=== PATIENT | female | born 1970 | race Caucasian/White ===

== ENCOUNTER → 2017-10-31 | Outpatient (CLI) | payer BC ==
[~2017-10-31] MED LIST: ASPI-789 PO; AZTH250C PO; BUDE6HFA IH; CALC-656 PO; CFR250T PO; ESTR0.5T PO; ESTR1TAB24 PO; HYDR1TAB PO; KETO-22 PO; LORA10TA7 PO; METF1000 PO; MTF500T PO; NS.65NA45; OMG1KC PO; OSLT75CRX PO; SPIR25TA3 PO; SULF-222 PO; TRAM50TA2 PO; VITA1CAP59 PO; albuterol inhaler IH; albuterol nebulizer IH
--- NOTE | 2017-11-01 09:49 | Diagnostic Imaging Report ---
Bilateral screening mammogram 2D views with tomosynthesis The current study was also evaluated with a Computer Aided Detection (CAD) system. Indication: Screening. No current complaints stated on the questionnaire. COMPARISON: 09/05/2016. Findings: The breasts are composed of scattered fibroglandular densities. Circumscribed nodule in the upper-outer aspect of the right breast is again noted without change likely an intramammary lymph node. Occasional benign-appearing calcifications are seen. Allowing for technique and positional differences, no suspicious change is seen. IMPRESSION: No significant change. ACR BI-RADS Category 2: Benign findings. Result letter will be mailed to the patient. Note: At least 10% of breast cancer is not imaged by mammography. Dictated by: Dictated on workstation # [id number]
== END ==
LOC: RAD 10:05
PROVIDERS: ATTEND Nurse Practitioner Community Health
DX: Z12.31 Encounter for screening mammogram for malignant neoplasm of breast (principal)
CPT/HCPCS: 77067

== ENCOUNTER 2018-04-21 00:25 | Emergency (ER) | payer BC ==
[~2018-04-21] VITALS: Ht 160 cm; Wt 90.7 kg
[~2018-04-21 00:25] MED LIST changes: -METF1000 PO; +METF10002 PO
[2018-04-21 00:30] VITALS: BP 141/89
[2018-04-21] MEDS ORDERED: CYCL10TA9 PO (00:50)
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
--- NOTE | 2018-04-21 06:46 | Diagnostic Imaging Report ---
INDICATION: Injury to the spine with pain in the T10-T12 region. TECHNIQUE: 3 views of the thoracic spine. COMPARISON: Chest x-ray from 02/01/2012 FINDINGS: The vertebral body heights are generally preserved. No acute fracture is seen. There are mild multilevel degenerative changes throughout the thoracic spine, most pronounced at T9-T10 and T10-T11. Cholecystectomy clips are noted. IMPRESSION: Mild degenerative changes in the thoracic spine with no acute osseous abnormality seen. Dictated by: Dictated on workstation # [id number]
== END 2018-04-21 01:38 | disposition home or self-care (01) ==
LOC: EDUNIT# 00:25 → ER 00:27
DX: M54.6 Pain in thoracic spine (principal); J45.909 Unspecified asthma, uncomplicated; I10 Essential (primary) hypertension; E11.9 Type 2 diabetes mellitus without complications; Z87.19 Personal history of other diseases of the digestive system; Z87.448 Personal history of other diseases of urinary system; Z88.0 Allergy status to penicillin; Z88.1 Allergy status to other antibiotic agents; Z88.5 Allergy status to narcotic agent; Z88.8 Allergy status to other drugs, medicaments and biological substances; Z79.84 Long term (current) use of oral hypoglycemic drugs; Z90.710 Acquired absence of both cervix and uterus; Z87.59 Personal history of other complications of pregnancy, childbirth and the puerperium; Y04.8XXA Assault by other bodily force, initial encounter
CPT/HCPCS: 72070; 99281

== ENCOUNTER 2018-05-26 20:32 | Emergency (ER) | payer BC ==
[~2018-05-26] VITALS: Ht 160 cm; Wt 90.7 kg
[~2018-05-26 20:32] MED LIST changes: +CYCL10TA9 PO; +SPIR25TA5 PO
--- OUTSIDE RECORDS SUMMARY | 2018-05-26 20:37 | XMS REPORT ---
Author Author SANDRO KITCHEN Organization [facility] Address [address] [place] [address] Care Team Providers Care Structural Rigger Name Role Phone SANDRO KITCHEN Unavailable PROBLEMS Type Condition ICD9-CM Code FSA02-SM Code Onset Dates Condition Status SNOMED Code Problem Low back pain M54.5 Active 397463414 Problem Other chronic pain G89.29 Active 14616793 Problem Memory loss R41.3 Active 28392150 Problem Dysmetabolic syndrome E88.81 Active 739263018 Problem Mild intermittent asthma without complication J45.20 Active 155113931 Problem Hypertension I10 Active 67842743 Problem Diabetes mellitus type 2, uncomplicated E11.9 Active 60639310 ALLERGIES No Information ENCOUNTERS Encounter Location Date Diagnosis [place] [id number] [place] [address] 80238- 0915 Jan, Diabetes mellitus type 2, uncomplicated E11.9 [place] [id number] [place] [address] 91578- 8876 Jan, Diabetes mellitus type 2, uncomplicated E11.9 [facility] [id number] [place] [address] 17837- 2338 Jan, [facility] [id number] [place] [address] 80509- 6811 Jan, Cognitive complaints R41.9 [facility] [id number] [place] [address] 01949- 8207 Dec, Symptomatic abdominal apron E65 [place] [id number] [place] [address] 98833- 1765 Dec, Cognitive complaints R41.9 [facility] [id number] [place] [address] 99828- 8082 Nov, Symptomatic abdominal apron E65 and Diabetes mellitus type 2 , uncomplicated E11.9 [facility] [id number] [place] [address] 42633- 7671 Oct, Symptomatic abdominal apron E65 [facility] [id number] [place] [address] 28083- 3691 Oct, Breast screening Z12.39 [facility] [address] 68281- 2401 Sep, Other chronic pain G89.29 ; Pain in left shoulder M25.512 and Dysfunction of both eustachian tubes H69.83 [place] [address] 38581- 3820 Sep, Cognitive complaints R41.9 [place] [address] 59767- 2258 Aug, [facility] [address] 68534- 2374 Aug, Muscle strain of left shoulder, initial encounter S46.912A [facility] [id number] [place] [address] 07312- 6588 Jul, [place] [address] 59869- 9051 Jul, Memory loss R41.3 and Paternal family history of dementia Z82.0 [facility] [id number] [place] [address] 09177- 6407 Apr, Diabetes mellitus type 2, uncomplicated E11.9 and Hypertension I10 [facility] [id number] [place] [address] 00357- 5925 Feb, Symptomatic abdominal apron E65 [facility] [id number] [place] [address] 13956 -6341 Nov, Muscle strain of left shoulder, initial encounter S46.912A [facility] [address] 21737- 3498 Oct, Encounter for immunization Z23 [facility] [address] [place] [address] 93591 -8675 Oct, Plantar fasciitis M72.2 [facility] [id number] [place] [address] 31257- 6426 Sep, [facility] [id number] [place] [address] 55472- 2998 Aug, Breast screening Z12.39 and Acute costochondritis M94.0 [facility] [id number] [place] [address] 65041- 9360 Aug, [facility] [id number] [place] [address] 90852- 5862 Aug, [facility] [id number] [place] [address] 31545- 6860 Jul, Symptomatic abdominal apron E65 and 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 [facility] [id number] [place] [address] 96182- 6128 Apr, [facility] [id number] [place] [address] 92545 -6489 Apr, Right acute otitis media H66.91 [facility] [id number] [place] [address] [id number] Jan, Dental caries K02.9 [facility] [id number] [place] [address] 99538- 7499 Dec, Dysmetabolic syndrome E88.81 [facility] [id number] [place] [address] 18193- 8706 Dec, [facility] [id number] [place] [address] 89298- 6462 Nov, Dysmetabolic syndrome E88.81 [facility] [id number] [place] [address] 81281- 8770 Oct, [facility] [id number] [address] Oct, Dental examination Z01.20 [facility] [address] [id number], [place] [address]- 6755 Sep, [facility] [address] [address]- 8202 Sep, Low back pain M54.5 and Sciatica, unspecified side M54.30 [facility] [address] [id number], [place] [address]- 6852 Feb, [facility] [address] [id number] [place] [address] 72366- 7898 Feb, [facility] [address] [facility] [id number], [place] [address]- 4401 Dec, [facility] [address] [place] [address] 31628- 0018 Dec, [facility] [address], [place] [address]- 0461 Nov, [facility] [address] [address]- 6532 Nov, [facility] [address] [address]- 6714 Nov, [facility] [address] [address]- 1280 Aug, [facility] [address] [facility] [id number], [place] [address]- 5896 Aug, [facility] [address] [address]- 7518 Aug, [facility] [address] [facility] [id number], [place] [address]- 6748 Aug, [facility] [address] 6472 Aug, [facility] [place] [facility] [address] [id number] [place] [address]- 2599 Aug, [facility] [place] [facility] [address] [id number] [place] [address]- 5577 Aug, [facility] [place] [facility] [address] [id number] [place] [address]- 4410 Aug, [facility] [place] [facility] [address] [id number] [place] [address]- 9037 Jul, [facility] [place] [facility] [address] [id number] [place] 8771 Jul, [facility] [place] [facility] [address] [id number] [place] [address]- 7328 Jun, [facility] [place] [facility] [address] [id number] [place] [address]- 3203 Jun, [facility] [place] [facility] [address] [id number] [place] [address]- 7483 Jun, [facility] [place] [facility] [address] [id number] [place] [address]- 8503 Jun, [facility] [place] [facility] [address] [id number] [place] [address]- 3773 May, [facility] [place] [facility] [address] [id number] [place] [address]- 2044 May, [facility] [place] [facility] [address] [id number], [place] [address]- 6633 Apr, [facility] [place] [facility] [address] [id number] [place] [address]- 0400 Apr, [facility] [place] [facility] [address] [id number] [place] [address]- 7440 Apr, [facility] [place] [facility] [address] [id number] [place] [address]- 3241 Apr, [facility] [place] [facility] [address] [id number] [place] [address]- 2783 Apr, [facility] [place] [facility] [address] [id number] [place] [address]- 8415 Apr, [facility] [place] [facility] [address] [id number] [place] [address]- 2155 March, [facility] [place] [facility] [address] [id number] [place] [address]- 2466 March, [facility] [place] [facility] [address] [id number] [place] [address]- 9589 March, [facility] [place] [facility] [address] [id number] [place] [address]- 2497 March, [facility] [place] [facility] [address] [id number] [place] [address]- 0984 March, [facility] [place] [facility] [address] [id number] [place] [address]- 8043 March, [facility] [place] [facility] [address] [id number] [place] [address]- 2287 Dec, [facility] [place] [facility] [address] [id number] [place] [address]- 1846 Dec, [facility] [place] [facility] [address] [id number] [place] [address]- 3273 Dec, [facility] [place] [facility] [address] [id number] [place] [address]- 1822 Dec, [facility] [place] [facility] [address] [id number] [place] [address]- 5946 Nov, [facility] [place] [facility] [address] [id number] [place] [address]- 0212 Nov, [facility] [place] [facility] [address] [id number] [place] [address]- 6346 Aug, [facility] [place] [facility] [address] [id number] [place] [address]- 2679 Jun, [facility] [place] [facility] [address] [id number] [place] [address]- 8039 Jun, [facility] [address] [id number] [place] [address]- 8410 May, [facility] [place] [facility] [address] [id number] [place] [address]- 7274 May, [facility] [address] [id number] [place] [address]- 6710 May, [facility] [address] [id number] [place] [address]- 7973 May, [facility] [place] [facility] [address] [id number] [place] [address]- 4520 Apr, [facility] [address] [id number] [place] [address]- 3927 Apr, [facility] [address] [id number] [place] [address]- 2085 March, [facility] [address] [id number] [place] [address]- 4092 Jan, [facility] [address] [id number] [place] [address]- 1357 Dec, [facility] [address] [id number] [place] [address]- 3534 Dec, [facility] [address] [id number] [place] [address]- 8757 Nov, [facility] [place] [facility] [address] [id number] [place] [address]- 8874 Nov, [facility] [place] [facility] [address] [id number] [place] [address]- 3049 Oct, [facility] [place] [facility] [address] [id number] [place] [address]- 1045 Oct, [facility] [place] [facility] [address] [id number] [place] [address]- 4862 17 Oct, 2012 [facility] [place] [facility] [address] [id number] [place] 4166 17 Oct, 2012 [facility] [place] [facility] [address] [id number] [place] [address]- 9626 Oct, [facility] [place] [facility] [address] [id number] [place] [address]- 7806 Oct, [facility] [place] [facility] [address] [id number] [place] [address]- 3403 Oct, [facility] [place] [facility] [address] [id number] [place] 5557 Oct, [facility] [place] [facility] [address] [id number] [place] [address]- 9098 Aug, [facility] [place] [facility] [address] [id number] [place] [address]- 2732 Aug, [facility] [place] [facility] [address] [id number] [place] [address]- 8907 Aug, [facility] [place] [facility] [address] [id number] [place] [address]- 4095 Aug, [facility] [place] [facility] [address] [id number] [place] [address]- 4048 Jul, [facility] [place] [facility] [address] [id number], [place] [address]- 2994 Jul, [facility] [place] [facility] [address] [id number], [place] [address]- 3818 Apr, [facility] [place] [facility] [address] [id number] [place] [address]- 8781 Apr, [facility] [place] [facility] [address] [id number] [place] [address]- 0138 Apr, [facility] [place] [facility] [address] [id number] [place] [address]- 6760 March, [facility] [place] [facility] [address] [id number] [place] [address]- 7366 17 Mar, 2012 [facility] [address] [id number] [place] [address]- 8066 March, [facility] [address] [id number] [place] [address]- 9296 23 Feb, 2012 [facility] [address] [id number] [place] [address]- 3056 Feb, [facility] [address] [id number] [place] [address]- 2916 16 Feb, 2012 [facility] [address] [id number] [place] [address]- 5498 Feb, [facility] [address] [id number] [place] [address]- 1300 29 Jan, 2012 [facility] [address] [id number] [place] [address]- 1422 Jan, [facility] [address] [id number] [place] [address]- 1009 Jan, [facility] [address] [id number] [place] [address]- 9135 17 Jan, 2012 [facility] [address] [id number] [place] [address]- 3724 Jan, [facility] [address] [id number] [place] [address]- 3916 Jan, [facility] [address] [id number] [place] [address]- 0016 Jan, [facility] [place] [facility] [address] [id number] [place] [address]- 3346 Dec, [facility] [place] [facility] [address] [id number] [place] [address]- 2546 Dec, [facility] [address] [id number] [place] [address]- 9706 Dec, [facility] [id number], [place] [address]- 2546 Dec, [facility] [address], [place] [address]- 2546 Nov, [facility] [address], [place] [address]- 2546 Nov, [facility] [address], [place] [address]- 2546 Oct, [facility] [address], [place] [address]- 2546 Oct, [facility] [address], [place] [address]- 2546 Oct, [facility] [address], [place] [address] 2546 Feb, [facility] [address], [place] [address]- 2546 Dec, [facility] [address], [place] [address]- 9036 Dec, [facility] [id number], [place] [address]- 3596 Jun, IMMUNIZATIONS No Known Immunizations SOCIAL HISTORY Never Assessed REASON FOR VISIT Memory impairment. PLAN OF CARE Activity Details Follow Up prn Reason: VITAL SIGNS MEDICATIONS Unknown Medications RESULTS No Results PROCEDURES No Known procedures INSTRUCTIONS MEDICATIONS ADMINISTERED No Known Medications MEDICAL (GENERAL) HISTORY Type Description Date Medical History hypertension Medical History pre-diabetic Medical History heart murmur Medical History asthma Medical History diverticulitis Surgical History x 2 1997/2001 Surgical History cystectomy Surgical History hysterectomy 2007 Surgical History cholecystectomy 2007 Surgical History right hand carpal tunnel Surgical History sinus surgery Surgical History colonoscopy 2016 Hospitalization History surgeries Hospitalization History diverticulitis 2016
--- OUTSIDE RECORDS SUMMARY | 2018-05-26 20:37 | XMS REPORT ---
Author Author SANDRO KITCHEN Organization [facility] Address [address] [place] [address] Care Team Providers Care Drier Name Role Phone SANDRO KITCHEN Unavailable PROBLEMS Type Condition ICD9-CM Code TNX31-CP Code Onset Dates Condition Status SNOMED Code Problem Low back pain M54.5 Active 724079870 Problem Other chronic pain G89.29 Active 08310532 Problem Memory loss R41.3 Active 66807636 Problem Dysmetabolic syndrome E88.81 Active 924426631 Problem Mild intermittent asthma without complication J45.20 Active 701313543 Problem Hypertension I10 Active 75643069 Problem Diabetes mellitus type 2, uncomplicated E11.9 Active 99090101 ALLERGIES No Information ENCOUNTERS Encounter Location Date Diagnosis [place] [id number] [place] [address] 61569- 8162 May, [facility] [address] 7[address]- 8254 Jan, Diabetes mellitus type 2, uncomplicated E11.9 [facility] [id number] [place] [address] 24362- 6208 Jan, Diabetes mellitus type 2, uncomplicated E11.9 [facility] [id number] [place] [address] 89141- 0684 Jan, [facility] [id number] [place] [address] 99814- 9344 Jan, Cognitive complaints R41.9 [facility] [id number] [place] [address] 35682- 5013 Dec, Symptomatic abdominal apron E65 [facility] [id number] [place] [address] 99128- 6053 Dec, Cognitive complaints R41.9 [place] [id number] [place] [address] 18637- 0689 Nov, Symptomatic abdominal apron E65 and Diabetes mellitus type 2 , uncomplicated E11.9 [place] [id number] [place] [address] 47610- 2291 Oct, Symptomatic abdominal apron E65 [place] [id number] [place] [address] 29805- 2620 Oct, Breast screening Z12.39 [place] [address] 95392- 5873 Sep, Other chronic pain G89.29 ; Pain in left shoulder M25.512 and Dysfunction of both eustachian tubes H69.83 [place] [id number] [place] [address] 78659- 6812 Sep, Cognitive complaints R41.9 [place] [address] 02001- 2856 Aug, [place] [id number] [place] [address] 61826- 5936 Aug, Muscle strain of left shoulder, initial encounter S46.912A [place] [id number] [place] [address] 71217- 0525 Jul, [place] [id number] [place] [address] 04492- 3082 Jul, Memory loss R41.3 and Paternal family history of dementia Z82.0 [place] [id number] [place] [address] 06544- 1804 Apr, Diabetes mellitus type 2, uncomplicated E11.9 and Hypertension I10 [place] [id number] [place] [address] 09020- 7791 Feb, Symptomatic abdominal apron E65 [facility] [id number] [place] [address] 29480 -2417 Nov, Muscle strain of left shoulder, initial encounter S46.912A [facility] [id number] [place] [address] 26081- 1144 Oct, Encounter for immunization Z23 [facility] [id number] [place] [address] 79413 -3762 Oct, Plantar fasciitis M72.2 [facility] [id number] [place] [address] 43525- 6207 Sep, [facility] [id number] [place] [address] 00446- 5405 Aug, Breast screening Z12.39 and Acute costochondritis M94.0 [facility] [id number] [place] [address] 35577- 0302 Aug, [facility] [id number] [place] [address] 58591- 1852 Aug, [facility] [address] 58284- 5322 Jul, Symptomatic abdominal apron E65 and 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 [facility] [id number] [place] [address] 77233- 7451 Apr, [facility] [id number] [place] [address] 08799 -9863 Apr, Right acute otitis media H66.91 [facility] [id number] [place] [address] [id number] Jan, Dental caries K02.9 [facility] [id number] [place] [address] 55170- 6832 Dec, Dysmetabolic syndrome E88.81 [facility] [id number] [place] [address] 45270- 9922 Dec, [facility] [id number] [place] [address] 68568- 3985 Nov, Dysmetabolic syndrome E88.81 [facility] [address] [address]- 0842 Oct, [facility] [address] [id number] Oct, Dental examination Z01.20 [facility] [address] [address]- 8779 Sep, [facility] [id number] [place] [address] 21111- 6587 Sep, Low back pain M54.5 and Sciatica, unspecified side M54.30 [facility] [id number] [place] [address] 25600- 6248 Feb, [facility] [id number] [place] [address] 15199- 9328 Feb, [facility] [id number] [place] [address] 01271- 1155 Dec, [facility] [address] [address]- 2540 Dec, [facility] [id number] [place] [address] 01089- 7447 Nov, [facility] [address] [address]- 8549 Nov, [facility] [address], [place] [address]- 9527 Nov, [facility] [address] [address]- 9433 Aug, [facility] [id number] [place] [address] 375403- 3528 Aug, [facility] [address] [address]- 0573 Aug, [facility] [address] [address]- 1778 Aug, [facility] [place] [facility] [address] [id number] [place] [address]- 0710 Aug, [facility] [place] [facility] [address] [id number] [place] [address]- 5107 Aug, [facility] [place] [facility] [address] [id number] [place] 6544 Aug, [facility] [place] [facility] [address] [id number] [place] [address]- 0312 Aug, [facility] [place] [facility] [address] [id number] [place] [address]- 8262 Jul, [facility] [place] [facility] [address] [id number] [place] [address]- 6577 Jul, [facility] [place] [facility] [address] [id number] [place] [address]- 6759 Jun, [facility] [place] [facility] [address] [id number] [place] [address]- 2556 Jun, [facility] [place] [facility] [address] [id number] [place] [address]- 5753 Jun, [facility] [place] [facility] [address] [id number] [place] [address]- 6749 Jun, [facility] [place] [facility] [address] [id number] [place] [address]- 5467 May, [facility] [place] [facility] [address] [id number], [place] [address]- 6040 May, [facility] [place] [facility] [address] [id number] [place] [address]- 9748 Apr, [facility] [place] [facility] [address] [id number] [place] [address]- 4113 Apr, [facility] [place] [facility] [address] [id number] [place] [address]- 4018 Apr, [facility] [place] [facility] [address] [id number], [place] [address]- 4618 Apr, [facility] [place] [facility] [address] [id number] [place] [address]- 0979 Apr, [facility] [place] [facility] [address] [id number] [place] [address]- 7386 Apr, [facility] [place] [facility] [address] [id number] [place] [address]- 2391 March, [facility] [place] [facility] [address] [id number] [place] [address]- 9070 March, [facility] [place] [facility] [address] [id number] [place] [address]- 8305 March, [facility] [place] [facility] [address] [id number] [place] [address]- 0353 March, [facility] [place] [facility] [address] [facility] [id number] [place] [address]- 3104 March, [facility] [place] [facility] [address] [id number] [place] [address]- 0919 March, [facility] [place] [facility] [address] [id number] [place] [address]- 7509 Dec, [facility] [place] [facility] [address] [id number] [place] [address]- 8908 Dec, [facility] [place] [facility] [address] [id number] [place] [address]- 4014 Dec, [facility] [place] [facility] [address] [id number] [place] [address]- 0928 Dec, [facility] [place] [facility] [address] [id number] [place] [address]- 7655 Nov, [facility] [place] [facility] [address] [id number] [place] [address]- 5506 Nov, [facility] [place] [facility] [address] [id number] [place] [address]- 7357 Aug, [facility] [place] [facility] [address] [id number] [place] [address]- 0806 Jun, [facility] [address] [id number] [place] [address]- 4615 Jun, [facility] [place] [facility] [address] [id number] [place] [address]- 7466 May, [facility] [address] [id number] [place] [address]- 7881 May, [facility] [address] [id number] [place] [address]- 0530 May, [facility] [address] [id number] [place] [address]- 2217 May, [facility] [address] [id number] [place] [address]- 0840 Apr, [facility] [address] [id number] [place] [address]- 0403 Apr, [facility] [address] [id number] [place] [address]- 7085 March, [facility] [address] [id number] [place] [address]- 0716 Jan, [facility] [address] [id number] [place] [address]- 7707 Dec, [facility] [address] [id number] [place] [address]- 6740 Dec, [facility] [place] [facility] [address] [id number] [place] [address]- 2289 Nov, [facility] [place] [facility] [address] [id number] [place] [address]- 2119 Nov, [facility] [place] [facility] [address] [id number] [place] [address]- 6410 Oct, [facility] [address] [id number], [place] [address]- 7517 Oct, [facility] [place] [facility] [address] [id number] [place] [address]- 3616 Oct, [facility] [place] [facility] [address] [id number] [place] [address]- 0966 Oct, [facility] [place] [facility] [address] [id number] [place] [address]- 4966 Oct, [facility] [place] [facility] [address] [id number] [place] [address]- 0773 Oct, [facility] [place] [facility] [address] [id number] [place] 5674 Oct, [facility] [place] [facility] [address] [id number] [place] [address]- 7080 Oct, [facility] [place] [facility] [address] [id number] [place] [address]- 3818 Aug, [facility] [place] [facility] [address] [id number] [place] [address]- 4720 Aug, [facility] [place] [facility] [address] [id number] [place] [address]- 2736 Aug, [facility] [place] [facility] [address] [id number] [place] [address]- 2031 Aug, [facility] [place] [facility] [address] [id number], [place] [address]- 5088 Jul, [facility] [place] [facility] [address] [id number], [place] [address]- 9989 Jul, [facility] [place] [facility] [address] [id number] [place] [address]- 1309 Apr, [facility] [place] [facility] [address] [id number] [place] [address]- 2541 Apr, [facility] [place] [facility] [address] [id number] [place] [address]- 6710 Apr, [facility] [place] [facility] [address] [id number] [place] [address] 2546 18 Mar, 2012 [facility] [address] [id number] [place] [address]- 4916 March, [facility] [address] [id number] [place] [address]- 2546 March, [facility] [address] [id number] [place] [address]- 2696 Feb, [facility] [address] [id number] [place] [address]- 6006 Feb, [facility] [address] [id number] [place] [address]- 3336 16 Feb, 2012 [facility] [address] [id number] [place] [address]- 1986 Feb, [facility] [address] [id number] [place] [address]- 2536 29 Jan, 2012 [facility] [address] [id number] [place] [address]- 9806 Jan, [facility] [address] [id number] [place] [address]- 3196 Jan, [facility] [address] [id number] [place] [address]- 7126 17 Jan, 2012 [facility] [address] [id number] [place] [address]- 2546 Jan, [facility] [address] [id number] [place] [address]- 2546 Jan, [facility] [place] [facility] [address] [id number] [place] [address]- 2546 Jan, [facility] [address] [id number] [place] [address]- 2546 Dec, [facility] [address] [id number] [place] [address]- 7156 Dec, [facility] [id number] [address]- 6429 Dec, [facility] [address], [place] [address]- 8106 Dec, [facility] [address], [place] [address]- 0026 Nov, [facility] [address], [place] [address]- 0091 Nov, [facility] [address], [place] [address]- 3663 Oct, [facility] [address], [place] [address]- 2692 Oct, [facility] [address], [place] [address]- 4141 Oct, [facility] [address], [place] [address]- 6688 Feb, [facility] [address], [place] [address]- 5035 Dec, [facility] [address], [place] [address]- 4920 Dec, [facility] [id number], [place] [address]- 7488 Jun, IMMUNIZATIONS No Known Immunizations SOCIAL HISTORY Never Assessed REASON FOR VISIT f/u PLAN OF CARE Activity Details Follow Up prn Reason: VITAL SIGNS MEDICATIONS Unknown Medications RESULTS No Results PROCEDURES Procedure Date Ordered Result Body Site Psychotherapy, patient &/family, 30 minutes, established patient January 16, 2018 INSTRUCTIONS MEDICATIONS ADMINISTERED No Known Medications MEDICAL (GENERAL) HISTORY Type Description Date Medical History hypertension Medical History pre-diabetic Medical History heart murmur Medical History asthma Medical History diverticulitis Surgical History x 2 Surgical History cystectomy Surgical History hysterectomy 2007 Surgical History cholecystectomy 2007 Surgical History right hand carpal tunnel Surgical History sinus surgery Surgical History colonoscopy 2016 Hospitalization History surgeries Hospitalization History diverticulitis 2016
--- OUTSIDE RECORDS SUMMARY | 2018-05-26 20:37 | XMS REPORT ---
Author Author LANA NOYOLA Organization [facility] Address [address] [place] [address] Care Team Providers Care Retail Route Supervisor Name Role Phone LANA NOYOLA Unavailable PROBLEMS Type Condition ICD9-CM Code QQF18-AR Code Onset Dates Condition Status SNOMED Code Problem Low back pain M54.5 Active 919137546 Problem Other chronic pain G89.29 Active 30083955 Problem Memory loss R41.3 Active 71572025 Problem Dysmetabolic syndrome E88.81 Active 359270299 Problem Mild intermittent asthma without complication J45.20 Active 845086179 Problem Hypertension I10 Active 69771919 Problem Diabetes mellitus type 2, uncomplicated E11.9 Active 03488747 ALLERGIES No Information ENCOUNTERS Encounter Location Date Diagnosis [place] [address] [address] Jan, Diabetes mellitus type 2, uncomplicated E11.9 [facility] [address] [address]- [address] Jan, Diabetes mellitus type 2, uncomplicated E11.9 [facility] [address] [place] [id number] [place] [address]64- 1931 Jan, [facility] [address] [address]- 4159 Jan, Cognitive complaints R41.9 [facility] [address] [place] [id number] [place] [address] 83915- 3561 Dec, Symptomatic abdominal apron E65 [place] [address] [address]- [address]37 Dec, Cognitive complaints R41.9 [facility] [address] [address]- 6388 Nov, Symptomatic abdominal apron E65 and Diabetes mellitus type 2 , uncomplicated E11.9 [facility] [address] [place] [id number] [place] [address] 44457- 3062 Oct, Symptomatic abdominal apron E65 [place] [address] 65009- 0652 Oct, Breast screening Z12.39 [facility] [address] [address]- 7876 Sep, Other chronic pain G89.29 ; Pain in left shoulder M25.512 and Dysfunction of both eustachian tubes H69.83 [place] [address] [address]26- 7312 Sep, Cognitive complaints R41.9 [place] [address] 43219- 4152 Aug, [facility] [address] 03866- 0184 Aug, Muscle strain of left shoulder, initial encounter S46.912A [facility] [address] 34445- 8267 Jul, [place] [address] [address]- 5573 Jul, Memory loss R41.3 and Paternal family history of dementia Z82.0 [facility] [address] 82793- 6625 Apr, Diabetes mellitus type 2, uncomplicated E11.9 and Hypertension I10 [facility] [address] [place] [id number] [place] [address] 91423- 0330 Feb, Symptomatic abdominal apron E65 [facility] [address] [place] [id number] [place] [address] 04791 -1860 Nov, Muscle strain of left shoulder, initial encounter S46.912A [facility] [address] 64852- 3225 Oct, Encounter for immunization Z23 [facility] [address] [place] [address] [id number] [place] [address] 12179 -6937 Oct, Plantar fasciitis M72.2 [facility] [address] [place] [id number] [place] [address] 63895- 9144 Sep, [facility] [address] 30901- 5527 Aug, Breast screening Z12.39 and Acute costochondritis M94.0 [facility] [address] [place] [id number] [place] [address] 24668- 1518 Aug, [facility] [address] 37929- 3514 Aug, [facility] [address] 52146- 3370 Jul, Symptomatic abdominal apron E65 and 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 [facility] [address] [place] [id number] [place] [address] 75119- 1605 Apr, [facility] [address] [place] [id number] [place] [address] 30475 -3240 Apr, Right acute otitis media H66.91 [facility] [address] [place] [id number] [place] [address] [id number] Jan, Dental caries K02.9 [facility] [address] [place] [id number] [place] [address] 66674- 0312 Dec, Dysmetabolic syndrome E88.81 [facility] [address] [place] [id number] [place] [address] 71593- 4961 Dec, [facility] [address] 59952- 4547 Nov, Dysmetabolic syndrome E88.81 [facility] [address] [place] [id number] [place] [address] 90709- 4778 Oct, [facility] [address] [id number] [id number] Oct, Dental examination Z01.20 [facility] [address] [id number] [address]- 6270 Sep, [facility] [address] [facility] [id number] [place] [address]- 1173 Sep, Low back pain M54.5 and Sciatica, unspecified side M54.30 [facility] [address] [id number] [place] [address]- 9645 Feb, [facility] [address] [id number] [place] [address] 17777- 7084 Feb, [facility] [address] [facility] [id number] [place] [address]- 5024 Dec, [facility] [address] [place] [address] 34203- 2984 Dec, [facility] [address]65100[place] [address]- 9831 Nov, [facility] [address]65100[place] [address]- 2835 Nov, [facility] [address] [place] [id number] [address]- 1357 Nov, [facility] [address]65100[place] [address]- 1042 Aug, [facility] [address] [facility] [id number] [place] [address]- 5237 Aug, [facility] [address] [facility] [id number] [place] [address]- 1937 Aug, [facility] [address] [facility] [id number] [place] [address]- 3135 Aug, [facility] [address] [facility] [id number] [place] [address]- 0008 Aug, [facility] [place] [facility] [address] [id number] [place] [address]- 7699 Aug, [facility] [place] [facility] [address] [id number] [place] [address]- 6027 Aug, [facility] [place] [facility] [address] [id number] [place] [address]- 6808 Aug, [facility] [place] [facility] [address] [id number] [place] [address]- 4509 Jul, [facility] [place] [facility] [address] [id number] [place] [address]- 2741 Jul, [facility] [place] [facility] [address] [id number] [place] [address]- 1944 Jun, [facility] [place] [facility] [address] [id number] [place] [address]- 7996 Jun, [facility] [place] [facility] [address] [id number] [place] [address]- 0799 Jun, [facility] [place] [facility] [address] [id number] [place] [address]- 0191 Jun, [facility] [place] [facility] [address] [id number] [place] [address]- 8215 May, [facility] [place] [facility] [address] [id number] [place] [address]- 2875 May, [facility] [place] [facility] [address] [id number] [place] [address]- 2771 Apr, [facility] [place] [facility] [address] [id number] [place] [address]- 7482 Apr, [facility] [place] [facility] [address] [id number] [place] [address]- 0422 Apr, [facility] [place] [facility] [address] [id number] [place] [address]- 6641 Apr, [facility] [place] [facility] [address] [id number] [address]- 9841 Apr, [facility] [place] [facility] [address] [id number] [place] 5719 Apr, [facility] [place] [facility] [address] [id number] [place] [address]- 7703 March, [facility] [place] [facility] [address] [id number] [place] [address]- 3017 March, [facility] [place] [facility] [address] [id number] [place] [address]- 2791 March, [facility] [place] [facility] [address] [id number] [place] [address]- 6218 March, [facility] [place] [facility] [address] [id number] [place] [address] March, [facility] [place] [facility] [address] [facility] [id number] [place] [address]- 4484 March, [facility] [place] [facility] [address] [id number] [place] [address]- 9308 Dec, [facility] [place] [facility] [address] [id number] [place] [address]- 8886 Dec, [facility] [place] [facility] [address] [id number] [place] [address]- 6062 Dec, [facility] [place] [facility] [address] [id number] [place] [address]- 7426 Dec, [facility] [place] [facility] [address] [id number] [place] [address]- 0369 Nov, [facility] [place] [facility] [address] [id number] [place] [address]- 2608 Nov, [facility] [place] [facility] [address] [id number] [place] [address]- 2174 Aug, [facility] [place] [facility] [address] [facility] [id number] [place] [address]- 8122 Jun, [facility] [place] [facility] [address] [id number] [place] [address]- 4994 Jun, [facility] [address] [id number] [place] [address]- 7263 May, [facility] [place] [facility] [address] [id number] [place] [address]- 5309 May, [facility] [place] [facility] [address] [id number] [place] [address]- 0385 May, [facility] [place] [facility] [address] [id number] [place] [address]- 7587 May, [facility] [place] [facility] [address] [id number] [place] [address]- 4289 Apr, [facility] [place] [facility] [address] [id number] [place] [address]- 0227 Apr, [facility] [place] [facility] [address] [id number] [place] [address]- 7782 March, [facility] [address] [id number] [place] [address]- 3866 Jan, [facility] [address] [id number] [place] [address]- 3228 Dec, [facility] [place] [facility] [address] [id number] [place] [address]- 5792 Dec, [facility] [place] [facility] [address] [id number] [place] [address]- 3403 Nov, [facility] [place] [facility] [address] [id number] [place] [address]- 7247 Nov, [facility] [place] [facility] [address] [id number] [place] [address]- 0559 Oct, [facility] [place] [facility] [address] [id number] [place] [address]- 6833 Oct, [facility] [place] [facility] [address] [id number] [place] [address]- 1416 17 Oct, 2012 [facility] [place] [facility] [address] [id number] [place] [address]- 8954 17 Oct, 2012 [facility] [place] [facility] [address] [id number] [place] [address]- 6736 Oct, [facility] [place] [facility] [address] [facility] [id number] [place] [address]- 1586 Oct, [facility] [place] [facility] [address] [id number] [place] [address]- 1636 Oct, [facility] [place] [facility] [address] [id number] [place] [address]- 7401 Oct, [facility] [place] [facility] [address] [id number] [place] [address]23 Aug, [facility] [place] [facility] [address] [id number] [place] [address]- 7943 Aug, [facility] [place] [facility] [address] [id number] [place] [address]- 8663 Aug, [facility] [place] [facility] [address] [id number] [place] [address]- 9128 Aug, [facility] [place] [facility] [address] [id number] [place] [address]- 3402 Jul, [facility] [place] [facility] [address] [id number] [place] [address]- 1499 Jul, [facility] [place] [facility] [address] [id number] [place] [address]- 1390 Apr, [facility] [place] [facility] [address] [id number] [place] [address]- 5223 Apr, [facility] [place] [facility] [address] [facility] [id number] [place] [address]- 2371 Apr, [facility] [place] [facility] [address] [facility] [id number] [place] [address]- 0622 March, [facility] [place] [facility] [address] [id number] [place] [address]- 2436 17 Mar, 2012 [facility] [address] [id number] [place] [address]- 2894 15 Mar, 2012 [facility] [address] [id number] [place] [address]- 5646 23 Feb, 2012 [facility] [address] [id number] [place] [address]- 4596 20 Feb, 2012 [facility] [address] [id number] [place] [address]- 6061 16 Feb, 2012 [facility] [address] [id number] [place] [address]- 3687 Feb, [facility] [address] [id number] [place] [address]- 5088 29 Jan, 2012 [facility] [address] [id number] [place] [address]- 1441 27 Jan, 2012 [facility] [address] [id number] [place] [address]- 7180 17 Jan, 2012 [facility] [address] [id number] [place] [address]- 3773 17 Jan, 2012 [facility] [address] [id number] [place] [address]- 2575 Jan, [facility] [address] [id number] [place] [address]- 8476 Jan, [facility] [address] [id number] [place] [address] 2546 Jan, [facility] [address] [id number] [place] [address]- 1056 Dec, [facility] [address] [id number] [place] [address]- 2546 Dec, [facility] [address] [id number] [place] [address] 2546 Dec, [facility] [address] [id number] [address]- 3662 Dec, [facility] [address] [address]- 9116 Nov, [facility] [address] [address]- 0676 Nov, [facility] [address]65[address] [address]- 5377 Oct, [facility] [address] [address]- 7853 Oct, [facility] [address] [address]- 0246 Oct, [facility] [address] [address]- 2645 Feb, [facility] [address] [address]- 1266 Dec, [facility] [address] [address]- 4155 Dec, [facility] [address] [id number] [address]- 6484 Jun, IMMUNIZATIONS No Known Immunizations SOCIAL HISTORY Never Assessed REASON FOR VISIT medication request PLAN OF CARE VITAL SIGNS MEDICATIONS Medication Instructions Dosage Frequency Start Date End Date Duration Status Naproxen 500 mg Orally every 12 hrs 1 tablet as needed 12h Active RESULTS No Results PROCEDURES No Known procedures [...] 2016 Hospitalization History surgeries Hospitalization History diverticulitis 2015
--- OUTSIDE RECORDS SUMMARY | 2018-05-26 20:38 | XMS REPORT ---
Author Author LANA NOYOLA Organization [facility] Address [address] [place] [address] Care Team Providers Care Real Estate Valuer Name Role Phone LANA NOYOLA Unavailable PROBLEMS Type Condition ICD9-CM Code [id number] Code Onset Dates Condition Status SNOMED Code Problem Low back pain M54.5 Active 578543296 Problem Other chronic pain G89.29 Active 33409211 Problem Memory loss R41.3 Active 89025750 Problem Dysmetabolic syndrome E88.81 Active 380034604 Problem Mild intermittent asthma without complication J45.20 Active 466737808 Problem Hypertension I10 Active 67881767 Problem Diabetes mellitus type 2, uncomplicated E11.9 Active 31710062 ALLERGIES No Information ENCOUNTERS Encounter Location Date Diagnosis [place] [id number] [address] Jan, Diabetes mellitus type 2, uncomplicated E11.9 [facility] [address] [address]- [address] Jan, Diabetes mellitus type 2, uncomplicated E11.9 [facility] [address] [place] [address] [id number] [place] [address] 69454- 9573 Jan, [facility] [address] [address]- [address] Jan, Cognitive complaints R41.9 [facility] [id number] [place] [address] 92748- 2314 Dec, Symptomatic abdominal apron E65 [place] [address] [address]- [address] Dec, Cognitive complaints R41.9 [facility] [address] [address]- [address] Nov, Symptomatic abdominal apron E65 and Diabetes mellitus type 2 , uncomplicated E11.9 [facility] [id number] [place] [address] 69154- 8215 Oct, Symptomatic abdominal apron E65 [place] [address] [address]- 5735 Oct, Breast screening Z12.39 [facility] [address] [address]- 4740 Sep, Other chronic pain G89.29 ; Pain in left shoulder M25.512 and Dysfunction of both eustachian tubes H69.83 [place] [address] 02760- 4343 Sep, Cognitive complaints R41.9 [place] [address] [address]- 77[address] Aug, [facility] [address] 39642- 2461 Aug, Muscle strain of left shoulder, initial encounter S46.912A [facility] [address] 45872- 9356 Jul, [place] [address] [address]- 9495 Jul, Memory loss R41.3 and Paternal family history of dementia Z82.0 [facility] [address] [address]- 2162 Apr, Diabetes mellitus type 2, uncomplicated E11.9 and Hypertension I10 [facility] [id number] [place] [address] 41662- 7634 Feb, Symptomatic abdominal apron E65 [facility] [id number] [place] [address]110 -4408 Nov, Muscle strain of left shoulder, initial encounter S46.912A [facility] [address] 0[address]- 2863 Oct, Encounter for immunization Z23 [facility] [id number] [place] [address] 45516 -2239 Oct, Plantar fasciitis M72.2 [facility] [id number] [place] [address] 85405- 4570 Sep, [facility] [address] 36117- 6842 Aug, Breast screening Z12.39 and Acute costochondritis M94.0 [facility] [address] [address] [id number] [place] [address] 09522- 9697 Aug, [facility] [address] 87681- 2545 Aug, [facility] [address] 7[address]30- 9901 Jul, Symptomatic abdominal apron E65 and 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 [facility] [id number] [place] [address] 46959- 8197 Apr, [facility] [id number] [place] [address] 92499 -7566 Apr, Right acute otitis media H66.91 [facility] [address] [place] [id number] [place] [address] [id number] Jan, Dental caries K02.9 [facility] [address] [id number] [place] [address] 39573- 1466 Dec, Dysmetabolic syndrome E88.81 [facility] [address] [id number] [place] [address] 12839- 0069 Dec, [facility] [address] 73930- 0853 Nov, Dysmetabolic syndrome E88.81 [facility] [address] [address] [id number] [place] [address] 55072- 5035 Oct, [facility] [address] [id number] [id number] Oct, Dental examination Z01.20 [facility] [address] [id number], [place] [address] 46[address] Sep, [facility] [address] [facility] [id number][place] [address]- 1627 Sep, Low back pain M54.5 and Sciatica, unspecified side M54.30 [facility] [address] [id number], [place] [address]- 6836 Feb, [facility] [id number] [place] [address] 59979- 3019 Feb, [facility] [address] [facility] [id number], [place] [address]- 5550 Dec, [facility] [id number] [place] [address] 02998- 8745 Dec, [facility] [address] [address]- 0415 Nov, [facility] [address] [address] Nov, [facility] [address] [id number] [address]- 8006 Nov, [facility] [address] [address]- 3577 Aug, [facility] [address] [facility] [id number], [place] [address]- 8878 Aug, [facility] [address] [facility] [id number], [place] [address]- 7372 Aug, [facility] [address] [facility] [id number], [place] [address]- 6093 Aug, [facility] [address] [facility] [id number], [place] [address]- 6608 Aug, [facility] [place] [facility] [address] [id number] [place] [address]- 3921 Aug, [facility] [place] [facility] [address] [id number] [place] [address]- 9526 Aug, [facility] [place] [facility] [address] [id number] [place] [address]- 3590 Aug, [facility] [place] [facility] [address] [id number] [place] [address]- 5244 Jul, [facility] [place] [facility] [address] [id number] [place] [address]- 5360 Jul, [facility] [place] [facility] [address] [id number] [place] [address]- 6416 Jun, [facility] [place] [facility] [address] [id number] [place] [address]- 9398 Jun, [facility] [place] [facility] [address] [id number] [place] [address]- 1136 Jun, [facility] [place] [facility] [address] [id number] [place] [address]- 2659 Jun, [facility] [place] [facility] [address] [id number] [place] [address]- 6280 May, [facility] [place] [facility] [address] [id number] [place] [address]- 0262 May, [facility] [place] [facility] [address] [id number] [place] [address]- 9533 Apr, [facility] [place] [facility] [address] [id number] [place] [address]- 2833 Apr, [facility] [place] [facility] [address] [id number] [place] [address]- 6510 Apr, [facility] [place] [facility] [address] [id number] [place] [address]- 6783 Apr, [facility] [place] [facility] [address] [id number], [place] [address]- 1632 Apr, [facility] [place] [facility] [address] [id number] [place] [address]245 Apr, [facility] [place] [facility] [address] [id number] [place] [address]- 1214 March, [facility] [place] [facility] [address] [id number] [place] [address]- 7390 March, [facility] [place] [facility] [address] [id number] [place] [address]- 3747 March, [facility] [place] [facility] [address] [id number] [place] [address]- 1313 March, [facility] [place] [facility] [address] [id number] [place] 4871 March, [facility] [place] [facility] [address] [facility] [id number] [place] [address]- 6955 March, [facility] [place] [facility] [address] [id number] [place] [address]- 1343 Dec, [facility] [place] [facility] [address] [id number] [place] [address]- 2220 Dec, [facility] [place] [facility] [address] [id number] [place] [address]- 5004 Dec, [facility] [place] [facility] [address] [id number] [place] [address]- 7507 Dec, [facility] [place] [facility] [address] [id number] [place] [address]- 5370 Nov, [facility] [place] [facility] [address] [id number] [place] [address]- 0065 Nov, [facility] [place] [facility] [address] [id number] [place] [address]- 9519 Aug, [facility] [place] [facility] [address] [facility] [id number] [place] [address]- 8762 Jun, [facility] [place] [facility] [address] [id number] [place] [address]- 2038 Jun, [facility] [address] [id number] [place] [address]- 2740 May, [facility] [place] [facility] [address] [id number] [place] [address]- 7590 May, [facility] [place] [facility] [address] [id number] [place] [address]- 7263 May, [facility] [place] [facility] [address] [id number] [place] [address]- 9013 May, [facility] [place] [facility] [address] [id number] [place] [address]- 3011 Apr, [facility] [place] [facility] [address] [id number] [place] [address]- 6046 Apr, [facility] [place] [facility] [address] [id number] [place] [address]- 3155 March, [facility] [address] [id number] [place] [address]- 3227 Jan, [facility] [address] [id number] [place] [address]- 7178 Dec, [facility] [place] [facility] [address] [id number] [place] [address]- 7619 Dec, [facility] [place] [facility] [address] [id number] [place] [address]- 4914 Nov, [facility] [place] [facility] [address] [id number] [place] [address]- 4311 Nov, [facility] [place] [facility] [address] [id number] [place] [address]- 7827 Oct, [facility] [place] [facility] [address] [id number] [place] [address]- 7722 Oct, [facility] [place] [facility] [address] [id number], [place] [address]- 5196 17 Oct, 2012 [facility] [place] [facility] [address] [id number] [place] [address]- 1951 17 Oct, 2012 [facility] [place] [facility] [address] [id number] [place] [address]- 5316 Oct, [facility] [place] [facility] [address] [facility] [id number] [place] [address]- 1896 Oct, [facility] [place] [facility] [address] [id number] [place] [address]- 0641 Oct, [facility] [place] [facility] [address] [id number] [place] [address]- 1081 Oct, [facility] [place] [facility] [address] [id number] [place] 6644 Aug, [facility] [place] [facility] [address] [id number] [place] [address]- 3490 Aug, [facility] [place] [facility] [address] [id number] [place] [address]- 5298 Aug, [facility] [place] [facility] [address] [id number] [place] [address]- 4063 Aug, [facility] [place] [facility] [address] [id number] [place] [address]- 0222 Jul, [facility] [place] [facility] [address] [id number], [place] [address]- 2357 Jul, [facility] [place] [facility] [address] [id number], [place] [address]- 6261 Apr, [facility] [place] [facility] [address] [id number] [place] [address]- 9417 Apr, [facility] [place] [facility] [address] [facility] [id number], [place] [address]- 4496 Apr, [facility] [place] [facility] [address] [facility] [id number] [place] [address]- 5353 March, [facility] [place] [facility] [address] [id number] [place] [address]- 4276 17 Mar, 2012 [facility] [address] [id number] [place] [address]- 0039 15 Mar, 2012 [facility] [address] [id number] [place] [address]- 6806 23 Feb, 2012 [facility] [address] [id number] [place] [address]- 4416 20 Feb, 2012 [facility] [address] [id number] [place] [address]- 4312 16 Feb, 2012 [facility] [address] [id number] [place] [address]- 8451 Feb, [facility] [address] [id number] [place] [address]- 4319 29 Jan, 2012 [facility] [address] [id number] [place] [address]- 6471 27 Jan, 2012 [facility] [address] [id number] [place] [address]- 1346 17 Jan, 2012 [facility] [address] [id number] [place] [address]- 8668 17 Jan, 2012 [facility] [address] [id number] [place] [address]- 2460 Jan, [facility] [address] [id number] [place] [address]- 3006 Jan, [facility] [address] [id number] [place] [address] 2546 Jan, [facility] [address] [id number] [place] [address]- 7876 Dec, [facility] [address] [id number] [place] [address]- 2546 Dec, [facility] [address] [id number] [place] [address] 2546 Dec, [facility] [address] [id number], [place] [address]- 9509 Dec, [facility] [address], [place] [address]- 7146 Nov, [facility] [address], [place] [address]- 6046 Nov, [facility] [address], [place] [address]- 3974 Oct, [facility] [address], [place] [address]- 8080 Oct, [facility] [address], [place] [address]- 3936 Oct, [facility] [address], [place] [address]- 0555 Feb, [facility] [address], [place] [address]- 6073 Dec, [facility] [address], [place] [address]- 5802 Dec, [facility] [address] [id number], [place] [address]- 3714 Jun, IMMUNIZATIONS No Known Immunizations SOCIAL HISTORY Never Assessed REASON FOR VISIT Medication refill request PLAN OF CARE VITAL SIGNS MEDICATIONS Medication Instructions Dosage Frequency Start Date End Date Duration Status Spironolactone 25MG Orally twice a day TAKE ONE TABLET BY MOUTH TWICE DAILY 12h Feb, 30 days Active Metformin HCl 1000 MG Orally Once a day 1 tablet with a meal 24h Active RESULTS No Results PROCEDURES No Known [...] Surgical History sinus surgery Surgical History colonoscopy 2015 Hospitalization History surgeries Hospitalization History diverticulitis 2016
--- OUTSIDE RECORDS SUMMARY | 2018-05-26 20:38 | XMS REPORT ---
Author Author LANA NOYOLA [facility] e[employer] Address Unknown Phone Unavailable Care Team Providers Care Film Developer Name Role Phone LANA NOYOLA CP Unavailable Allergies No Known Allergies Problems Problem Type Condition Code Onset Dates Condition Status Problem Issue of repeat prescriptions V68.1 Active Problem Disturbance of skin sensation 782.0 Active Problem Nonallopathic lesion of lumbar region, not elsewhere classified 739.3 Active Problem Lumbago 724.2 Active Problem Cough 786.2 Active Problem Asthma, unspecified, unspecified status 493.90 Active Problem Screening examination for pulmonary tuberculosis V74.1 Active Problem Dysmetabolic Syndrome X 277.7 Active Problem STATE HEP A (ADULT) DX V05.3 Active Problem DTAP TEST V06.1 Active Problem Other ganglion and cyst of synovium, tendon, and bursa 727.49 Active Problem Mastodynia 611.71 Active Problem Routine gynecological examination V72.31 Active Medications No Known Medications Results No Known Results Summary Purpose Diaferon[employer]Works Submission
--- OUTSIDE RECORDS SUMMARY | 2018-05-26 20:38 | XMS REPORT ---
Author Author LANA NOYOLA Organization [facility] Address [address] [place] [address] Care Team Providers Care Outpatient Physical Therapist Assistant Name Role Phone LANA NOYOLA Unavailable PROBLEMS Type Condition ICD9-CM Code [id number] Code Onset Dates Condition Status SNOMED Code Problem Low back pain M54.5 Active 305458008 Problem Other chronic pain G89.29 Active 57788373 Problem Memory loss R41.3 Active 95585948 Problem Dysmetabolic syndrome E88.81 Active 088649852 Problem Mild intermittent asthma without complication J45.20 Active 130593458 Problem Hypertension I10 Active 54015420 Problem Diabetes mellitus type 2, uncomplicated E11.9 Active 23385779 ALLERGIES No Information ENCOUNTERS Encounter Location Date Diagnosis [place] [id number] [address] Jan, Diabetes mellitus type 2, uncomplicated E11.9 [facility] [address] [address]- [address] Jan, Diabetes mellitus type 2, uncomplicated E11.9 [facility] [address] [place] [id number] [place] [address]43- 5012 Jan, [facility] [address] [address]- 67[address] Jan, Cognitive complaints R41.9 [facility] [address] [place] [place] [id number] [place] [address] 34806- 7923 Dec, Symptomatic abdominal apron E65 [place] [address] [address]- [address] Dec, Cognitive complaints R41.9 [facility] [address] 18[address]- 1291 Nov, Symptomatic abdominal apron E65 and Diabetes mellitus type 2 , uncomplicated E11.9 [facility] [address] [place] [id number] [place] [address] 71614- 9992 Oct, Symptomatic abdominal apron E65 [place] [address] [address]- 8714 Oct, Breast screening Z12.39 [facility] [address] 8[address]59- 7791 Sep, Other chronic pain G89.29 ; Pain in left shoulder M25.512 and Dysfunction of both eustachian tubes H69.83 [place] [address] 03943- 4904 Sep, Cognitive complaints R41.9 [place] [address] 39410- 6210 Aug, [facility] [address] [address]- 4148 Aug, Muscle strain of left shoulder, initial encounter S46.912A [facility] [address] [address]604- 8267 Jul, [place] [address] 29086- 2925 Jul, Memory loss R41.3 and Paternal family history of dementia Z82.0 [facility] [address] 97277- 7189 Apr, Diabetes mellitus type 2, uncomplicated E11.9 and Hypertension I10 [facility] [address] [place] [id number] [place] [address] 67384- 2356 Feb, Symptomatic abdominal apron E65 [facility] [address] [id number] [place] [address]35 -5996 Nov, Muscle strain of left shoulder, initial encounter S46.912A [facility] [address] 02918- 1082 Oct, Encounter for immunization Z23 [facility] [address] [place] [id number] [place] [address] 36054 -1571 Oct, Plantar fasciitis M72.2 [facility] [address] [place] [id number] [place] [address] 20844- 5894 Sep, [facility] [address] 04982- 7940 Aug, Breast screening Z12.39 and Acute costochondritis M94.0 [facility] [address] [place] [id number] [place] [address] 89261- 6964 Aug, [facility] [address] 74190- 1759 Aug, [facility] [address] 73580- 5458 Jul, Symptomatic abdominal apron E65 and 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 [facility] [address] [place] [id number] [place] [address] 74971- 6512 Apr, [facility] [address] [place] [id number] [place] [address] 82770 -0485 Apr, Right acute otitis media H66.91 [facility] [address] [place] [id number] [place] [id number] Jan, Dental caries K02.9 [facility] [address] [place] [id number] [place] [address] 01658- 1236 Dec, Dysmetabolic syndrome E88.81 [facility] [address] [place] [id number] [place] [address] 41726- 6681 Dec, [facility] [address] 30389- 6467 Nov, Dysmetabolic syndrome E88.81 [facility] [address] [place] [id number] [place] [address] 14739- 9370 Oct, [facility] [address] [id number] [place] [id number] Oct, Dental examination Z01.20 [facility] [address] [id number] [place] [address]- 3126 Sep, [facility] [address] [facility] [id number] [place] [address]- 8864 Sep, Low back pain M54.5 and Sciatica, unspecified side M54.30 [facility] [address] [id number] [address]- 8676 Feb, [facility] [address] [id number] [place] [address] 01875- 2697 Feb, [facility] [address] [facility] [id number] [place] [address]- 0779 Dec, [facility] [id number] [place] [address] 08960- 3572 Dec, [facility] [address]65[address] [address]- 2514 Nov, [facility] [address]65[address] [address]- 3271 Nov, [facility] [address] [place] [id number] [address]- 3719 Nov, [facility] [address] [address]- 4839 Aug, [facility] [address] [facility] [id number] [place] [address]- 4516 Aug, [facility] [address] [facility] [id number] [place] [address]- 3604 Aug, [facility] [address] [facility] [id number] [place] [address]- 5497 Aug, [facility] [address] [facility] [id number] [place] [address]- 2531 Aug, [facility] [place] [facility] [address] [id number] [place] [address]- 8422 Aug, [facility] [place] [facility] [address] [id number] [place] [address]- 9297 Aug, [facility] [place] [facility] [address] [id number] [place] [address]- 0636 Aug, [facility] [place] [facility] [address] [id number] [place] [address]- 4971 Jul, [facility] [place] [facility] [address] [id number] [place] [address]- 5357 Jul, [facility] [place] [facility] [address] [id number] [place] [address]- 8473 Jun, [facility] [place] [facility] [address] [id number] [place] [address]- 4366 Jun, [facility] [place] [facility] [address] [id number] [place] [address]- 0477 Jun, [facility] [place] [facility] [address] [id number] [place] [address]- 7792 Jun, [facility] [place] [facility] [address] [id number] [place] [address]- 5506 May, [facility] [place] [facility] [address] [id number] [place] [address]- 4540 May, [facility] [place] [facility] [address] [id number] [place] [address]- 6743 Apr, [facility] [place] [facility] [address] [id number] [place] [address]- 7352 Apr, [facility] [place] [facility] [address] [id number] [place] [address]- 6199 Apr, [facility] [place] [facility] [address] [id number] [place] [address]- 2603 Apr, [facility] [place] [facility] [address] [id number] [place] [address]- 4786 Apr, [facility] [place] [facility] [address] [id number] [place] 8775 Apr, [facility] [place] [facility] [address] [id number] [place] [address]- 3634 March, [facility] [place] [facility] [address] [id number] [place] [address]- 7962 March, [facility] [place] [facility] [address] [id number] [place] [address]- 5586 March, [facility] [place] [facility] [address] [id number] [place] [address]- 8307 March, [facility] [place] [facility] [address] [id number] [place] [address]472 March, [facility] [place] [facility] [address] [facility] [id number] [place] [address]- 0725 March, [facility] [place] [facility] [address] [id number] [place] [address]- 9126 Dec, [facility] [place] [facility] [address] [id number] [place] [address]- 2837 Dec, [facility] [place] [facility] [address] [id number] [place] [address]- 4151 Dec, [facility] [place] [facility] [address] [id number] [place] [address]- 6547 Dec, [facility] [place] [facility] [address] [id number] [place] [address]- 4816 Nov, [facility] [place] [facility] [address] [id number] [place] [address]- 8442 Nov, [facility] [place] [facility] [address] [id number] [place] [address]- 8806 Aug, [facility] [place] [facility] [address] [facility] [id number] [place] [address]- 4855 Jun, [facility] [place] [facility] [address] [id number] [place] [address]- 5927 Jun, [facility] [address] [id number] [place] [address]- 5358 May, [facility] [place] [facility] [address] [id number] [place] [address]- 9280 May, [facility] [place] [facility] [address] [id number] [place] [address]- 7127 May, [facility] [place] [facility] [address] [id number] [place] [address]- 6844 May, [facility] [place] [facility] [address] [id number] [place] [address]- 4733 Apr, [facility] [place] [facility] [address] [id number] [place] [address]- 9612 Apr, [facility] [place] [facility] [address] [id number] [place] [address]- 9078 March, [facility] [address] [id number] [place] [address]- 2991 Jan, [facility] [address] [id number] [place] [address]- 7747 Dec, [facility] [place] [facility] [address] [id number] [place] [address]- 0866 Dec, [facility] [place] [facility] [address] [id number] [place] [address]- 3804 Nov, [facility] [place] [facility] [address] [id number] [place] [address]- 3182 Nov, [facility] [place] [facility] [address] [id number] [place] [address]- 8274 Oct, [facility] [place] [facility] [address] [id number] [place] [address]- 3205 Oct, [facility] [place] [facility] [address] [id number] [place] [address]- 3066 17 Oct, 2012 [facility] [place] [facility] [address] [id number] [place] [address]- 4210 17 Oct, 2012 [facility] [place] [facility] [address] [id number] [place] [address]- 7376 Oct, [facility] [place] [facility] [address] [facility] [id number] [place] [address]- 8556 Oct, [facility] [place] [facility] [address] [id number] [place] [address]- 0422 Oct, [facility] [place] [facility] [address] [id number] [place] [address]- 5280 Oct, [facility] [place] [facility] [address] [id number] [place] 3129 Aug, [facility] [place] [facility] [address] [id number] [place] [address]- 9166 Aug, [facility] [place] [facility] [address] [id number] [place] [address]- 1354 Aug, [facility] [place] [facility] [address] [id number] [place] [address]- 8264 Aug, [facility] [place] [facility] [address] [id number] [place] [address]- 5730 Jul, [facility] [place] [facility] [address] [id number] [place] [address]- 6580 Jul, [facility] [place] [facility] [address] [id number] [place] [address]- 9116 Apr, [facility] [place] [facility] [address] [id number] [place] [address]- 5208 Apr, [facility] [place] [facility] [address] [facility] [id number] [place] [address]- 6949 Apr, [facility] [place] [facility] [address] [facility] [id number] [place] [address]- 5109 March, [facility] [place] [facility] [address] [id number] [place] [address]- 0666 17 Mar, 2012 [facility] [address] [id number] [place] [address]- 7565 15 Mar, 2012 [facility] [address] [id number] [place] [address]- 7726 23 Feb, 2012 [facility] [address] [id number] [place] [address]- 6956 20 Feb, 2012 [facility] [address] [id number] [place] [address]- 1446 16 Feb, 2012 [facility] [address] [id number] [place] [address]- 4453 Feb, [facility] [address] [id number] [place] [address]- 2121 29 Jan, 2012 [facility] [address] [id number] [place] [address]- 9061 27 Jan, 2012 [facility] [address] [id number] [place] [address]- 2231 17 Jan, 2012 [facility] [address] [id number] [place] [address]- 3211 17 Jan, 2012 [facility] [address] [id number] [place] [address]- 7863 Jan, [facility] [address] [id number] [place] [address]- 0586 Jan, [facility] [address] [id number] [place] [address] 2546 Jan, [facility] [address] [id number] [place] [address]- 5476 Dec, [facility] [address] [id number] [place] [address]- 2546 Dec, [facility] [address] [id number] [place] [address] 2546 Dec, [facility] [address] [place] [id number] [address]- 5253 Dec, [facility] [address] [address]- 4456 Nov, [facility] [address] [address]- 4686 Nov, [facility] [address] [address]- 5233 Oct, [facility] [address]65[address] [address]- 9924 Oct, [facility] [id number] [place] [address] 84785- 9626 Oct, [facility] [address]65[address] [address]- 5828 Feb, [facility] [address]65[address] [address]- 5533 Dec, [facility] [address]65[address] [address]- 5243 Dec, [facility] [address] [id number] [address]- 4341 Jun, IMMUNIZATIONS No Known Immunizations SOCIAL HISTORY Never Assessed REASON FOR VISIT Refill request PLAN OF CARE VITAL SIGNS MEDICATIONS Medication Instructions Dosage Frequency Start Date End Date Duration Status Metformin HCl 1000 MG Orally Once a [...]
--- OUTSIDE RECORDS SUMMARY | 2018-05-26 20:38 | XMS REPORT ---
Author Author LANA NOYOLA Organization [employer] Address Unknown Phone Unavailable Care Team Providers Care Last Scourer Name Role Phone LANA NOYOLA CP Unavailable Allergies No Known Allergies Problems Problem Type Condition Code Onset Dates Condition Status Problem Low back pain M54.5 Active Problem Mild intermittent asthma without complication J45.20 Active Problem Dysmetabolic syndrome E88.81 Active Medications No Known Medications Results No Known Results Summary Purpose [employer] Submission
--- OUTSIDE RECORDS SUMMARY | 2018-05-26 20:38 | XMS REPORT ---
Author Author PATRICIA LEMUS Organization [facility] Address [address] [place] [address] Care Team Providers Care Lot Worker Name Role Phone PATRICIA LEMUS Unavailable PROBLEMS Type Condition ICD9-CM Code [id number] Code Onset Dates Condition Status SNOMED Code Problem Hypertension I10 Active 08410659 Problem Diabetes mellitus type 2, uncomplicated E11.9 Active 14050279 Problem Mild intermittent asthma without complication J45.20 Active 647249571 Problem Low back pain M54.5 Active 334215590 Problem Dysmetabolic syndrome E88.81 Active 756885385 ALLERGIES Substance Reaction Event Type Date Status Penicillin V Potassium Unknown Drug Allergy Nov, Active Morphine Sulfate Unknown Drug Allergy Nov, Active Demerol Unknown Drug Allergy Nov, Active Codeine Sulfate Unknown Drug Allergy Nov, Active Cipro Unknown Drug Allergy Nov, Active SOCIAL HISTORY No smoking Hx information available PLAN OF CARE Activity Details Follow Up prn Reason: VITAL SIGNS Height 64 in 2016-11-16 Weight 217.4 lbs 2016-11-16 Temperature 97.7 degrees Fahrenheit 2016-11-16 Heart Rate 78 bpm 2016-11-16 Respiratory Rate 20 2016-11-16 BMI 37.31 kg/m2 2016-11-16 Blood pressure systolic 122 mmHg 2016-11-16 Blood pressure diastolic 82 mmHg 2016-11-16 MEDICATIONS Medication Instructions Dosage Frequency Start Date End Date Duration Status Fish Oil 1000 MG Orally Once a day 1 capsule 24h Active Estradiol 1 1 tablet 24h Active Naproxen 500 MG Orally every 12 hrs 1 tablet as needed 12h Nov, Nov, 15 days Active Cyclobenzaprine HCl 10 MG Orally Three times a day as needed 1 tablet Nov, Nov, 5 days Active Metformin HCl 500 MG Orally Once a day 1 tablet with a meal 24h Active Spironolactone 25 1 tablet 12h Active RESULTS No Results PROCEDURES Procedure Date Ordered Related Diagnosis Body Site Office Visit, Est Pt., Level 3 Nov 16, 2016 IMMUNIZATIONS No Known Immunizations
--- OUTSIDE RECORDS SUMMARY | 2018-05-26 20:38 | XMS REPORT ---
Author Author LACEY CRESPO Organization [facility] Address [address] [place] [address] Care Team Providers Care Basin Tender Name Role Phone LACEY CRESPO Unavailable PROBLEMS Type Condition ICD9-CM Code [id number] Code Onset Dates Condition Status SNOMED Code Problem Diabetes mellitus type 2, uncomplicated E11.9 Active 85987459 Problem Hypertension I10 Active 99504096 Problem Mild intermittent asthma without complication J45.20 Active 352252965 Problem Dysmetabolic syndrome E88.81 Active 495075807 Problem Low back pain M54.5 Active 857177265 ALLERGIES Substance Reaction Event Type Date Status Penicillin V Potassium Unknown Drug Allergy Oct, Active Morphine Sulfate Unknown Drug Allergy Oct, Active Demerol Unknown Drug Allergy Oct, Active Codeine Sulfate Unknown Drug Allergy Oct, Active Cipro Unknown Drug Allergy Oct, Active SOCIAL HISTORY No smoking Hx information available PLAN OF CARE Activity Details Follow Up prn Reason: VITAL SIGNS Height 64 in 2016-10-31 Weight 218.0 lbs 2016-10-31 Temperature 97.6 degrees Fahrenheit 2016-10-31 Heart Rate 76 bpm 2016-10-31 Respiratory Rate 18 2016-10-31 BMI 37.42 kg/m2 2016-10-31 Blood pressure systolic 118 mmHg 2016-10-31 Blood pressure diastolic 80 mmHg 2016-10-31 MEDICATIONS Medication Instructions Dosage Frequency Start Date End Date Duration Status Estradiol 1 1 tablet 24h Active PredniSONE 20 MG Orally Once a day 2 tablet 24h Oct, Oct, 5 days Active Fish Oil 1000 MG Orally Once a day 1 capsule 24h Active Spironolactone 25 1 tablet 12h Active Ibuprofen 800 MG Orally two times per day 1 tablet Oct, Oct, 10 days Active Metformin HCl 500 MG Orally Once a day 1 tablet with a meal 24h Active RESULTS No Results PROCEDURES Procedure Date Ordered Related Diagnosis Body Site Office Visit, Est Pt., Level 3 Oct 31, 2016 IMMUNIZATIONS No Known Immunizations
--- OUTSIDE RECORDS SUMMARY | 2018-05-26 20:38 | XMS REPORT ---
Author Author LANA NOYOLA Organization [facility] Address [address] [place] [address] Care Team Providers Care Postal Sorting Officer Name Role Phone LANA NOYOLA Unavailable PROBLEMS Type Condition ICD9-CM Code YEP67-AJ Code Onset Dates Condition Status SNOMED Code Problem Low back pain M54.5 Active 203843881 Problem Other chronic pain G89.29 Active 69848595 Problem Memory loss R41.3 Active 72589263 Problem Dysmetabolic syndrome E88.81 Active 676053168 Problem Mild intermittent asthma without complication J45.20 Active 373142285 Problem Hypertension I10 Active 46847129 Problem Diabetes mellitus type 2, uncomplicated E11.9 Active [id number] ALLERGIES No Information ENCOUNTERS Encounter Location Date Diagnosis [place] [address] [address] Jan, Diabetes mellitus type 2, uncomplicated E11.9 [facility] [address] [address] Jan, Diabetes mellitus type 2, uncomplicated E11.9 [facility] [address] [place] [id number] [place] [address]- 3550 Jan, [facility] [address] [address]- [address] Jan, Cognitive complaints R41.9 [facility] [address] [place] [id number] [place] [address]307- 6541 Dec, Symptomatic abdominal apron E65 [place] [address] [address] Dec, Cognitive complaints R41.9 [facility] [address] [address] Nov, Symptomatic abdominal apron E65 and Diabetes mellitus type 2 , uncomplicated E11.9 [facility] [id number] [place] [address] 8[address]41- 0566 Oct, Symptomatic abdominal apron E65 [place] [address] [address]- [address] Oct, Breast screening Z12.39 [facility] [address] [address]- [address] Sep, Other chronic pain G89.29 ; Pain in left shoulder M25.512 and Dysfunction of both eustachian tubes H69.83 [place] [address] [address]- [address] Sep, Cognitive complaints R41.9 [place] [address] [address]- [address] Aug, [facility] [address] [address]- 9515 Aug, Muscle strain of left shoulder, initial encounter S46.912A [facility] [address] [address]- [address] Jul, [place] [address] [address]- [address] Jul, Memory loss R41.3 and Paternal family history of dementia Z82.0 [facility] [address] [address]- [address] Apr, Diabetes mellitus type 2, uncomplicated E11.9 and Hypertension I10 [facility] [address] [id number] [place] [address] 26635- 6043 Feb, Symptomatic abdominal apron E65 [facility] [id number] [place] [address] 78283 -0580 Nov, Muscle strain of left shoulder, initial encounter S46.912A [facility] [address] [address]- [address] Oct, Encounter for immunization Z23 [facility] [id number] [place] [address] -[address]98 Oct, Plantar fasciitis M72.2 [facility] [id number] [place] [address] 80067- 1926 Sep, [facility] [address] [address]- 4767 Aug, Breast screening Z12.39 and Acute costochondritis M94.0 [facility] [address] [place] [id number] [place] [address] 93643- 2301 Aug, [facility] [address] [address]- 7127 Aug, [facility] [address] [address]- 1183 Jul, Symptomatic abdominal apron E65 and 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 [facility] [id number] [place] [address] 42897- 0467 Apr, [facility] [id number] [place] [address]26 -6951 Apr, Right acute otitis media H66.91 [facility] [address] [id number] [place] [id number] Jan, Dental caries K02.9 [facility] [address] [place] [id number] [place] [address] 27211- 7168 Dec, Dysmetabolic syndrome E88.81 [facility] [id number] [place] [address] 41991- 3094 Dec, [facility] [address] 8[address]46- 4897 Nov, Dysmetabolic syndrome E88.81 [facility] [id number] [place] [address] 05426- 6433 Oct, [facility] [address] [id number] [id number] Oct, Dental examination Z01.20 [facility] [address] [id number], [place] [address]- 7[address] Sep, [facility] [address] [facility] [id number], [place] [address] Sep, Low back pain M54.5 and Sciatica, unspecified side M54.30 [facility] [address] [id number], [place] [address]- 9758 Feb, [facility] [id number] [place] [address] 04352- 2408 Feb, [facility] [address] [facility] [id number], [place] [address]- 4977 Dec, [facility] [id number] [place] [address] 07335- 2013 Dec, [facility] [address] [address]- 0260 Nov, [facility] [address], [place] [address]- 2857 Nov, [facility] [address] [place] [id number] [address]- 2256 Nov, [facility] [address], [place] [address]- 8619 Aug, [facility] [address] [facility] [id number], [place] [address]- 1762 Aug, [facility] [address] [facility] [id number], [place] [address]- 5354 Aug, [facility] [address] [facility] [id number], [place] [address]- 9466 Aug, [facility] [address] [facility] [id number], [place] [address]- 0194 Aug, [facility] [place] [facility] [address] [id number] [place] [address]- 8714 Aug, [facility] [place] [facility] [address] [id number] [place] [address]- 1289 Aug, [facility] [place] [facility] [address] [id number] [place] [address]- 6298 Aug, [facility] [place] [facility] [address] [id number] [place] [address]- 2485 Jul, [facility] [place] [facility] [address] [id number] [place] [address]- 5552 Jul, [facility] [place] [facility] [address] [id number] [place] [address]- 6377 Jun, [facility] [place] [facility] [address] [id number] [place] [address]- 4974 Jun, [facility] [place] [facility] [address] [id number] [place] [address]- 6449 Jun, [facility] [place] [facility] [address] [id number] [place] [address]- 9846 Jun, [facility] [place] [facility] [address] [id number] [place] [address]- 6138 May, [facility] [place] [facility] [address] [id number] [place] [address]- 2169 May, [facility] [place] [facility] [address] [id number] [place] [address]- 1242 Apr, [facility] [place] [facility] [address] [id number] [place] [address]- 4031 Apr, [facility] [place] [facility] [address] [id number] [place] [address]- 5842 Apr, [facility] [place] [facility] [address] [id number] [place] [address]- 3154 Apr, [facility] [place] [facility] [address] [id number], [place] [address]- 2034 Apr, [facility] [place] [facility] [address] [id number] [place] [address] Apr, [facility] [place] [facility] [address] [id number] [place] [address]- 4084 March, [facility] [place] [facility] [address] [id number] [place] [address]- 3046 March, [facility] [place] [facility] [address] [id number] [place] [address]- 3211 March, [facility] [place] [facility] [address] [id number] [place] [address]- 7048 March, [facility] [place] [facility] [address] [id number] [place] [address] March, [facility] [place] [facility] [address] [facility] [id number] [place] [address]- 8859 March, [facility] [place] [facility] [address] [id number] [place] [address]- 7938 Dec, [facility] [place] [facility] [address] [id number] [place] [address]- 9178 Dec, [facility] [place] [facility] [address] [id number] [place] [address]- 6823 Dec, [facility] [place] [facility] [address] [id number] [place] [address]- 5845 Dec, [facility] [place] [facility] [address] [id number] [place] [address]- 5472 Nov, [facility] [place] [facility] [address] [id number] [place] [address]- 5725 Nov, [facility] [place] [facility] [address] [id number] [place] [address]- 8002 Aug, [facility] [place] [facility] [address] [facility] [id number] [place] [address]- 7892 Jun, [facility] [place] [facility] [address] [id number] [place] [address]- 4916 Jun, [facility] [address] [id number] [place] [address]- 5619 May, [facility] [place] [facility] [address] [id number] [place] [address]- 7868 May, [facility] [place] [facility] [address] [id number] [place] [address]- 1124 May, [facility] [place] [facility] [address] [id number] [place] [address]- 7228 May, [facility] [place] [facility] [address] [id number] [place] [address]- 7830 Apr, [facility] [place] [facility] [address] [id number] [place] [address]- 0400 Apr, [facility] [place] [facility] [address] [id number] [place] [address]- 4111 March, [facility] [address] [id number] [place] [address]- 6701 Jan, [facility] [address] [id number] [place] [address]- 5367 Dec, [facility] [place] [facility] [address] [id number] [place] [address]- 8338 Dec, [facility] [place] [facility] [address] [id number] [place] [address]- 7695 Nov, [facility] [place] [facility] [address] [id number] [place] [address]- 0499 Nov, [facility] [place] [facility] [address] [id number] [place] [address]- 9642 Oct, [facility] [place] [facility] [address] [id number] [place] [address]- 3141 Oct, [facility] [place] [facility] [address] [id number], [place] [address]- 0196 17 Oct, 2012 [facility] [place] [facility] [address] [id number] [place] [address]- 6607 17 Oct, 2012 [facility] [place] [facility] [address] [id number] [place] [address]- 0496 Oct, [facility] [place] [facility] [address] [facility] [id number] [place] [address]- 8296 Oct, [facility] [place] [facility] [address] [id number] [place] [address]- 8951 Oct, [facility] [place] [facility] [address] [id number] [place] [address]- 7938 Oct, [facility] [place] [facility] [address] [id number] [place] 4432 Aug, [facility] [place] [facility] [address] [id number] [place] [address]- 7528 Aug, [facility] [place] [facility] [address] [id number] [place] [address]- 8253 Aug, [facility] [place] [facility] [address] [id number] [place] [address]- 6721 Aug, [facility] [place] [facility] [address] [id number] [place] [address]- 6649 Jul, [facility] [place] [facility] [address] [id number], [place] [address]- 0219 Jul, [facility] [place] [facility] [address] [id number], [place] [address]- 7345 Apr, [facility] [place] [facility] [address] [id number] [place] [address]- 3538 Apr, [facility] [place] [facility] [address] [facility] [id number], [place] [address]- 3234 Apr, [facility] [place] [facility] [address] [facility] [id number] [place] [address]- 7266 March, [facility] [place] [facility] [address] [id number] [place] [address]- 1006 17 Mar, 2012 [facility] [address] [id number] [place] [address]- 4898 15 Mar, 2012 [facility] [address] [id number] [place] [address]- 8846 23 Feb, 2012 [facility] [address] [id number] [place] [address]- 2846 20 Feb, 2012 [facility] [address] [id number] [place] [address]- 3291 16 Feb, 2012 [facility] [address] [id number] [place] [address]- 6176 Feb, [facility] [address] [id number] [place] [address]- 9460 29 Jan, 2012 [facility] [address] [id number] [place] [address]- 5095 27 Jan, 2012 [facility] [address] [id number] [place] [address]- 7875 17 Jan, 2012 [facility] [address] [id number] [place] [address]- 2123 17 Jan, 2012 [facility] [address] [id number] [place] [address]- 1938 Jan, [facility] [address] [id number] [place] [address]- 2676 Jan, [facility] [address] [id number] [place] [address] 2546 Jan, [facility] [address] [id number] [place] [address]- 8616 Dec, [facility] [address] [id number] [place] [address]- 2546 Dec, [facility] [address] [id number] [place] [address] 2546 Dec, [facility] [address] [id number] [address]- 3325 Dec, [facility] [address], [place] [address]- 6736 Nov, [facility] [address], [place] [address]- 4823 Nov, [facility] [address], [place] [address]- 4001 Oct, [facility] [address], [place] [address]- 8418 Oct, [facility] [address], [place] [address]- 4956 Oct, [facility] [address], [place] [address]- 2053 Feb, [facility] [address], [place] [address]- 5395 Dec, [facility] [address] [id number], [place] [address]- 7847 Dec, [facility] [address] [id number] [address]- 2107 Jun, IMMUNIZATIONS No Known Immunizations SOCIAL HISTORY Never Assessed REASON FOR VISIT Mammogram PLAN OF CARE VITAL SIGNS MEDICATIONS Unknown Medications RESULTS No [...]
--- OUTSIDE RECORDS SUMMARY | 2018-05-26 20:38 | XMS REPORT ---
Author Author MARIA ELENA ULRICH Organization [employer] Address Unknown Phone Unavailable Care Team Providers Care Associate Theatre Professor Name Role Phone MARIA ELENA ULRICH CP Unavailable Allergies, Adverse Reactions, Alerts Substance Reaction Event Type Penicillin V Potassium Info Not Available Drug Allergy Morphine Sulfate Info Not Available Drug Allergy Demerol Info Not Available Drug Allergy Codeine Sulfate Info Not Available Drug Allergy Cipro Info Not Available Drug Allergy Problems Problem Type Condition Code Onset Dates Condition Status Problem Low back pain M54.5 Active Problem Mild intermittent asthma without complication J45.20 Active Problem Dysmetabolic syndrome E88.81 Active Assessment Breast screening Z12.39 Active Assessment Acute costochondritis M94.0 Active Medications Medication Code System Code Instructions Start Date End Date Status Dosage Estradiol [facility] [address]-76 1 Once a day 1 tablet Fish Oil [facility] [address]-50 1000 MG Orally Once a day 1 capsule Metformin HCl [facility] [address]-13 500 MG Orally Once a day 1 tablet with a meal Spironolactone [facility] 81272946304 25 2 times a day 1 tablet Procedures Procedure Coding System Code Date Office Visit, Est Pt., Level 3 CPT-4 88359 Aug 30, 2016 Vital Signs Date/Time: Aug 30, 2016 Cardiac Monitoring Heart Rate 74 bpm Weight 220.8 lbs Height 64 in BMI 37.90 Index Blood Pressure Diastolic 78 mmHg Blood Pressure Systolic 126 mmHg Results No Known Results Summary Purpose [employer] Submission
--- OUTSIDE RECORDS SUMMARY | 2018-05-26 20:39 | XMS REPORT ---
Author LANA Ann [facility] [employer] Address Unknown Phone Unavailable Care Team Providers Care Electrolysis Engineer Name Role Phone LANA NOYOLA CP Unavailable Allergies, Adverse Reactions, Alerts Substance Reaction Event Type Penicillin G Potassium Info Not Available Drug Allergy Demerol Info [...] V05.3 Active Problem DTAP TEST V06.1 Active Assessment Low back pain M54.5 Active Problem Other ganglion and cyst of synovium, tendon, and bursa 727.49 Active Problem Mastodynia 611.71 Active Assessment Sciatica, unspecified side M54.30 Active Problem Routine gynecological examination V72.31 Active Medications Medication Code System Code Instructions Start Date End Date Status Dosage Symbicort [facility] [address]-69 160-4.5 mcg/actuation Aug 18, 2014 inhale 2 puffs by inhalation route 2 times per day in the morning and evening Loratadine [facility] [address]-97 10 mg Aug 18, 2014 1 tablet by Oral route 1 time per day Gabapentin [facility] [address]-99 100 MG Orally Three times a day Sep 12, 2015 as directed Xopenex HFA [facility] [address]-33 45 mcg/actuation May 15, 2013 2 puffs by Inhalation route every 4-6 hours PRN shortness of breath Metformin HCl [facility] 14767205284 1,000 TAKE ONE TABLET BY MOUTH TWICE A DAY Spironolactone [facility] 36372624272 25 TAKE TWO TABLETS BY MOUTH DAILY Estradiol [facility] 06484246000 1 TAKE ONE TABLET BY MOUTH DAILY Procedures Procedure Coding System Code Date Office Visit, Est Pt., Level 3 CPT-4 46096 Sep 12, 2015 Vital Signs Date/Time: Sep 12, 2015 Temperature 97.3 F Weight 199.6 lbs Height 64 in BMI 34.26 Index Blood Pressure Diastolic 84 mmHg Blood Pressure Systolic 126 mmHg Cardiac Monitoring Heart Rate 76 bpm Results No Known Results Summary Purpose [employer] Submission
--- OUTSIDE RECORDS SUMMARY | 2018-05-26 20:39 | XMS REPORT ---
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 Name Role Phone SANDRO KITCHEN Unavailable PROBLEMS Type Condition ICD9-CM Code QTN84-OK Code Onset Dates Condition Status SNOMED Code Problem Low back pain M54.5 Active 060646051 Problem Other chronic pain G89.29 Active 95303765 Problem Memory loss R41.3 Active 30703006 Problem Dysmetabolic syndrome E88.81 Active 782431075 Problem Mild intermittent asthma without complication J45.20 Active 176108108 Problem Hypertension I10 Active 29027642 Problem Diabetes mellitus type 2, uncomplicated E11.9 Active 17423263 ALLERGIES No Information ENCOUNTERS Encounter Location Date Diagnosis [place] [id number] [place] [address] 13681- 0579 Jan, Diabetes mellitus type 2, uncomplicated E11.9 [place] [id number] [place] [address] 76724- 1886 Jan, Diabetes mellitus type 2, uncomplicated E11.9 [facility] [id number] [place] [address] 90737- 8520 Jan, [facility] [id number] [place] [address] 75395- 2493 Jan, Cognitive complaints R41.9 [facility] [id number] [place] [address] 01163- 0523 Dec, Symptomatic abdominal apron E65 [place] [id number] [place] [address] 46538- 7782 Dec, Cognitive complaints R41.9 [facility] [id number] [place] [address] 29288- 0235 Nov, Symptomatic abdominal apron E65 and Diabetes mellitus type 2 , uncomplicated E11.9 [facility] [id number] [place] [address] 78756- 3085 Oct, Symptomatic abdominal apron E65 [facility] [id number] [place] [address] 20341- 4995 Oct, Breast screening Z12.39 [facility] [address] 33953- 5094 Sep, Other chronic pain G89.29 ; Pain in left shoulder M25.512 and Dysfunction of both eustachian tubes H69.83 [place] [address] 74229- 2666 Sep, Cognitive complaints R41.9 [place] [address] 94455- 0666 Aug, [facility] [address] 94644- 5547 Aug, Muscle strain of left shoulder, initial encounter S46.912A [facility] [id number] [place] [address] 02842- 9190 Jul, [place] [address] 06877- 7534 Jul, Memory loss R41.3 and Paternal family history of dementia Z82.0 [facility] [id number] [place] [address] 25362- 2758 Apr, Diabetes mellitus type 2, uncomplicated E11.9 and Hypertension I10 [facility] [id number] [place] [address] 37250- 6730 Feb, Symptomatic abdominal apron E65 [facility] [id number] [place] [address] 27229 -8464 Nov, Muscle strain of left shoulder, initial encounter S46.912A [facility] [address] 47615- 2217 Oct, Encounter for immunization Z23 [facility] [address] [place] [address] 60444 -5196 Oct, Plantar fasciitis M72.2 [facility] [id number] [place] [address] 19238- 2386 Sep, [facility] [id number] [place] [address] 70547- 5431 Aug, Breast screening Z12.39 and Acute costochondritis M94.0 [facility] [id number] [place] [address] 58764- 9707 Aug, [facility] [id number] [place] [address] 11448- 9447 Aug, [facility] [id number] [place] [address] 75654- 1388 Jul, Symptomatic abdominal apron E65 and 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 [facility] [id number] [place] [address] 24347- 6759 Apr, [facility] [id number] [place] [address] 98272 -2406 Apr, Right acute otitis media H66.91 [facility] [id number] [place] [address] [id number] Jan, Dental caries K02.9 [facility] [id number] [place] [address] 74105- 3135 Dec, Dysmetabolic syndrome E88.81 [facility] [id number] [place] [address] 29430- 6293 Dec, [facility] [id number] [place] [address] 75585- 2487 Nov, Dysmetabolic syndrome E88.81 [facility] [id number] [place] [address] 53445- 4499 Oct, [facility] [id number] [id number] Oct, Dental examination Z01.20 [facility] [address] [id number], [place] [address]- 6958 Sep, [facility] [address] [address]- 8588 Sep, Low back pain M54.5 and Sciatica, unspecified side M54.30 [facility] [address] [id number] [address]- 5570 Feb, [facility] [id number] [place] [address] 58413- 6653 Feb, [facility] [address] [facility] [id number], [place] [address]- 5925 Dec, [facility] [address] [place] [address] 84181- 3406 Dec, [facility] [address], [place] [address]- 8155 Nov, [facility] [address] [address]- 0282 Nov, [facility] [address] [address]- 6550 Nov, [facility] [address] [address]- 2944 Aug, [facility] [address] [facility] [id number], [place] [address]- 8732 Aug, [facility] [address] [address]- 8739 Aug, [facility] [address] [facility] [id number], [place] [address]- 2362 Aug, [facility] [address] 9853 Aug, [facility] [place] [facility] [address] [id number] [place] [address]- 3637 Aug, [facility] [place] [facility] [address] [id number] [place] [address]- 0819 Aug, [facility] [place] [facility] [address] [id number] [place] [address]- 4917 Aug, [facility] [place] [facility] [address] [id number] [place] [address]- 3701 Jul, [facility] [place] [facility] [address] [id number] [place] 2997 Jul, [facility] [place] [facility] [address] [id number] [place] [address]- 0596 Jun, [facility] [place] [facility] [address] [id number] [place] [address]- 7543 Jun, [facility] [place] [facility] [address] [id number] [place] [address]- 7583 Jun, [facility] [place] [facility] [address] [id number] [place] [address]- 5160 Jun, [facility] [place] [facility] [address] [id number] [place] [address]- 1164 May, [facility] [place] [facility] [address] [id number] [place] [address]- 7492 May, [facility] [place] [facility] [address] [id number], [place] [address]- 2633 Apr, [facility] [place] [facility] [address] [id number] [place] [address]- 8973 Apr, [facility] [place] [facility] [address] [id number] [place] [address]- 4891 Apr, [facility] [place] [facility] [address] [id number] [place] [address]- 3048 Apr, [facility] [place] [facility] [address] [id number] [place] [address]- 6204 Apr, [facility] [place] [facility] [address] [id number] [place] [address]- 3064 Apr, [facility] [place] [facility] [address] [id number] [place] [address]- 6312 March, [facility] [place] [facility] [address] [id number] [place] [address]- 2066 March, [facility] [place] [facility] [address] [id number] [place] [address]- 2084 March, [facility] [place] [facility] [address] [id number] [place] [address]- 1282 March, [facility] [place] [facility] [address] [id number] [place] [address]- 7594 March, [facility] [place] [facility] [address] [id number] [place] [address]- 5003 March, [facility] [place] [facility] [address] [id number] [place] [address]- 9390 Dec, [facility] [place] [facility] [address] [id number] [place] [address]- 1552 Dec, [facility] [place] [facility] [address] [id number] [place] [address]- 3570 Dec, [facility] [place] [facility] [address] [id number] [place] [address]- 7237 Dec, [facility] [place] [facility] [address] [id number] [place] [address]- 9287 Nov, [facility] [place] [facility] [address] [id number] [place] [address]- 6719 Nov, [facility] [place] [facility] [address] [id number] [place] [address]- 4696 Aug, [facility] [place] [facility] [address] [id number] [place] [address]- 4493 Jun, [facility] [place] [facility] [address] [id number] [place] [address]- 5340 Jun, [facility] [address] [id number] [place] [address]- 2127 May, [facility] [place] [facility] [address] [id number] [place] [address]- 8905 May, [facility] [address] [id number] [place] [address]- 3200 May, [facility] [address] [id number] [place] [address]- 2098 May, [facility] [place] [facility] [address] [id number] [place] [address]- 6767 Apr, [facility] [address] [id number] [place] [address]- 0331 Apr, [facility] [address] [id number] [place] [address]- 2214 March, [facility] [address] [id number] [place] [address]- 5773 Jan, [facility] [address] [id number] [place] [address]- 8870 Dec, [facility] [address] [id number] [place] [address]- 2585 Dec, [facility] [address] [id number] [place] [address]- 3581 Nov, [facility] [place] [facility] [address] [id number] [place] [address]- 1405 Nov, [facility] [place] [facility] [address] [id number] [place] [address]- 6570 Oct, [facility] [place] [facility] [address] [id number] [place] [address]- 5836 Oct, [facility] [place] [facility] [address] [id number] [place] [address]- 2006 17 Oct, 2012 [facility] [place] [facility] [address] [id number] [place] 0226 17 Oct, 2012 [facility] [place] [facility] [address] [id number] [place] [address]- 9226 Oct, [facility] [place] [facility] [address] [id number] [place] [address]- 3856 Oct, [facility] [place] [facility] [address] [id number] [place] [address]- 1172 Oct, [facility] [place] [facility] [address] [id number] [place] 6924 Oct, [facility] [place] [facility] [address] [id number] [place] [address]- 8321 Aug, [facility] [place] [facility] [address] [id number] [place] [address]- 9287 Aug, [facility] [place] [facility] [address] [id number] [place] [address]- 7186 Aug, [facility] [place] [facility] [address] [id number] [place] [address]- 6737 Aug, [facility] [place] [facility] [address] [id number] [place] [address]- 2747 Jul, [facility] [place] [facility] [address] [id number], [place] [address]- 0192 Jul, [facility] [place] [facility] [address] [id number], [place] [address]- 1208 Apr, [facility] [place] [facility] [address] [id number] [place] [address]- 0684 Apr, [facility] [place] [facility] [address] [id number] [place] [address]- 4005 Apr, [facility] [place] [facility] [address] [id number] [place] [address]- 5967 March, [facility] [place] [facility] [address] [id number] [place] [address]- 1396 17 Mar, 2012 [facility] [address] [id number] [place] [address]- 7276 March, [facility] [address] [id number] [place] [address]- 3616 23 Feb, 2012 [facility] [address] [id number] [place] [address]- 1166 Feb, [facility] [address] [id number] [place] [address]- 1841 16 Feb, 2012 [facility] [address] [id number] [place] [address]- 6107 Feb, [facility] [address] [id number] [place] [address]- 5868 29 Jan, 2012 [facility] [address] [id number] [place] [address]- 1671 Jan, [facility] [address] [id number] [place] [address]- 1534 Jan, [facility] [address] [id number] [place] [address]- 6900 17 Jan, 2012 [facility] [address] [id number] [place] [address]- 5792 Jan, [facility] [address] [id number] [place] [address]- 0126 Jan, [facility] [address] [id number] [place] [address]- 5846 Jan, [facility] [place] [facility] [address] [id number] [place] [address]- 4666 Dec, [facility] [place] [facility] [address] [id number] [place] [address]- 2546 Dec, [facility] [address] [id number] [place] [address]- 5456 Dec, [facility] [id number] [address]- 2336 Dec, [facility] [address], [place] [address]- 2546 Nov, [facility] [id number], [place] [address] 2546 Nov, [facility] [address], [place] [address]- 5636 Oct, [facility] [address], [place] [address]- 9056 Oct, [facility] [address], [place] [address]- 3706 Oct, [facility] [address], [place] [address]- 1626 Feb, [facility] [address], [place] [address]- 6486 Dec, [facility] [address], [place] [address]- 3324 Dec, [facility] [id number], [place] [address]- 3366 Jun, IMMUNIZATIONS No Known Immunizations SOCIAL HISTORY Never Assessed REASON FOR VISIT BH intake, Memory impairment. PLAN OF CARE Activity Details Follow Up After memory assessment is completed. Reason: VITAL SIGNS MEDICATIONS Medication Instructions Dosage Frequency Start Date End Date Duration Status Naproxen 500 mg Orally every 12 hrs 1 tablet as needed 12h Active Spironolactone 25 mg Orally 2 times a day 1 tablet 12h 5 Oct, 2017 30 days Active Metformin HCl 500 MG Orally Once a day 1 tablet with a meal 24h Active Fish Oil 1000 MG Orally Once a day 1 capsule 24h Active Estradiol 1 1 tablet 24h Active RESULTS No Results PROCEDURES Procedure Date Ordered Result Body Site Psych diagnostic evaluation, established patient Sep 13, 2017 INSTRUCTIONS MEDICATIONS ADMINISTERED No Known Medications MEDICAL (GENERAL) HISTORY Type Description Date Medical History hypertension Medical History pre-diabetic Medical History heart murmur Medical History asthma Medical History diverticulitis Surgical History x 2 1997/2001 Surgical History cystectomy Surgical History hysterectomy 2008 Surgical History cholecystectomy 2007 Surgical History right hand carpal tunnel Surgical History sinus surgery Surgical History colonoscopy 2016 Hospitalization History surgeries Hospitalization History diverticulitis 2016
--- OUTSIDE RECORDS SUMMARY | 2018-05-26 20:39 | XMS REPORT ---
Author Author LANA NOYOLA Organization [facility] Address [address] [place] [address] Care Team Providers Care Item Processor Name Role Phone LANA NOYOLA Unavailable PROBLEMS Type Condition ICD9-CM Code STX67-LC Code Onset Dates Condition Status SNOMED Code Problem Low back pain M54.5 Active 258706015 Problem Other chronic pain G89.29 Active 42910263 Problem Memory loss R41.3 Active 36410517 Problem Dysmetabolic syndrome E88.81 Active 124531163 Problem Mild intermittent asthma without complication J45.20 Active 965279665 Problem Hypertension I10 Active 54375018 Problem Diabetes mellitus type 2, uncomplicated E11.9 Active 15166360 ALLERGIES No Information ENCOUNTERS Encounter Location Date Diagnosis [place] [address] [address] Jan, Diabetes mellitus type 2, uncomplicated E11.9 [facility] [address] [address] Jan, Diabetes mellitus type 2, uncomplicated E11.9 [facility] [address] [place] [id number] [place] [address]- 8865 Jan, [facility] [address] [address]- [address] Jan, Cognitive complaints R41.9 [facility] [address] [place] [id number] [place] [address]- 4897 Dec, Symptomatic abdominal apron E65 [place] [address] [address] Dec, Cognitive complaints R41.9 [facility] [address] [address]- [address] Nov, Symptomatic abdominal apron E65 and Diabetes mellitus type 2 , uncomplicated E11.9 [facility] [address] [place] [id number] [place] [address] 79204- 1226 Oct, Symptomatic abdominal apron E65 [place] [address] [address]- 68[address] Oct, Breast screening Z12.39 [facility] [address] [address]- [address] Sep, Other chronic pain G89.29 ; Pain in left shoulder M25.512 and Dysfunction of both eustachian tubes H69.83 [place] [address] [address]- 1187 Sep, Cognitive complaints R41.9 [place] [address] [address] Aug, [facility] [address] [address]- [address] Aug, Muscle strain of left shoulder, initial encounter S46.912A [facility] [address] [address]- [address] Jul, [place] [address] [address]- [address] Jul, Memory loss R41.3 and Paternal family history of dementia Z82.0 [facility] [address] [address]- 6063 Apr, Diabetes mellitus type 2, uncomplicated E11.9 and Hypertension I10 [facility] [address] [place] [id number] [place] [address]- 0497 Feb, Symptomatic abdominal apron E65 [facility] [id number] [place] [address] -[address]505 Nov, Muscle strain of left shoulder, initial encounter S46.912A [facility] [address] 8[address]- 8697 Oct, Encounter for immunization Z23 [facility] [id number] [place] [address]57 -[address]347 Oct, Plantar fasciitis M72.2 [facility] [address] [place] [id number] [place] [address] 15406- 3103 Sep, [facility] [address] [address]- [address] Aug, Breast screening Z12.39 and Acute costochondritis M94.0 [facility] [address] [place] [id number] [place] [address] 37994- 5286 Aug, [facility] [address] [address]84- 7173 Aug, 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 [address] [place] [id number] [place] [address] 46882- 5613 Apr, [facility] [id number] [place] [address]25 -2834 Apr, Right acute otitis media H66.91 [facility] [address] [place] [id number] [place] [address] [id number] Jan, Dental caries K02.9 [facility] [address] [place] [id number] [place] [address] 52487- 6849 Dec, Dysmetabolic syndrome E88.81 [facility] [address] [place] [id number] [place] [address] 23214- 9400 Dec, [facility] [address] [address]43- 0446 Nov, Dysmetabolic syndrome E88.81 [facility] [address] [place] [id number] [place] [address] 75176- 1428 Oct, [facility] [address] [id number] [id number] Oct, Dental examination Z01.20 [facility] [address] [id number], [place] [address] 8655 Sep, [facility] [address] [facility] [id number], [place] [address]- 8367 Sep, Low back pain M54.5 and Sciatica, unspecified side M54.30 [facility] [address] [id number], [place] [address]- 6642 Feb, [facility] [address] [id number] [place] [address] 52199- 5405 Feb, [facility] [address] [facility] [id number], [place] [address]- 5722 Dec, [facility] [id number] [place] [address] 99392- 1061 Dec, [facility] [address], [place] [address]- 9808 Nov, [facility] [address], [place] [address]- 5991 Nov, [facility] [address] [id number], [place] [address]- 6[address] Nov, [facility] [address], [place] [address]- 3696 Aug, [facility] [address] [facility] [id number], [place] [address]- 0459 Aug, [facility] [address] [facility] [id number], [place] [address]- 1685 Aug, [facility] [address] [facility] [id number], [place] [address]- 0082 Aug, [facility] [address] [facility] [id number], [place] [address]- 9673 Aug, [facility] [place] [facility] [address] [id number] [place] [address]- 8719 Aug, [facility] [place] [facility] [address] [id number] [place] [address]- 3564 Aug, [facility] [place] [facility] [address] [id number] [place] [address]- 6378 Aug, [facility] [place] [facility] [address] [id number] [place] [address]- 5101 Jul, [facility] [place] [facility] [address] [id number] [place] [address]- 1677 Jul, [facility] [place] [facility] [address] [id number] [place] [address]- 6136 Jun, [facility] [place] [facility] [address] [id number] [place] [address]- 7138 Jun, [facility] [place] [facility] [address] [id number] [place] [address]- 2423 Jun, [facility] [place] [facility] [address] [id number] [place] [address]- 7679 Jun, [facility] [place] [facility] [address] [id number] [place] [address]- 2313 May, [facility] [place] [facility] [address] [id number] [place] [address]- 5990 May, [facility] [place] [facility] [address] [id number] [place] [address]- 4054 Apr, [facility] [place] [facility] [address] [id number] [place] [address]- 1480 Apr, [facility] [place] [facility] [address] [id number] [place] [address]- 4098 Apr, [facility] [place] [facility] [address] [id number] [place] [address]- 2333 Apr, [facility] [place] [facility] [address] [id number], [place] [address]- 6566 Apr, [facility] [place] [facility] [address] [id number] [place] 3[address] Apr, [facility] [place] [facility] [address] [id number] [place] [address]- 1923 March, [facility] [place] [facility] [address] [id number] [place] [address]- 2713 March, [facility] [place] [facility] [address] [id number] [place] [address]- 2915 March, [facility] [place] [facility] [address] [id number] [place] [address]- 0107 March, [facility] [place] [facility] [address] [id number] [place] 1624 March, [facility] [place] [facility] [address] [facility] [id number] [place] [address]- 5932 March, [facility] [place] [facility] [address] [id number] [place] [address]- 5036 Dec, [facility] [place] [facility] [address] [id number] [place] [address]- 1618 Dec, [facility] [place] [facility] [address] [id number] [place] [address]- 4659 Dec, [facility] [place] [facility] [address] [id number] [place] [address]- 4330 Dec, [facility] [place] [facility] [address] [id number] [place] [address]- 7178 Nov, [facility] [place] [facility] [address] [id number] [place] [address]- 6009 Nov, [facility] [place] [facility] [address] [id number] [place] [address]- 3752 Aug, [facility] [place] [facility] [address] [facility] [id number] [place] [address]- 5205 Jun, [facility] [place] [facility] [address] [id number] [place] [address]- 5704 Jun, [facility] [address] [id number] [place] [address]- 8644 May, [facility] [place] [facility] [address] [id number] [place] [address]- 3755 May, [facility] [place] [facility] [address] [id number] [place] [address]- 7160 May, [facility] [place] [facility] [address] [id number] [place] [address]- 4174 May, [facility] [place] [facility] [address] [id number] [place] [address]- 8676 Apr, [facility] [place] [facility] [address] [id number] [place] [address]- 9165 Apr, [facility] [place] [facility] [address] [id number] [place] [address]- 2623 March, [facility] [address] [id number] [place] [address]- 6375 Jan, [facility] [address] [id number] [place] [address]- 6176 Dec, [facility] [place] [facility] [address] [id number] [place] [address]- 2849 Dec, [facility] [place] [facility] [address] [id number] [place] [address]- 4200 Nov, [facility] [place] [facility] [address] [id number] [place] [address]- 6457 Nov, [facility] [place] [facility] [address] [id number] [place] [address]- 8666 Oct, [facility] [place] [facility] [address] [id number] [place] [address]- 4848 Oct, [facility] [place] [facility] [address] [id number], [place] [address]- 3756 17 Oct, 2012 [facility] [place] [facility] [address] [id number] [place] [address]- 3417 17 Oct, 2012 [facility] [place] [facility] [address] [id number] [place] [address]- 9726 Oct, [facility] [place] [facility] [address] [facility] [id number] [place] [address]- 8026 Oct, [facility] [place] [facility] [address] [id number] [place] [address]- 8776 Oct, [facility] [place] [facility] [address] [id number] [place] [address]- 1488 Oct, [facility] [place] [facility] [address] [id number] [place] 0743 Aug, [facility] [place] [facility] [address] [id number] [place] [address]- 6494 Aug, [facility] [place] [facility] [address] [id number] [place] [address]- 8366 Aug, [facility] [place] [facility] [address] [id number] [place] [address]- 4883 Aug, [facility] [place] [facility] [address] [id number] [place] [address]- 3581 Jul, [facility] [place] [facility] [address] [id number], [place] [address]- 4491 Jul, [facility] [place] [facility] [address] [id number], [place] [address]- 1506 Apr, [facility] [place] [facility] [address] [id number] [place] [address]- 7840 Apr, [facility] [place] [facility] [address] [facility] [id number], [place] [address]- 0017 Apr, [facility] [place] [facility] [address] [facility] [id number] [place] [address]- 5798 March, [facility] [place] [facility] [address] [id number] [place] [address]- 7806 17 Mar, 2012 [facility] [address] [id number] [place] [address]- 7244 15 Mar, 2012 [facility] [address] [id number] [place] [address]- 0946 23 Feb, 2012 [facility] [address] [id number] [place] [address]- 1906 20 Feb, 2012 [facility] [address] [id number] [place] [address]- 4495 16 Feb, 2012 [facility] [address] [id number] [place] [address]- 5813 Feb, [facility] [address] [id number] [place] [address]- 6157 29 Jan, 2012 [facility] [address] [id number] [place] [address]- 8665 27 Jan, 2012 [facility] [address] [id number] [place] [address]- 8353 17 Jan, 2012 [facility] [address] [id number] [place] [address]- 2293 17 Jan, 2012 [facility] [address] [id number] [place] [address]- 2707 Jan, [facility] [address] [id number] [place] [address]- 1316 Jan, [facility] [address] [id number] [place] [address] 2546 Jan, [facility] [address] [id number] [place] [address]- 0466 Dec, [facility] [address] [id number] [place] [address]- 2546 Dec, [facility] [address] [id number] [place] [address] 2546 Dec, [facility] [address] [id number], [place] [address]- 1669 Dec, [facility] [address], [place] [address]- 5226 Nov, [facility] [address], [place] [address]- 4322 Nov, [facility] [address], [place] [address]- 2442 Oct, [facility] [address], [place] [address]- 0674 Oct, [facility] [address], [place] [address]- 2535 Oct, [facility] [address], [place] [address]- 7743 Feb, [facility] [address], [place] [address]- 1617 Dec, [facility] [address], [place] [address]- 5766 Dec, [facility] [address] [id number], [place] [address]- 6387 Jun, IMMUNIZATIONS No Known Immunizations SOCIAL HISTORY Never Assessed REASON FOR VISIT Medication refill request PLAN OF CARE VITAL SIGNS MEDICATIONS Medication Instructions Dosage Frequency Start Date End Date Duration Status Metformin HCl 1000 MG Orally Once a day 1 tablet with a meal 24h Active Spironolactone 25MG TAKE ONE TABLET BY MOUTH TWICE DAILY Active Estradiol 1 1 tablet 24h Active RESULTS No Results PROCEDURES No [...]
--- OUTSIDE RECORDS SUMMARY | 2018-05-26 20:39 | XMS REPORT ---
Author Author LANA NOYOLA Organization [facility] Address [address] [place] [address] Care Team Providers Care Teamsite Developer Name Role Phone LANA NOYOLA Unavailable PROBLEMS Type Condition ICD9-CM Code [id number] Code Onset Dates Condition Status SNOMED Code Problem Low back pain M54.5 Active 630424570 Problem Other chronic pain G89.29 Active 97793440 Problem Memory loss R41.3 Active 62768160 Problem Dysmetabolic syndrome E88.81 Active 012934318 Problem Mild intermittent asthma without complication J45.20 Active 994407725 Problem Hypertension I10 Active 16885099 Problem Diabetes mellitus type 2, uncomplicated E11.9 Active 71452939 ALLERGIES No Information ENCOUNTERS Encounter Location Date Diagnosis [place] [id number] [address] Jan, Diabetes mellitus type 2, uncomplicated E11.9 [facility] [address] [address]- [address] Jan, Diabetes mellitus type 2, uncomplicated E11.9 [facility] [address] [place] [id number] [place] [address]25- 2978 Jan, [facility] [address] [address]- [address] Jan, Cognitive complaints R41.9 [facility] [address] [place] [id number] [place] [address] 07176- 7970 Dec, Symptomatic abdominal apron E65 [place] [address] [address]- 7660 Dec, Cognitive complaints R41.9 [facility] [address] [address]- 5852 Nov, Symptomatic abdominal apron E65 and Diabetes mellitus type 2 , uncomplicated E11.9 [facility] [address] [place] [id number] [place] [address] 29577- 7072 Oct, Symptomatic abdominal apron E65 [place] [address] 72714- 3265 Oct, Breast screening Z12.39 [facility] [address] [address]- 8778 Sep, Other chronic pain G89.29 ; Pain in left shoulder M25.512 and Dysfunction of both eustachian tubes H69.83 [place] [address] [address]62- 0132 Sep, Cognitive complaints R41.9 [place] [address] 95510- 4996 Aug, [facility] [address] [address]- 7551 Aug, Muscle strain of left shoulder, initial encounter S46.912A [facility] [address] 0[address]- 3735 Jul, [place] [address] 14108- 7885 Jul, Memory loss R41.3 and Paternal family history of dementia Z82.0 [facility] [address] 24254- 6476 Apr, Diabetes mellitus type 2, uncomplicated E11.9 and Hypertension I10 [facility] [address] [place] [id number] [place] [address] 54251- 6897 Feb, Symptomatic abdominal apron E65 [facility] [address] [place] [id number] [place] [address] 61225 -4371 Nov, Muscle strain of left shoulder, initial encounter S46.912A [facility] [address] 64140- 0518 Oct, Encounter for immunization Z23 [facility] [address] [place] [id number] [place] [address] 92339 -8844 Oct, Plantar fasciitis M72.2 [facility] [address] [place] [id number] [place] [address] 20616- 5172 Sep, [facility] [address] 72326- 8169 Aug, Breast screening Z12.39 and Acute costochondritis M94.0 [facility] [address] [place] [id number] [place] [address] 31821- 0409 Aug, [facility] [address] 88965- 5435 Aug, [facility] [address] 24336- 2830 Jul, Symptomatic abdominal apron E65 and 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 [facility] [address] [place] [id number] [place] [address] 31023- 9142 Apr, [facility] [address] [place] [id number] [place] [address] 30225 -5246 Apr, Right acute otitis media H66.91 [facility] [address] [place] [id number] [place] [address] [id number] Jan, Dental caries K02.9 [facility] [address] [place] [id number] [place] [address] 31795- 6800 Dec, Dysmetabolic syndrome E88.81 [facility] [address] [place] [id number] [place] [address] 75837- 0386 Dec, [facility] [address] 16511- 5001 Nov, Dysmetabolic syndrome E88.81 [facility] [address] [place] [id number] [place] [address] 27242- 7238 Oct, [facility] [address] [id number] [place] [id number] Oct, Dental examination Z01.20 [facility] [address] [id number] [place] [address]- 8419 Sep, [facility] [address] [facility] [id number] [place] [address]- 1606 Sep, Low back pain M54.5 and Sciatica, unspecified side M54.30 [facility] [address] [id number] [place] [address]- 6938 Feb, [facility] [id number] [place] [address] 62168- 0211 Feb, [facility] [address] [facility] [id number] [place] [address]- 8552 Dec, [facility] [id number] [place] [address] 00952- 1352 Dec, [facility] [address]00565100[address] [place] [address]- 4591 Nov, [facility] [address]65100[address] [place] [address]- 1832 Nov, [facility] [address] [place] [id number] [address]- 4323 Nov, [facility] [address]00565100[address] [place] [address]- 3611 Aug, [facility] [address] [facility] [id number] [place] [address]- 9156 Aug, [facility] [address] [facility] [id number] [place] [address]- 3753 Aug, [facility] [address] [facility] [id number] [place] [address]- 5360 Aug, [facility] [address] [facility] [id number] [place] [address]- 6595 Aug, [facility] [place] [facility] [address] [id number] [place] [address]- 2784 Aug, [facility] [place] [facility] [address] [id number] [place] [address]- 6495 Aug, [facility] [place] [facility] [address] [id number] [place] [address]- 2879 Aug, [facility] [place] [facility] [address] [id number] [place] [address]- 9096 Jul, [facility] [place] [facility] [address] [id number] [place] [address]- 7322 Jul, [facility] [place] [facility] [address] [id number] [place] [address]- 9698 Jun, [facility] [place] [facility] [address] [id number] [place] [address]- 8669 Jun, [facility] [place] [facility] [address] [id number] [place] [address]- 7515 Jun, [facility] [place] [facility] [address] [id number] [place] [address]- 8106 Jun, [facility] [place] [facility] [address] [id number] [place] [address]- 6407 May, [facility] [place] [facility] [address] [id number] [place] [address]- 7651 May, [facility] [place] [facility] [address] [id number] [place] [address]- 4329 Apr, [facility] [place] [facility] [address] [id number] [place] [address]- 4770 Apr, [facility] [place] [facility] [address] [id number] [place] [address]- 3351 Apr, [facility] [place] [facility] [address] [id number] [place] [address]- 6350 Apr, [facility] [place] [facility] [address] [id number] [place] [address]- 1965 Apr, [facility] [place] [facility] [address] [id number] [place] 9465 Apr, [facility] [place] [facility] [address] [id number] [place] [address]- 0179 March, [facility] [place] [facility] [address] [id number] [place] [address]- 9679 March, [facility] [place] [facility] [address] [id number] [place] [address]- 1461 March, [facility] [place] [facility] [address] [id number] [place] [address]- 3494 March, [facility] [place] [facility] [address] [id number] [place] March, [facility] [place] [facility] [address] [facility] [id number] [place] [address]- 6713 March, [facility] [place] [facility] [address] [id number] [place] [address]- 8638 Dec, [facility] [place] [facility] [address] [id number] [place] [address]- 2201 Dec, [facility] [place] [facility] [address] [id number] [place] [address]- 5434 Dec, [facility] [place] [facility] [address] [id number] [place] [address]- 7776 Dec, [facility] [place] [facility] [address] [id number] [place] [address]- 7113 Nov, [facility] [place] [facility] [address] [id number] [place] [address]- 0017 Nov, [facility] [place] [facility] [address] [id number] [place] [address]- 0802 Aug, [facility] [place] [facility] [address] [facility] [id number] [place] [address]- 5210 Jun, [facility] [place] [facility] [address] [id number] [place] [address]- 2328 Jun, [facility] [address] [id number] [place] [address]- 2271 May, [facility] [place] [facility] [address] [id number] [place] [address]- 5516 May, [facility] [place] [facility] [address] [id number] [place] [address]- 5499 May, [facility] [place] [facility] [address] [id number] [place] [address]- 8106 May, [facility] [place] [facility] [address] [id number] [place] [address]- 8272 Apr, [facility] [place] [facility] [address] [id number] [place] [address]- 9843 Apr, [facility] [place] [facility] [address] [id number] [place] [address]- 3687 March, [facility] [address] [id number] [place] [address]- 6031 Jan, [facility] [address] [id number] [place] [address]- 1666 Dec, [facility] [place] [facility] [address] [id number] [place] [address]- 4240 Dec, [facility] [place] [facility] [address] [id number] [place] [address]- 3096 Nov, [facility] [place] [facility] [address] [id number] [place] [address]- 9331 Nov, [facility] [place] [facility] [address] [id number] [place] [address]- 5815 Oct, [facility] [place] [facility] [address] [id number] [place] [address]- 3542 Oct, [facility] [place] [facility] [address] [id number] [place] [address]- 3386 17 Oct, 2012 [facility] [place] [facility] [address] [id number] [place] [address]- 5526 17 Oct, 2012 [facility] [place] [facility] [address] [id number] [place] [address]- 6416 Oct, [facility] [place] [facility] [address] [facility] [id number] [place] [address]- 0786 Oct, [facility] [place] [facility] [address] [id number] [place] [address]- 6553 Oct, [facility] [place] [facility] [address] [id number] [place] [address]- 2497 Oct, [facility] [place] [facility] [address] [id number] [place] 8413 Aug, [facility] [place] [facility] [address] [id number] [place] [address]- 8585 Aug, [facility] [place] [facility] [address] [id number] [place] [address]- 9367 Aug, [facility] [place] [facility] [address] [id number] [place] [address]- 4880 Aug, [facility] [place] [facility] [address] [id number] [place] [address]- 9789 Jul, [facility] [place] [facility] [address] [id number] [place] [address]- 5157 Jul, [facility] [place] [facility] [address] [id number] [place] [address]- 7488 Apr, [facility] [place] [facility] [address] [id number] [place] [address]- 3895 Apr, [facility] [place] [facility] [address] [facility] [id number] [place] [address]- 7204 Apr, [facility] [place] [facility] [address] [facility] [id number] [place] [address]- 1472 March, [facility] [place] [facility] [address] [id number] [place] [address]- 5306 17 Mar, 2012 [facility] [address] [id number] [place] [address]- 1854 15 Mar, 2012 [facility] [address] [id number] [place] [address]- 1166 23 Feb, 2012 [facility] [address] [id number] [place] [address]- 7906 20 Feb, 2012 [facility] [address] [id number] [place] [address]- 8040 16 Feb, 2012 [facility] [address] [id number] [place] [address]- 3105 Feb, [facility] [address] [id number] [place] [address]- 4386 29 Jan, 2012 [facility] [address] [id number] [place] [address]- 9835 27 Jan, 2012 [facility] [address] [id number] [place] [address]- 2359 17 Jan, 2012 [facility] [address] [id number] [place] [address]- 7899 17 Jan, 2012 [facility] [address] [id number] [place] [address]- 0681 Jan, [facility] [address] [id number] [place] [address]- 8466 Jan, [facility] [address] [id number] [place] [address] 2546 Jan, [facility] [address] [id number] [place] [address]- 1776 Dec, [facility] [address] [id number] [place] [address]- 2546 Dec, [facility] [address] [id number] [place] [address] 2546 Dec, [facility] [address] [id number] [place] [address]- 2392 Dec, [facility] [address]00565[address] [place] [address]- 6746 Nov, [facility] [address]00565[address] [place] [address]- 8876 Nov, [facility] [address]65[address] [place] [address]- 7918 Oct, [facility] [address]65100[address] [place] [address]- 9200 Oct, [facility] [address]00565100[address] [place] [address]- 8626 Oct, [facility] [address]65100[address] [place] [address]- 3733 Feb, [facility] [address]65[address] [place] [address]- 8345 Dec, [facility] [address]00565[address] [place] [address]- 1310 Dec, [facility] [address] [id number] [place] [address]- 2926 Jun, IMMUNIZATIONS No Known Immunizations SOCIAL HISTORY Never Assessed REASON FOR VISIT Needs referral PLAN OF CARE VITAL SIGNS MEDICATIONS Unknown [...]
--- OUTSIDE RECORDS SUMMARY | 2018-05-26 20:40 | XMS REPORT ---
Author Author LANA NOYOLA Organization [facility] Address [address] [place] [address] Care Team Providers Care Appointment Setter Name Role Phone LANA NOYOLA Unavailable PROBLEMS Type Condition ICD9-CM Code XQP22-ZU Code Onset Dates Condition Status SNOMED Code Problem Low back pain M54.5 Active 107926816 Problem Other chronic pain G89.29 Active 87869737 Problem Memory loss R41.3 Active 80493041 Problem Dysmetabolic syndrome E88.81 Active 134593689 Problem Mild intermittent asthma without complication J45.20 Active 985624555 Problem Hypertension I10 Active 41232853 Problem Diabetes mellitus type 2, uncomplicated E11.9 Active 92387645 ALLERGIES Substance Reaction Event Type Date Status Penicillin V Potassium Unknown Drug Allergy Sep, Active Morphine Sulfate Unknown Drug Allergy Sep, Active Demerol Unknown Drug Allergy Sep, Active Codeine Sulfate Unknown Drug Allergy Sep, Active Cipro Unknown Drug Allergy Sep, Active ENCOUNTERS Encounter Location Date Diagnosis [place] [facility] [id number] [place] [address] 14397- 3587 Jan, Diabetes mellitus type 2, uncomplicated E11.9 [facility] [id number] [place] [address] 77022- 3462 Jan, Diabetes mellitus type 2, uncomplicated E11.9 [facility] [id number] [place] [address] 08698- 5407 Jan, [place] [id number] [place] [address] 88142- 5951 Jan, Cognitive complaints R41.9 [facility] [id number] [place] [address] 64877- 1666 Dec, Symptomatic abdominal apron E65 [place] [id number] [place] [address] 81330- 1777 Dec, Cognitive complaints R41.9 [facility] [id number] [place] [address] 83236- 8432 Nov, Symptomatic abdominal apron E65 and Diabetes mellitus type 2 , uncomplicated E11.9 [facility] [id number] [place] [address] 23929- 1976 Oct, Symptomatic abdominal apron E65 [place] [id number] [place] [address] 77386- 2975 Oct, Breast screening Z12.39 [place] [address] 88649- 9549 Sep, Other chronic pain G89.29 ; Pain in left shoulder M25.512 and Dysfunction of both eustachian tubes H69.83 [place] [id number] [place] [address] 93360- 0405 Sep, Cognitive complaints R41.9 [place] [id number] [place] [address] 19612- 4535 Aug, [place] [address] 47306- 9841 Aug, Muscle strain of left shoulder, initial encounter S46.912A [facility] [id number] [place] [address] 11397- 0360 Jul, [place] [id number] [place] [address] 51271- 1364 Jul, Memory loss R41.3 and Paternal family history of dementia Z82.0 [place] [id number] [place] [address] 68363- 4726 Apr, Diabetes mellitus type 2, uncomplicated E11.9 and Hypertension I10 [facility] [id number] [place] [address] 18760- 8145 Feb, Symptomatic abdominal apron E65 [facility] [id number] [place] [address] 57030 -0325 Nov, Muscle strain of left shoulder, initial encounter S46.912A [facility] [address] 03517- 6640 Oct, Encounter for immunization Z23 [facility] [id number] [place] [address] 22354 -7949 Oct, Plantar fasciitis M72.2 [facility] [id number] [place] [address] 05236- 8986 Sep, [facility] [id number] [place] [address] 38717- 0712 Aug, Breast screening Z12.39 and Acute costochondritis M94.0 [facility] [id number] [place] [address] 84074- 9821 Aug, [facility] [address] 99029- 5408 Aug, [facility] [id number] [place] [address] 12605- 2958 Jul, Symptomatic abdominal apron E65 and 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 [facility] [id number] [place] [address] 65841- 2831 Apr, [facility] [id number] [place] [address] 04889 -3087 Apr, Right acute otitis media H66.91 [facility] [id number] [place] [address] [id number] Jan, Dental caries K02.9 [facility] [address] 62821- 8102 Dec, Dysmetabolic syndrome E88.81 [facility] [id number] [place] [address] 73374- 9751 Dec, [facility] [address] 33669- 4502 Nov, Dysmetabolic syndrome E88.81 [facility] [address] [address]- 2817 Oct, [facility] [address] [address] Oct, Dental examination Z01.20 [facility] [address] 4265 Sep, [facility] [address] [place] [address] 606520- 1275 Sep, Low back pain M54.5 and Sciatica, unspecified side M54.30 [facility] [address] 8277 Feb, [facility] [address] [place] [address] 20832- 8550 Feb, [facility] [address] [address]- 8559 Dec, [facility] [address] [place] [address] 95967- 7013 Dec, [facility] [address] [address]- 0517 Nov, [facility] [address] [address]- 1506 Nov, [facility] [address] [address]- 0336 Nov, [facility] [address] 2321 Aug, [facility] [address] 9470 Aug, [facility] [address] [address]- 2702 Aug, [facility] [place] [facility] [address] [id number] [place] [address]- 5879 14 Aug, 2014 [facility] [place] [facility] [address] [id number] [place] [address]- 9032 Aug, [facility] [place] [facility] [address] [id number] [place] [address]- 6374 Aug, [facility] [place] [facility] [address] [id number] [place] [address]- 2071 Aug, [facility] [place] [facility] [address] [id number] [place] [address]- 7780 Aug, [facility] [place] [facility] [address] [id number] [place] [address]- 8203 Jul, [facility] [place] [facility] [address] [id number] [place] [address]- 2652 Jul, [facility] [place] [facility] [address] [id number] [place] [address]- 7573 Jun, [facility] [place] [facility] [address] [id number] [place] [address]- 6511 Jun, [facility] [place] [facility] [address] [id number] [place] [address]- 8012 Jun, [facility] [place] [facility] [address] [id number] [place] [address]- 5518 Jun, [facility] [place] [facility] [address] [id number] [place] [address]- 4341 May, [facility] [place] [facility] [address] [id number] [place] [address]- 3323 May, [facility] [place] [facility] [address] [id number] [place] [address]- 7320 Apr, [facility] [place] [facility] [address] [id number] [place] [address]- 3019 Apr, [facility] [place] [facility] [address] [id number] [place] [address]- 0878 Apr, [facility] [place] [facility] [address] [id number] [place] [address]- 4809 Apr, [facility] [place] [facility] [address] [id number] [place] [address]- 2193 Apr, [facility] [place] [facility] [address] [id number] [place] [address]- 2692 Apr, [facility] [place] [facility] [address] [id number] [place] [address]- 3683 March, [facility] [place] [facility] [address] [id number] [place] [address]- 7019 March, [facility] [place] [facility] [address] [id number] [place] [address]- 8346 March, [facility] [place] [facility] [address] [id number] [place] [address]- 0935 March, [facility] [place] [facility] [address] [id number] [place] [address]- 9958 March, [facility] [place] [facility] [address] [id number] [place] [address]- 7765 March, [facility] [place] [facility] [address] [id number] [place] [address]- 6774 Dec, [facility] [place] [facility] [address] [id number] [place] [address]- 3395 Dec, [facility] [place] [facility] [address] [id number] [place] [address]- 9597 Dec, [facility] [place] [facility] [address] [id number] [place] [address]- 3804 Dec, [facility] [place] [facility] [address] [id number] [place] [address]19 Nov, [facility] [place] [facility] [address] [id number] [place] [address]- 2056 Nov, [facility] [place] [facility] [address] [id number] [place] [address] 2546 Aug, [facility] [address] [id number] [place] [address]- 1621 Jun, [facility] [address] [id number] [place] [address]- 3882 Jun, [facility] [address] [id number] [place] [address]- 7800 May, [facility] [address] [id number] [place] [address]- 2540 May, [facility] [address] [id number] [place] [address]- 5896 May, [facility] [address] [id number] [place] [address]- 2546 May, [facility] [address] [id number] [place] [address]- 8624 Apr, [facility] [address] [id number] [place] [address]- 6666 Apr, [facility] [address] [id number] [place] [address]- 6332 March, [facility] [address] [id number] [place] [address]- 4319 Jan, [facility] [address] [id number] [place] [address]- 1166 Dec, [facility] [address] [id number] [place] [address]- 2546 Dec, [facility] [address] [id number] [place] [address]- 2546 Nov, [facility] [address] [id number] [place] [address]- 2546 Nov, [facility] [address] [id number] [place] [address]- 8342 Oct, [facility] [place] [facility] [address] [id number] [place] [address]149 Oct, [facility] [place] [facility] [address] [id number] [place] 9106 Oct, [facility] [place] [facility] [address] [id number] [place] [address]- 6776 Oct, [facility] [place] [facility] [address] [id number] [place] [address]- 4073 Oct, [facility] [place] [facility] [address] [id number] [place]- 4855 Oct, [facility] [place] [facility] [address] [id number] [place] 8616 Oct, [facility] [place] [facility] [address] [id number] [place] [address]- 2437 Oct, [facility] [place] [facility] [address] [id number] [place] [address]- 8347 Aug, [facility] [place] [facility] [address] [id number] [place] [address]- 5363 Aug, [facility] [place] [facility] [address] [id number] [address]- 8310 Aug, [facility] [place] [facility] [address] [id number] [address]- 9342 Aug, [facility] [place] [facility] [address] [id number] [address]- 2261 Jul, [facility] [place] [facility] [address] [id number] [place] [address]- 0071 Jul, [facility] [place] [facility] [address] [id number] [address]- 9596 Apr, [facility] [place] [facility] [address] [id number] [place] [address]- 9486 Apr, [facility] [place] [facility] [address] [id number] [place] [address]- 2429 04 Apr, 2012 [facility] [address] [id number] [place] [address]- 5352 March, [facility] [address] [id number] [place] [address]- 1716 March, [facility] [address] [id number] [place] [address]- 8346 March, [facility] [address] [id number] [place] [address]- 1066 Feb, [facility] [address] [id number] [place] [address]- 1376 Feb, [facility] [address] [id number] [place] [address]- 6206 16 Feb, 2012 [facility] [id number] [address]- 9757 Feb, [facility] [address] [id number] [place] [address]- 9618 29 Jan, 2012 [facility] [address] [id number] [place] [address]- 6205 Jan, [facility] [address] [id number] [place] [address]- 5985 Jan, [facility] [address] [id number] [place] [address]- 7461 Jan, [facility] [place] [facility] [address] [id number] [place] [address]- 8191 Jan, [facility] [place] [facility] [address] [id number] [place] [address]- 8831 06 Jan, 2012 [facility] [place] [facility] [address] [id number] [place] [address]- 6486 Jan, [facility] [address] [id number] [place] [address]- 1066 Dec, [facility] [address] [address]- 8841 Dec, [facility] [id number] [place] [address] 36773- 8410 Dec, [facility] [address] [address]- 6618 Dec, [facility] [id number] [place] [address] 58598- 2689 Nov, [facility] [id number] [place] [address] 490706- 7069 Nov, [facility] [id number] [place] [address] 821772- 5535 Oct, [facility] [id number] [place] [address] 57198- 3936 Oct, [facility] [id number] [place] [address] 46252- 8768 Oct, [facility] [address] [place] [address] 55959- 5278 Feb, [facility] [id number] [place] [address] 764004- 0148 Dec, [facility] [address] [address]- 3119 Dec, [facility] [address] [address]- 2229 Jun, IMMUNIZATIONS No Known Immunizations SOCIAL HISTORY Never Assessed REASON FOR VISIT Pain (acute) shoulder for about six months--Shelby Gonzáles MA PLAN OF CARE VITAL SIGNS Height 64 in 2017-10-10 Weight 215.3 lbs 2017-10-10 Temperature 97.8 degrees Fahrenheit 2017-10-10 Heart Rate 72 bpm 2017-10-10 Respiratory Rate 20 2017-10-10 BMI 36.95 kg/m2 2017-10-10 Blood pressure systolic 122 mmHg 2017-10-10 Blood pressure diastolic 82 mmHg 2017-10-10 MEDICATIONS Medication Instructions Dosage Frequency Start Date End Date Duration Status Fish Oil 1000 MG Orally Once a day 1 capsule 24h Active PredniSONE 20 mg Orally Once a day 2 tablets 24h Sep, Oct, 05 days Active Estradiol 1 1 tablet 24h Active Metformin HCl 500 MG Orally Once a day 1 tablet with a meal 24h Active Spironolactone 25 mg Orally 2 times a day 1 tablet 12h 5 Oct, 2017 30 days Active Naproxen 500 mg Orally every 12 hrs [...] 2015 Hospitalization History surgeries Hospitalization History diverticulitis 2015
--- OUTSIDE RECORDS SUMMARY | 2018-05-26 20:40 | XMS REPORT ---
Author LANA Ann [facility] eClinical[employer] Address Unknown Phone Unavailable Care Team Providers Care Consultant Name Role Phone LANA NOYOLA CP Unavailable [...] Active Problem Dysmetabolic syndrome E88.81 Active Assessment Dysmetabolic syndrome E88.81 Active Medications Medication Code System Code Instructions Start Date End Date Status Dosage Loratadine [facility] [address]-61 10 mg Aug 18, 2014 1 tablet by Oral route 1 time per day Spironolactone [facility] 54251001493 25 Twice a day 1 tablet Estradiol [facility] [address]-07 1 Once a day 1 tablet Symbicort [facility] [address]-31 160-4.5 mcg/actuation Aug 18, 2014 inhale 2 puffs by inhalation route 2 times per day in the morning and evening Xopenex HFA [facility] [address]-25 45 mcg/actuation May 15, 2013 2 puffs by Inhalation route every 4-6 hours PRN shortness of breath Metformin HCl [facility] 87911000201 1,000 Twice a day 1 tablet Gabapentin [facility] [address]-53 100 MG Orally Three times a day Sep 12, 2015 as directed Procedures Procedure Coding System Code Date MICROALBUMIN, SEMIQUANT CPT-4 36640 Nov 23, 2015 Office Visit, Est Pt., Level 3 CPT-4 77362 Nov 23, 2015 GLYCATED HEMOGLOBIN TEST CPT-4 34277 Nov 23, 2015 Vital Signs Date/Time: Nov 23, 2015 Temperature 97.8 F Weight 206.7 lbs Height 64 in BMI 35.48 Index Blood Pressure Diastolic 94 mmHg Blood Pressure Systolic 132 mmHg Cardiac Monitoring Heart Rate 68 bpm Results Name Result Date Reference Range Unit Abnormality Flag A1C (IN HOUSE) ----A1C IN HOUSE 5.5% [id number] 4.30 - 5.6 % ----Previous A1c 5.5% [id number] ----Lot # [id number] ----Exp date [id number] MICROALBUMIN, URINE (IN HOUSE) ----CRE 100 mg/dL [id number] ----ALB 10 mg/L [id number] ----Control normal [id number] ----Control normal [id number] ----A:C (IN HOUSE) <30 mg/g [id number] ----Clarity clear [id number] ----Color yellow [id number] ----Lot # [id number] ----Exp date [id number] ----MICROALBUMIN normal [id number] Summary Purpose eClinicalWorks Submission
--- OUTSIDE RECORDS SUMMARY | 2018-05-26 20:40 | XMS REPORT ---
Author Author LANA NOYOLA [facility] eClinical[employer] Address Unknown Phone Unavailable Care Team Providers Care Occupational Therapy Technician Name Role Phone LANA NOYOLA CP Unavailable [...] Medications Results No Known Results Summary Purpose [employer] Submission
--- OUTSIDE RECORDS SUMMARY | 2018-05-26 20:40 | XMS REPORT ---
Author Author SUSU HIGGINS [facility] Address [address] [place] [address] Care Team Providers Care Bankruptcy Manager Name Role Phone SUSU HIGGINS Unavailable PROBLEMS Type Condition ICD9-CM Code [id number] Code Onset Dates Condition Status SNOMED Code Problem Diabetes mellitus type 2, uncomplicated E11.9 Active 06350939 Problem Hypertension I10 Active 52951074 Problem Mild intermittent asthma without complication J45.20 Active 834202199 Problem Dysmetabolic syndrome E88.81 Active 330510366 Problem Low back pain M54.5 Active 219723214 ALLERGIES Unknown Allergies SOCIAL HISTORY No smoking Hx information available PLAN OF CARE VITAL SIGNS MEDICATIONS Unknown Medications RESULTS No Results PROCEDURES Procedure Date Ordered Related Diagnosis Body Site FLUARIX QUAD P-FREE 3 AND UP .50 2015Nov 09, 2016 SINGLE IMMUNIZATION ADMIN Nov 09, 2016 IMMUNIZATIONS Vaccine Route Administration Date Status FLUARIX QUAD P-FREE 3 AND UP .50 2015 IM Intramuscular Nov 09, 2016 Administered
--- OUTSIDE RECORDS SUMMARY | 2018-05-26 20:40 | XMS REPORT ---
Author Author JESUS ESPAÑA [employer] Address Unknown Phone Unavailable Care Team Providers Care Legislative Aide Name Role Phone JESUS ESPAÑA CP Unavailable Allergies, Adverse Reactions, Alerts Substance Reaction Event Type Penicillin G Potassium Info Not Available Drug Allergy Morphine [...] Active Problem DTAP TEST V06.1 Active Assessment Dental examination Z01.20 Active Problem Other ganglion and cyst of synovium, tendon, and bursa 727.49 Active Problem Mastodynia 611.71 Active Problem Routine gynecological examination V72.31 Active Medications Medication Code System Code Instructions Start Date End Date Status Dosage Loratadine [facility] [address]-47 10 mg Aug 18, 2014 1 tablet by Oral route 1 time per day Gabapentin [facility] [address]-00 100 MG Orally Three times a day Sep 12, 2015 as directed Estradiol [facility] 40335177530 1 TAKE ONE TABLET BY MOUTH DAILY Xopenex HFA [facility] [address]-04 45 mcg/actuation May 15, 2013 2 puffs by Inhalation route every 4-6 hours PRN shortness of breath Symbicort [facility] [address]-34 160-4.5 mcg/actuation Aug 18, 2014 inhale 2 puffs by inhalation route 2 times per day in the morning and evening Spironolactone [facility] 13148434408 25 TAKE TWO TABLETS BY MOUTH DAILY Metformin HCl [facility] 13870744104 1,000 TAKE ONE TABLET BY MOUTH TWICE A DAY Procedures Procedure Coding System Code Date INTRAORL-PERIAPICAL 1 FILM 29214 CPT-4 D0220 Oct 14, 2015 BITEWING - SINGLE FILM CPT-4 D0270 Oct 14, 2015 LTD ORAL EVALUATION - PROBLEM FOCUS CPT-4 D0140 Oct 14, 2015 Vital Signs Date/Time: Oct 14, 2015 Blood Pressure Diastolic 83 mmHg Blood Pressure Systolic 120 mmHg Results No Known Results Summary Purpose eClinicalWorks Submission
--- OUTSIDE RECORDS SUMMARY | 2018-05-26 20:41 | XMS REPORT ---
Author Author LANA NOYOLA Organization [facility], [place] Address [address] [place] [address] Care Team Providers Care Rn Medication Name Role Phone LANA NOYOLA Unavailable PROBLEMS Type Condition ICD9-CM Code RVZ94-CG Code Onset Dates Condition Status SNOMED Code Problem Low back pain M54.5 Active 605401155 Problem Other chronic pain G89.29 Active 96390541 Problem Memory loss R41.3 Active 01901169 Problem Dysmetabolic syndrome E88.81 Active 249403034 Problem Mild intermittent asthma without complication J45.20 Active 545419422 Problem Hypertension I10 Active 16768431 Problem Diabetes mellitus type 2, uncomplicated E11.9 Active 08525115 ALLERGIES Substance Reaction Event Type Date Status Penicillin V Potassium Unknown Drug Allergy Apr, Active Morphine Sulfate Unknown Drug Allergy Apr, Active Demerol Unknown Drug Allergy Apr, Active Codeine Sulfate Unknown Drug Allergy Apr, Active Cipro Unknown Drug Allergy Apr, Active ENCOUNTERS Encounter Location Date Diagnosis [place] [id number] [place] [address] 51771- 8328 Jan, [place] [address] [place] [id number] [place] [address] 34956- 0251 Jan, Cognitive complaints R41.9 [facility] [place] [address] [place] [id number] [place] [address] 89336- 1436 Dec, Symptomatic abdominal apron E65 [place] [address] [place] [id number] [place] [address] 18339- 4723 Dec, Cognitive complaints R41.9 [place] [address] [place] [id number] [place] [address] 47387- 0467 Nov, Symptomatic abdominal apron E65 and Diabetes mellitus type 2 , uncomplicated E11.9 [facility] [place] [address] 81394- 1539 Oct, Symptomatic abdominal apron E65 [place] [address] 37590- 3570 Oct, Breast screening Z12.39 [place] [address] 15163- 9588 Sep, Other chronic pain G89.29 ; Pain in left shoulder M25.512 and Dysfunction of both eustachian tubes H69.83 [place] [address] 11338- 1396 Sep, Cognitive complaints R41.9 [place] [address] 79719- 3656 Aug, [place] [address] 02049- 6443 Aug, Muscle strain of left shoulder, initial encounter S46.912A [place] [address] 42698- 2025 Jul, [place] [address] 25207- 8126 Jul, Memory loss R41.3 and Paternal family history of dementia Z82.0 [place] [address] 73761- 8207 Apr, Diabetes mellitus type 2, uncomplicated E11.9 and Hypertension I10 [place] [address] 55080- 9965 Feb, Symptomatic abdominal apron E65 [facility] [address] [address]39 -[address] Nov, Muscle strain of left shoulder, initial encounter S46.912A [place] [address] 61539- 2149 Oct, Encounter for immunization Z23 [facility] [address] [place] [address] Oct, Plantar fasciitis M72.2 [facility] [place] [address] 27858- 0617 Sep, [facility] [place] [address] 52363- 7196 Aug, Breast screening Z12.39 and Acute costochondritis M94.0 [facility] [place] [address] 08604- 6947 Aug, [facility] [place] [address] 68811- 7468 Aug, [facility] [place] [address] 08839- 4611 Jul, Symptomatic abdominal apron E65 and 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 [facility] [place] [address] 25857- 5907 Apr, [facility] [address] [place] [id number] [place] [address] 39037 -1450 Apr, Right acute otitis media H66.91 [facility] [address] [id number] Jan, Dental caries K02.9 [facility] [place] [address] 49743- 7322 Dec, Dysmetabolic syndrome E88.81 [facility] [place] [address] [place] [id number] [place] [address] 68841- 0343 Dec, [facility] [place] [address] 64864- 9097 Nov, Dysmetabolic syndrome E88.81 [facility] [place] [address] [place] [id number] [place] [address] 13111- 9952 Oct, [facility] [address] [id number] Oct, Dental examination Z01.20 [facility] [address] [facility] [id number] [address] 2940 Sep, [facility] [address] [facility] [id number], [place] [address]- 7293 Sep, Low back pain M54.5 and Sciatica, unspecified side M54.30 [facility] [address] [id number][place] [address]- 2378 Feb, [facility] [address] [id number], [place] [address]- 1727 Feb, [facility] [address] [facility] [id number] [place] [address] 85885- 1423 Dec, [facility] [address] [facility] [id number] [place] [address] 76291- 7072 Dec, [facility] [address] [id number] [address] 9721 Nov, [facility] [address] [facility] [id number][place] [address]- 6204 Nov, [facility] [address] [facility] [id number][place] [address]- 3875 Nov, [facility] [address] [facility] [id number][place] [address]- 5035 Aug, [facility] [address] [facility] [id number][place] [address]- 2755 Aug, [facility] [address] [facility] [id number][place] [address]- 7935 Aug, [facility] [place] [facility] [address] [facility] [id number][place] [address]- 5572 Aug, [facility] [place] [facility] [address] [facility] [id number][place] 8035 08 Aug, 2014 [facility] [address] [facility] [id number][place] [address]- 6951 Aug, [facility] [place] [facility] [address] [id number] [place] [address]- 0932 Aug, [facility] [place] [facility] [address] [id number] [place] [address]- 6855 Aug, [facility] [place] [facility] [address] [id number] [place] 3157 Jul, [facility] [place] [facility] [address] [id number] [place] [address]- 9562 Jul, [facility] [place] [facility] [address] [id number] [place] [address]- 0868 Jun, [facility] [place] [facility] [address] [id number] [place] [address]- 6134 Jun, [facility] [place] [facility] [address] [id number] [place] [address]- 3369 Jun, [facility] [place] [facility] [address] [id number] [place] [address]- 7243 Jun, [facility] [place] [facility] [address] [id number] [place] [address]- 7118 May, [facility] [place] [facility] [address] [id number] [place] [address]- 6259 May, [facility] [place] [facility] [address] [id number] [place] [address]- 2553 Apr, [facility] [place] [facility] [address] [id number][place] [address]- 5156 Apr, [facility] [place] [facility] [address] [id number] [place] [address]- 7290 Apr, [facility] [place] [facility] [address] [id number] [place] [address]- 5741 Apr, [facility] [place] [facility] [address] [id number] [place] [address]- 5626 Apr, [facility] [place] [facility] [address] [id number] [place] [address]- 7913 Apr, [facility] [place] [facility] [address] [id number] [place] [address]- 5846 March, [facility] [place] [facility] [address] [id number] [place] [address]- 6849 March, [facility] [place] [facility] [address] [id number] [place] [address]- 2717 March, [facility] [place] [facility] [address] [id number] [place] [address]- 4155 March, [facility] [place] [facility] [address] [id number] [place] [address]- 0508 March, [facility] [place] [facility] [address] [id number] [place] 0621 March, [facility] [place] [facility] [address] [id number] [place] [address]- 8762 Dec, [facility] [place] [facility] [address] [id number] [place] [address]- 5345 Dec, [facility] [place] [facility] [address] [id number] [place] [address]- 2201 Dec, [facility] [place] [facility] [address] [id number] [place] [address]- 4523 Dec, [facility] [place] [facility] [address] [id number] [place] [address]- 5480 Nov, [facility] [place] [facility] [address] [id number] [place] [address]- 6628 Nov, [facility] [place] [facility] [address] [id number] [place] [address]- 6560 Aug, [facility] [place] [facility] [address] [id number] [place] [address]- 7496 Jun, [facility] [place] [facility] [address] [id number] [place] [address]- 9111 Jun, [facility] [address] [id number] [place] [address]- 8438 May, [facility] [address] [id number] [place] [address]- 7137 May, [facility] [address] [id number] [place] 6979 May, [facility] [place] [facility] [address] [id number] [place] [address]- 5120 May, [facility] [address] [id number] [place] [address]- 4587 Apr, [facility] [address] [id number] [place] [address]- 7971 Apr, [facility] [address] [id number] [place] [address]- 2730 March, [facility] [address] [id number] [place] [address]- 7393 Jan, [facility] [address] [id number] [place] [address]- 9935 Dec, [facility] [address] [id number] [place] [address]- 0503 Dec, [facility] [address] [id number] [place] [address]- 7233 Nov, [facility] [place] [facility] [address] [id number] [place] [address]- 1017 Nov, [facility] [place] [facility] [address] [id number] [place] [address]- 0931 Oct, [facility] [place] [facility] [address] [id number] [place] 9472 Oct, [facility] [place] [facility] [address] [id number] [place] [address]- 2518 Oct, [facility] [place] [facility] [address] [id number] [place] [address]- 4673 17 Oct, 2012 [facility] [place] [facility] [address] [id number] [place] [address]- 2786 10 Oct, 2012 [facility] [place] [facility] [address] [id number] [place] [address]- 3276 10 Oct, 2012 [facility] [place] [facility] [address] [id number] [place] [address]- 0626 Oct, [facility] [place] [facility] [address] [id number] [place] [address]- 8448 07 Oct, 2012 [facility] [place] [facility] [address] [id number] [place] [address]- 2569 Aug, [facility] [place] [facility] [address] [id number] [place] [address]- 2955 Aug, [facility] [place] [facility] [address] [id number] [place] [address]- 8886 Aug, [facility] [place] [facility] [address] [id number] [place] [address]- 9454 Aug, [facility] [place] [facility] [address] [id number] [place] [address]- 2275 Jul, [facility] [place] [facility] [address] [facility] [id number] [place] [address]- 6522 Jul, [facility] [place] [facility] [address] [id number] [place] [address]- 7678 Apr, [facility] [place] [facility] [address] [id number] [place] [address]- 8818 Apr, [facility] [place] [facility] [address] [id number] [place] [address]- 5885 Apr, [facility] [place] [facility] [address] [id number] [place] [address]- 9177 March, [facility] [place] [facility] [address] [facility] [id number] [place] [address]- 3069 March, [facility] [place] [facility] [address] [id number] [place] [address]- 2965 March, [facility] [place] [facility] [address] [id number] [place] [address]- 0895 23 Feb, 2012 [facility] [place] [facility] [address] [id number] [place] [address]- 3562 Feb, [facility] [place] [facility] [address] [id number] [place] [address]- 2681 16 Feb, 2012 [facility] [place] [facility] [address] [id number] [place] [address]- 8535 Feb, [facility] [place] [facility] [address] [id number] [place] [address]- 5822 29 Jan, 2012 [facility] [place] [facility] [address] [id number] [place] [address]- 2707 27 Jan, 2012 [facility] [place] [facility] [address] [id number] [place] [address]- 5738 17 Jan, 2012 [facility] [place] [facility] [address] [id number] [place] [address]- 7967 17 Jan, 2012 [facility] [place] [facility] [address] [id number] [place] [address]- 1459 Jan, [facility] [place] [facility] [address] [id number] [place] [address]- 5542 Jan, [facility] [place] [facility] [address] [id number] [place] [address]- 9664 Jan, [facility] [place] [facility] [address] [id number] [place] [address]- 9342 Dec, [facility] [place] [facility] [address] [id number] [place] [address]- 9046 Dec, [facility] [place] [facility] [address] [id number] [place] [address]- 0006 Dec, [facility] [place] [facility] [address] [id number], [place] [address] 2546 Dec, [facility] [place] [address] [address]- 6156 Nov, [facility] [place] [address] [address] 2546 Nov, [facility] [place] [address] [address]- 3616 Oct, [facility] [place] [address] [place] [address] 21120- 6426 Oct, [facility] [place] [address] [place] [address] 54959- 6266 Oct, [facility] [place] [id number] [place] [address] 42572- 3216 Feb, [facility] [place] [address] [place] [id number] [place] [address] 97414- 1650 Dec, [facility] [place] [address] [address]- 6857 Dec, [facility] [place] [address] [address]- 1654 Jun, IMMUNIZATIONS No Known Immunizations SOCIAL HISTORY Never Assessed REASON FOR VISIT Blood Pressure - States she is here for med review, needs refills, no problems to report. - Liliana URIBE, Needs fasting labs. PLAN OF CARE VITAL SIGNS Height 64 in 2017-04-18 Weight 217.7 lbs 2017-04-18 Temperature 98.6 degrees Fahrenheit 2017-04-18 Heart Rate 72 bpm 2017-04-18 Respiratory Rate 20 2017-04-18 BMI 37.36 kg/m2 2017-04-18 Blood pressure systolic 132 mmHg 2017-04-18 Blood pressure diastolic 85 mmHg 2017-04-18 MEDICATIONS Medication Instructions Dosage Frequency Start Date End Date Duration Status Metformin HCl 500 MG Orally Once a day 1 tablet with a meal 24h Active Spironolactone 25 mg Orally 2 times a day 1 tablet 12h 5 Oct, 2017 30 days Active Estradiol 1 1 tablet 24h Active Fish Oil 1000 MG Orally Once a day 1 capsule 24h Active RESULTS Name Result Date Reference Range A1C (IN HOUSE) 2017-04-18 A1C IN HOUSE 6.1 4.3 - 5.6 % Previous A1c 5.5 Lot [id number] Exp date MICROALBUMIN, URINE (IN HOUSE) 2017-04-18 MICROALBUMIN Normal Lot # [id number] Exp date 2018-04-10 Clarity Cloudy Color Yellow ALB 10 CRE 200 A:C (IN HOUSE) <30 Control + Control - Lot # [id number] Exp date PROCEDURES Procedure Date Ordered Result Body Site GLYCATED HEMOGLOBIN TEST April 18, 2017 MICROALBUMIN, SEMIQUANT April 18, 2017 VENIPUNCT, ROUTINE* April 18, 2017 COMPREHEN METABOLIC PANEL April 18, 2017 ASSAY THYROID STIM HORMONE April 18, 2017 LIPID PANEL April 18, 2017 COMPLETE CBC W/AUTO DIFF WBC April 18, 2017 INSTRUCTIONS MEDICATIONS ADMINISTERED No Known Medications [...]
--- OUTSIDE RECORDS SUMMARY | 2018-05-26 20:43 | XMS REPORT ---
Author Author LANA NOYOLA Organization [facility] Address [address] [place] [address] Care Team Providers Care Clinical Resource Coordinator Name Role Phone LANA NOYOLA Unavailable PROBLEMS Type Condition ICD9-CM Code DPT37-NH Code Onset Dates Condition Status SNOMED Code Problem Low back pain M54.5 Active 616837112 Problem Other chronic pain G89.29 Active 41594198 Problem Memory loss R41.3 Active 54431812 Problem Dysmetabolic syndrome E88.81 Active 513586330 Problem Mild intermittent asthma without complication J45.20 Active 704598623 Problem Hypertension I10 Active 97433631 Problem Diabetes mellitus type 2, uncomplicated E11.9 Active 28768766 ALLERGIES Substance Reaction Event Type Date Status Penicillin V Potassium Unknown Drug Allergy Jul, Active Morphine Sulfate Unknown Drug Allergy Jul, Active Demerol Unknown Drug Allergy Jul, Active Codeine Sulfate Unknown Drug Allergy Jul, Active Cipro Unknown Drug Allergy Jul, Active ENCOUNTERS Encounter Location Date Diagnosis [facility] [id number] [place] [address] 28255- 6909 Jan, Diabetes mellitus type 2, uncomplicated E11.9 [facility] [id number] [place] [address] 10663- 1268 Jan, Diabetes mellitus type 2, uncomplicated E11.9 [facility] [id number] [place] [address] 19277- 0835 Jan, [facility] [id number] [place] [address] 32825- 6540 Jan, Cognitive complaints R41.9 [facility] [id number] [place] [address] 58154- 9379 Dec, Symptomatic abdominal apron E65 [facility] [id number] [place] [address] 04027- 1507 Dec, Cognitive complaints R41.9 [facility] [id number] [place] [address] 33621- 2282 Nov, Symptomatic abdominal apron E65 and Diabetes mellitus type 2 , uncomplicated E11.9 [facility] [id number] [place] [address] 67509- 5540 Oct, Symptomatic abdominal apron E65 [facility] [id number] [place] [address] 35581- 6666 Oct, Breast screening Z12.39 [facility] [address] 35162- 2581 Sep, Other chronic pain G89.29 ; Pain in left shoulder M25.512 and Dysfunction of both eustachian tubes H69.83 [facility] [id number] [place] [address] 50934- 5799 Sep, Cognitive complaints R41.9 [facility] [id number] [place] [address] 06210- 8832 Aug, [facility] [address] 23707- 9158 Aug, Muscle strain of left shoulder, initial encounter S46.912A [facility] [id number] [place] [address] 63694- 4197 Jul, [facility] [id number] [place] [address] 84938- 9349 Jul, Memory loss R41.3 and Paternal family history of dementia Z82.0 [facility] [id number] [place] [address] 63879- 2089 Apr, Diabetes mellitus type 2, uncomplicated E11.9 and Hypertension I10 [facility] [id number] [place] [address] 19788- 6967 Feb, Symptomatic abdominal apron E65 [facility] [id number] [place] [address] 47004 -5009 Nov, Muscle strain of left shoulder, initial encounter S46.912A [facility] [address] 68583- 7151 Oct, Encounter for immunization Z23 [facility] [id number] [place] [address] 77290 -2972 Oct, Plantar fasciitis M72.2 [facility] [id number] [place] [address] 33629- 6405 Sep, [facility] [id number] [place] [address] 14758- 0908 Aug, Breast screening Z12.39 and Acute costochondritis M94.0 [facility] [id number] [place] [address] 73540- 9090 Aug, [facility] [address] 66031- 0676 Aug, [facility] [id number] [place] [address] 93860- 8403 Jul, Symptomatic abdominal apron E65 and 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 [facility] [id number] [place] [address] 75652- 5298 Apr, [facility] [id number] [place] [address] 85983 -2462 Apr, Right acute otitis media H66.91 [facility] [id number] [place] [address] [id number] Jan, Dental caries K02.9 [facility] [address] 16279- 7214 Dec, Dysmetabolic syndrome E88.81 [facility] [id number] [place] [address] 12603- 5412 Dec, [facility] [address] 67971- 9544 Nov, Dysmetabolic syndrome E88.81 [facility] [address] [address]- 4631 Oct, [facility] [address] [id number] Oct, Dental examination Z01.20 [facility] [address] 9973 Sep, [facility] [id number] [place] [address] 775632- 0564 Sep, Low back pain M54.5 and Sciatica, unspecified side M54.30 [facility] [address] 9941 Feb, [facility] [id number] [place] [address] 92465- 1478 Feb, [facility] [address] [address]- 0184 Dec, [facility] [id number] [place] [address] 99601- 5897 Dec, [facility] [address] [address]- 0286 Nov, [facility] [address] [address]- 9383 Nov, [facility] [address] [address]- 7041 Nov, [facility] [address] 3723 Aug, [facility] [address] 6039 Aug, [facility] [address] [address]- 8176 Aug, [facility] [place] [facility] [address] [facility] [id number] [place] [address]- 6219 14 Aug, 2014 [facility] [place] [facility] [address] [id number] [place] [address]- 0786 Aug, [facility] [place] [facility] [address] [id number] [place] [address]- 2648 Aug, [facility] [place] [facility] [address] [id number] [place] [address]- 8717 Aug, [facility] [place] [facility] [address] [id number] [place] [address]- 4107 Aug, [facility] [place] [facility] [address] [id number] [place] [address]- 4672 Jul, [facility] [place] [facility] [address] [id number] [place] [address]- 3918 Jul, [facility] [place] [facility] [address] [id number] [place] [address]- 1500 Jun, [facility] [place] [facility] [address] [id number] [place] [address]- 9809 Jun, [facility] [place] [facility] [address] [id number] [place] [address]- 7439 Jun, [facility] [place] [facility] [address] [id number] [place] [address]- 1445 Jun, [facility] [place] [facility] [address] [id number] [place] [address]- 2472 May, [facility] [place] [facility] [address] [id number] [place] [address]- 0097 May, [facility] [place] [facility] [address] [id number] [place] [address]- 5553 Apr, [facility] [place] [facility] [address] [id number] [place] [address]- 6073 Apr, [facility] [place] [facility] [address] [id number] [place] [address]- 6962 Apr, [facility] [place] [facility] [address] [id number] [place] [address]- 8889 Apr, [facility] [place] [facility] [address] [id number] [place] [address]- 5976 Apr, [facility] [place] [facility] [address] [id number] [place] [address]- 8742 Apr, [facility] [place] [facility] [address] [id number] [place] [address]- 0043 March, [facility] [place] [facility] [address] [id number] [place] [address]- 5821 March, [facility] [place] [facility] [address] [id number] [place] [address]- 3230 March, [facility] [place] [facility] [address] [id number] [place] [address]- 2296 March, [facility] [place] [facility] [address] [id number] [place] [address]- 8680 March, [facility] [place] [facility] [address] [id number] [place] [address]- 4686 March, [facility] [place] [facility] [address] [id number] [place] [address]- 7281 Dec, [facility] [place] [facility] [address] [id number] [place] [address]- 7361 Dec, [facility] [place] [facility] [address] [id number] [place] [address]- 9426 Dec, [facility] [place] [facility] [address] [id number] [place] [address]- 5562 Dec, [facility] [place] [facility] [address] [id number] [place] 9027 Nov, [facility] [place] [facility] [address] [id number] [place] [address]- 6869 Nov, [facility] [place] [facility] [address] [id number] [place] [address] 2546 Aug, [facility] [address] [id number] [place] [address]- 3823 Jun, [facility] [address] [id number] [place] [address]- 1137 Jun, [facility] [address] [id number] [place] [address]- 3840 May, [facility] [address] [id number] [place] [address]- 2549 May, [facility] [address] [id number] [place] [address]- 1862 May, [facility] [address] [id number] [place] [address]- 2546 May, [facility] [address] [id number] [place] [address]- 1349 Apr, [facility] [address] [id number] [place] [address]- 8006 Apr, [facility] [address] [id number] [place] [address]- 6711 March, [facility] [address] [id number] [place] [address]- 6107 Jan, [facility] [address] [id number] [place] [address]- 6906 Dec, [facility] [address] [id number] [place] [address]- 2546 Dec, [facility] [address] [id number] [place] [address]- 2546 Nov, [facility] [address] [id number] [place] [address]- 2546 Nov, [facility] [address] [id number] [place] [address]- 5053 Oct, [facility] [place] [facility] [address] [id number] [place] 3416 Oct, [facility] [place] [facility] [address] [id number] [place] 5006 Oct, [facility] [place] [facility] [address] [id number] [place] [address]- 2526 Oct, [facility] [place] [facility] [address] [id number] [place] [address]- 7080 Oct, [facility] [place] [facility] [address] [id number] [place] 2885 Oct, [facility] [place] [facility] [address] [id number] [place] 3790 Oct, [facility] [place] [facility] [address] [id number] [place] [address]- 4738 Oct, [facility] [place] [facility] [address] [id number] [place] [address]- 1248 Aug, [facility] [place] [facility] [address] [id number] [place] [address]- 0493 Aug, [facility] [place] [facility] [address] [id number], [place] [address]- 6282 Aug, [facility] [place] [facility] [address] [id number], [place] [address]- 9945 Aug, [facility] [place] [facility] [address] [id number], [place] [address]- 4906 Jul, [facility] [place] [facility] [address] [id number] [place] [address]- 4730 Jul, [facility] [place] [facility] [address] [id number], [place] [address]- 7516 Apr, [facility] [place] [facility] [address] [id number], [place] [address]- 4696 Apr, [facility] [place] [facility] [address] [id number], [place] [address]- 3883 04 Apr, 2012 [facility] [address] [id number] [place] [address]- 3133 March, [facility] [address] [id number] [place] [address]- 1486 March, [facility] [address] [facility] [id number] [place] [address]- 2696 March, [facility] [address] [id number] [place] [address]- 2755 Feb, [facility] [address] [id number] [place] [address]- 7855 Feb, [facility] [address] [id number] [place] [address]- 4633 16 Feb, 2012 [facility] [id number] [place] [address]- 0312 Feb, [facility] [address] [id number] [place] [address]- 9461 29 Jan, 2012 [facility] [address] [id number] [place] [address]- 9451 Jan, [facility] [address] [facility] [id number] [place] [address]- 3470 Jan, [facility] [address] [id number] [place] [address]- 0526 Jan, [facility] [place] [facility] [address] [id number] [place] [address]- 3479 Jan, [facility] [place] [facility] [address] [id number] [place] [address]- 4760 06 Jan, 2012 [facility] [place] [facility] [address] [facility] [id number] [place] [address]- 6846 Jan, [facility] [address] [facility] [id number] [place] [address]- 2906 Dec, [facility] [address] [address]- 4271 Dec, [facility] [address] [address]- 3881 Dec, [facility] [address] [address]- 8666 Dec, [facility] [id number] [place] [address] 12228- 9071 Nov, [facility] [address] [address]- 9648 Nov, [facility] [id number] [place] [address] 27525- 1571 Oct, [facility] [address] [address]- 2244 Oct, [facility] [id number] [place] [address] 48826- 3438 Oct, [facility] [address] [address]- 3622 Feb, [facility] [address] [address]- 2467 Dec, [facility] [address], [place] [address]- 5363 Dec, [facility] [address] [address]- 1500 Jun, IMMUNIZATIONS No Known Immunizations SOCIAL HISTORY Never Assessed REASON FOR VISIT Memory Concerns, PT feels it maybe hormone related also having bad headaches- Jaleel URIBE PLAN OF CARE VITAL SIGNS Height 64 in 2017-07-22 Weight 218.9 lbs 2017-07-22 Temperature 97.9 degrees Fahrenheit 2017-07-22 Heart Rate 78 bpm 2017-07-22 Respiratory Rate 20 2017-07-22 BMI 37.57 kg/m2 2017-07-22 Blood pressure systolic 122 mmHg 2017-07-22 Blood pressure diastolic 80 mmHg 2017-07-22 MEDICATIONS Medication Instructions Dosage Frequency Start Date End Date Duration Status Fish Oil 1000 MG Orally Once a day 1 capsule 24h Active Naproxen Active Estradiol 1 1 tablet 24h Active Spironolactone 25 mg Orally 2 [...]
--- OUTSIDE RECORDS SUMMARY | 2018-05-26 20:44 | XMS REPORT | Continuity of Care Document ---
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 Registration [id number] 02/07/2018 09:20:00 02/07/2018 23:59:59 CLS Outpatient LANA NOYOLA APRN [facility], [place] [id number] 04/19/2017 08:48:00 Document Registration [id number] 03/21/2015 02:09:39 ACT Document Registration
[2018-05-26] MEDS ORDERED: NS IV 1000 ML 1,000 ML IV ONE (20:47)
[2018-05-26 21:00] LABS: BASOPHILS % (AUTO) 0 % (0-10); EOSINOPHILS # (AUTO) 0.2 10^3/uL (0.0-0.3); EOSINOPHILS % (AUTO) 2 % (0-10); HEMATOCRIT 40 % (35-52); HEMOGLOBIN 13.7 G/DL (11.5-16.0); LYMPHOCYTES # (AUTO) 2.3 X 10^3 (1.0-4.0); LYMPHOCYTES % (AUTO) 23 % (12-44); MEAN CORPUSCULAR HEMOGLOBIN 31 PG (25-34); MEAN CORPUSCULAR HGB CONC 35 G/DL (32-36); MEAN CORPUSCULAR VOLUME 90 FL (80-99); MEAN PLATELET VOLUME 9.1 FL (7.4-10.4); MONOCYTES # (AUTO) 0.5 X 10^3 (0.0-1.0); MONOCYTES % (AUTO) 5 % (0-12); NEUTROPHILS # (AUTO) 6.8 X 10^3 (1.8-7.8); NEUTROPHILS % (AUTO) 70 % (42-75); PLATELET COUNT 287 10^3/uL (130-400); RED BLOOD COUNT 4.39 10^6/uL (4.35-5.85); RED CELL DISTRIBUTION WIDTH 12.6 % (10.0-14.5); WHITE BLOOD COUNT 9.8 10^3/uL (4.3-11.0)
[2018-05-26] MEDS ORDERED: PROMETHAZINE INJ 25 MG/ML (PHENERGAN) AMP IVP ONE (21:00)
[2018-05-26] MEDS ORDERED: KETOROLAC 30 MG/ML VIAL IVP ONE (21:00)
[2018-05-26 21:20] LABS: ALANINE AMINOTRANSFERASE 19 U/L (0-55); ALBUMIN 4.1 GM/DL (3.2-4.5); ALKALINE PHOSPHATASE 47 U/L (40-136); BILIRUBIN,TOTAL 0.5 MG/DL (0.1-1.0); BUN/CREATININE RATIO 23; CALCIUM 9.4 MG/DL (8.5-10.1); CARBON DIOXIDE 23 MMOL/L (21-32); CHLORIDE 104 MMOL/L (98-107); CREATININE SERUM 0.61 MG/DL (0.60-1.30); GFR ESTIMATED > 60; GLUCOSE 117 MG/DL (70-105); MAGNESIUM 1.9 MG/DL (1.8-2.4); POTASSIUM 4.4 MMOL/L (3.6-5.0); SODIUM 137 MMOL/L (135-145); TOTAL PROTEIN 7.6 GM/DL (6.4-8.2)
[2018-05-26] MEDS ORDERED: RX-ONDANSETRON 4 MG ODT (ZOFRAN) PPK #4 ONE (21:35)
[2018-05-26] MEDS ORDERED: RX-ONDANSETRON 4 MG ODT (ZOFRAN) PPK #4 SL STA (21:36)
--- NOTE | 2018-05-26 21:36 | ED Headache ---
General Chief Complaint: Head/Cervical Problems Stated Complaint: HEADACHE Nursing Triage Note: pt presents to er with complaint of headache x3 days. Nursing Sepsis Screen: No Definite Risk Source: patient Exam Limitations: no limitations History of Present Illness Date Seen by Provider: May 26, 2018 Time Seen by Provider: 20:39 Initial Comments This 47-year-old woman presents to the emergency room with headache for the past 3 days. She has had pain behind the left eye. Vision has been unaffected. She has nausea without vomiting. She took ibuprofen and Tylenol yesterday. She took Excedrin migraine in a generic form today. She does have a history of headaches. She denies any other acute illness such as fever or cough. She is a type II diabetic on oral medications. She does not check her blood sugars. Allergies and Home Medications Allergies Coded Allergies: Penicillins (Unverified Allergy, Unknown, HIVES, SOB, 12/16/14) ciprofloxacin (Verified Allergy, Unknown, 06/27/07) codeine (Verified Allergy, Unknown, TOLERATES HYDROCODONE, 02/07/12) meperidine (Verified Allergy, Unknown, 06/27/07) morphine (Verified Allergy, Unknown, MAUSEA, 06/27/07) Home Medications Cyclobenzaprine HCl 10 Mg Tablet, 10 MG PO Q8H PRN for SPASMS Prescribed by: CORNELIO LESTER on 04/21/18 0050 Estradiol 1 Mg Tablet, 1 MG PO DAILY, (Reported) Metformin HCl 1,000 Mg Tablet, 1,000 MG PO DAILY, (Reported) [place] 3 Polyunsat Fatty Acids 1,000 Mg Cap, 1,000 MG PO DAILY, (Reported) Spironolactone 25 Mg Tablet, 25 MG PO BID, (Reported) Patient Home Medication List Home Medication List Reviewed: Yes Review of Systems Constitutional: no symptoms reported Eyes: No Symptoms Reported Ears, Nose, Mouth, Throat: no symptoms reported Respiratory: no symptoms reported Cardiovascular: no symptoms reported Gastrointestinal: see HPI Genitourinary: no symptoms reported : No Musculoskeletal: no symptoms reported Skin: no symptoms reported Psychiatric/Neurological: See HPI Past Cbszpsb-Lgdvel-Iwmbhi Hx Patient Social History Alcohol Use: Denies Use Recreational Drug Use: No Smoking Status: Never a Smoker 2nd Hand Smoke Exposure: No Recent Foreign Travel: No Contact w/Someone Who Travel: No Recent Infectious Disease Expo: No Recent Hopitalizations: No Immunizations Up To Date Tetanus Booster (TDap): Less than 5yrs Seasonal Allergies Seasonal Allergies: Yes Past Medical History Surgeries: Yes (SINUS, D&C X 2, LAPAROSCOPIES X 2, RT CARPAL TUNNEL ) Section, Gallbladder, Hysterectomy Respiratory: Yes Asthma, Chronic Bronchitis Currently Using CPAP: No Currently Using BIPAP: No Cardiac: Yes Heart Murmur, Hypertension Neurological: Yes Headaches /Migraines 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 Disorders: Yes ( 8 para 4 (D&C x2-4 miscarriages x2)) Female 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 Disorders: Ovarian Cyst [employer]ENTATIVE History: Hysterectomy Sexually Transmitted Disease: Yes (chlamydia ) HIV/AIDS: No Genitourinary: No Gastrointestinal: Yes Diverticulosis, Gall Bladder Disease Musculoskeletal: No Endocrine: Yes Diabetes, Non-Insulin dep HEENT: No Loss of Vision: Denies Hearing Impairment: Denies Cancer: No Psychosocial: No Integumentary: No Blood Disorders: No Adverse Reaction/Blood Tranf: No Family Medical History Diabetes mellitus 19 MOTHER FH: glaucoma 19 MOTHER FH: macular degeneration 19 MOTHER Physical Exam Vital Signs Vital Signs - First Documented 05/26/18 20:39 Temp 97.8 Pulse 73 Resp 20 B/P (MAP) 148/103 (118) Pulse Ox 97 O2 Delivery Room Air Capillary Refill : Less Than 3 Seconds Height, Weight, BMI Height: 5'3.00" Weight: 200lbs. oz. [id number]; 36.83 BMI Method:Stated General Appearance: WD/WN, no apparent distress HEENT: PERRL/EOMI, normal ENT inspection, TMs normal, pharynx normal Neck: normal inspection Cardiovascular: regular rate, rhythm, no edema, no murmur Respiratory: lungs clear, normal breath sounds, no respiratory distress, no accessory muscle use Gastrointestinal: soft Back: normal inspection Psychiatric: alert, oriented x 3 [place] Nerves: normal hearing, normal speech, PERRL Coordination/Gait: normal gait Motor/Sensory: no motor deficit Skin: normal color, warm/dry Progress/Results/Core Measures Results/Orders Lab Results Laboratory Tests Test 05/26/18 20:55 Range/Units White Blood Count 9.8 4.3-11.0 10^3/uL Red Blood Count 4.39 4.35-5.85 10^6/uL Hemoglobin 13.7 11.5-16.0 G/DL Hematocrit 40 35-52 % Mean Corpuscular Volume 90 80-99 FL Mean Corpuscular Hemoglobin 31 25-34 PG Mean Corpuscular Hemoglobin Concent 35 32-36 G/DL Red Cell Distribution Width 12.6 10.0-14.5 % Platelet Count 287 130-400 10^3/uL Mean Platelet Volume 9.1 7.4-10.4 FL Neutrophils (%) (Auto) 70 42-75 % Lymphocytes (%) (Auto) 23 12-44 % Monocytes (%) (Auto) 5 0-12 % Eosinophils (%) (Auto) 2 0-10 % Basophils (%) (Auto) 0 0-10 % Neutrophils # (Auto) 6.8 1.8-7.8 X 10^3 Lymphocytes # (Auto) 2.3 1.0-4.0 X 10^3 Monocytes # (Auto) 0.5 0.0-1.0 X 10^3 Eosinophils # (Auto) 0.2 0.0-0.3 10^3/uL Basophils # (Auto) 0.0 0.0-0.1 10^3/uL Sodium Level 137 135-145 MMOL/L Potassium Level 4.4 3.6-5.0 MMOL/L Chloride Level 104 98-107 MMOL/L Carbon Dioxide Level 23 21-32 MMOL/L Anion Gap 10 5-14 MMOL/L Blood Urea Nitrogen 14 7-18 MG/DL Creatinine 0.61 0.60-1.30 MG/DL Estimat Glomerular Filtration Rate > 60 BUN/Creatinine Ratio 23 Glucose Level 117 H 70-105 MG/DL Calcium Level 9.4 8.5-10.1 MG/DL Magnesium Level 1.9 1.8-2.4 MG/DL Total Bilirubin 0.5 0.1-1.0 MG/DL Aspartate Amino Transf (AST/SGOT) 15 5-34 U/L Alanine Aminotransferase (ALT/SGPT) 19 0-55 U/L Alkaline Phosphatase 47 40-136 U/L Total Protein 7.6 6.4-8.2 GM/DL Albumin 4.1 3.2-4.5 GM/DL My Orders Orders - JOSE MIGUEL TORRES MD Cbc With Automated Diff (05/26/18 20:47) Comprehensive Metabolic Panel (05/26/18 20:47) Magnesium (05/26/18 20:47) Saline Lock/Iv-Start (05/26/18 20:47) Ns Iv 1000 Ml (Sodium Chloride 0.9%) (05/26/18 20:47) Ketorolac Injection (Toradol Injection) (05/26/18 21:00) Promethazine Injection (Phenergan Injec (05/26/18 21:00) Rx-Ondansetron Po (Rx-Zofran Po) (05/26/18 21:36) Rx-Ondansetron Po (Rx-Zofran Po) (05/26/18 21:35) Medications Given in ED Vital Signs/I&O 05/26/18 05/26/18 20:39 21:46 Temp 97.8 97.8 Pulse 73 73 Resp 20 20 B/P (MAP) 148/103 (118) 140/88 (118) Pulse Ox 97 97 O2 Delivery Room Air Blood Pressure Mean: 118 Progress Progress Note : Progress Note Patient was treated with a liter of IV fluids, Toradol, and Phenergan. She was able to fall asleep and rest. Basic labs were evaluated and were unremarkable. Patient was dismissed home into the care of her family with a take-home packet of Zofran. Departure Impression Primary Impression: Acute headache Qualified Codes: R51 - Headache Additional Impression: Nausea Disposition: 01 HOME, SELF-CARE Condition: Improved Departure-Patient Inst. Referrals: RABIA STEELE MD (PCP) Primary Care Physician LANA NOYOLA (Family) Primary Care Physician Patient Instructions: Headache, Adult (DC) Add. Discharge Instructions: Drink plenty of clear liquids. You may take ibuprofen up to 600 mg every 6 hours as needed for pain. Add Tylenol (acetaminophen) up to 1000 mg every 6 hours as needed for additional pain relief. Dissolve Zofran (ondansetron) under the tongue every 4 hours as needed for nausea and vomiting. Rest in a quiet, calm, dark environment for the remainder of the night. Contact your primary care provider in the morning if symptoms have not resolved. Return to the emergency room if symptoms worsen. All discharge instructions reviewed with patient and/or family. Voiced understanding. JOSE MIGUEL TORRES MD May 26, 2018 21:36
[2018-05-26 21:46] VITALS: BP 140/88
== END 2018-05-26 21:46 | disposition left against medical advice (07) ==
LOC: ER 20:32
DX: R51 Headache (principal); R11.0 Nausea; E11.9 Type 2 diabetes mellitus without complications; J44.9 Chronic obstructive pulmonary disease, unspecified; I10 Essential (primary) hypertension; Z87.19 Personal history of other diseases of the digestive system; Z88.0 Allergy status to penicillin; Z88.1 Allergy status to other antibiotic agents; Z88.5 Allergy status to narcotic agent; Z79.84 Long term (current) use of oral hypoglycemic drugs; Z87.59 Personal history of other complications of pregnancy, childbirth and the puerperium; Z90.710 Acquired absence of both cervix and uterus
CPT/HCPCS: 36415; 80053; 83735; 85025; 96361; 96374; 96375

== ENCOUNTER 2018-09-03 18:28 | Emergency (ER) | payer BC ==
[~2018-09-03] VITALS: Ht 162.6 cm; Wt 86.2 kg
[~2018-09-03 18:28] MED LIST changes: +METF-399 PO; -METF10002 PO
[2018-09-03 19:04] LABS: BILIRUBIN,URINE NEGATIVE (NEGATIVE); CLARITY,URINE CLEAR; COLOR,URINE YELLOW; GLUCOSE, URINE (UA) NEGATIVE (NEGATIVE); KETONES,URINE NEGATIVE (NEGATIVE); LEUKOCYTE ESTERASE ,URINE 3+ (NEGATIVE); NITRITE,URINE NEGATIVE (NEGATIVE); PH,URINE 6.5 (5-9); PROTEIN,URINE NEGATIVE (NEGATIVE); UROBILINOGEN,URINE NORMAL (NORMAL)
[2018-09-03] MEDS ORDERED: NS IV 1000 ML 1,000 ML IV SCH (19:08)
--- NOTE | 2018-09-03 19:08 | ED GI ---
General Chief Complaint: Abdominal/GI Problems Stated Complaint: KIDNEY PAIN Source of Information: Patient Exam Limitations: No Limitations History of Present Illness Date Seen by Provider: Sep 03, 2018 Time Seen by Provider: 18:53 Initial Comments Patient presents to ER by private conveyance with her significant other and chief complaint that she for the last 3 days now has been having significant left flank pain. She says the pain does not radiate. She's not having any blood in her urine. Denies history of kidney stones but she says every time she gets a UTI that goes straight to her kidneys and caused pyelonephritis. She has not seen anybody else in the last 3 days and says she did not seek help because she thought it might go away on its own this time. She has not taken anything for the pain she rates it as about a 6 out of 10. She is having nausea without vomiting. She's had a history of diverticulitis but had a bowel movement this morning that was normal formed. she has diabetes controlled with metformin and history of cholecystectomy. Allergies and Home Medications Allergies Coded Allergies: Penicillins (Unverified Allergy, Unknown, HIVES, SOB, 12/16/14) ciprofloxacin (Verified Allergy, Unknown, 06/27/07) codeine (Verified Allergy, Unknown, TOLERATES HYDROCODONE, 02/07/12) meperidine (Verified Allergy, Unknown, 06/27/07) morphine (Verified Allergy, Unknown, MAUSEA, 06/27/07) Home Medications Cyclobenzaprine HCl 10 Mg Tablet, 10 MG PO Q8H PRN for SPASMS Prescribed by: CORNELIO LESTER on 04/21/18 0050 Estradiol 1 Mg Tablet, 1 MG PO DAILY, (Reported) Metformin HCl 1,000 Mg Tablet, 1,000 MG PO DAILY, (Reported) [place] 3 Polyunsat Fatty Acids 1,000 Mg Cap, 1,000 MG PO DAILY, (Reported) Spironolactone 25 Mg Tablet, 25 MG PO BID, (Reported) Patient Home Medication List Home Medication List Reviewed: Yes Review of Systems Review of Systems Constitutional: No chills, No diaphoresis EENTM: No Blurred Vision, No Double Vision Respiratory: Denies Cough, Denies Shortness of Air Cardiovascular: Denies Chest Pain, Denies Irregular Heart Rate, Denies Palpitations Gastrointestinal: Denies Constipated, Denies Diarrhea; Nausea; Denies Vomiting Genitourinary: Denies Burning, Denies Discharge Musculoskeletal: No back pain, No joint pain Skin: No pruritus, No rash Past Fmkkwgc-Vjimhi-Cdumgc Hx Patient Social History Alcohol Use: Denies Use Recreational Drug Use: No 2nd Hand Smoke Exposure: No Recent Foreign Travel: No Contact w/Someone Who Travel: No Recent Hopitalizations: No Immunizations Up To Date Tetanus Booster (TDap): Less than 5yrs Seasonal Allergies Seasonal Allergies: Yes Past Medical History Surgeries: Yes (SINUS, D&C X 2, LAPAROSCOPIES X 2, RT CARPAL TUNNEL ) Section, Gallbladder, Hysterectomy Respiratory: Yes Asthma, Chronic Bronchitis Currently Using CPAP: No Currently Using BIPAP: No Cardiac: Yes Heart Murmur, Hypertension Neurological: Yes Headaches /Migraines 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 Disorders: Yes ( 8 para 4 (D&C x2-4 miscarriages x2)) Female 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 Disorders: Ovarian Cyst [employer] History: Hysterectomy Sexually Transmitted Disease: Yes (chlamydia ) HIV/AIDS: No Genitourinary: No Gastrointestinal: Yes Diverticulosis, Gall Bladder Disease Musculoskeletal: No Endocrine: Yes Diabetes, Non-Insulin dep HEENT: No Loss of Vision: Denies Hearing Impairment: Denies Cancer: No Psychosocial: No Integumentary: No Blood Disorders: No Adverse Reaction/Blood Tranf: No Family Medical History Diabetes mellitus 19 MOTHER FH: glaucoma 19 MOTHER FH: macular degeneration 19 MOTHER Physical Exam Vital Signs Capillary Refill : Height/Weight/BMI Height: 5'3.00" Weight: 200lbs. oz. 90.805448ys; 36.83 BMI Method:Stated General Appearance: WD/WN, no apparent distress HEENT: PERRL/EOMI, pharynx normal Neck: non-tender, normal inspection Respiratory: chest non-tender, lungs clear, normal breath sounds, no respiratory distress, no accessory muscle use Cardiovascular: normal peripheral pulses, regular rate, rhythm Gastrointestinal: normal bowel sounds, soft, tenderness (mild LUQ) Back: normal inspection, CVA tenderness (L) Neurologic/Psychiatric: alert, oriented x 3 Skin: normal color, warm/dry Progress/Results/Core Measures Results/Orders Lab Results Laboratory Tests Test 09/03/18 18:56 09/03/18 19:00 Range/Units Urine Color YELLOW Urine Clarity CLEAR Urine pH 6.5 5-9 Urine Specific [place] 1.005 L 1.016-1.022 Urine Protein NEGATIVE NEGATIVE Urine Glucose (UA) NEGATIVE NEGATIVE Urine Ketones NEGATIVE NEGATIVE Urine Nitrite NEGATIVE NEGATIVE Urine Bilirubin NEGATIVE NEGATIVE Urine Urobilinogen NORMAL NORMAL MG/DL Urine Leukocyte Esterase 3+ H NEGATIVE Urine RBC (Auto) 3+ H NEGATIVE Urine RBC 0-2 /HPF Urine WBC >100 H /HPF Urine Squamous Epithelial Cells 2-5 /HPF Urine Crystals NONE /LPF Urine Bacteria FEW H /HPF Urine Casts NONE /LPF Urine Mucus NEGATIVE /LPF Urine Culture Indicated YES White Blood Count 8.8 4.3-11.0 10^3/uL Red Blood Count 4.37 4.35-5.85 10^6/uL Hemoglobin 13.3 11.5-16.0 G/DL Hematocrit 39 35-52 % Mean Corpuscular Volume 90 80-99 FL Mean Corpuscular Hemoglobin 30 25-34 PG Mean Corpuscular Hemoglobin Concent 34 32-36 G/DL Red Cell Distribution Width 12.5 10.0-14.5 % Platelet Count 272 130-400 10^3/uL Mean Platelet Volume 8.8 7.4-10.4 FL Neutrophils (%) (Auto) 57 42-75 % Lymphocytes (%) (Auto) 34 12-44 % Monocytes (%) (Auto) 5 0-12 % Eosinophils (%) (Auto) 3 0-10 % Basophils (%) (Auto) 0 0-10 % Neutrophils # (Auto) 5.1 1.8-7.8 X 10^3 Lymphocytes # (Auto) 3.0 1.0-4.0 X 10^3 Monocytes # (Auto) 0.5 0.0-1.0 X 10^3 Eosinophils # (Auto) 0.3 0.0-0.3 10^3/uL Basophils # (Auto) 0.0 0.0-0.1 10^3/uL Sodium Level 137 135-145 MMOL/L Potassium Level 3.6 3.6-5.0 MMOL/L Chloride Level 101 98-107 MMOL/L Carbon Dioxide Level 23 21-32 MMOL/L Anion Gap 13 5-14 MMOL/L Blood Urea Nitrogen 12 7-18 MG/DL Creatinine 0.66 0.60-1.30 MG/DL Estimat Glomerular Filtration Rate > 60 BUN/Creatinine Ratio 18 Glucose Level 170 H 70-105 MG/DL Calcium Level 9.0 8.5-10.1 MG/DL Corrected Calcium 9.0 8.5-10.1 MG/DL Total Bilirubin 0.2 0.1-1.0 MG/DL Aspartate Amino Transf (AST/SGOT) 11 5-34 U/L Alanine Aminotransferase (ALT/SGPT) 18 0-55 U/L Alkaline Phosphatase 48 40-136 U/L Total Protein 7.1 6.4-8.2 GM/DL Albumin 4.0 3.2-4.5 GM/DL My Orders Orders - CORNELIO LESTER Ua Culture If Indicated (09/03/18 18:43) Urine Bedside (09/03/18 18:43) Cbc With Automated Diff (09/03/18 19:02) Comprehensive Metabolic Panel (09/03/18 19:02) Ondansetron Injection (Zofran Injectio (09/03/18 19:15) Ketorolac Injection (Toradol Injection) (09/03/18 19:15) Iv [place]-Insert (Order) (09/03/18 19:02) Saline Lock/Iv-Start (09/03/18 19:08) Ns Iv 1000 Ml (Sodium Chloride 0.9%) (09/03/18 19:08) Ceftriaxone For Iv Use (Rocephin For I (09/03/18 19:15) Urine Culture (09/03/18 18:56) Medications Given in ED Current Medications Medications Dose Ordered Sig/Darling Route Start Time Stop Time Status Last Admin Dose Admin Ceftriaxone Sodium 1000 mg/ Sodium Chloride 50 ml @ 100 mls/hr ONCE ONCE IV 09/03/18 19:15 09/03/18 19:44 09/03/18 19:26 100 MLS/HR Ketorolac Tromethamine 30 mg ONCE ONCE IVP 09/03/18 19:15 09/03/18 19:16 DC 09/03/18 19:26 30 MG Ondansetron HCl 4 mg ONCE ONCE IVP 09/03/18 19:15 09/03/18 19:16 DC 09/03/18 19:27 4 MG Progress Progress Note : Time: 19:06 Progress Note We'll start with urinalysis basic labs. Her abdomen is not very tender but she does have some left costovertebral tenderness. We will start a bag of fluids and Rocephin as well as Toradol and Zofran. She says she's tolerated Rocephin in the past despite stating that her allergy to penicillin that she can't breathe. Departure Impression Primary Impression: Urinary tract infection Qualified Codes: N30.00 - Acute cystitis without hematuria Additional Impression: Acute left flank pain Disposition: HOME, SELF-CARE Condition: Stable Departure-Patient Inst. Decision time for Depature: 19:30 Referrals: [facility] (PCP) Primary Care Physician LANA NOYOLA (Family) Primary Care Physician Patient Instructions: Urinary Tract Infection, Adult (DC) Add. Discharge Instructions: Drink lots of water and use the Zofran every 6 hours as needed for nausea. dish up person the Keflex and take one tablet twice a day for the next 6 days. All discharge instructions reviewed with patient and/or family. Voiced understanding. Scripts Ondansetron (Ondansetron Odt) 4 Mg Tab.rapdis 4 MG PO Q6H PRN for NAUSEA/VOMITING, #8 TAB 0 Refills Prov: CORNELIO LESTER 09/03/18 Cephalexin (Keflex) 500 Mg Capsule 500 MG PO BID for 6 Days, #12 CAP 0 Refills Prov: CORNELIO LESTER 09/03/18 CORNELIO LESTER Sep 03, 2018 19:08
[2018-09-03 19:09] LABS: BASOPHILS % (AUTO) 0 % (0-10); EOSINOPHILS # (AUTO) 0.3 10^3/uL (0.0-0.3); EOSINOPHILS % (AUTO) 3 % (0-10); HEMATOCRIT 39 % (35-52); HEMOGLOBIN 13.3 G/DL (11.5-16.0); LYMPHOCYTES % (AUTO) 34 % (12-44); MEAN CORPUSCULAR HEMOGLOBIN 30 PG (25-34); MEAN CORPUSCULAR HGB CONC 34 G/DL (32-36); MEAN CORPUSCULAR VOLUME 90 FL (80-99); MEAN PLATELET VOLUME 8.8 FL (7.4-10.4); MONOCYTES # (AUTO) 0.5 X 10^3 (0.0-1.0); MONOCYTES % (AUTO) 5 % (0-12); NEUTROPHILS # (AUTO) 5.1 X 10^3 (1.8-7.8); NEUTROPHILS % (AUTO) 57 % (42-75); PLATELET COUNT 272 10^3/uL (130-400); RED BLOOD COUNT 4.37 10^6/uL (4.35-5.85); RED CELL DISTRIBUTION WIDTH 12.5 % (10.0-14.5); WHITE BLOOD COUNT 8.8 10^3/uL (4.3-11.0)
[2018-09-03 19:11] LABS: BACTERIA,URINE FEW /HPF; RBC,URINE 0-2 /HPF; WBC,URINE >100 /HPF
[2018-09-03] MEDS ORDERED: cefTRIAXone FOR IV USE 1,000 MG in NS (IVPB) 50 ML IV ONE (19:15)
[2018-09-03] MEDS ORDERED: ONDANSETRON 4 MG/2 ML (SDV) Z0FRAN IVP ONE (19:15)
[2018-09-03] MEDS ORDERED: KETOROLAC 30 MG/ML VIAL IVP ONE (19:15)
[2018-09-03 19:27] LABS: ALANINE AMINOTRANSFERASE 18 U/L (0-55); ALKALINE PHOSPHATASE 48 U/L (40-136); BILIRUBIN,TOTAL 0.2 MG/DL (0.1-1.0); BUN/CREATININE RATIO 18; CARBON DIOXIDE 23 MMOL/L (21-32); CHLORIDE 101 MMOL/L (98-107); CREATININE SERUM 0.66 MG/DL (0.60-1.30); GFR ESTIMATED > 60; GLUCOSE 170 MG/DL (70-105); POTASSIUM 3.6 MMOL/L (3.6-5.0); SODIUM 137 MMOL/L (135-145); TOTAL PROTEIN 7.1 GM/DL (6.4-8.2)
[2018-09-03] MEDS ORDERED: CEPH-507 PO ×2 (19:31→20:15)
[2018-09-03] MEDS ORDERED: ONDA4TAB11 PO ×2 (19:31→20:15)
[2018-09-03 20:10] VITALS: BP 145/100
== END 2018-09-03 20:16 | disposition home or self-care (01) ==
LOC: EDUNIT# 18:28 → ER 18:29
DX: N39.0 Urinary tract infection, site not specified (principal); R10.12 Left upper quadrant pain; E11.9 Type 2 diabetes mellitus without complications; J45.909 Unspecified asthma, uncomplicated; J42 Unspecified chronic bronchitis; G43.909 Migraine, unspecified, not intractable, without status migrainosus; Z87.19 Personal history of other diseases of the digestive system; Z79.84 Long term (current) use of oral hypoglycemic drugs; Z90.79 Acquired absence of other genital organ(s); Z88.0 Allergy status to penicillin; Z88.1 Allergy status to other antibiotic agents; Z88.5 Allergy status to narcotic agent; Z88.6 Allergy status to analgesic agent; Z90.710 Acquired absence of both cervix and uterus
CPT/HCPCS: 36415; 80053; 81000; 85025; 87077; 87088; 96365; 96375

== ENCOUNTER 2018-10-14 14:22 | Emergency (ER) | payer BC ==
[~2018-10-14] VITALS: Ht 160 cm; Wt 100.7 kg
[~2018-10-14 14:22] MED LIST changes: +CEPH-507 PO; +ONDA4TAB11 PO
--- OUTSIDE RECORDS SUMMARY | 2018-10-14 14:28 | XMS REPORT ---
Author Author LANA NOYOLA Organization [facility] Address [address] [place] [address] Care Team Providers Care Histology Supervisor Name Role Phone LANA NOYOLA Unavailable PROBLEMS Type Condition ICD9-CM Code EBF92-ZC Code Onset Dates Condition Status SNOMED Code Problem Dysmetabolic syndrome E88.81 Active 491478653 Problem Mild intermittent asthma without complication J45.20 Active 068497053 Problem Diverticulitis K57.92 Active 641321132 Problem Other chronic pain G89.29 Active 48916763 Problem Diabetes mellitus type 2, uncomplicated E11.9 Active 32737427 Problem Low back pain M54.5 Active 335046620 Problem Memory loss R41.3 Active 24845187 Problem Hypertension I10 Active 85500605 ALLERGIES No Information ENCOUNTERS Encounter Location Date Diagnosis [place] [address] [place] [id number] [place] [address] 97534- 9343 Jun, [place] [address] 90496- 4463 Jun, Diverticulitis K57.92 [facility] [id number] [place] [address] 06838- 2799 Jun, [facility] [id number] [place] [address] 18560- 2326 May, Diabetes mellitus type 2, uncomplicated E11.9 [facility] [id number] [place] [address] 91618- 9206 Jan, Diabetes mellitus type 2, uncomplicated E11.9 [facility] [id number] [place] [address] 42097- 4267 Jan, Diabetes mellitus type 2, uncomplicated E11.9 [facility] [address] 81691- 2025 Jan, [place] [id number] [place] [address] 02128- 3046 Jan, Cognitive complaints R41.9 [place] [address] [id number] [place] [address] 53216- 2784 Dec, Symptomatic abdominal apron E65 [place] [id number] [place] [address] 51688- 2037 Dec, Cognitive complaints R41.9 [place] [id number] [place] [address] 76058- 9780 Nov, Symptomatic abdominal apron E65 and Diabetes mellitus type 2 , uncomplicated E11.9 [place] [id number] [place] [address] 59190- 5338 Oct, Symptomatic abdominal apron E65 [place] [id number] [place] [address] 03134- 0088 Oct, Breast screening Z12.39 [place] [id number] [place] [address] 77656- 7576 Sep, Other chronic pain G89.29 ; Pain in left shoulder M25.512 and Dysfunction of both eustachian tubes H69.83 [place] [address] [place] [address] 60203- 9676 Sep, Cognitive complaints R41.9 [place] [id number] [place] [address] 32962- 8633 Aug, [place] [id number] [place] [address] 43019- 5432 Aug, Muscle strain of left shoulder, initial encounter S46.912A [place] [id number] [place] [address] 15521- 7468 Jul, [place] [id number] [place] [address] 61414- 6508 Jul, Memory loss R41.3 and Paternal family history of dementia Z82.0 [place] [id number] [place] [address] 88675- 6883 Apr, Diabetes mellitus type 2, uncomplicated E11.9 and Hypertension I10 [place] [address] 44796- 9880 Feb, Symptomatic abdominal apron E65 [facility] [place] [address] 61161 -3452 Nov, Muscle strain of left shoulder, initial encounter S46.912A [place] [address] 00990- 2823 Oct, Encounter for immunization Z23 [facility] [place] [address] 98506 -3664 Oct, Plantar fasciitis M72.2 [place] [address] 10122- 5456 Sep, [place] [address] 81090- 5925 Aug, Breast screening Z12.39 and Acute costochondritis M94.0 [place] [address] 98595- 2189 Aug, [place] [address] 24212- 0851 Aug, [place] [address] 75731- 8175 Jul, Symptomatic abdominal apron E65 and 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 [place] [address] 57428- 7220 Apr, [facility] [address] 25942 -0250 Apr, Right acute otitis media H66.91 [facility] [address] [id number] Jan, Dental caries K02.9 [facility] [address] [address] 3247 Dec, Dysmetabolic syndrome E88.81 [facility] [address] [place] [address] 918391- 6848 Dec, [facility] [id number] [place] [address] 29321- 0382 Nov, Dysmetabolic syndrome E88.81 [facility] [id number] [place] [address] 05060- 7476 Oct, [facility] [address] [place] [id number] [place] [address] [id number] Oct, Dental examination Z01.20 [facility] [id number] [place] [address] 54577- 0438 Sep, [facility] [id number] [place] [address] 50882- 3394 Sep, Low back pain M54.5 and Sciatica, unspecified side M54.30 [facility] [id number] [place] [address] 75157- 3521 Feb, [facility] [id number] [place] [address] 86682- 2117 Feb, [facility] [address] [place] [address] 55273- 6918 Dec, [facility] [address] [place] [address] 52720- 2912 Dec, [facility] [id number] [place] [address] 29451- 4000 Nov, [facility] [id number] [place] [address] 06624- 5487 Nov, [facility] [address] [place] [address] 15055- 4259 Nov, [facility] [place] [facility] [address] [id number] [place] [address]- 0466 Aug, [facility] [place] [facility] [address] [id number] [place] [address]- 8098 Aug, [facility] [place] [facility] [address] [id number] [place] [address]- 2441 Aug, [facility] [place] [facility] [address] [id number] [place] [address]- 9637 Aug, [facility] [place] [facility] [address] [id number] [place] [address]- 7230 Aug, [facility] [place] [facility] [address] [id number] [place] [address]- 7135 Aug, [facility] [place] [facility] [address] [id number] [place] [address]- 8342 Aug, [facility] [place] [facility] [address] [id number] [place] [address]- 7287 Aug, [facility] [place] [facility] [address] [id number] [place] [address]- 4886 Jul, [facility] [place] [facility] [address] [id number] [place] [address]- 4696 Jul, [facility] [place] [facility] [address] [id number] [place] [address]- 4004 Jun, [facility] [place] [facility] [address] [id number] [place] [address]- 1762 Jun, [facility] [place] [facility] [address] [id number] [place] [address]- 0702 Jun, [facility] [place] [facility] [address] [id number] [place] [address]- 2640 Jun, [facility] [place] [facility] [address] [id number] [place] [address]- 5608 May, [facility] [place] [facility] [address] [id number] [place] [address]- 4682 May, [facility] [place] [facility] [address] [id number] [place] [address]- 5000 Apr, [facility] [place] [facility] [address] [id number] [place] [address]- 7632 Apr, [facility] [place] [facility] [address] [id number] [place] [address]- 8826 Apr, [facility] [place] [facility] [address] [id number] [place] [address]- 6118 Apr, [facility] [place] [facility] [address] [id number] [place] [address]- 3520 Apr, [facility] [place] [facility] [address] [id number] [place] [address]- 0644 Apr, [facility] [place] [facility] [address] [id number] [place] [address]- 1184 March, [facility] [place] [facility] [address] [id number] [place] [address]- 6710 March, [facility] [place] [facility] [address] [id number] [place] [address]- 8242 March, [facility] [place] [facility] [address] [id number] [place] [address]- 3501 March, [facility] [place] [facility] [address] [id number] [place] [address]- 7496 March, [facility] [place] [facility] [address] [id number] [place] [address]- 4188 March, [facility] [place] [facility] [address] [id number] [place] [address]- 7148 Dec, [facility] [place] [facility] [address] [id number] [place] 0430 Dec, [facility] [place] [facility] [address] [id number] [place] [address]- 8585 Dec, [facility] [place] [facility] [address] [id number] [place] [address]- 2546 Dec, [facility] [address] [id number] [place] [address]- 8847 Nov, [facility] [place] [facility] [address] [id number] [place] [address] 2546 Nov, [facility] [address] [id number] [place] [address]- 2206 Aug, [facility] [address] [id number] [place] [address]- 1754 Jun, [facility] [address] [id number] [place] [address]- 4956 Jun, [facility] [address] [id number] [place] [address]- 1376 May, [facility] [address] [id number] [place] [address]- 4737 May, [facility] [address] [id number] [place] [address]- 2783 May, [facility] [address] [id number] [place] [address]- 8996 May, [facility] [address] [id number] [place] [address]- 1076 Apr, [facility] [place] [facility] [address] [id number] [place] [address]- 2546 Apr, [facility] [place] [facility] [address] [id number] [place] [address]- 1926 March, [facility] [place] [facility] [address] [id number] [place] [address]- 2546 Jan, [facility] [place] [facility] [address] [id number] [place] [address]- 2546 Dec, [facility] [place] [facility] [address] [id number] [place] [address]- 3552 Dec, [facility] [place] [facility] [address] [id number] [place] [address]- 2451 16 Nov, 2012 [facility] [place] [facility] [address] [id number] [place] [address]- 8016 15 Nov, 2012 [facility] [place] [facility] [address] [id number] [place] [address]- 1507 Oct, [facility] [place] [facility] [address] [id number] [place] [address]- 7408 Oct, [facility] [place] [facility] [address] [id number] [place] [address]- 1601 Oct, [facility] [place] [facility] [address] [id number] [place] [address]- 7476 Oct, [facility] [place] [facility] [address] [id number] [place] [address]- 4485 Oct, [facility] [place] [facility] [address] [id number] [place] [address]- 6728 Oct, [facility] [place] [facility] [address] [id number] [place] [address]- 5138 Oct, [facility] [place] [facility] [address] [id number] [place] [address]- 7418 Oct, [facility] [place] [facility] [address] [id number], [place] [address]- 9935 Aug, [facility] [place] [facility] [address] [id number], [place] [address]- 3343 Aug, [facility] [place] [facility] [address] [id number] [place] [address]- 8937 Aug, [facility] [place] [facility] [address] [id number], [place] [address]- 1962 Aug, [facility] [place] [facility] [address] [id number] [place] [address]- 5296 Jul, [facility] [place] [facility] [address] [id number] [place] [address]- 7234 11 Jul, 2012 [facility] [address] [id number] [place] [address]- 5632 08 Apr, 2012 [facility] [place] [facility] [address] [id number] [place] [address]- 4826 06 Apr, 2012 [facility] [address] [id number] [place] [address]- 1267 Apr, [facility] [place] [facility] [address] [id number] [place] [address]- 7500 March, [facility] [place] [facility] [address] [id number] [place] [address]- 1041 March, [facility] [place] [facility] [address] [id number] [place] [address]- 8939 March, [facility] [address] [id number] [place] [address]- 0709 23 Feb, 2012 [facility] [place] [facility] [address] [id number] [place] [address]- 2741 20 Feb, 2012 [facility] [place] [facility] [address] [id number] [place] [address]- 1083 16 Feb, 2012 [facility] [place] [facility] [address] [id number] [place] [address]- 3983 12 Feb, 2012 [facility] [place] [facility] [address] [id number] [place] [address]- 9027 29 Jan, 2012 [facility] [place] [facility] [address] [id number] [place] [address]- 7481 27 Jan, 2012 [facility] [place] [facility] [address] [id number] [place] [address]- 3911 17 Jan, 2012 [facility] [place] [facility] [address] [id number] [place] [address]- 9836 17 Jan, 2012 [facility] [place] [facility] [address] [id number] [place] [address]- 0000 Jan, [facility] [address] [facility] [id number], [place] [address]- 4948 Jan, [facility] [address] [facility] [id number] [place] [address]- 8766 Jan, [facility] [address] [facility] [id number] [place] [address]- 8136 Dec, [facility] [address] [facility] [id number] [place] [address]- 6125 Dec, [facility] [address] [id number] [place] [address]- 0162 Dec, [facility] [address] [facility] [id number] [place] [address]- 3326 Dec, [facility] [address] [facility] [id number], [place] [address]- 4625 Nov, [facility] [id number] [address]- 9236 Nov, [facility] [address] [facility] [id number][place] 0607 Oct, [facility] [address], [place] [address]- 5258 Oct, [facility] [id number], [place] [address]- 8386 Oct, [facility] [address], [place] [address]- 4651 Feb, [facility] [address] [facility] [id number], [place] [address]- 3702 Dec, [facility] [address] [facility] [id number], [place] [address]- 7336 Dec, [facility] [address] [id number], [place] [address]- 4918 Jun, IMMUNIZATIONS No Known Immunizations SOCIAL HISTORY Never Assessed REASON FOR VISIT Medication refill request PLAN OF CARE VITAL SIGNS MEDICATIONS Medication Instructions Dosage Frequency Start Date End Date Duration Status Estradiol 1 mg Orally Once a day 1 tablet 24h 30 Active RESULTS No Results PROCEDURES No Known [...]
--- OUTSIDE RECORDS SUMMARY | 2018-10-14 14:28 | XMS REPORT ---
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 Name Role Phone LAAN NOYOLA Unavailable PROBLEMS Type Condition ICD9-CM Code WBP33-AE Code Onset Dates Condition Status SNOMED Code Problem Dysmetabolic syndrome E88.81 Active 340977498 Problem Mild intermittent asthma without complication J45.20 Active 749617399 Problem Diverticulitis K57.92 Active 648202295 Problem Other chronic pain G89.29 Active 92336963 Problem Diabetes mellitus type 2, uncomplicated E11.9 Active 90464616 Problem Low back pain M54.5 Active 628063348 Problem Memory loss R41.3 Active 80869996 Problem Hypertension I10 Active [id number] ALLERGIES No Information ENCOUNTERS Encounter Location Date Diagnosis [place] [id number] [place] [address] 43677- 8959 Jun, [place] [address] [address]- 9918 Jun, Diverticulitis K57.92 [facility] [id number] [place] [address] 29194- 1473 Jun, [facility] [id number] [place] [address] 54784- 1120 May, Diabetes mellitus type 2, uncomplicated E11.9 [facility] [id number] [place] [address] 62688- 1520 Jan, Diabetes mellitus type 2, uncomplicated E11.9 [facility] [id number] [place] [address] 10819- 1542 Jan, Diabetes mellitus type 2, uncomplicated E11.9 [facility] [address] 78014- 4982 Jan, [place] [id number] [place] [address] 17261- 3531 Jan, Cognitive complaints R41.9 [place] [id number] [place] [address] 60833- 1259 Dec, Symptomatic abdominal apron E65 [place] [id number] [place] [address] 04263- 3924 Dec, Cognitive complaints R41.9 [place] [id number] [place] [address] 09772- 1870 Nov, Symptomatic abdominal apron E65 and Diabetes mellitus type 2 , uncomplicated E11.9 [place] [id number] [place] [address] 13675- 0665 Oct, Symptomatic abdominal apron E65 [place] [id number] [place] [address] 19710- 5888 Oct, Breast screening Z12.39 [place] [id number] [place] [address] 98449- 8321 Sep, Other chronic pain G89.29 ; Pain in left shoulder M25.512 and Dysfunction of both eustachian tubes H69.83 [place] [id number] [place] [address] 54675- 4276 Sep, Cognitive complaints R41.9 [place] [id number] [place] [address] 76332- 7632 Aug, [place] [id number] [place] [address] 31971- 9952 Aug, Muscle strain of left shoulder, initial encounter S46.912A [place] [id number] [place] [address] 39105- 7096 Jul, [place] [id number] [place] [address] 81364- 8576 Jul, Memory loss R41.3 and Paternal family history of dementia Z82.0 [place] [id number] [place] [address] 20136- 9206 Apr, Diabetes mellitus type 2, uncomplicated E11.9 and Hypertension I10 [place] [address] 05265- 9477 Feb, Symptomatic abdominal apron E65 [facility] [place] [address] 20474 -4865 Nov, Muscle strain of left shoulder, initial encounter S46.912A [place] [address] 06538- 5772 Oct, Encounter for immunization Z23 [facility] [place] [address] 44459 -3252 Oct, Plantar fasciitis M72.2 [place] [address] 84847- 2453 Sep, [place] [address] 18266- 8688 Aug, Breast screening Z12.39 and Acute costochondritis M94.0 [place] [address] 61541- 2920 Aug, [place] [address] 28367- 2356 Aug, [place] [address] 68935- 5462 Jul, Symptomatic abdominal apron E65 and 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 [place] [address] 49177- 3007 Apr, [facility] [address] 34182 -0231 Apr, Right acute otitis media H66.91 [facility] [address] [id number] Jan, Dental caries K02.9 [facility] [address] [address]- 7781 Dec, Dysmetabolic syndrome E88.81 [facility] [id number] [place] [address] 905524- 4378 Dec, [facility] [id number] [place] [address] 52942- 9014 Nov, Dysmetabolic syndrome E88.81 [facility] [id number] [place] [address] 72927- 3938 Oct, [facility] [id number] [place] [address] [id number] Oct, Dental examination Z01.20 [facility] [id number] [place] [address] 07798- 4122 Sep, [facility] [id number] [place] [address] 69440- 4824 Sep, Low back pain M54.5 and Sciatica, unspecified side M54.30 [facility] [id number] [place] [address] 26161- 0826 Feb, [facility] [id number] [place] [address] 80148- 6745 Feb, [facility] [address] [place] [address] 03759- 1268 Dec, [facility] [id number] [place] [address] 66697- 5216 Dec, [facility] [id number] [place] [address] 34196- 8723 Nov, [facility] [id number] [place] [address] 43577- 2484 Nov, [facility] [id number] [place] [address] 23154- 7498 Nov, [facility] [place] [facility] [address] [id number] [place] [address]- 4195 Aug, [facility] [place] [facility] [address] [id number] [place] [address]- 0746 Aug, [facility] [place] [facility] [address] [id number] [place] [address]- 8336 Aug, [facility] [place] [facility] [address] [id number] [place] [address]- 3095 Aug, [facility] [place] [facility] [address] [id number] [place] [address]- 8647 Aug, [facility] [place] [facility] [address] [id number] [place] [address]- 1537 Aug, [facility] [place] [facility] [address] [id number] [place] [address]- 6090 Aug, [facility] [place] [facility] [address] [id number] [place] [address]- 7145 Aug, [facility] [place] [facility] [address] [id number] [place] [address]- 2644 Jul, [facility] [place] [facility] [address] [id number] [place] [address]- 4509 Jul, [facility] [place] [facility] [address] [id number] [place] [address]- 4177 Jun, [facility] [place] [facility] [address] [id number] [place] [address]- 2950 Jun, [facility] [place] [facility] [address] [id number] [place] [address]- 7801 Jun, [facility] [place] [facility] [address] [id number] [place] [address]- 2350 Jun, [facility] [place] [facility] [address] [id number] [place] [address]- 7886 May, [facility] [place] [facility] [address] [id number] [place] [address]- 7893 May, [facility] [place] [facility] [address] [id number] [place] [address]- 3970 Apr, [facility] [place] [facility] [address] [id number] [place] [address]- 9097 Apr, [facility] [place] [facility] [address] [id number] [place] [address]- 1536 Apr, [facility] [place] [facility] [address] [id number] [place] [address]- 6216 Apr, [facility] [place] [facility] [address] [id number] [place] [address]- 6151 Apr, [facility] [place] [facility] [address] [id number] [place] [address]- 5305 Apr, [facility] [place] [facility] [address] [id number] [place] [address]- 0405 March, [facility] [place] [facility] [address] [id number] [place] [address]- 6550 March, [facility] [place] [facility] [address] [id number] [place] [address]- 4447 March, [facility] [place] [facility] [address] [id number] [place] [address]- 4477 March, [facility] [place] [facility] [address] [id number] [place] [address]- 6188 March, [facility] [place] [facility] [address] [id number] [place] [address]- 2183 March, [facility] [place] [facility] [address] [id number] [place] [address]- 7326 Dec, [facility] [place] [facility] [address] [id number] [place] 0796 Dec, [facility] [place] [facility] [address] [id number] [place] [address]- 7636 Dec, [facility] [place] [facility] [address] [id number] [place] [address]- 2546 Dec, [facility] [address] [id number] [place] [address]- 1093 Nov, [facility] [place] [facility] [address] [id number] [place] [address] 2546 Nov, [facility] [address] [id number] [place] [address]- 0916 Aug, [facility] [address] [id number] [place] [address]- 6341 Jun, [facility] [address] [id number] [place] [address]- 7446 Jun, [facility] [address] [id number] [place] [address]- 9026 May, [facility] [address] [id number] [place] [address]- 4099 May, [facility] [address] [id number] [place] [address]- 2087 May, [facility] [address] [id number] [place] [address]- 3156 May, [facility] [address] [id number] [place] [address]- 2316 Apr, [facility] [place] [facility] [address] [id number] [place] [address]- 2546 Apr, [facility] [place] [facility] [address] [id number] [place] [address]- 1346 March, [facility] [place] [facility] [address] [id number] [place] [address]- 2546 Jan, [facility] [place] [facility] [address] [id number] [place] [address]- 2546 Dec, [facility] [place] [facility] [address] [id number] [place] [address]- 2110 Dec, [facility] [place] [facility] [address] [id number] [place] [address]- 4205 16 Nov, 2012 [facility] [place] [facility] [address] [id number] [place] [address]- 7486 15 Nov, 2012 [facility] [place] [facility] [address] [id number] [place] [address]- 3099 Oct, [facility] [place] [facility] [address] [id number] [place] [address]- 8709 Oct, [facility] [place] [facility] [address] [id number] [place] [address]- 3520 Oct, [facility] [place] [facility] [address] [id number] [place] [address]- 4728 Oct, [facility] [place] [facility] [address] [id number] [place] [address]- 1372 Oct, [facility] [place] [facility] [address] [id number] [place] [address]- 7777 Oct, [facility] [place] [facility] [address] [id number] [place] [address]- 4505 Oct, [facility] [place] [facility] [address] [id number] [place] [address]- 6589 Oct, [facility] [place] [facility] [address] [id number] [address]- 6361 Aug, [facility] [place] [facility] [address] [id number], [place] [address]- 7079 Aug, [facility] [place] [facility] [address] [id number] [place] [address]- 7100 Aug, [facility] [place] [facility] [address] [id number], [place] [address]- 6163 Aug, [facility] [place] [facility] [address] [id number] [place] [address]- 4816 Jul, [facility] [place] [facility] [address] [id number] [place] [address]- 0801 11 Jul, 2012 [facility] [address] [id number] [place] [address]- 1418 08 Apr, 2012 [facility] [place] [facility] [address] [id number] [place] [address]- 7276 06 Apr, 2012 [facility] [address] [id number] [place] [address]- 4951 Apr, [facility] [place] [facility] [address] [id number] [place] [address]- 9704 March, [facility] [place] [facility] [address] [id number] [place] [address]- 2298 March, [facility] [place] [facility] [address] [id number] [place] [address]- 2625 March, [facility] [address] [id number] [place] [address]- 6415 23 Feb, 2012 [facility] [place] [facility] [address] [id number] [place] [address]- 9379 20 Feb, 2012 [facility] [place] [facility] [address] [id number] [place] [address]- 5628 16 Feb, 2012 [facility] [place] [facility] [address] [id number] [place] [address]- 6206 12 Feb, 2012 [facility] [place] [facility] [address] [id number] [place] [address]- 9726 29 Jan, 2012 [facility] [place] [facility] [address] [id number] [place] [address]- 2026 27 Jan, 2012 [facility] [place] [facility] [address] [id number] [place] [address]- 7049 17 Jan, 2012 [facility] [place] [facility] [address] [id number] [place] [address]- 7186 17 Jan, 2012 [facility] [place] [facility] [address] [id number] [place] [address]- 0431 Jan, [facility] [address] [id number], [place] [address]- 7610 Jan, [facility] [address] [facility] [id number] [place] [address]- 8086 Jan, [facility] [address] [facility] [id number] [place] [address]- 2186 Dec, [facility] [address] [facility] [id number] [place] [address]- 0622 Dec, [facility] [address] [id number] [place] [address]- 8122 Dec, [facility] [address] [facility] [id number] [place] [address]- 8566 Dec, [facility] [address] [facility] [id number] [place] [address]- 8058 Nov, [facility] [address] [facility] [id number], [place] [address]- 5868 Nov, [facility] [address] [facility] [id number][place] 7043 Oct, [facility] [address] [place] [address]- 7864 Oct, [facility] [address] [address] [id number] 7106 Oct, [facility] [address] [place] [address]- 7926 Feb, [facility] [address] [facility] [id number], [place] [address]- 6770 Dec, [facility] [address] [facility] [id number], [place] [address]- 6346 Dec, [facility] [address] [facility] [id number], [place] [address]- 0338 Jun, IMMUNIZATIONS No Known Immunizations SOCIAL HISTORY Never Assessed REASON FOR VISIT Refill request PLAN OF CARE VITAL SIGNS MEDICATIONS Unknown [...]
--- OUTSIDE RECORDS SUMMARY | 2018-10-14 14:28 | XMS REPORT ---
Author Author LANA NOYOLA Organization [facility] Address [address] [place] [address] Care Team Providers Care Head Of It Name Role Phone LANA NOYOLA Unavailable PROBLEMS Type Condition ICD9-CM Code PNF35-GY Code Onset Dates Condition Status SNOMED Code Problem Dysmetabolic syndrome E88.81 Active 437343399 Problem Mild intermittent asthma without complication J45.20 Active 077120809 Problem Diverticulitis K57.92 Active 406667971 Problem Other chronic pain G89.29 Active 66506999 Problem Diabetes mellitus type 2, uncomplicated E11.9 Active 77363645 Problem Low back pain M54.5 Active 017750948 Problem Memory loss R41.3 Active 91230964 Problem Hypertension I10 Active 88872802 ALLERGIES Substance Reaction Event Type Date Status Penicillin V Potassium Unknown Drug Allergy Jun, Active Morphine Sulfate Unknown Drug Allergy Jun, Active Demerol Unknown Drug Allergy Jun, Active Codeine Sulfate Unknown Drug Allergy Jun, Active Cipro Unknown Drug Allergy Jun, Active ENCOUNTERS Encounter Location Date Diagnosis [facility] [id number] [place] [address] 84187- 9934 Jun, [facility] [id number] [place] [address] 79865- 5654 Jun, Diverticulitis K57.92 [facility] [id number] [place] [address] 00756- 2876 Jun, [facility] [id number] [place] [address] 95311- 1962 May, Diabetes mellitus type 2, uncomplicated E11.9 [facility] [id number] [place] [address] 48301- 9007 Jan, Diabetes mellitus type 2, uncomplicated E11.9 [facility] [address] [place] [address] 2986 Jan, Diabetes mellitus type 2, uncomplicated E11.9 [facility] [id number] [place] [address] 22759- 5603 Jan, [facility] [id number] [place] [address] 92402- 2727 Jan, Cognitive complaints R41.9 [facility] [id number] [place] [address] 75775- 9851 Dec, Symptomatic abdominal apron E65 [place] [id number] [place] [address] 05103- 5923 Dec, Cognitive complaints R41.9 [facility] [id number] [place] [address] 97328- 1673 Nov, Symptomatic abdominal apron E65 and Diabetes mellitus type 2 , uncomplicated E11.9 [facility] [id number] [place] [address] 35908- 0454 Oct, Symptomatic abdominal apron E65 [place] [id number] [place] [address] 56199- 0532 Oct, Breast screening Z12.39 [facility] [id number] [place] [address] 09534- 6280 Sep, Other chronic pain G89.29 ; Pain in left shoulder M25.512 and Dysfunction of both eustachian tubes H69.83 [facility] [id number] [place] [address] 77694- 7704 Sep, Cognitive complaints R41.9 [facility] [id number] [place] [address] 17264- 0694 Aug, [facility] [id number] [place] [address] 30937- 4371 Aug, Muscle strain of left shoulder, initial encounter S46.912A [place] [id number] [place] [address] 67090- 1498 Jul, [place] [address] 61434- 2335 Jul, Memory loss R41.3 and Paternal family history of dementia Z82.0 [place] [address] 20262- 5254 Apr, Diabetes mellitus type 2, uncomplicated E11.9 and Hypertension I10 [place] [address] 50681- 1279 Feb, Symptomatic abdominal apron E65 [facility] [place] [address] [address] -[address] Nov, Muscle strain of left shoulder, initial encounter S46.912A [place] [address] 00551- 7699 Oct, Encounter for immunization Z23 [facility] [place] [address] [address] -8017 Oct, Plantar fasciitis M72.2 [place] [address] 33598- 5079 Sep, [place] [address] 32680- 0589 Aug, Breast screening Z12.39 and Acute costochondritis M94.0 [place] [address] 64775- 5917 Aug, [place] [address] 98646- 1795 Aug, [place] [address] 15923- 2885 Jul, Symptomatic abdominal apron E65 and 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 [place] [address] 05077- 9654 Apr, [facility] [address] [place] [address] Apr, Right acute otitis media H66.91 [facility] [id number] [place] [address] [id number] Jan, Dental caries K02.9 [facility] [id number] [place] [address] 89549- 0103 Dec, Dysmetabolic syndrome E88.81 [facility] [id number] [place] [address] 98048- 9316 Dec, [facility] [id number] [place] [address] 685269- 7075 Nov, Dysmetabolic syndrome E88.81 [facility] [id number] [place] [address] 83560- 0326 Oct, [facility] [id number] [place] [address] [id number] Oct, Dental examination Z01.20 [facility] [id number] [place] [address] 72575- 1710 Sep, [facility] [id number] [place] [address] 75369- 6599 Sep, Low back pain M54.5 and Sciatica, unspecified side M54.30 [facility] [address] [address] 52[address] Feb, [facility] [id number] [place] [address] 21561- 1542 Feb, [facility] [id number] [place] [address] 49676- 6425 Dec, [facility] [id number] [place] [address] 604913- 9649 Dec, [facility] [address] [address]- 8894 Nov, [facility] [id number] [place] [address]- 8882 Nov, [facility] [place] [facility] [address] [id number] [place] [address]- 7019 Nov, [facility] [place] [facility] [address] [id number] [place] [address]- 7217 Aug, [facility] [place] [facility] [address] [id number] [place] [address]- 9789 Aug, [facility] [place] [facility] [address] [id number] [place] [address]- 6739 Aug, [facility] [place] [facility] [address] [id number] [place] [address]- 1084 Aug, [facility] [place] [facility] [address] [id number] [place] [address]- 3899 Aug, [facility] [place] [facility] [address] [id number] [place] [address]- 7640 Aug, [facility] [place] [facility] [address] [id number] [place] [address]- 6375 Aug, [facility] [place] [facility] [address] [id number] [place] [address]- 5690 Aug, [facility] [place] [facility] [address] [id number] [place] [address]- 6743 Jul, [facility] [place] [facility] [address] [id number] [place] [address]- 6332 Jul, [facility] [place] [facility] [address] [id number] [place] [address]- 6710 Jun, [facility] [place] [facility] [address] [id number] [place] [address]- 7734 Jun, [facility] [place] [facility] [address] [id number] [place] [address]- 8006 Jun, [facility] [place] [facility] [address] [id number] [place] [address]- 5958 Jun, [facility] [place] [facility] [address] [id number] [place] [address]- 0918 May, [facility] [place] [facility] [address] [id number] [place] [address]- 2359 May, [facility] [place] [facility] [address] [id number] [place] [address]- 1123 Apr, [facility] [place] [facility] [address] [id number] [place] [address]- 9908 Apr, [facility] [place] [facility] [address] [id number] [place] [address]- 4596 Apr, [facility] [place] [facility] [address] [id number] [place] [address]- 8049 Apr, [facility] [place] [facility] [address] [id number] [place] [address]- 8321 Apr, [facility] [place] [facility] [address] [id number] [place] [address]- 1775 Apr, [facility] [place] [facility] [address] [id number] [place] [address]- 2175 March, [facility] [place] [facility] [address] [id number] [place] [address]- 3776 March, [facility] [place] [facility] [address] [id number] [place] [address]- 0658 March, [facility] [place] [facility] [address] [id number] [place] [address]- 6494 March, [facility] [place] [facility] [address] [id number] [place] [address]- 8164 March, [facility] [place] [facility] [address] [id number] [place] [address]- 7816 March, [facility] [place] [facility] [address] [id number] [place] [address]- 4291 Dec, [facility] [place] [facility] [address] [id number], [place] [address]- 5562 Dec, [facility] [address] [id number] [place] [address]- 9660 Dec, [facility] [place] [facility] [address] [id number] [place] [address]- 0803 Dec, [facility] [place] [facility] [address] [id number] [place] [address]- 5678 Nov, [facility] [place] [facility] [address] [id number] [place] [address]- 0745 Nov, [facility] [place] [facility] [address] [id number] [place] [address]- 9875 Aug, [facility] [place] [facility] [address] [id number] [place] [address]- 8869 Jun, [facility] [address] [id number] [place] [address]- 3012 Jun, [facility] [place] [facility] [address] [id number] [place] [address]- 2504 May, [facility] [place] [facility] [address] [id number] [place] [address]- 4835 May, [facility] [place] [facility] [address] [id number] [place] [address]- 4385 May, [facility] [place] [facility] [address] [id number] [place] [address]- 1569 May, [facility] [place] [facility] [address] [id number] [place] [address]- 0890 Apr, [facility] [place] [facility] [address] [id number] [place] [address]- 1426 Apr, [facility] [place] [facility] [address] [id number] [place] [address]- 1887 March, [facility] [place] [facility] [address] [id number] [place] [address]- 8770 Jan, [facility] [place] [facility] [address] [id number] [place] [address]- 7021 Dec, [facility] [address] [id number] [place] [address]- 2106 19 Dec, 2012 [facility] [address] [id number] [place] [address]- 9916 16 Nov, 2012 [facility] [place] [facility] [address] [id number] [place] [address]- 8106 Nov, [facility] [address] [id number] [place] [address]- 5103 Oct, [facility] [place] [facility] [address] [id number] [place] [address]- 9256 Oct, [facility] [address] [id number] [place] 8654 Oct, [facility] [address] [id number] [place] [address]- 4162 Oct, [facility] [address] [id number] [place] [address]- 6219 Oct, [facility] [address] [id number] [place] [address]- 5255 Oct, [facility] [address] [id number] [place] [address]- 8311 Oct, [facility] [place] [facility] [address] [id number] [place] [address]- 8431 Oct, [facility] [place] [facility] [address] [id number] [place] [address]- 7291 Aug, [facility] [place] [facility] [address] [id number] [place] [address]- 5316 Aug, [facility] [place] [facility] [address] [id number] [place] [address]- 5643 Aug, [facility] [place] [facility] [address] [id number] [place] [address]- 7181 Aug, [facility] [place] [facility] [address] [id number] [place] [address]- 0601 25 Jul, 2012 [facility] [place] [facility] [address] [id number] [place] [address]- 9585 11 Jul, 2012 [facility] [place] [facility] [address] [id number] [place] [address]- 4128 Apr, [facility] [place] [facility] [address] [id number] [place] [address]- 6523 Apr, [facility] [place] [facility] [address] [id number] [place] [address]- 0447 Apr, [facility] [place] [facility] [address] [id number] [place] [address]- 6800 March, [facility] [place] [facility] [address] [id number] [place] [address]- 9576 March, [facility] [place] [facility] [address] [id number] [place] [address]- 3394 March, [facility] [place] [facility] [address] [id number] [place] [address]- 8941 23 Feb, 2012 [facility] [place] [facility] [address] [id number] [place] [address]- 0292 Feb, [facility] [place] [facility] [address] [id number] [place] [address]- 0823 16 Feb, 2012 [facility] [place] [facility] [address] [id number] [place] [address]- 1048 12 Feb, 2012 [facility] [place] [facility] [address] [id number] [place] 6374 29 Jan, 2012 [facility] [place] [facility] [address] [id number] [place] [address]- 6577 27 Jan, 2012 [facility] [place] [facility] [address] [id number] [place] [address]- 1088 17 Jan, 2012 [facility] [place] [facility] [address] [id number] [place] [address]- 5069 17 Jan, 2012 [facility] [address] [id number] [place] [address]- 8494 07 Jan, 2012 [facility] [place] [facility] [address] [id number] [place] [address]- 7366 06 Jan, 2012 [facility] [address] [id number] [place] [address]- 8436 Jan, [facility] [place] [facility] [address] [id number] [place] [address]- 2977 Dec, [facility] [place] [facility] [address] [id number] [place] [address]- 6562 Dec, [facility] [address] [id number] [place] [address]- 5320 Dec, [facility] [address] [id number] [place] [address]- 1690 Dec, [facility] [address] [id number] [place] [address]- 0415 Nov, [facility] [address] [facility] [id number] [place] [address]- 9978 Nov, [facility] [address] [facility] [id number] [place] [address]- 4428 29 Oct, 2011 [facility] [address] [id number] [place] [address]- 2440 Oct, [facility] [place] [facility] [address] [id number] [place] [address]- 8645 Oct, [facility] [place] [facility] [address] [id number] [place] [address]- 8604 18 Feb, 2011 [facility] [place] [facility] [address] [id number] [place] [address]- 2123 14 Dec, 2010 [facility] [place] [facility] [address] [id number] [place] [address]- 4959 Dec, [facility] [place] [address] [facility] [id number] [place] [address]- 5223 Jun, IMMUNIZATIONS No Known Immunizations SOCIAL HISTORY Never Assessed REASON FOR VISIT Diarrhea/Fever Pt states she has not felt well since Saturday, States she is having abdominal pain, has a hernia and history of diverticulitis. States the pain is similar to last diverticulitis inflamation but worse JOJO Briceno PLAN OF CARE VITAL SIGNS Height 64 in 2018-06-23 Weight 219.6 lbs 2018-06-23 Temperature 98.7 degrees Fahrenheit 2018-06-23 Heart Rate 94 bpm 2018-06-23 Respiratory Rate 20 2018-06-23 BMI 37.69 kg/m2 2018-06-23 Blood pressure systolic 146 mmHg 2018-06-23 Blood pressure diastolic 100 mmHg 2018-06-23 MEDICATIONS Medication Instructions Dosage Frequency Start Date End Date Duration Status Biotin Active Spironolactone 25MG Orally twice a day TAKE ONE TABLET BY MOUTH TWICE DAILY 12h 30 Active Estradiol 1 mg Orally Once a day 1 tablet 24h 30 Active Fish Oil 1000 MG Orally Once a day 1 capsule 24h Active Metformin HCl 1000MG Orally Once a day 1 tablet with a meal 24h 90 Active Clindamycin HCl 300 MG Orally Three times a day 1 capsule 8h Jun, Jun, 10 day(s) Active Metronidazole 500 mg Orally 3 times a day 1 tablet 8h Jun,Jun 10 day(s) Active RESULTS No Results PROCEDURES No Known [...]
--- OUTSIDE RECORDS SUMMARY | 2018-10-14 14:29 | XMS REPORT ---
Author Author LANA NOYOLA Organization [facility] Address [address] [place] [address] Care Team Providers Care Investment Sales Assistant Name Role Phone LANA NOYOLA Unavailable PROBLEMS Type Condition ICD9-CM Code VVN89-WZ Code Onset Dates Condition Status SNOMED Code Problem Low back pain M54.5 Active 246050818 Problem Other chronic pain G89.29 Active 05403727 Problem Memory loss R41.3 Active 44204133 Problem Dysmetabolic syndrome E88.81 Active 842949028 Problem Mild intermittent asthma without complication J45.20 Active 940152632 Problem Hypertension I10 Active 60702600 Problem Diabetes mellitus type 2, uncomplicated E11.9 Active 50277398 ALLERGIES Substance Reaction Event Type Date Status Penicillin V Potassium Unknown Drug Allergy Jan, Active Morphine Sulfate Unknown Drug Allergy Jan, Active Demerol Unknown Drug Allergy Jan, Active Codeine Sulfate Unknown Drug Allergy Jan, Active Cipro Unknown Drug Allergy Jan, Active ENCOUNTERS Encounter Location Date Diagnosis [place] [id number] [place] [address] 15122- 7498 May, Diabetes mellitus type 2, uncomplicated E11.9 [place] [address] [place] [address] 78899- 4351 Jan, Diabetes mellitus type 2, uncomplicated E11.9 [facility] [id number] [place] [address] 21590- 5186 Jan, Diabetes mellitus type 2, uncomplicated E11.9 [facility] [id number] [place] [address] 10324- 9382 Jan, [place] [address] [address] [id number] [place] [address] 18992- 0357 Jan, Cognitive complaints R41.9 [facility] [id number] [place] [address] 12443- 0446 Dec, Symptomatic abdominal apron E65 [place] [address] [id number] [place] [address] 26594- 5356 Dec, Cognitive complaints R41.9 [place] [address] [id number] [place] [address] 52350- 9663 Nov, Symptomatic abdominal apron E65 and Diabetes mellitus type 2 , uncomplicated E11.9 [place] [address] [place] [id number] [place] [address] 70528- 8157 Oct, Symptomatic abdominal apron E65 [place] [address] 94018- 2621 Oct, Breast screening Z12.39 [place] [address] [place] [id number] [place] [address] 54320- 1899 Sep, Other chronic pain G89.29 ; Pain in left shoulder M25.512 and Dysfunction of both eustachian tubes H69.83 [place] [address] [id number] [place] [address] 28782- 3385 Sep, Cognitive complaints R41.9 [place] [address] [id number] [place] [address] 43328- 7453 Aug, [place] [address] [id number] [place] [address] 80463- 7596 Aug, Muscle strain of left shoulder, initial encounter S46.912A [place] [address] [place] [id number] [place] [address] 71320- 2476 Jul, [place] [address] [id number] [place] [address] 89466- 2083 Jul, Memory loss R41.3 and Paternal family history of dementia Z82.0 [place] [address] [id number] [place] [address] 17290- 2926 Apr, Diabetes mellitus type 2, uncomplicated E11.9 and Hypertension I10 [place] [address] [place] [address]- 7143 Feb, Symptomatic abdominal apron E65 [facility] [address] [address] -0612 Nov, Muscle strain of left shoulder, initial encounter S46.912A [facility] [address] 65908- 9774 Oct, Encounter for immunization Z23 [facility] [address] 46[address] -[address] Oct, Plantar fasciitis M72.2 [place] [address] 60732- 3186 Sep, [facility] [address] 63352- 4415 Aug, Breast screening Z12.39 and Acute costochondritis M94.0 [facility] [address] 21556- 2477 Aug, [facility] [address] 09419- 7984 Aug, [facility] [address] 67903- 4642 Jul, Symptomatic abdominal apron E65 and 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 [facility] [address] 41600- 2488 Apr, [facility] [id number] [place] [address] 29248 -1566 Apr, Right acute otitis media H66.91 [facility] [place] [facility] [address] [id number] Jan, Dental caries K02.9 [facility] [address] 38424- 2396 03 Dec, 2015 Dysmetabolic syndrome E88.81 [facility] [address] [place] [address] 3141 Dec, [facility] [address] [place] [address] 775765- 2466 Nov, Dysmetabolic syndrome E88.81 [facility] [address] [place] [address] 72834- 4516 Oct, [facility] [place] [facility] [address] [id number] [place] [address] [id number] Oct, Dental examination Z01.20 [facility] [id number] [place] [address] 949349- 1528 Sep, [facility] [id number] [place] [address] 40433- 6933 Sep, Low back pain M54.5 and Sciatica, unspecified side M54.30 [facility] [id number] [place] [address] 58075- 4923 Feb, [facility] [address] [place] [address] 25507- 6959 Feb, [facility] [id number] [place] [address] 19207- 2540 Dec, [facility] [address] [place] [address] 88581- 6255 Dec, [facility] [address] [place] [address] 77650- 8389 Nov, [facility] [address] [place] [address] 73175- 4702 Nov, [facility] [id number] [place] [address] 010813- 8936 Nov, [facility] [address] [address]- 5686 Aug, [facility] [address] [place] [address] 715123- 5724 Aug, [facility] [place] [facility] [address] [id number] [place] [address]- 5737 Aug, [facility] [place] [facility] [address] [id number] [place] [address]- 2778 Aug, [facility] [place] [facility] [address] [id number] [place] 6[address] Aug, [facility] [place] [facility] [address] [id number] [place] [address]- 9834 Aug, [facility] [place] [facility] [address] [id number] [place] [address]- 9570 Aug, [facility] [place] [facility] [address] [id number] [place] [address]- 7086 Aug, [facility] [place] [facility] [address] [id number] [place] [address]- 6509 Jul, [facility] [place] [facility] [address] [id number] [place] [address]- 9656 Jul, [facility] [place] [facility] [address] [id number] [place] [address]- 6496 Jun, [facility] [place] [facility] [address] [id number] [place] [address]- 7485 Jun, [facility] [place] [facility] [address] [id number] [place] [address]- 1363 Jun, [facility] [place] [facility] [address] [id number] [address]- 8543 Jun, [facility] [place] [facility] [address] [id number] [place] [address]- 1563 May, [facility] [place] [facility] [address] [id number] [place] [address]- 4722 May, [facility] [place] [facility] [address] [id number] [address]- 8333 Apr, [facility] [place] [facility] [address] [id number] [address]- 6852 Apr, [facility] [place] [facility] [address] [id number] [place] [address]- 0731 Apr, [facility] [place] [facility] [address] [id number] [place] [address]- 7775 Apr, [facility] [place] [facility] [address] [id number] [place] [address]- 8192 Apr, [facility] [place] [facility] [address] [id number] [place] [address]- 0617 Apr, [facility] [place] [facility] [address] [id number] [place] [address]- 3381 March, [facility] [place] [facility] [address] [id number] [place] [address]- 8847 March, [facility] [place] [facility] [address] [id number] [place] [address]- 5039 March, [facility] [place] [facility] [address] [id number] [place] [address]- 1470 March, [facility] [place] [facility] [address] [id number] [place] [address]- 2275 March, [facility] [place] [facility] [address] [id number] [place] [address]- 5284 March, [facility] [place] [facility] [address] [id number] [place] [address]- 1699 Dec, [facility] [place] [facility] [address] [id number] [place] [address]- 6766 Dec, [facility] [place] [facility] [address] [id number] [place] [address]- 2061 Dec, [facility] [place] [facility] [address] [id number] [place] [address]- 1054 Dec, [facility] [place] [facility] [address] [id number] [place] [address]- 7045 Nov, [facility] [place] [facility] [address] [id number] [place] [address]- 2653 Nov, [facility] [address] [id number] [place] [address]- 0886 Aug, [facility] [place] [facility] [address] [id number] [place] [address]- 5665 Jun, [facility] [place] [facility] [address] [id number] [place] [address]- 9068 Jun, [facility] [address] [id number] [place] [address]- 4746 May, [facility] [place] [facility] [address] [id number] [place] [address]- 6742 May, [facility] [address] [id number] [place] [address]- 6487 May, [facility] [place] [facility] [address] [id number] [place] [address]- 2380 May, [facility] [place] [facility] [address] [id number] [place] [address]- 0824 Apr, [facility] [place] [facility] [address] [id number] [place] [address]- 7575 Apr, [facility] [place] [facility] [address] [id number] [place] [address]- 5286 March, [facility] [place] [facility] [address] [id number] [place] [address]- 3017 Jan, [facility] [place] [facility] [address] [id number] [place] [address]- 8461 Dec, [facility] [place] [facility] [address] [id number] [place] [address]- 0411 Dec, [facility] [place] [facility] [address] [id number] [place] [address]- 1437 Nov, [facility] [place] [facility] [address] [id number], [place] [address]- 0955 Nov, [facility] [place] [facility] [address] [id number] [place] [address]- 9486 Oct, [facility] [place] [facility] [address] [id number] [place] [address]- 3296 Oct, [facility] [place] [facility] [address] [id number] [place] [address]- 2906 Oct, [facility] [place] [facility] [address] [id number] [place] [address]- 2096 17 Oct, 2012 [facility] [place] [facility] [address] [id number] [place] [address]- 3417 Oct, [facility] [place] [facility] [address] [id number] [place] [address]- 8305 Oct, [facility] [place] [facility] [address] [id number] [place] [address]- 9336 Oct, [facility] [place] [facility] [address] [id number] [place] [address]- 5816 Oct, [facility] [place] [facility] [address] [id number] [place] [address]- 3188 Aug, [facility] [place] [facility] [address] [id number] [place] [address]- 1410 Aug, [facility] [place] [facility] [address] [id number], [place] [address]- 6453 Aug, [facility] [place] [facility] [address] [id number] [address]- 7711 Aug, [facility] [place] [facility] [address] [id number] [place] 8916 25 Jul, 2012 [facility] [place] [facility] [address] [id number] [place] 6802 11 Jul, 2012 [facility] [place] [facility] [address] [id number] [place] 8568 08 Apr, 2012 [facility] [place] [facility] [address] [id number] [place] [address]- 2546 06 Apr, 2012 [facility] [address] [id number] [place] [address]- 8346 Apr, [facility] [address] [id number] [place] [address] 2546 March, [facility] [address] [id number] [place] [address]- 2306 March, [facility] [address] [id number] [place] [address]- 9966 March, [facility] [address] [id number] [place] [address]- 1545 23 Feb, 2012 [facility] [address] [id number] [place] [address]- 1436 Feb, [facility] [address] [id number] [place] [address]- 0943 16 Feb, 2012 [facility] [address] [id number] [place] [address]- 0555 12 Feb, 2012 [facility] [address] [id number] [place] [address]- 8621 29 Jan, 2012 [facility] [address] [id number] [place] [address]- 9913 27 Jan, 2012 [facility] [address] [id number] [place] [address]- 2696 17 Jan, 2012 [facility] [address] [id number] [place] [address]- 7694 17 Jan, 2012 [facility] [place] [facility] [address] [id number] [place] [address]- 7156 07 Jan, 2012 [facility] [address] [id number] [place] [address]- 2546 06 Jan, 2012 [facility] [address] [id number] [place] [address]- 5486 Jan, [facility] [address] [address]- 2888 Dec, [facility] [address] [address]- 1456 Dec, [facility] [address] [address]- 2546 Dec, [facility] [address] [address]- 3006 Dec, [facility] [address] [address]- 9827 Nov, [facility] [address] [address]- 9558 Nov, [facility] [address] [address]- 5014 Oct, [facility] [address] [address]- 4932 Oct, [facility] [address] [address]- 2519 Oct, [facility] [address] [address]- 8608 Feb, [facility] [address] [address]- 9746 Dec, [facility] [address] [address]- 7450 Dec, [facility] [id number] [address]- 8975 Jun, IMMUNIZATIONS No Known Immunizations SOCIAL HISTORY Never Assessed REASON FOR VISIT Diabetes-Jaleel URIBE PLAN OF CARE VITAL SIGNS Height 64 in 2018-02-07 Weight 215.7 lbs 2018-02-07 Temperature 98.7 degrees Fahrenheit 2018-02-07 Heart Rate 76 bpm 2018-02-07 Respiratory Rate 18 2018-02-07 BMI 37.02 kg/m2 2018-02-07 Blood pressure systolic 124 mmHg 2018-02-07 Blood pressure diastolic 82 mmHg 2018-02-07 MEDICATIONS Medication Instructions Dosage Frequency Start Date End Date Duration Status Spironolactone 25MG Orally twice a day TAKE ONE TABLET BY MOUTH TWICE DAILY 12h Feb, 30 days Active Naproxen 500 mg Orally every 12 hrs 1 tablet as needed 12h Not- Taking Fish Oil 1000 MG Orally Once a day 1 capsule 24h Active Metformin HCl 1000 MG Orally Once a day 1 tablet with a meal 24h Active Estradiol 1 1 tablet 24h Active Biotin Active RESULTS Name Result Date Reference Range A1C (IN HOUSE) 2018-02-07 A1C IN HOUSE 5.9 4.3 - 5.6 % Previous A1c 6.1 Lot [id number] Exp date MICROALBUMIN, URINE (IN HOUSE) 2018-02-07 MICROALBUMIN normal Lot # [id number] Exp date 10/2018 Clarity clear Color yellow ALB 10 CRE 200 A:C (IN HOUSE) less than 30 Control Control Lot # Exp date PROCEDURES Procedure Date Ordered Result Body Site GLYCATED HEMOGLOBIN TEST February 07, 2018 MICROALBUMIN, SEMIQUANT February 07, 2018 INSTRUCTIONS MEDICATIONS ADMINISTERED No Known Medications [...]
--- OUTSIDE RECORDS SUMMARY | 2018-10-14 14:29 | XMS REPORT ---
Author Author LANA NOYOLA Organization [facility] [place] Address [address] [place] [address] Care Team Providers Care Shipper And Receiving Name Role Phone LANA NOYOLA Unavailable PROBLEMS Type Condition ICD9-CM Code [id number] Code Onset Dates Condition Status SNOMED Code Problem Low back pain M54.5 Active 676428930 Problem Other chronic pain G89.29 Active 41568416 Problem Memory loss R41.3 Active 26203016 Problem Dysmetabolic syndrome E88.81 Active 132139658 Problem Mild intermittent asthma without complication J45.20 Active 621829917 Problem Hypertension I10 Active 59915300 Problem Diabetes mellitus type 2, uncomplicated E11.9 Active 59080205 ALLERGIES No Information ENCOUNTERS Encounter Location Date Diagnosis [place] [id number] [place] [address] 46241- 7446 May, Diabetes mellitus type 2, uncomplicated E11.9 [facility] [place] [address] [address]- [address] Jan, Diabetes mellitus type 2, uncomplicated E11.9 [facility] [place] [id number] [place] [address] 67500- 0366 Jan, Diabetes mellitus type 2, uncomplicated E11.9 [facility] [place] [id number] [place] [address] 84556- 5904 Jan, [facility] [place] [id number] [place] [address] 40453- 0071 Jan, Cognitive complaints R41.9 [facility] [place] [id number] [place] [address] 40193- 5147 Dec, Symptomatic abdominal apron E65 [place] [id number] [place] [address] 69919- 4615 Dec, Cognitive complaints R41.9 [place] [id number] [place] [address] 38371- 6596 Nov, Symptomatic abdominal apron E65 and Diabetes mellitus type 2 , uncomplicated E11.9 [place] [id number] [place] [address] 03596- 5227 Oct, Symptomatic abdominal apron E65 [place] [address] 38658- 1458 Oct, Breast screening Z12.39 [place] [address] 60118- 3277 Sep, Other chronic pain G89.29 ; Pain in left shoulder M25.512 and Dysfunction of both eustachian tubes H69.83 [place] [id number] [place] [address] 53739- 2884 Sep, Cognitive complaints R41.9 [place] [address] 19485- 9730 Aug, [place] [address] 19550- 9961 Aug, Muscle strain of left shoulder, initial encounter S46.912A [place] [id number] [place] [address] 75423- 5485 Jul, [place] [address] 62888- 3886 Jul, Memory loss R41.3 and Paternal family history of dementia Z82.0 [place] [id number] [place] [address] 54191- 1750 Apr, Diabetes mellitus type 2, uncomplicated E11.9 and Hypertension I10 [place] [id number] [place] [address] 77701- 1061 Feb, Symptomatic abdominal apron E65 [facility] [id number] [place] [address] 06549 -7470 Nov, Muscle strain of left shoulder, initial encounter S46.912A [facility] [place] [id number] [place] [address] 82912- 4569 Oct, Encounter for immunization Z23 [facility] [id number] [place] [address] 54115 -8369 Oct, Plantar fasciitis M72.2 [facility] [place] [id number] [place] [address] 47359- 0668 Sep, [facility] [place] [id number] [place] [address] 48653- 7458 Aug, Breast screening Z12.39 and Acute costochondritis M94.0 [facility] [place] [id number] [place] [address] 30613- 2442 Aug, [facility] [place] [id number] [place] [address] 04346- 5459 Aug, [facility] [place] [id number] [place] [address] 02720- 8201 Jul, Symptomatic abdominal apron E65 and 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 [facility] [place] [id number] [place] [address] 34825- 2723 Apr, [facility] [id number] [place] [address] 89387 -3226 Apr, Right acute otitis media H66.91 [facility] [id number] [place] [address] [id number] Jan, Dental caries K02.9 [facility] [place] [id number] [place] [address] 37745- 7244 Dec, Dysmetabolic syndrome E88.81 [facility] [place] [id number] [place] [address] 83415- 0830 Dec, [facility] [place] [id number] [place] [address] 00919- 2368 13 Tommie, 2016 Dysmetabolic syndrome E88.81 [facility] [place] [address] 0228 Oct, [facility] [address] [id number] Oct, Dental examination Z01.20 [facility] [place] [address]- 7045 Sep, [facility] [place] [id number] [place] [address] 16718- 6528 Sep, Low back pain M54.5 and Sciatica, unspecified side M54.30 [facility] [place] [id number] [place] [address] 313825- 8595 Feb, [facility] [place] [id number] [place] [address] 254792- 6713 Feb, [facility] [place] [id number] [place] [address] 72298- 8534 Dec, [facility] [place] [address] 2207 Dec, [facility] [place] [id number] [place] [address] 86322- 3302 Nov, [facility] [place] [address] [address]- 2532 Nov, [facility] [place] [address] [address]- 3200 Nov, [facility] [place] [address]- 6628 Aug, [facility] [place] [address] 3841 Aug, [facility] [place] [address] 3033 Aug, [facility] [place] [id number] [place] [address] 61872- 8381 Aug, [facility] [place] [facility] [address] [id number] [place] [address]- 9875 Aug, [facility] [place] [facility] [address] [id number] [place] [address]- 3517 Aug, [facility] [place] [facility] [address] [id number] [place] 9450 Aug, [facility] [place] [facility] [address] [id number] [place] [address]- 7535 Aug, [facility] [place] [facility] [address] [id number] [place] [address]- 9444 Jul, [facility] [place] [facility] [address] [id number] [place] [address]- 4430 Jul, [facility] [place] [facility] [address] [id number] [place] [address]- 1300 Jun, [facility] [place] [facility] [address] [id number] [place] [address]- 4107 Jun, [facility] [place] [facility] [address] [id number] [place] [address]- 6254 Jun, [facility] [place] [facility] [address] [id number] [place] [address]- 5755 Jun, [facility] [place] [facility] [address] [id number] [place] [address]- 5819 May, [facility] [place] [facility] [address] [id number] [address]- 0911 May, [facility] [place] [facility] [address] [id number] [place] [address]- 9831 Apr, [facility] [place] [facility] [address] [id number] [place] [address]- 7160 Apr, [facility] [place] [facility] [address] [id number] [place] [address]- 8767 Apr, [facility] [place] [facility] [address] [id number] [place] [address]- 0940 Apr, [facility] [place] [facility] [address] [id number] [place] [address]- 4443 Apr, [facility] [place] [facility] [address] [id number] [place] 6794 Apr, [facility] [place] [facility] [address] [id number] [place] [address]- 3296 March, [facility] [place] [facility] [address] [id number] [place] [address]- 4637 March, [facility] [place] [facility] [address] [id number] [place] 8720 March, [facility] [place] [facility] [address] [id number] [place] [address]- 0997 March, [facility] [place] [facility] [address] [id number] [place] [address]- 0638 March, [facility] [place] [facility] [address] [id number] [place] [address]- 4561 March, [facility] [place] [facility] [address] [id number] [place] [address]- 8526 Dec, [facility] [place] [facility] [address] [id number] [place] [address]- 4320 Dec, [facility] [place] [facility] [address] [id number] [place] [address]- 2099 Dec, [facility] [place] [facility] [address] [id number] [place] [address]- 0103 Dec, [facility] [place] [facility] [address] [id number] [place] [address]- 3478 Nov, [facility] [place] [facility] [address] [id number] [place] [address]- 1383 Nov, [facility] [place] [facility] [address] [id number] [place] [address]- 7251 Aug, [facility] [address] [id number] [place] [address]- 5757 Jun, [facility] [place] [facility] [address] [id number] [place] [address]- 4857 Jun, [facility] [place] [facility] [address] [id number] [place] [address]- 1054 May, [facility] [place] [facility] [address] [id number] [place] [address]- 3221 May, [facility] [place] [facility] [address] [id number] [place] [address]- 8348 May, [facility] [place] [facility] [address] [id number] [place] [address]- 5038 May, [facility] [place] [facility] [address] [id number] [place] [address]- 7640 Apr, [facility] [place] [facility] [address] [id number] [place] [address]- 8571 Apr, [facility] [place] [facility] [address] [id number] [place] [address]- 0121 March, [facility] [place] [facility] [address] [id number] [place] [address]- 6985 Jan, [facility] [place] [facility] [address] [id number] [place] [address]- 8402 Dec, [facility] [place] [facility] [address] [id number], [place] [address]- 2823 Dec, [facility] [place] [facility] [address] [id number] [place] [address]- 8989 Nov, [facility] [place] [facility] [address] [id number] [place] [address]- 7956 Nov, [facility] [place] [facility] [address] [id number] [place] [address]- 4936 Oct, [facility] [place] [facility] [address] [id number] [place] [address]- 7417 Oct, [facility] [place] [facility] [address] [id number] [place] [address]- 8896 17 Oct, 2012 [facility] [place] [facility] [address] [id number] [place] [address]- 0776 17 Oct, 2012 [facility] [place] [facility] [address] [id number] [place] [address]- 3326 Oct, [facility] [place] [facility] [address] [id number] [place] [address]- 0676 10 Oct, 2012 [facility] [place] [facility] [address] [id number] [place] [address]- 7046 Oct, [facility] [place] [facility] [address] [id number] [place] [address]- 0143 Oct, [facility] [place] [facility] [address] [facility] [id number] [place] [address]- 9482 Aug, [facility] [place] [facility] [address] [id number] [place] [address]- 8536 Aug, [facility] [place] [facility] [address] [id number] [place] [address]- 5813 Aug, [facility] [place] [facility] [address] [facility] [id number] [place] [address]- 2790 Aug, [facility] [place] [facility] [address] [id number] [place] [address]- 8266 25 Jul, 2012 [facility] [place] [facility] [address] [id number] [place] [address] 2543 11 Jul, 2012 [facility] [place] [facility] [address] [id number] [place] [address]- 5045 Apr, [facility] [place] [facility] [address] [facility] [id number] [place] [address]- 6106 Apr, [facility] [place] [facility] [address] [id number] [place] [address]- 7861 Apr, [facility] [place] [facility] [address] [id number] [place] [address]- 6074 March, [facility] [address] [id number] [place] [address]- 6676 March, [facility] [address] [id number] [place] [address]- 4106 March, [facility] [address] [id number] [place] [address]- 0673 Feb, [facility] [address] [id number] [place] [address]- 8411 Feb, [facility] [address] [id number] [place] [address]- 8863 Feb, [facility] [address] [id number] [place] [address]- 3780 Feb, [facility] [address] [id number] [place] [address]- 1808 Jan, [facility] [address] [id number] [place] [address]- 0805 Jan, [facility] [address] [id number] [place] [address]- 7712 Jan, [facility] [address] [id number] [place] [address]- 0012 Jan, [facility] [address] [id number] [place] [address]- 6506 Jan, [facility] [place] [facility] [address] [id number] [place] [address]- 6988 Jan, [facility] [place] [facility] [address] [id number] [place] [address]- 8696 Jan, [facility] [place] [facility] [address] [id number] [place] [address]- 7416 Dec, [facility] [place] [facility] [address] [id number], [place] [address]- 8968 Dec, [facility] [place] [address], [place] [address]- 5998 Dec, [facility] [place] [address], [place] [address]- 3209 Dec, [facility] [place] [address], [place] [address]- 1525 Nov, [facility] [place] [address], [place] [address]- 4471 Nov, [facility] [place] [id number] [place] [address] 63951- 4209 Oct, [facility] [place] [id number] [place] [address] 91091- 7663 Oct, [facility] [place] [id number] [place] [address] 00428- 4719 Oct, [facility] [place] [address], [place] [address]- 0132 Feb, [facility] [place] [address], [place] [address]- 1052 Dec, [facility] [place] [address], [place] [address]- 5882 Dec, [facility] [place] [id number] [address]- 7673 Jun, IMMUNIZATIONS No Known Immunizations SOCIAL HISTORY Never Assessed REASON FOR VISIT Medication question PLAN OF CARE VITAL SIGNS MEDICATIONS Medication Instructions Dosage Frequency Start Date End Date Duration Status Estradiol 1 mg Orally Once a day 1 tablet 24h 30 days Active RESULTS No Results PROCEDURES No Known [...]
--- OUTSIDE RECORDS SUMMARY | 2018-10-14 14:29 | XMS REPORT ---
Author Author LANA NOYOLA Organization [facility] [place] Address [address] [place] [address] Care Team Providers Care Home Paraprofessional Name Role Phone LANA NOYOLA Unavailable PROBLEMS Type Condition ICD9-CM Code ZIM94-UV Code Onset Dates Condition Status SNOMED Code Problem Dysmetabolic syndrome E88.81 Active 467272905 Problem Mild intermittent asthma without complication J45.20 Active 024189164 Problem Diverticulitis K57.92 Active 342519552 Problem Other chronic pain G89.29 Active 12314893 Problem Diabetes mellitus type 2, uncomplicated E11.9 Active 72507768 Problem Low back pain M54.5 Active 214851088 Problem Memory loss R41.3 Active 57405545 Problem Hypertension I10 Active 66147428 ALLERGIES Substance Reaction Event Type Date Status Penicillin V Potassium Unknown Drug Allergy May, Active Morphine Sulfate Unknown Drug Allergy May, Active Demerol Unknown Drug Allergy May, Active Codeine Sulfate Unknown Drug Allergy May, Active Cipro Unknown Drug Allergy May, Active ENCOUNTERS Encounter Location Date Diagnosis [facility] [place] [id number] [place] [address] 09383- 5412 Jun, [facility] [place] [id number] [place] [address] 09387- 1421 Jun, Diverticulitis K57.92 [facility] [place] [id number] [place] [address] 81180- 3723 Jun, [facility] [place] [id number] [place] [address] 85822- 4496 May, Diabetes mellitus type 2, uncomplicated E11.9 [facility] [place] [id number] [place] [address] 90756- 5392 Jan, Diabetes mellitus type 2, uncomplicated E11.9 [facility] [place] [address] [place] [address] 0191 Jan, Diabetes mellitus type 2, uncomplicated E11.9 [facility] [place] [id number] [place] [address] 92310- 2022 Jan, [facility] [place] [id number] [place] [address] 80624- 3857 Jan, Cognitive complaints R41.9 [facility] [place] [id number] [place] [address] 24282- 5734 Dec, Symptomatic abdominal apron E65 [place] [id number] [place] [address] 21608- 5181 Dec, Cognitive complaints R41.9 [place] [id number] [place] [address] 00808- 9126 Nov, Symptomatic abdominal apron E65 and Diabetes mellitus type 2 , uncomplicated E11.9 [place] [id number] [place] [address] 58299- 5982 Oct, Symptomatic abdominal apron E65 [place] [id number] [place] [address] 31650- 5726 Oct, Breast screening Z12.39 [place] [id number] [place] [address] 24378- 7927 Sep, Other chronic pain G89.29 ; Pain in left shoulder M25.512 and Dysfunction of both eustachian tubes H69.83 [place] [id number] [place] [address] 71874- 4129 Sep, Cognitive complaints R41.9 [place] [id number] [place] [address] 23066- 2592 Aug, [place] [id number] [place] [address] 46533- 9038 Aug, Muscle strain of left shoulder, initial encounter S46.912A [place] [id number] [place] [address] 18170- 2416 Jul, [place] [address] 02807- 3394 Jul, Memory loss R41.3 and Paternal family history of dementia Z82.0 [place] [address] 34505- 3806 Apr, Diabetes mellitus type 2, uncomplicated E11.9 and Hypertension I10 [place] [address] 60557- 1410 Feb, Symptomatic abdominal apron E65 [facility] [place] [address] 97452 -7307 Nov, Muscle strain of left shoulder, initial encounter S46.912A [place] [address] 60921- 2699 Oct, Encounter for immunization Z23 [facility] [place] [address] 92253 -2865 Oct, Plantar fasciitis M72.2 [place] [address] 65300- 5865 Sep, [place] [address] 33175- 4183 Aug, Breast screening Z12.39 and Acute costochondritis M94.0 [place] [address] 20481- 2956 Aug, [place] [address] 71372- 6204 Aug, [place] [address] 43840- 8808 Jul, Symptomatic abdominal apron E65 and 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 [place] [address] 55853- 6470 Apr, [facility] [address] [place] [address] Apr, Right acute otitis media H66.91 [facility] [id number] [place] [address] [id number] Jan, Dental caries K02.9 [facility] [place] [address] [place] [address] 23861- 9999 Dec, Dysmetabolic syndrome E88.81 [facility] [place] [id number] [place] [address] 33595- 0026 Dec, [facility] [place] [id number] [place] [address] 904052- 1362 Nov, Dysmetabolic syndrome E88.81 [facility] [place] [id number] [place] [address] 36939- 3806 Oct, [facility] [id number] [place] [address] [id number] Oct, Dental examination Z01.20 [facility] [place] [id number] [place] [address] 07163- 2123 Sep, [facility] [place] [id number] [place] [address] 93132- 3264 Sep, Low back pain M54.5 and Sciatica, unspecified side M54.30 [facility] [place] [address] [address]- 7409 Feb, [facility] [place] [address] [place] [address] 48682- 3297 Feb, [facility] [place] [address] [place] [address] 16001- 0366 Dec, [facility] [place] [address] [place] [address] 146461- 5813 Dec, [facility] [place] [address] [address]- 0969 Nov, [facility] [place] [id number] [place] [address]- 7792 Nov, [facility] [place] [facility] [address] [id number] [place] [address]- 3048 Nov, [facility] [place] [facility] [address] [id number] [place] [address]- 8247 Aug, [facility] [place] [facility] [address] [id number] [place] [address]- 6735 Aug, [facility] [place] [facility] [address] [id number] [place] [address]- 8166 Aug, [facility] [place] [facility] [address] [id number] [place] [address]- 0435 Aug, [facility] [place] [facility] [address] [id number] [place] [address]- 2971 Aug, [facility] [place] [facility] [address] [id number] [place] [address]- 8084 Aug, [facility] [place] [facility] [address] [id number] [place] [address]- 0999 Aug, [facility] [place] [facility] [address] [id number] [place] [address]- 4843 Aug, [facility] [place] [facility] [address] [id number] [place] [address]- 9674 Jul, [facility] [place] [facility] [address] [id number] [place] [address]- 6791 Jul, [facility] [place] [facility] [address] [id number] [place] [address]- 5866 Jun, [facility] [place] [facility] [address] [id number] [place] [address]- 2076 Jun, [facility] [place] [facility] [address] [id number] [place] [address]- 2314 Jun, [facility] [place] [facility] [address] [id number] [place] [address]- 2727 Jun, [facility] [place] [facility] [address] [id number] [place] [address]- 9936 May, [facility] [place] [facility] [address] [id number] [place] [address]- 5105 May, [facility] [place] [facility] [address] [id number] [place] [address]- 4446 Apr, [facility] [place] [facility] [address] [id number] [place] [address]- 8887 Apr, [facility] [place] [facility] [address] [id number] [place] [address]- 3748 Apr, [facility] [place] [facility] [address] [id number] [place] [address]- 0006 Apr, [facility] [place] [facility] [address] [id number] [place] [address]- 3325 Apr, [facility] [place] [facility] [address] [id number] [place] [address]- 0100 Apr, [facility] [place] [facility] [address] [id number] [place] [address]- 5671 March, [facility] [place] [facility] [address] [id number] [place] [address]- 5854 March, [facility] [place] [facility] [address] [id number] [place] [address]- 2666 March, [facility] [place] [facility] [address] [id number] [place] [address]- 6366 March, [facility] [place] [facility] [address] [id number] [place] [address]- 3282 March, [facility] [place] [facility] [address] [id number] [place] [address]- 2036 March, [facility] [place] [facility] [address] [id number] [place] [address]- 0622 Dec, [facility] [place] [facility] [address] [id number], [place] [address]- 8061 Dec, [facility] [address] [id number] [place] [address]- 1381 Dec, [facility] [place] [facility] [address] [id number] [place] [address]- 9013 Dec, [facility] [place] [facility] [address] [id number] [place] [address]- 9564 Nov, [facility] [place] [facility] [address] [id number] [place] [address]- 7734 Nov, [facility] [place] [facility] [address] [id number] [place] [address]- 9786 Aug, [facility] [place] [facility] [address] [id number] [place] [address]- 9159 Jun, [facility] [address] [id number] [place] [address]- 7994 Jun, [facility] [place] [facility] [address] [id number] [place] [address]- 6352 May, [facility] [place] [facility] [address] [id number] [place] [address]- 3377 May, [facility] [place] [facility] [address] [id number] [place] [address]- 4494 May, [facility] [place] [facility] [address] [id number] [place] [address]- 7817 May, [facility] [place] [facility] [address] [id number] [place] [address]- 9620 Apr, [facility] [place] [facility] [address] [id number] [place] [address]- 8131 Apr, [facility] [place] [facility] [address] [id number] [place] [address]- 5281 March, [facility] [place] [facility] [address] [id number] [place] [address]- 8811 Jan, [facility] [place] [facility] [address] [id number] [place] [address]- 2833 Dec, [facility] [address] [id number] [place] [address]- 8236 19 Dec, 2012 [facility] [address] [id number] [place] [address]- 9516 16 Nov, 2012 [facility] [place] [facility] [address] [id number] [place] [address]- 5346 Nov, [facility] [address] [id number] [place] [address]- 8074 Oct, [facility] [place] [facility] [address] [id number] [place] [address]- 4346 Oct, [facility] [address] [id number] [place] 5296 Oct, [facility] [address] [id number] [place] [address]- 3014 Oct, [facility] [address] [id number] [place] [address]- 3298 Oct, [facility] [address] [id number] [place] [address]- 9593 Oct, [facility] [address] [id number] [place] [address]- 9954 Oct, [facility] [place] [facility] [address] [id number] [place] [address]- 7281 Oct, [facility] [place] [facility] [address] [id number] [place] [address]- 6714 Aug, [facility] [place] [facility] [address] [id number] [place] [address]- 4436 Aug, [facility] [place] [facility] [address] [id number] [place] [address]- 6178 Aug, [facility] [place] [facility] [address] [id number] [place] [address]- 3941 Aug, [facility] [place] [facility] [address] [id number] [place] [address]- 5311 25 Jul, 2012 [facility] [place] [facility] [address] [id number] [place] [address]- 1278 11 Jul, 2012 [facility] [place] [facility] [address] [id number] [place] [address]- 9567 Apr, [facility] [place] [facility] [address] [id number] [place] [address]- 6976 Apr, [facility] [place] [facility] [address] [id number] [place] [address]- 1533 Apr, [facility] [place] [facility] [address] [id number] [place] [address]- 7829 March, [facility] [place] [facility] [address] [id number] [place] [address]- 2959 March, [facility] [place] [facility] [address] [id number] [place] [address]- 8054 March, [facility] [place] [facility] [address] [id number] [place] [address]- 7175 23 Feb, 2012 [facility] [place] [facility] [address] [id number] [place] [address]- 7551 Feb, [facility] [place] [facility] [address] [id number] [place] [address]- 2913 16 Feb, 2012 [facility] [place] [facility] [address] [id number] [place] [address]- 3938 12 Feb, 2012 [facility] [place] [facility] [address] [id number] [place] 8554 29 Jan, 2012 [facility] [place] [facility] [address] [id number] [place] [address]- 7857 27 Jan, 2012 [facility] [place] [facility] [address] [id number] [place] [address]- 5340 17 Jan, 2012 [facility] [place] [facility] [address] [id number] [place] [address]- 9220 17 Jan, 2012 [facility] [address] [id number] [place] [address]- 5177 07 Jan, 2012 [facility] [place] [facility] [address] [id number] [place] [address]- 2846 06 Jan, 2012 [facility] [address] [id number] [place] [address]- 0590 Jan, [facility] [place] [facility] [address] [id number] [place] [address]- 1276 Dec, [facility] [place] [facility] [address] [id number] [place] [address]- 4930 Dec, [facility] [address] [id number] [place] [address]- 9268 Dec, [facility] [address] [id number] [place] [address]- 3181 Dec, [facility] [address] [id number] [place] [address]- 7952 Nov, [facility] [address] [facility] [id number] [place] [address]- 5496 Nov, [facility] [address] [facility] [id number] [place] [address]- 5235 29 Oct, 2011 [facility] [address] [id number] [place] [address]- 5260 Oct, [facility] [place] [facility] [address] [id number] [place] [address]- 0418 Oct, [facility] [place] [facility] [address] [id number] [place] [address]- 6417 18 Feb, 2011 [facility] [place] [facility] [address] [id number] [place] [address]- 2743 14 Dec, 2010 [facility] [place] [facility] [address] [id number] [place] [address]- 9949 Dec, [facility] [address] [facility] [id number] [place] [address]- 7979 Jun, IMMUNIZATIONS No Known Immunizations SOCIAL HISTORY Never Assessed REASON FOR VISIT Diabetes-JOJO chu PLAN OF CARE VITAL SIGNS Height 64 in 2018-05-29 Weight 222.3 lbs 2018-05-29 Temperature 97.1 degrees Fahrenheit 2018-05-29 Heart Rate 86 bpm 2018-05-29 Respiratory Rate 18 2018-05-29 BMI 38.15 kg/m2 2018-05-29 Blood pressure systolic 128 mmHg 2018-05-29 Blood pressure diastolic 84 mmHg 2018-05-29 MEDICATIONS Medication Instructions Dosage Frequency Start Date End Date Duration Status Naproxen 500 mg Orally every 12 hrs 1 tablet as needed 12h Not- Taking Fish Oil 1000 MG Orally Once a day 1 capsule 24h Active Estradiol 1 mg Orally Once a day 1 tablet 24h 30 Active Metformin HCl 1000MG Orally Once a day 1 tablet with a meal 24h Active Spironolactone 25MG Orally twice a day TAKE ONE TABLET BY MOUTH TWICE DAILY 12h 30 Active Biotin Active RESULTS Name Result Date Reference Range A1C (IN HOUSE) 2018-05-29 A1C IN HOUSE 6.2 4.3 - 5.6 % Previous A1c 5.9 Lot [id number] Exp date 01/2020 PROCEDURES Procedure Date Ordered Result Body Site GLYCATED HEMOGLOBIN TEST May 29, 2018 INSTRUCTIONS MEDICATIONS ADMINISTERED No Known Medications [...]
--- OUTSIDE RECORDS SUMMARY | 2018-10-14 14:30 | XMS REPORT ---
Author Author LANA NOYOLA Organization [facility] Address [address] [place] [address] Care Team Providers Care Gym Attendant Name Role Phone LANA NOYOLA Unavailable PROBLEMS Type Condition ICD9-CM Code ECE57-YH Code Onset Dates Condition Status SNOMED Code Problem Low back pain M54.5 Active 953153341 Problem Other chronic pain G89.29 Active 41364065 Problem Memory loss R41.3 Active 78354369 Problem Dysmetabolic syndrome E88.81 Active 815180163 Problem Mild intermittent asthma without complication J45.20 Active 067111239 Problem Hypertension I10 Active 85147024 Problem Diabetes mellitus type 2, uncomplicated E11.9 Active 32413502 ALLERGIES No Information ENCOUNTERS Encounter Location Date Diagnosis [place] [id number] [place] [address] 03521- 6572 May, Diabetes mellitus type 2, uncomplicated E11.9 [facility] [address] [address]- [address]149 Jan, Diabetes mellitus type 2, uncomplicated E11.9 [facility] [id number] [place] [address] 59179- 8407 Jan, Diabetes mellitus type 2, uncomplicated E11.9 [facility] [id number] [place] [address] 83914- 4963 Jan, [facility] [id number] [place] [address] 15280- 4648 Jan, Cognitive complaints R41.9 [facility] [id number] [place] [address] 07087- 7034 Dec, Symptomatic abdominal apron E65 [place] [id number] [place] [address] 71770- 8269 Dec, Cognitive complaints R41.9 [place] [id number] [place] [address] 98309- 5205 Nov, Symptomatic abdominal apron E65 and Diabetes mellitus type 2 , uncomplicated E11.9 [place] [id number] [place] [address] 89034- 1692 Oct, Symptomatic abdominal apron E65 [place] [address] 99874- 3781 Oct, Breast screening Z12.39 [place] [address] 73181- 8031 Sep, Other chronic pain G89.29 ; Pain in left shoulder M25.512 and Dysfunction of both eustachian tubes H69.83 [place] [id number] [place] [address] 67128- 2123 Sep, Cognitive complaints R41.9 [place] [address] 73228- 3096 Aug, [place] [address] 53278- 0853 Aug, Muscle strain of left shoulder, initial encounter S46.912A [place] [id number] [place] [address] 65570- 0357 Jul, [place] [address] 08267- 0442 Jul, Memory loss R41.3 and Paternal family history of dementia Z82.0 [place] [id number] [place] [address] 14559- 7254 Apr, Diabetes mellitus type 2, uncomplicated E11.9 and Hypertension I10 [place] [id number] [place] [address] 68587- 9688 Feb, Symptomatic abdominal apron E65 [facility] [id number] [place] [address] 41099 -9123 Nov, Muscle strain of left shoulder, initial encounter S46.912A [facility] [id number] [place] [address] 36692- 7028 Oct, Encounter for immunization Z23 [facility] [id number] [place] [address] 48548 -3333 Oct, Plantar fasciitis M72.2 [facility] [id number] [place] [address] 19210- 6216 Sep, [facility] [id number] [place] [address] 68035- 8640 Aug, Breast screening Z12.39 and Acute costochondritis M94.0 [facility] [id number] [place] [address] 12652- 9984 Aug, [facility] [id number] [place] [address] 46082- 4057 Aug, [facility] [id number] [place] [address] 63899- 3463 Jul, Symptomatic abdominal apron E65 and 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 [facility] [id number] [place] [address] 45651- 9693 Apr, [facility] [id number] [place] [address] 67147 -6272 Apr, Right acute otitis media H66.91 [facility] [id number] [place] [address] [id number] Jan, Dental caries K02.9 [facility] [id number] [place] [address] 84681- 8313 Dec, Dysmetabolic syndrome E88.81 [facility] [id number] [place] [address] 51008- 8962 Dec, [facility] [id number] [place] [address] 48029- 8821 13 Tommie, 2016 Dysmetabolic syndrome E88.81 [facility] [address] [address] [address] Oct, [facility] [id number] [id number] Oct, Dental examination Z01.20 [facility] [address] 5389 Sep, [facility] [id number] [place] [address] 76592- 9840 Sep, Low back pain M54.5 and Sciatica, unspecified side M54.30 [facility] [id number] [place] [address] 562236- 3537 Feb, [facility] [address] [place] [address] 727210- 8340 Feb, [facility] [id number] [place] [address] 21413- 9799 Dec, [facility] [id number] 1512 Dec, [facility] [address] [place] [address] 29418- 1751 Nov, [facility] [address] [address]- 3357 Nov, [facility] [id number] [address]- 9270 Nov, [facility] [id number] 7844 Aug, [facility] [id number] 5340 Aug, [facility] [id number] 6369 Aug, [facility] [address] [place] [address] 47677- 6457 Aug, [facility] [place] [facility] [address] [id number] [place] [address]- 7258 Aug, [facility] [place] [facility] [address] [id number] [place] [address]- 7807 Aug, [facility] [place] [facility] [address] [id number] [place] [address] Aug, [facility] [place] [facility] [address] [id number] [place] [address]- 9864 Aug, [facility] [place] [facility] [address] [id number] [place] [address]- 7128 Jul, [facility] [place] [facility] [address] [id number] [place] [address]- 7512 Jul, [facility] [place] [facility] [address] [id number] [place] [address]- 6563 Jun, [facility] [place] [facility] [address] [id number] [place] [address]- 4913 Jun, [facility] [place] [facility] [address] [id number] [place] [address]- 4995 Jun, [facility] [place] [facility] [address] [id number] [place] [address]- 8512 Jun, [facility] [place] [facility] [address] [id number] [place] [address]- 7149 May, [facility] [place] [facility] [address] [id number], [place] [address]- 8169 May, [facility] [place] [facility] [address] [id number] [place] [address]- 0088 Apr, [facility] [place] [facility] [address] [id number] [place] [address]- 2044 Apr, [facility] [place] [facility] [address] [id number] [place] [address]- 6036 Apr, [facility] [place] [facility] [address] [id number] [place] [address]- 2849 Apr, [facility] [place] [facility] [address] [id number] [place] [address]- 2377 Apr, [facility] [place] [facility] [address] [id number] [place] 9997 Apr, [facility] [place] [facility] [address] [id number] [place] [address]- 0743 March, [facility] [place] [facility] [address] [id number] [place] [address]- 0599 March, [facility] [place] [facility] [address] [id number] [place] 3002 March, [facility] [place] [facility] [address] [id number] [place] [address]- 5542 March, [facility] [place] [facility] [address] [id number] [place] [address]- 2217 March, [facility] [place] [facility] [address] [id number] [place] [address]- 1348 March, [facility] [place] [facility] [address] [id number] [place] [address]- 9792 Dec, [facility] [place] [facility] [address] [id number] [place] [address]- 0247 Dec, [facility] [place] [facility] [address] [id number] [place] [address]- 6268 Dec, [facility] [place] [facility] [address] [id number] [place] [address]- 0859 Dec, [facility] [place] [facility] [address] [id number] [place] [address]- 2884 Nov, [facility] [place] [facility] [address] [id number] [place] [address]- 3116 Nov, [facility] [place] [facility] [address] [id number] [place] [address]- 6308 Aug, [facility] [address] [id number] [place] [address]- 8022 Jun, [facility] [place] [facility] [address] [id number] [place] [address]- 9862 Jun, [facility] [place] [facility] [address] [id number] [place] [address]- 9129 May, [facility] [place] [facility] [address] [id number] [place] [address]- 2143 May, [facility] [place] [facility] [address] [id number] [place] [address]- 7158 May, [facility] [place] [facility] [address] [id number] [place] [address]- 8406 May, [facility] [place] [facility] [address] [id number] [place] [address]- 1645 Apr, [facility] [place] [facility] [address] [id number] [place] [address]- 6977 Apr, [facility] [place] [facility] [address] [id number] [place] [address]- 5665 March, [facility] [place] [facility] [address] [id number] [place] [address]- 8548 Jan, [facility] [place] [facility] [address] [id number] [place] [address]- 6139 Dec, [facility] [place] [facility] [address] [id number], [place] [address]- 5608 Dec, [facility] [place] [facility] [address] [id number] [place] [address]- 0960 Nov, [facility] [place] [facility] [address] [id number] [place] [address]- 0667 Nov, [facility] [place] [facility] [address] [id number] [place] [address]- 0037 Oct, [facility] [place] [facility] [address] [id number] [place] [address]- 9206 Oct, [facility] [place] [facility] [address] [id number] [place] [address]- 3596 17 Oct, 2012 [facility] [place] [facility] [address] [id number] [place] [address]- 1716 17 Oct, 2012 [facility] [place] [facility] [address] [id number] [place] [address]- 6116 Oct, [facility] [place] [facility] [address] [id number] [place] [address]- 6856 10 Oct, 2012 [facility] [place] [facility] [address] [id number] [place] [address]- 0446 Oct, [facility] [place] [facility] [address] [id number] [place] [address]- 6034 Oct, [facility] [place] [facility] [address] [facility] [id number] [place] [address]- 4035 Aug, [facility] [place] [facility] [address] [id number] [place] [address]- 7563 Aug, [facility] [place] [facility] [address] [id number] [place] [address]- 0208 Aug, [facility] [place] [facility] [address] [facility] [id number] [place] [address]- 0083 Aug, [facility] [place] [facility] [address] [id number] [place] [address]- 1716 25 Jul, 2012 [facility] [place] [facility] [address] [id number] [place] [address] 2545 11 Jul, 2012 [facility] [place] [facility] [address] [id number] [place] [address]- 2994 Apr, [facility] [place] [facility] [address] [facility] [id number] [place] [address]- 8796 Apr, [facility] [place] [facility] [address] [id number] [place] [address]- 0489 Apr, [facility] [place] [facility] [address] [id number] [place] [address]- 3946 March, [facility] [address] [id number] [place] [address]- 6756 March, [facility] [address] [id number] [place] [address]- 8226 March, [facility] [address] [id number] [place] [address]- 9187 Feb, [facility] [address] [id number] [place] [address]- 7591 Feb, [facility] [address] [id number] [place] [address]- 6449 Feb, [facility] [address] [id number] [place] [address]- 3719 Feb, [facility] [address] [id number] [place] [address]- 3940 Jan, [facility] [address] [id number] [place] [address]- 1718 Jan, [facility] [address] [id number] [place] [address]- 7747 Jan, [facility] [address] [id number] [place] [address]- 5483 Jan, [facility] [address] [id number] [place] [address]- 7086 Jan, [facility] [place] [facility] [address] [id number] [place] [address]- 5273 Jan, [facility] [place] [facility] [address] [id number] [place] [address]- 3576 Jan, [facility] [place] [facility] [address] [id number] [place] [address]- 1486 Dec, [facility] [place] [facility] [address] [id number] [address]- 4203 Dec, [facility] [id number] [address]- 9570 Dec, [facility] [id number], [place] [address]- 0583 Dec, [facility] [id number], [place] [address]- 2855 Nov, [facility] [id number], [place] [address]- 9464 Nov, [facility] [id number], [place] [address]- 6328 Oct, [facility] [id number], [place] [address]- 9770 Oct, [facility] [id number], [place] [address]- 5926 Oct, [facility] [id number], [place] [address]- 4653 Feb, [facility] [id number], [place] [address]- 7617 Dec, [facility] [id number], [place] [address]- 8959 Dec, [facility] [id number] [address]- 0278 Jun, IMMUNIZATIONS No Known Immunizations SOCIAL HISTORY Never Assessed REASON FOR VISIT requesting a returned call PLAN OF CARE VITAL SIGNS MEDICATIONS Unknown [...]
--- OUTSIDE RECORDS SUMMARY | 2018-10-14 14:36 | XMS REPORT | Continuity of Care Document ---
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 [id number] 11/09/2012 18:30:00 Document Registration [id number] 10/24/2012 12:50:00 Document Registration [id number] 02/15/2012 10:04:00 Document Registration [id number] 02/07/2012 05:49:00 Document Registration [id number] 02/01/2012 10:29:00 Document Registration [id number] 01/28/2012 13:14:00 Document Registration [id number] 01/10/2012 11:19:00 Document Registration [id number] 04/16/2011 08:47:00 Document Registration [id number] 02/12/2011 08:53:00 Document Registration [id number] 12/04/2010 08:50:00 Document Registration [id number] 07/27/2009 07:25:00 Document Registration [id number] 07/05/2009 09:01:00 Document Registration [id number] 05/29/2018 16:00:00 05/29/2018 23:59:59 CLS Outpatient LANA NOYOLA [facility]N [facility] [id number] 04/19/2017 08:48:00 Document Registration [id number] 09/18/2018 07:05:00 09/18/2018 11:24:00 DIS Outpatient DANILO PRIETO [id number] 09/09/2018 10:41:00 09/09/2018 23:59:00 DIS Outpatient DANILO PRIETO [id number] 07/25/2018 09:30:00 07/25/2018 23:59:00 DIS Outpatient DANILO PRIETO [id number] 09/17/2018 13:55:58 Document Registration [id number] 03/21/2015 02:09:39 ACT Document Registration
[2018-10-14 14:55] LABS: BASOPHILS % (AUTO) 0 % (0-10); EOSINOPHILS # (AUTO) 0.2 10^3/uL (0.0-0.3); EOSINOPHILS % (AUTO) 3 % (0-10); HEMATOCRIT 38 % (35-52); HEMOGLOBIN 13.1 G/DL (11.5-16.0); LYMPHOCYTES # (AUTO) 1.8 X 10^3 (1.0-4.0); LYMPHOCYTES % (AUTO) 27 % (12-44); MEAN CORPUSCULAR HEMOGLOBIN 31 PG (25-34); MEAN CORPUSCULAR HGB CONC 35 G/DL (32-36); MEAN CORPUSCULAR VOLUME 89 FL (80-99); MEAN PLATELET VOLUME 8.6 FL (7.4-10.4); MONOCYTES # (AUTO) 0.5 X 10^3 (0.0-1.0); MONOCYTES % (AUTO) 8 % (0-12); NEUTROPHILS # (AUTO) 4.3 X 10^3 (1.8-7.8); NEUTROPHILS % (AUTO) 63 % (42-75); PLATELET COUNT 304 10^3/uL (130-400); RED BLOOD COUNT 4.29 10^6/uL (4.35-5.85); RED CELL DISTRIBUTION WIDTH 12.5 % (10.0-14.5); WHITE BLOOD COUNT 6.8 10^3/uL (4.3-11.0)
[2018-10-14 15:05] LABS: BILIRUBIN,URINE NEGATIVE (NEGATIVE); CLARITY,URINE CLEAR; COLOR,URINE YELLOW; GLUCOSE, URINE (UA) NEGATIVE (NEGATIVE); KETONES,URINE NEGATIVE (NEGATIVE); LEUKOCYTE ESTERASE ,URINE 2+ (NEGATIVE); NITRITE,URINE NEGATIVE (NEGATIVE); PH,URINE 5 (5-9); PROTEIN,URINE NEGATIVE (NEGATIVE); UROBILINOGEN,URINE NORMAL (NORMAL)
[2018-10-14 15:06] LABS: BACTERIA,URINE FEW /HPF
[2018-10-14 15:12] LABS: ALANINE AMINOTRANSFERASE 22 U/L (0-55); ALBUMIN 4.1 GM/DL (3.2-4.5); ALKALINE PHOSPHATASE 53 U/L (40-136); BILIRUBIN,TOTAL 0.3 MG/DL (0.1-1.0); BUN/CREATININE RATIO 26; CALCIUM 9.8 MG/DL (8.5-10.1); CARBON DIOXIDE 24 MMOL/L (21-32); CHLORIDE 104 MMOL/L (98-107); CREATININE SERUM 0.65 MG/DL (0.60-1.30); GFR ESTIMATED > 60; GLUCOSE 139 MG/DL (70-105); SODIUM 140 MMOL/L (135-145); TOTAL PROTEIN 7.7 GM/DL (6.4-8.2)
--- NOTE | 2018-10-14 16:16 | Diagnostic Imaging Report ---
PROCEDURE: CT urinary tract, rule out kidney stone. TECHNIQUE: Multiple contiguous axial images were obtained through the abdomen and pelvis without the use of intravenous contrast. INDICATION: Back pain, fever, nausea. COMPARISON: 12/06/2015. FINDINGS: The lung bases are clear. The heart is normal in size. There is fatty infiltration of the liver. There is mild hepatomegaly. Cholecystectomy clips are present. The spleen demonstrates calcified granulomas but is otherwise unremarkable. A small splenule is noted. There is a 4.8 x 3.8 cm mass in the left adrenal gland, which is increased in size compared to November 2015, and contains gross fat consistent with a myelolipoma. The right adrenal gland appears normal. The pancreas is normal. There is no hydronephrosis or renal calculi. Multiple phleboliths are present. The bowel loops are nondistended. The appendix is normal. There are few diverticula in the distal colon without diverticulitis. No free fluid or free air is seen. No acute osseous abnormality is seen. There are degenerative changes in the spine. IMPRESSION: 1. No hydronephrosis or renal calculi are seen. No acute abdominopelvic abnormality is seen. 2. Mildly increased size of the heterogeneous left adrenal myelolipoma. 3. Hepatic steatosis with hepatomegaly. Dictated by: Dictated on workstation # [id number]
[2018-10-14] MEDS ORDERED: cefTRIAXone FOR IV USE 1,000 MG in NS (IVPB) 50 ML IV ONE (16:45)
[2018-10-14] MEDS ORDERED: KETOROLAC 30 MG/ML VIAL IVP ONE (16:45)
[2018-10-14] MEDS ORDERED: PHEN-640 PO (16:56)
[2018-10-14] MEDS ORDERED: FLUC150T PO (16:56)
[2018-10-14] MEDS ORDERED: HYDR-3812 PO (16:56)
[2018-10-14] MEDS ORDERED: CEPH-507 PO (16:56)
--- NOTE | 2018-10-14 16:56 | ED General ---
General Chief Complaint: Back Problems Stated Complaint: BACK PAIN;FEVER;NAUSEA Nursing Triage Note: PT REPORTS MID BACK PAIN THAT IS WORSE WHEN LAYING DOWN OR MOVING SINCE . PT REPORTS HER LATEST EPISODE WOKE HER UP AT 0300 THIS AM, PT ALSO REPORTS N/V Nursing Sepsis Screen: No Definite Risk Source of Information: Patient Exam Limitations: No Limitations History of Present Illness Date Seen by Provider: Oct 14, 2018 Time Seen by Provider: 14:23 Initial Comments This 48-year-old woman presents to the emergency room with complaints of pain across the costal margin of her back since mid-July. Symptoms seem to be worsening. This morning she had horrible dysuria. She reports having multiple urinary tract infections in the last year. She has diabetes. She denies any vomiting, diarrhea, or constipation. Pain seems to be in the back and not her abdomen. She denies any hematuria. She has no known history of renal stones. She has been trying [id number] pain medications and heat. She has appointment with Dr. Guerra tomorrow but states she couldn't tolerate the symptoms until then. She also complains of some heartburn and nausea recently. Pain is worse with deep breathing and movements. Her primary care provider is Pineda Arreaga. Allergies and Home Medications Allergies Coded Allergies: Penicillins (Unverified Allergy, Unknown, HIVES, SOB, 12/16/14) ciprofloxacin (Verified Allergy, Unknown, 06/27/07) codeine (Verified Allergy, Unknown, TOLERATES HYDROCODONE, 02/07/12) meperidine (Verified Allergy, Unknown, 06/27/07) morphine (Verified Allergy, Unknown, MAUSEA, 06/27/07) Home Medications Cephalexin 500 Mg Capsule, 500 MG PO BID Prescribed by: CORNELIO LESTER on 09/03/182014 Cephalexin 500 Mg Capsule, 500 MG PO QID Prescribed by: JOSE MIGUEL PENA on 10/14/18 165 Cyclobenzaprine HCl 10 Mg Tablet, 10 MG PO Q8H PRN for SPASMS Prescribed by: CORNELIO LESTER on 04/21/18 0050 Estradiol 1 Mg Tablet, 1 MG PO DAILY, (Reported) Fluconazole 150 Mg Tablet, 150 MG PO UD Take one now and repeat in 3 days. Prescribed by: JOSE MIGUEL PENA on 10/14/18 165 Hydrocodone/Acetaminophen 1 Each Tablet, 1 EACH PO Q4-6HR PRN for PAIN-MODERATE Prescribed by: JOSE MIGUEL PENA on 10/14/18 165 Metformin HCl 1,000 Mg Tablet, 1,000 MG PO DAILY, (Reported) [place] 3 Polyunsat Fatty Acids 1,000 Mg Cap, 1,000 MG PO DAILY, (Reported) Ondansetron 4 Mg Tab.rapdis, 4 MG PO Q6H PRN for NAUSEA/VOMITING Prescribed by: CORNELIO LESTER on 09/03/182014 Phenazopyridine HCl 200 Mg Tablet, 1 TAB PO TID PRN for PAIN-MODERATE TO SEVERE Prescribed by: JOSE MIGUEL PENA on 10/14/181655 Spironolactone 25 Mg Tablet, 25 MG PO BID, (Reported) Patient Home Medication List Home Medication List Reviewed: Yes Review of Systems Review of Systems Constitutional: no symptoms reported EENTM: no symptoms reported Respiratory: no symptoms reported Cardiovascular: no symptoms reported Gastrointestinal: see HPI Genitourinary: see HPI : No Musculoskeletal: see HPI Skin: no symptoms reported Psychiatric/Neurological: No Symptoms Reported Hematologic/Lymphatic: No Symptoms Reported Immunological/Allergic: no symptoms reported Past Cbfqhpb-Vpohdq-Touxyb Hx Past Med/Social Hx: Reviewed Nursing Past Med/Soc Hx Patient Social History Alcohol Use: Denies Use Recreational Drug Use: No Smoking Status: Never a Smoker 2nd Hand Smoke Exposure: No Recent Foreign Travel: No Contact w/Someone Who Travel: No Recent Infectious Disease Expo: No Recent Hopitalizations: No Physical Abuse: No Sexual Abuse: No Mistreated: No Fear: No Immunizations Up To Date Tetanus Booster (TDap): Less than 5yrs Seasonal Allergies Seasonal Allergies: Yes Past Medical History Surgeries: Yes (SINUS, D&C X 2, LAPAROSCOPIES X 2, RT CARPAL TUNNEL ) Section, Gallbladder, Hysterectomy Respiratory: Yes Asthma, Chronic Bronchitis Currently Using CPAP: No Currently Using BIPAP: No Cardiac: Yes Heart Murmur, Hypertension Neurological: Yes Headaches /Migraines 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 Disorders: Yes ( 8 para 4 (D&C x2-4 miscarriages x2)) Female 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 Sexually Transmitted Disease: Yes (chlamydia ) HIV/AIDS: No Genitourinary: Yes Bladder Infection, UTI-Chronic Gastrointestinal: Yes Diverticulosis, Gall Bladder Disease Musculoskeletal: No Endocrine: Yes Diabetes, Non-Insulin dep HEENT: No Loss of Vision: Denies Hearing Impairment: Denies Cancer: No Psychosocial: No Integumentary: No Blood Disorders: No Adverse Reaction/Blood Tranf: No Family Medical History Diabetes mellitus 19 MOTHER FH: glaucoma 19 MOTHER FH: macular degeneration 19 MOTHER Physical Exam Vital Signs Vital Signs - First Documented 10/14/18 14:51 Temp 98.2 Pulse 93 Resp 20 B/P (MAP) 143/101 (115) Pulse Ox 99 Capillary Refill : Less Than 3 Seconds Height, Weight, BMI Height: 5'3.00" Weight: 222lbs. oz. 100.951755va; 36.83 BMI Method:Stated General Appearance: No Apparent Distress, WD/WN HEENT: PERRL/EOMI, Normal ENT Inspection Neck: Normal Inspection Respiratory: Lungs Clear, Normal Breath Sounds, No Accessory Muscle Use, No Respiratory Distress Cardiovascular: Regular Rate, Rhythm, No Edema, No Murmur, Normal Peripheral Pulses Gastrointestinal: Normal Bowel Sounds, Non Tender, Soft Back: Normal Inspection, Other (tenderness in the affected areas of the lumbar spine and lower chest. 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 Norm as Tested Skin: Normal Color, Warm/Dry Progress/Results/Core Measures Suspected Sepsis Recent Fever Within 48 Hours: No Infection Criteria Present: None New/Unexplained Altered Menta: No Sepsis Screen: No Definite Risk SIRS Temperature:98.2 Pulse: 93 Respiratory Rate: 20 Laboratory Tests 10/14/18 14:47: White Blood Count 6.8 Blood Pressure 143 /101 Mean: 115 Laboratory Tests 10/14/18 14:47: Creatinine 0.65, Platelet Count 304, Total Bilirubin 0.3 Results/Orders Lab Results Laboratory Tests Test 10/14/18 14:47 Range/Units White Blood Count 6.8 4.3-11.0 10^3/uL Red Blood Count 4.29 L 4.35-5.85 10^6/uL Hemoglobin 13.1 11.5-16.0 G/DL Hematocrit 38 35-52 % Mean Corpuscular Volume 89 80-99 FL Mean Corpuscular Hemoglobin 31 25-34 PG Mean Corpuscular Hemoglobin Concent 35 32-36 G/DL Red Cell Distribution Width 12.5 10.0-14.5 % Platelet Count 304 130-400 10^3/uL Mean Platelet Volume 8.6 7.4-10.4 FL Neutrophils (%) (Auto) 63 42-75 % Lymphocytes (%) (Auto) 27 12-44 % Monocytes (%) (Auto) 8 0-12 % Eosinophils (%) (Auto) 3 0-10 % Basophils (%) (Auto) 0 0-10 % Neutrophils # (Auto) 4.3 1.8-7.8 X 10^3 Lymphocytes # (Auto) 1.8 1.0-4.0 X 10^3 Monocytes # (Auto) 0.5 0.0-1.0 X 10^3 Eosinophils # (Auto) 0.2 0.0-0.3 10^3/uL Basophils # (Auto) 0.0 0.0-0.1 10^3/uL Urine Color YELLOW Urine Clarity CLEAR Urine pH 5 5-9 Urine Specific [place] 1.025 H 1.016-1.022 Urine Protein NEGATIVE NEGATIVE Urine Glucose (UA) NEGATIVE NEGATIVE Urine Ketones NEGATIVE NEGATIVE Urine Nitrite NEGATIVE NEGATIVE Urine Bilirubin NEGATIVE NEGATIVE Urine Urobilinogen NORMAL NORMAL MG/DL Urine Leukocyte Esterase 2+ H NEGATIVE Urine RBC (Auto) 1+ H NEGATIVE Urine RBC 2-5 H /HPF Urine WBC 5-10 H /HPF Urine Squamous Epithelial Cells 5-10 /HPF Urine Crystals NONE /LPF Urine Bacteria FEW H /HPF Urine Casts NONE /LPF Urine Mucus SMALL H /LPF Urine Culture Indicated YES Sodium Level 140 135-145 MMOL/L Potassium Level 4.0 3.6-5.0 MMOL/L Chloride Level 104 98-107 MMOL/L Carbon Dioxide Level 24 21-32 MMOL/L Anion Gap 12 5-14 MMOL/L Blood Urea Nitrogen 17 7-18 MG/DL Creatinine 0.65 0.60-1.30 MG/DL Estimat Glomerular Filtration Rate > 60 BUN/Creatinine Ratio 26 Glucose Level 139 H 70-105 MG/DL Calcium Level 9.8 8.5-10.1 MG/DL Corrected Calcium 9.7 8.5-10.1 MG/DL Total Bilirubin 0.3 0.1-1.0 MG/DL Aspartate Amino Transf (AST/SGOT) 17 5-34 U/L Alanine Aminotransferase (ALT/SGPT) 22 0-55 U/L Alkaline Phosphatase 53 40-136 U/L Total Protein 7.7 6.4-8.2 GM/DL Albumin 4.1 3.2-4.5 GM/DL My Orders Orders - JOSE MIGUEL TORRES MD Comprehensive Metabolic Panel (10/14/18 14:35) Ct Abd/Pelvis Wo(Kidney Stone) (10/14/18 15:48) Ketorolac Injection (Toradol Injection) (10/14/18 16:45) Ceftriaxone For Iv Use (Rocephin For I (10/14/18 16:45) Medications Given in ED Current Medications Medications Dose Ordered Sig/Darling Route Start Time Stop Time Status Last Admin Dose Admin Ceftriaxone Sodium 1000 mg/ Sodium Chloride 50 ml @ 100 mls/hr ONCE ONCE IV 10/14/18 16:45 10/14/18 17:14 DC 10/14/18 17:15 100 MLS/HR Ketorolac Tromethamine 15 mg ONCE ONCE IVP 10/14/18 16:45 10/14/18 16:46 DC 10/14/18 16:47 15 MG Vital Signs/I&O 10/14/18 10/14/18 14:51 17:49 Temp 98.2 Pulse 93 80 Resp 20 16 B/P (MAP) 143/101 (115) 143/70 (94) Pulse Ox 99 99 Capillary Refill : Less Than 3 Seconds Blood Pressure Mean: 115 Progress Note : Progress Note UA suggested urinary tract infection and patient was treated accordingly. Additionally, there is an adrenal mass noted on the CT which is larger than prior. There is also hepatic steatosis noted. These 2 things could be contributing to her pain also. See discharge instructions. Patient was treated with Toradol and Rocephin prior to dismissal. Diagnostic Imaging Diagonstic Imaging: CT Plain Films/CT/US/NM/MRI: abdomen, pelvis Comments CT abdomen and pelvis viewed by me and report reviewed. See report below: NAME: ADONIS LORENZO [facility] REC#: [id number] PT STATUS: REG ER : 1970 PHYSICIAN: JOSE MIGUEL TORRES MD ADMIT DATE: 10/14/18/ER Signed Date of Exam: 10/14/18 CT ABD/PELVIS WO(KIDNEY STONE) PROCEDURE: CT urinary tract, rule out kidney stone. TECHNIQUE: Multiple contiguous axial images were obtained through the abdomen and pelvis without the use of intravenous contrast. INDICATION: Back pain, fever, nausea. COMPARISON: 12/06/2015. FINDINGS: The lung bases are clear. The heart is normal in size. There is fatty infiltration of the liver. There is mild hepatomegaly. Cholecystectomy clips are present. The spleen demonstrates calcified granulomas but is otherwise unremarkable. A small splenule is noted. There is a 4.8 x 3.8 cm mass in the left adrenal gland, which is increased in size compared to November 2015, and contains gross fat consistent with a myelolipoma. The right adrenal gland appears normal. The pancreas is normal. There is no hydronephrosis or renal calculi. Multiple phleboliths are present. The bowel loops are nondistended. The appendix is normal. There are few diverticula in the distal colon without diverticulitis. No free fluid or free air is seen. No acute osseous abnormality is seen. There are degenerative changes in the spine. IMPRESSION: 1. No hydronephrosis or renal calculi are seen. No acute abdominopelvic abnormality is seen. 2. Mildly increased size of the heterogeneous left adrenal myelolipoma. 3. Hepatic steatosis with hepatomegaly. Dictated by: Dictated on workstation # [id number] Dict: 10/14/18 1608 Trans: 10/14/18 1726 Interpreted by: JESUS DELANEY MD Electronically signed by: JESUS DELANEY MD 10/14/18 1726 Departure Impression Primary Impression: Urinary tract infection Qualified Codes: N39.0 - Urinary tract infection, site not specified Additional Impressions: Lower back pain Qualified Codes: M54.5 - Low back pain Left adrenal mass Hepatic steatosis Dysuria Disposition: HOME, SELF-CARE Condition: Improved Departure-Patient Inst. Decision time for Depature: 16:40 Referrals: [facility] (PCP) Primary Care Physician LANA ARREAGA (Family) Primary Care Physician Patient Instructions: Low Back Pain (DC), Urinary Tract Infection, Adult (DC) Add. Discharge Instructions: You may continue using ibuprofen up to 600 mg every 6 hours as needed for pain. Add hydrocodone for pain not controlled by ibuprofen. Drink plenty of water. Keep your appointment with Dr. Guerra tomorrow. Inquire about your adrenal mass or your liver being a source of pain. If treating your urinary tract infection does not resolve your pain and Dr. Guerra does not believe the liver or adrenal mass are contributing factors, then follow-up with your primary care provider for further workup which might include further imaging of your spine. Return to care if you have worsening symptoms. All discharge instructions reviewed with patient and/or family. Voiced understanding. Scripts Hydrocodone/Acetaminophen (Hydrocodone-Acetamin 5-325 mg) 1 Each Tablet 1 EACH PO Q4-6HR PRN for PAIN-MODERATE, #10 TAB Prov: JOSE MIGUEL TORRES MD 10/14/18 Fluconazole (Diflucan) 150 Mg Tablet 150 MG PO UD, #2 TAB Take one now and repeat in 3 days. Prov: JOSE MIGUEL TORRES MD 10/14/18 Phenazopyridine HCl (Pyridium) 200 Mg Tablet 1 TAB PO TID PRN for PAIN-MODERATE TO SEVERE, #10 TAB Prov: JOSE MIGUEL TORRES MD 10/14/18 Cephalexin (Keflex) 500 Mg Capsule 500 MG PO QID, #28 CAP Prov: JOSE MIGEUL TORRES MD 10/14/18 Copy Copies To 1: BEAU GUERRA DO Copies To 2: SUSU HIGGINS DO JOSE MIGUEL TORRES MD Oct 14, 2018 16:56
[2018-10-14 17:49] VITALS: BP 143/70
== END 2018-10-14 17:45 | disposition home or self-care (01) ==
LOC: EDUNIT# 14:22 → ER 14:23
DX: N39.0 Urinary tract infection, site not specified (principal); M54.5 Low back pain; K76.0 Fatty (change of) liver, not elsewhere classified; E27.9 Disorder of adrenal gland, unspecified; E11.9 Type 2 diabetes mellitus without complications; I10 Essential (primary) hypertension; G43.909 Migraine, unspecified, not intractable, without status migrainosus; J44.9 Chronic obstructive pulmonary disease, unspecified; Z88.0 Allergy status to penicillin; Z87.448 Personal history of other diseases of urinary system; Z86.19 Personal history of other infectious and parasitic diseases; Z87.19 Personal history of other diseases of the digestive system; Z88.5 Allergy status to narcotic agent; Z88.8 Allergy status to other drugs, medicaments and biological substances; Z79.84 Long term (current) use of oral hypoglycemic drugs; Z90.710 Acquired absence of both cervix and uterus; Z98.890 Other specified postprocedural states
CPT/HCPCS: 36415; 74176; 80053; 81000; 85025; 87077; 87088; 87186

== ENCOUNTER 2018-10-17 13:50 | Inpatient (IN) | payer BC ==
[~2018-10-17] VITALS: Ht 160 cm; Wt 100.7 kg
[~2018-10-17 13:50] MED LIST changes: +FLUC150T PO; +HYDR-3812 PO; +PHEN-640 PO
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
[2018-10-17] MEDS ORDERED: VANCOMYCIN INJECTION 1,500 MG in NS IV 500 ML 500 ML IV STA (14:45)
[2018-10-17 15:00] LABS: BASOPHILS % (AUTO) 0 % (0-10); EOSINOPHILS # (AUTO) 0.2 10^3/uL (0.0-0.3); EOSINOPHILS % (AUTO) 3 % (0-10); HEMATOCRIT 39 % (35-52); HEMOGLOBIN 13.2 G/DL (11.5-16.0); LYMPHOCYTES # (AUTO) 1.8 X 10^3 (1.0-4.0); LYMPHOCYTES % (AUTO) 28 % (12-44); MEAN CORPUSCULAR HEMOGLOBIN 30 PG (25-34); MEAN CORPUSCULAR HGB CONC 34 G/DL (32-36); MEAN CORPUSCULAR VOLUME 90 FL (80-99); MEAN PLATELET VOLUME 8.9 FL (7.4-10.4); MONOCYTES # (AUTO) 0.5 X 10^3 (0.0-1.0); MONOCYTES % (AUTO) 8 % (0-12); NEUTROPHILS # (AUTO) 4.1 X 10^3 (1.8-7.8); NEUTROPHILS % (AUTO) 62 % (42-75); PLATELET COUNT 270 10^3/uL (130-400); RED BLOOD COUNT 4.34 10^6/uL (4.35-5.85); RED CELL DISTRIBUTION WIDTH 12.5 % (10.0-14.5); WHITE BLOOD COUNT 6.6 10^3/uL (4.3-11.0)
--- NOTE | 2018-10-17 15:08 | ED GU-Female ---
General Stated Complaint: UTI SYMPTOMS/VAGINAL SWELLING Source: patient Exam Limitations: no limitations History of Present Illness Date Seen by Provider: Oct 17, 2018 Time Seen by Provider: 14:23 Initial Comments Patient presents to ER by private conveyance with chief complaint that she was recently out here and seen for some swelling pain burning and itching in her vulvovaginal area. She's been using Desitin to help with the itching. She was prescribed Keflex 4 times a day and given a couple doses the Diflucan. She had a urinary tract infection and the urine culture grew out MRSA. She says the last 3 days she's been taking the antibiotics the symptoms only gotten worst she 's having more swelling more redness and pain. She's not having any discharge or bleeding or areas of pointing on the skin. She is diabetic on metformin. She tried using the Pyridium as well as the hydrocodone she was prescribed for the symptoms and it is not controlling her pain. She just took a hydrocodone before coming in and her pain right now as a 5 out of 10 and she's comfortable at this point. Allergies and Home Medications Allergies Coded Allergies: Penicillins (Unverified Allergy, Unknown, HIVES, SOB, 12/16/14) ciprofloxacin (Verified Allergy, Unknown, 06/27/07) codeine (Verified Allergy, Unknown, TOLERATES HYDROCODONE, 02/07/12) meperidine (Verified Allergy, Unknown, 06/27/07) morphine (Verified Allergy, Unknown, MAUSEA, 06/27/07) Home Medications Cephalexin 500 Mg Capsule, 500 MG PO BID Prescribed by: CORNELIO LESTER on 09/03/182014 Cephalexin 500 Mg Capsule, 500 MG PO QID Prescribed by: JOSE MIGUEL PENA on 10/14/181655 Cyclobenzaprine HCl 10 Mg Tablet, 10 MG PO Q8H PRN for SPASMS Prescribed by: CORNELIO LESTER on 04/21/18 0050 Estradiol 1 Mg Tablet, 1 MG PO DAILY, (Reported) Fluconazole 150 Mg Tablet, 150 MG PO UD Take one now and repeat in 3 days. Prescribed by: JOSE MIGUEL PENA on 10/14/181655 Hydrocodone/Acetaminophen 1 Each Tablet, 1 EACH PO Q4-6HR PRN for PAIN-MODERATE Prescribed by: JOSE MIGUEL PENA on 12/4/18 1656 Metformin HCl 1,000 Mg Tablet, 1,000 MG PO DAILY, (Reported) [place] 3 Polyunsat Fatty Acids 1,000 Mg Cap, 1,000 MG PO DAILY, (Reported) Ondansetron 4 Mg Tab.rapdis, 4 MG PO Q6H PRN for NAUSEA/VOMITING Prescribed by: CORNELIO LESTER on 09/03/182014 Phenazopyridine HCl 200 Mg Tablet, 1 TAB PO TID PRN for PAIN-MODERATE TO SEVERE Prescribed by: JOSE MIGUEL PENA on 10/14/18 1656 Spironolactone 25 Mg Tablet, 25 MG PO BID, (Reported) Patient Home Medication List Home Medication List Reviewed: Yes Review of Systems Review of Systems Constitutional: No chills, No diaphoresis Past Exnkkrm-Pxpyom-Baaavw Hx Patient Social History 2nd Hand Smoke Exposure: No Recent Foreign Travel: No Contact w/Someone Who Travel: No Recent Hopitalizations: No Immunizations Up To Date Tetanus Booster (TDap): Less than 5yrs Seasonal Allergies Seasonal Allergies: Yes Past Medical History Surgeries: Yes (SINUS, D&C X 2, LAPAROSCOPIES X 2, RT CARPAL TUNNEL ) Section, Gallbladder, Hysterectomy Respiratory: Yes Asthma, Chronic Bronchitis Currently Using CPAP: No Currently Using BIPAP: No Cardiac: Yes Heart Murmur, Hypertension Neurological: Yes Headaches /Migraines 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 Disorders: Yes ( 8 para 4 (D&C x2-4 miscarriages x2)) Female 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 Disorders: 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 Sexually Transmitted Disease: Yes (chlamydia ) HIV/AIDS: No Genitourinary: Yes Bladder Infection, UTI-Chronic Gastrointestinal: Yes Diverticulosis, Gall Bladder Disease Musculoskeletal: No Endocrine: Yes Diabetes, Non-Insulin dep HEENT: No Loss of Vision: Denies Hearing Impairment: Denies Cancer: No Psychosocial: No Integumentary: No Blood Disorders: No Adverse Reaction/Blood Tranf: No Family Medical History Diabetes mellitus 19 MOTHER FH: glaucoma 19 MOTHER FH: macular degeneration 19 MOTHER Physical Exam Vital Signs Vital Signs - First Documented 10/17/18 16:25 Temp 98.1 Pulse 82 Resp 18 B/P (MAP) 128/88 (101) Pulse Ox 99 Capillary Refill : Height, Weight, BMI Height: 5'3.00" Weight: 222lbs. oz. 100.606732gu; 36.83 BMI Method:Stated General Appearance: WD/WN, mild distress HEENT: PERRL/EOMI, pharynx normal Cardiovascular: normal peripheral pulses, regular rate, rhythm Respiratory: chest non-tender, lungs clear, normal breath sounds Gastrointestinal: normal bowel sounds, non tender, soft Genital/Rectal: other (. Around the mons pubis, labia majora at least anteriorly are erythematous swollen tender to palpation without any areas of fluctuance, pointing or other evidence of abscess. Bedside Ultrasound failed to reveal any pockets of purulence.) Extremities: normal inspection, no pedal edema, no calf tenderness Neurologic/Psychiatric: alert, oriented x 3 Focused Exam Lactate Level 10/17/18 14:50: Lactic Acid Level 1.11 Lactic Acid Level Progress/Results/Core Measures Suspected Sepsis SIRS Temperature: Pulse: Respiratory Rate: Laboratory Tests 10/17/18 14:50: White Blood Count 6.6 Blood Pressure / Mean: 10/17/18 14:50: Lactic Acid Level 1.11 Laboratory Tests 10/17/18 14:50: Creatinine 0.63, Platelet Count 270, Total Bilirubin 0.4 Results/Orders Lab Results Laboratory Tests Test 10/17/18 14:50 10/17/18 16:15 10/17/18 17:01 Range/Units White Blood Count 6.6 4.3-11.0 10^3/uL Red Blood Count 4.34 L 4.35-5.85 10^6/uL Hemoglobin 13.2 11.5-16.0 G/DL Hematocrit 39 35-52 % Mean Corpuscular Volume 90 80-99 FL Mean Corpuscular Hemoglobin 30 25-34 PG Mean Corpuscular Hemoglobin Concent 34 32-36 G/DL Red Cell Distribution Width 12.5 10.0-14.5 % Platelet Count 270 130-400 10^3/uL Mean Platelet Volume 8.9 7.4-10.4 FL Neutrophils (%) (Auto) 62 42-75 % Lymphocytes (%) (Auto) 28 12-44 % Monocytes (%) (Auto) 8 0-12 % Eosinophils (%) (Auto) 3 0-10 % Basophils (%) (Auto) 0 0-10 % Neutrophils # (Auto) 4.1 1.8-7.8 X 10^3 Lymphocytes # (Auto) 1.8 1.0-4.0 X 10^3 Monocytes # (Auto) 0.5 0.0-1.0 X 10^3 Eosinophils # (Auto) 0.2 0.0-0.3 10^3/uL Basophils # (Auto) 0.0 0.0-0.1 10^3/uL Sodium Level 136 135-145 MMOL/L Potassium Level 4.4 3.6-5.0 MMOL/L Chloride Level 101 98-107 MMOL/L Carbon Dioxide Level 25 21-32 MMOL/L Anion Gap 10 5-14 MMOL/L Blood Urea Nitrogen 15 7-18 MG/DL Creatinine 0.63 0.60-1.30 MG/DL Estimat Glomerular Filtration Rate > 60 BUN/Creatinine Ratio 24 Glucose Level 108 H 70-105 MG/DL Lactic Acid Level 1.11 0.50-2.00 MMOL/L Calcium Level 9.8 8.5-10.1 MG/DL Corrected Calcium 9.6 8.5-10.1 MG/DL Total Bilirubin 0.4 0.1-1.0 MG/DL Aspartate Amino Transf (AST/SGOT) 12 5-34 U/L Alanine Aminotransferase (ALT/SGPT) 17 0-55 U/L Alkaline Phosphatase 50 40-136 U/L Total Protein 7.5 6.4-8.2 GM/DL Albumin 4.2 3.2-4.5 GM/DL Urine Color YELLOW Urine Clarity CLEAR Urine pH 6 5-9 Urine Specific [place] 1.015 L 1.016-1.022 Urine Protein 1+ H NEGATIVE Urine Glucose (UA) NEGATIVE NEGATIVE Urine Ketones NEGATIVE NEGATIVE Urine Nitrite NEGATIVE NEGATIVE Urine Bilirubin NEGATIVE NEGATIVE Urine Urobilinogen NORMAL NORMAL MG/DL Urine Leukocyte Esterase 1+ H NEGATIVE Urine RBC (Auto) NEGATIVE NEGATIVE Urine RBC NONE /HPF Urine WBC 0-2 /HPF Urine Crystals NONE /LPF Urine Bacteria TRACE /HPF Urine Casts NONE /LPF Urine Mucus MODERATE H /LPF Urine Culture Indicated NO Glucometer 101 70-110 MG/DL My Orders Orders - CORNELIO LESTER Cbc With Automated Diff (10/17/18 14:45) Comprehensive Metabolic Panel (10/17/18 14:45) Lactic Acid Analyzer (10/17/18 14:45) Ua Culture If Indicated (10/17/18 14:45) Blood Culture (10/17/18 14:45) Vancomycin Injection (Vancomycin Injecti (10/17/18 14:45) Hydrocodone/Apap 5/325 Tablet (Lortab 5 (10/17/18 16:00) Medications Given in ED Current Medications Medications Dose Ordered Sig/Darling Route Start Time Stop Time Status Last Admin Dose Admin Acetaminophen/ Hydrocodone Bitart 1 tab ONCE ONCE PO 10/17/18 16:00 10/17/18 16:01 DC 10/17/18 16:28 1 TAB Vital Signs/I&O 10/17/18 10/17/18 10/17/18 16:25 16:40 16:40 Temp 98.1 98.2 Pulse 82 64 Resp 18 18 B/P (MAP) 128/88 (101) 125/75 (92) Pulse Ox 99 99 O2 Delivery Room Air Room Air Capillary Refill : Progress Note : Time: 15:57 Progress Note Bedside ultrasound of the soft tissues of the labia and mons pubis failed to demonstrate any fluid collections. Just swelling and edema. Appears to be cellulitis. We will plan on giving her vancomycin since MRSA grew out on the urinalysis. We'll obtain a catheter urine specimen as I suspect that the previous urine may have been contaminated. Departure Communication (Admissions) Time/Spoke to Admitting Phy: 15:30 Dr. Rehman agrees to accept the patient for vancomycin for cellulitis of the vulva Impression Primary Impression: Vulvar cellulitis Disposition: ADMITTED INPATIENT Condition: Stable Admissions Decision to Admit Reason: Admit from ER (General) Decision to Admit/Date: Oct 17, 2018 Time/Decision to Admit Time: 15:46 Departure-Patient Inst. Referrals: [facility] (PCP/Family) Primary Care Physician Copy Copies To 1: SUSU HIGGINS TITUS J Oct 17, 2018 15:07
[2018-10-17 15:24] LABS: ALANINE AMINOTRANSFERASE 17 U/L (0-55); ALBUMIN 4.2 GM/DL (3.2-4.5); ALKALINE PHOSPHATASE 50 U/L (40-136); BILIRUBIN,TOTAL 0.4 MG/DL (0.1-1.0); BUN/CREATININE RATIO 24; CALCIUM 9.8 MG/DL (8.5-10.1); CARBON DIOXIDE 25 MMOL/L (21-32); CHLORIDE 101 MMOL/L (98-107); CREATININE SERUM 0.63 MG/DL (0.60-1.30); GFR ESTIMATED > 60; GLUCOSE 108 MG/DL (70-105); POTASSIUM 4.4 MMOL/L (3.6-5.0); SODIUM 136 MMOL/L (135-145); TOTAL PROTEIN 7.5 GM/DL (6.4-8.2)
[2018-10-17] MEDS ORDERED: HYDROcodone/APAP 5 MG/325 MG (LORTAB) TAB PO ONE (16:00)
[2018-10-17 16:22] LABS: BILIRUBIN,URINE NEGATIVE (NEGATIVE); CLARITY,URINE CLEAR; COLOR,URINE YELLOW; GLUCOSE, URINE (UA) NEGATIVE (NEGATIVE); KETONES,URINE NEGATIVE (NEGATIVE); LEUKOCYTE ESTERASE ,URINE 1+ (NEGATIVE); NITRITE,URINE NEGATIVE (NEGATIVE); PH,URINE 6 (5-9); PROTEIN,URINE 1+ (NEGATIVE); UROBILINOGEN,URINE NORMAL (NORMAL)
[2018-10-17 16:36] LABS: BACTERIA,URINE TRACE /HPF; WBC,URINE 0-2 /HPF
[2018-10-17 16:40] VITALS: BP 125/75
[2018-10-17] MEDS ORDERED: ONDANSETRON 4 MG/2 ML (SDV) Z0FRAN IV PRN (16:45)
[2018-10-17] MEDS ORDERED: CATHETER FLUSH 10 ML SYR IV PRN (17:00)
[2018-10-17] MEDS: inSUlin ASPART (NovoLOG) 1 UNIT/0.01 ML (CHARGE PER UNIT) SC SCH ×2 (17:04→20:20)
[2018-10-17] MEDS ORDERED: VANCOMYCIN 500 MG/NS 100 ML IV NR ×2 (17:30)
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
[2018-10-17 19:55] VITALS: BP 110/66
[2018-10-17] MEDS: HYDROcodone/APAP 5 MG/325 MG (LORTAB) TAB PO PRN (20:46)
[2018-10-17] MEDS: CATHETER FLUSH 10 ML SYR IV SCH (20:47)
[2018-10-18] VITALS (7 sets, daily range): BP systolic 112–125; BP diastolic 62–82
[2018-10-18] MEDS: HYDROcodone/APAP 5 MG/325 MG (LORTAB) TAB PO PRN ×5 (01:04→18:47)
[2018-10-18] MEDS: VANCOMYCIN 1500 MG/NS 500 ML IVPB IV SCH ×4 (04:44→16:44)
[2018-10-18] MEDS: CATHETER FLUSH 10 ML SYR IV SCH ×3 (04:45→23:19)
[2018-10-18] MEDS: inSUlin ASPART (NovoLOG) 1 UNIT/0.01 ML (CHARGE PER UNIT) SC SCH ×4 (05:49→22:04)
[2018-10-18 06:15] LABS: BASOPHILS % (AUTO) 0 % (0-10); EOSINOPHILS # (AUTO) 0.2 10^3/uL (0.0-0.3); EOSINOPHILS % (AUTO) 3 % (0-10); HEMATOCRIT 36 % (35-52); HEMOGLOBIN 11.8 G/DL (11.5-16.0); LYMPHOCYTES % (AUTO) 31 % (12-44); MEAN CORPUSCULAR HEMOGLOBIN 30 PG (25-34); MEAN CORPUSCULAR HGB CONC 33 G/DL (32-36); MEAN CORPUSCULAR VOLUME 91 FL (80-99); MEAN PLATELET VOLUME 8.9 FL (7.4-10.4); MONOCYTES # (AUTO) 0.5 X 10^3 (0.0-1.0); MONOCYTES % (AUTO) 8 % (0-12); NEUTROPHILS # (AUTO) 3.7 X 10^3 (1.8-7.8); NEUTROPHILS % (AUTO) 58 % (42-75); PLATELET COUNT 264 10^3/uL (130-400); RED BLOOD COUNT 3.96 10^6/uL (4.35-5.85); WHITE BLOOD COUNT 6.4 10^3/uL (4.3-11.0)
[2018-10-18 06:34] LABS: BUN/CREATININE RATIO 25; CALCIUM 8.9 MG/DL (8.5-10.1); CARBON DIOXIDE 22 MMOL/L (21-32); CHLORIDE 102 MMOL/L (98-107); CREATININE SERUM 0.61 MG/DL (0.60-1.30); GFR ESTIMATED > 60; GLUCOSE 114 MG/DL (70-105); POTASSIUM 4.3 MMOL/L (3.6-5.0); SODIUM 135 MMOL/L (135-145)
--- NOTE | 2018-10-18 13:07 | History & Physicial (CHS) ---
HPI History of Present Illness: This is a 48 yo female patient of Pineda Arreaga APRN at [facility] who presented to the ER with c/o of pain, swelling and erythema to the mons region. Patient had been placed on Keflex as an outpatient but has continued to have worsening symptoms. Pt had MRSA on prior urine culture done in the ER on 10/14/18. Pt denies fever or dysuria but admits to pain/burning to the labia and genitalia with urination. Source: patient Exam Limitations: no limitations Date seen by provider: Oct 18, 2018 Time Seen by Provider: 09:50 Attending Physician Meghann Rehman MD [place] [place] [place] Date of Admission Oct 17, 2018 at 16:00 Home Medications Home Medications Reviewed patient Home Medication Reconciliation performed by pharmacy medication reconciliations senior health physics technician and/or nursing. Patients Allergies have been reviewed. Allergies Coded Allergies: Penicillins (Unverified Allergy, Unknown, HIVES, SOB, 12/16/14) ciprofloxacin (Verified Allergy, Unknown, 06/27/07) codeine (Verified Allergy, Unknown, TOLERATES HYDROCODONE, 02/07/12) meperidine (Verified Allergy, Unknown, 06/27/07) morphine (Verified Allergy, Unknown, MAUSEA, 06/27/07) SDU-[id number] Hx Patient Social History Alcohol Use: Denies Use Recreational Drug Use: No Smoking Status: Never a Smoker 2nd Hand Smoke Exposure: No Recent Foreign Travel: No Contact w/other who traveled: No Recent Hopitalizations: No Recent Infectious Disease Expo: No Physical Abuse Screen: No Sexual Abuse: No Immunizations Up To Date Tetanus Booster (TDap): Less than 5yrs Date of Pneumonia Vaccine: Aug 11, 2018 Date of Influenza Vaccine: Aug 11, 2018 Past Medical History Past Medical History 1. Pre-DM- oral agents only 2. Hypertension 3. Obesity 4. Back pain/DDD 5. hx diverticulitis 6. Asthma Past Surgical History 1. Cystectomy Bilateral Ovaries 2. LAVH BSO with Cholecystectomy 3. Carpal Tunnel Right 4. x2 5. sinus surgery 6. Colonoscopy Family Medical History Family History: Diabetes mellitus 19 MOTHER FH: glaucoma 19 MOTHER FH: macular degeneration 19 MOTHER Review of Systems ([facility]) Constitutional: see HPI Reviewed Test Results Reviewed Test Results Lab Laboratory Tests 10/17/18 14:50: White Blood Count 6.6, Red Blood Count 4.34L, Hemoglobin 13.2, Hematocrit 39, Mean Corpuscular Volume 90, Mean Corpuscular Hemoglobin 30, Mean Corpuscular Hemoglobin Concent 34, Red Cell Distribution Width 12.5, Platelet Count 270, Mean Platelet Volume 8.9, Neutrophils (%) (Auto) 62, Lymphocytes (%) (Auto) 28, Monocytes (%) (Auto) 8, Eosinophils (%) (Auto) 3, Basophils (%) (Auto) 0, Neutrophils # (Auto) 4.1, Lymphocytes # (Auto) 1.8, Monocytes # (Auto) 0.5, Eosinophils # (Auto) 0.2, Basophils # (Auto) 0.0, Sodium Level 136, Potassium Level 4.4, Chloride Level 101, Carbon Dioxide Level 25, Anion Gap 10, Blood Urea Nitrogen 15, Creatinine 0.63, Estimat Glomerular Filtration Rate > 60, BUN/ Creatinine Ratio 24, Glucose Level 108H, Lactic Acid Level 1.11, Calcium Level 9.8, Corrected Calcium 9.6, Total Bilirubin 0.4, Aspartate Amino Transf (AST/ SGOT) 12, Alanine Aminotransferase (ALT/SGPT) 17, Alkaline Phosphatase 50, Total Protein 7.5, Albumin 4.2 10/17/18 16:15: Urine Color YELLOW, Urine Clarity CLEAR, Urine pH 6, Urine Specific [place] 1.015L, Urine Protein 1+H, Urine Glucose (UA) NEGATIVE, Urine Ketones NEGATIVE, Urine Nitrite NEGATIVE, Urine Bilirubin NEGATIVE, Urine Urobilinogen NORMAL, Urine Leukocyte Esterase 1+H, Urine RBC (Auto) NEGATIVE, Urine RBC NONE, Urine WBC 0-2, Urine Crystals NONE, Urine Bacteria TRACE, Urine Casts NONE, Urine Mucus MODERATEH, Urine Culture Indicated NO 10/17/18 17:01: Glucometer 101 10/17/18 20:06: Glucometer 122H 10/18/18 05:34: White Blood Count 6.4, Red Blood Count 3.96L, Hemoglobin 11.8, Hematocrit 36, Mean Corpuscular Volume 91, Mean Corpuscular Hemoglobin 30, Mean Corpuscular Hemoglobin Concent 33, Red Cell Distribution Width 13.0, Platelet Count 264, Mean Platelet Volume 8.9, Neutrophils (%) (Auto) 58, Lymphocytes (%) (Auto) 31, Monocytes (%) (Auto) 8, Eosinophils (%) (Auto) 3, Basophils (%) (Auto) 0, Neutrophils # (Auto) 3.7, Lymphocytes # (Auto) 2.0, Monocytes # (Auto) 0.5, Eosinophils # (Auto) 0.2, Basophils # (Auto) 0.0, Sodium Level 135, Potassium Level 4.3, Chloride Level 102, Carbon Dioxide Level 22, Anion Gap 11, Blood Urea Nitrogen 15, Creatinine 0.61, Estimat Glomerular Filtration Rate > 60, BUN/ Creatinine Ratio 25, Glucose Level 114H, Calcium Level 8.9 10/18/18 05:35: Glucometer 114H 10/18/18 11:07: Glucometer 109 10/18/18 15:00: Vancomycin Level Trough 8.7L 10/18/18 15:34: Glucometer 140H 10/18/18 20:56: Glucometer 157H 10/19/18 05:15: Glucometer 116H Physical Exam-(CHC) Physical Exam Vital Signs VS - Last 72 Hours, by Label 10/17/18 10/17/18 10/17/18 10/17/18 14:34 16:25 16:40 16:40 Temp 98.2 98.1 98.2 Pulse 77 82 64 Resp 18 18 18 B/P (MAP) 122/93 (103) 128/88 (101) 125/75 (92) Pulse Ox 97 99 99 O2 Delivery Room Air Room Air 10/17/18 10/17/18 10/18/18 10/18/18 19:55 20:00 00:22 04:00 Temp 97.5 97.3 98.1 Pulse 73 69 76 Resp 18 18 18 B/P (MAP) 110/66 (81) 121/72 (88) 121/76 (91) Pulse Ox 97 98 99 O2 Delivery Room Air Room Air Room Air Room Air 10/18/18 10/18/18 10/18/18 10/18/18 08:00 08:00 12:00 16:00 Temp 97.4 97.3 98.4 Pulse 71 79 76 Resp 20 20 17 B/P (MAP) 117/70 (86) 112/76 (88) 118/69 (85) Pulse Ox 98 96 97 O2 Delivery Room Air Room Air Room Air Room Air 10/18/18 10/18/18 10/19/18 20:50 23:41 04:16 Temp 96.9 96.5 96.7 Pulse 69 75 75 Resp B/P (MAP) 119/62 (81) 125/82 (96) 127/72 (90) Pulse Ox 96 97 97 O2 Delivery Room Air Room Air Room Air Capillary Refill : Less Than 3 Seconds General Appearance: WD/WN, no apparent distress Respiratory: lungs clear Cardiovascular: regular rate, rhythm Neurologic/Psychiatric: alert, normal mood/affect, oriented x 3 Skin: other (erythema and swelling to the mons and genitalia) Assessment/Plan Assessment/Plan Admission Status: Inpatient Order (span 2 midnights) Reason for Inpatient Admission: Anticipate at least 2 days of IV antibiotics to treat cellulitis (1) Vulvar cellulitis Status: Acute Assessment & Plan: Admitted 10/17/18 and placed on IV Vanco - Urine culture from 10/14/18 positive for MRSA, sensitive to Vanco but resistant to cephalosporins; suspect MRSA in urine was secondary to genital cellulitis rather than UTI as patient has no symptoms of UTI - blood cultures negative; wbc normal; afebrile - plan to continue IV antibiotics until clinical improvement then change to po and DC to home. (2) Prediabetes Status: Chronic Assessment & Plan: - continue home Metformin Clinical Quality Measures DVT/VTE Risk/Contraindication: Risk Factor Score Per Nursin RFS Level Per Nursing on Admit: 2=Moderate SUSU HIGGINS DO Oct 18, 2018 13:07
[2018-10-18] MEDS: DOCUSATE SODIUM 100 MG (COLACE) CAP PO PRN (14:28)
[2018-10-18] MEDS ORDERED: TROUGH ORDER-PHARMACY XX NR (15:00)
[2018-10-18] MEDS: VANCOMYCIN 1 GM/NS 250 ML IVPB IV SCH ×2 (23:19)
[2018-10-19] MEDS: HYDROcodone/APAP 5 MG/325 MG (LORTAB) TAB PO PRN ×5 (00:59→18:26)
[2018-10-19 04:16] VITALS: BP 127/72
[2018-10-19] MEDS: inSUlin ASPART (NovoLOG) 1 UNIT/0.01 ML (CHARGE PER UNIT) SC SCH ×4 (05:31→21:20)
[2018-10-19] MEDS: CATHETER FLUSH 10 ML SYR IV SCH ×3 (05:31→21:20)
[2018-10-19] MEDS: VANCOMYCIN 1 GM/NS 250 ML IVPB IV SCH ×2 (07:40)
[2018-10-19 08:22] VITALS: BP 123/63
[2018-10-19] MEDS: OMEGA 3 (FISH OIL) 1000 MG CAP PO SCH (09:50)
[2018-10-19] MEDS: ESTRADIOL 1 MG TAB (ESTRACE) PO SCH (09:50)
[2018-10-19] MEDS: SPIRONOLACTONE 25 MG (ALDACTONE) TAB PO SCH ×2 (09:51→18:26)
[2018-10-19] MEDS: metFORMIN 500 MG (GLUCOPHAGE) TAB PO SCH (09:51)
[2018-10-19 11:00] VITALS: BP 137/81
--- NOTE | 2018-10-19 11:21 | Progress Note (SOAP) ---
Subjective Subjective/Events-last exam Pt reports ongoing swelling and discomfort to the mons and genitalia. Denies fever. Review of Systems Date Seen by Provider: Oct 19, 2018 Time Seen by Provider: 10:40 Focused Exam Lactate Level 10/17/18 14:50: Lactic Acid Level 1.11 Objective Exam Last Set of Vital Signs Vital Signs Date Time Temp Pulse Resp B/P (MAP) Pulse Ox O2 Delivery O2 Flow Rate FiO2 10/19/18 08:22 96.2 69 18 123/63 (83) 98 Room Air Capillary Refill : Less Than 3 Seconds I&O Intake and Output 10/19/18 00:00 Intake Total 3185 ml Output Total 2800 ml Balance 385 ml Intake Oral 2420 ml IV Total 765 ml Output Urine Total 2800 ml # Voids 2 # Bowel Movements 1 General: Alert, Oriented X3, Cooperative Psych/Mental Status: Mood NL Other physical findings Erythema to the mons appears mildly improved. Continued swelling, possible fluctuance to the area. No open area or drainage though there is a small pustule which appears superficial. Results/Procedures Lab Laboratory Tests 10/18/18 15:00: Vancomycin Level Trough 8.7L 10/18/18 15:34: Glucometer 140H 10/18/18 20:56: Glucometer 157H 10/19/18 05:15: Glucometer 116H 10/19/18 10:23: Glucometer 175H Microbiology 10/17/18 Blood Culture - Preliminary, Resulted No growth Assessment/Plan Assessment/Plan (1) Vulvar cellulitis Status: Acute Assessment & Plan: Admitted 10/17/18 and placed on IV Vanco - Urine culture from 10/14/18 positive for MRSA, sensitive to Vanco but resistant to cephalosporins; suspect MRSA in urine was secondary to genital cellulitis rather than UTI as patient has no symptoms of UTI - blood cultures negative; wbc normal; afebrile - plan to continue IV antibiotics until clinical improvement then change to po and DC to home. 10/19 - continue IV Vancomycin. Will plan to obtain US of the area in the am to evaluate if there is any drainable fluid collection. (2) Prediabetes Status: Chronic Assessment & Plan: - continue home Metformin 10/19 - BS 109-140. Clinical Quality Measures DVT/VTE Risk/Contraindication: Risk Factor Score Per Nursin RFS Level Per Nursing on Admit: 2=Moderate SUSU HIGGINS DO Oct 19, 2018 11:21
[2018-10-19] MEDS: IBUPROFEN 600 MG (MOTRIN) TAB PO PRN ×2 (12:43→21:04)
[2018-10-19] MEDS: DOCUSATE SODIUM 100 MG (COLACE) CAP PO PRN (13:56)
[2018-10-19] MEDS ORDERED: TROUGH ORDER-PHARMACY XX NR (15:00)
[2018-10-19 15:15] VITALS: BP 117/71
[2018-10-19] MEDS: VANCOMYCIN 1250 MG/NS 250 ML IVPB IV SCH ×2 (16:18)
[2018-10-19 23:47] VITALS: BP 138/82
[2018-10-20] MEDS: VANCOMYCIN 1250 MG/NS 250 ML IVPB IV SCH ×8 (00:08→23:57)
[2018-10-20] MEDS: HYDROcodone/APAP 5 MG/325 MG (LORTAB) TAB PO PRN ×5 (00:08→23:58)
[2018-10-20] MEDS: IBUPROFEN 600 MG (MOTRIN) TAB PO PRN ×3 (03:11→20:43)
[2018-10-20] MEDS: inSUlin ASPART (NovoLOG) 1 UNIT/0.01 ML (CHARGE PER UNIT) SC SCH ×4 (05:21→22:41)
[2018-10-20] MEDS: CATHETER FLUSH 10 ML SYR IV SCH ×3 (05:21→20:43)
[2018-10-20 08:00] VITALS: BP 135/73
[2018-10-20] MEDS: ESTRADIOL 1 MG TAB (ESTRACE) PO SCH (08:33)
[2018-10-20] MEDS: metFORMIN 500 MG (GLUCOPHAGE) TAB PO SCH (08:33)
[2018-10-20] MEDS: OMEGA 3 (FISH OIL) 1000 MG CAP PO SCH (08:33)
[2018-10-20] MEDS: SPIRONOLACTONE 25 MG (ALDACTONE) TAB PO SCH ×2 (08:33→20:43)
[2018-10-20] MEDS ORDERED: CEPH500C PO (09:39)
[2018-10-20] MEDS ORDERED: OMG1KC PO (09:39)
--- NOTE | 2018-10-20 10:19 | Diagnostic Imaging Report ---
EXAMINATION: Ultrasound of the soft tissues. INDICATION: Swelling x months. COMPARISON: There are no prior studies available for comparison. FINDINGS: There does seem to be generalized thickening of the skin and soft tissues in the region of concern; however, there is no discrete mass or abscess identified. IMPRESSION: There is edema/inflammation of the soft tissues but there is no discrete mass or abscess identified. Clinical followup is recommended. Dictated by: Dictated on workstation # [id number]
[2018-10-20] MEDS ORDERED: TROUGH ORDER-PHARMACY XX NR (15:00)
[2018-10-20 16:00] VITALS: BP 119/76
--- NOTE | 2018-10-20 21:46 | Progress Note (SOAP) ---
Subjective Subjective/Events-last exam Patient improving. States that she is still having burning with urination. She is unable to wear underwear due to pain with clothing rubbing. Denies any fever or chills. Tolerating PO diet and ambulation Review of Systems Date Seen by Provider: Oct 20, 2018 Time Seen by Provider: 10:20 General: No Chills Pulmonary: No Dyspnea, No Cough Cardiovascular: No: Chest Pain, Palpitations Gastrointestinal: No: Nausea, Vomiting Genitourinary: Dysuria, Frequency Objective Exam Last Set of Vital Signs Vital Signs Date Time Temp Pulse Resp B/P (MAP) Pulse Ox O2 Delivery O2 Flow Rate FiO2 10/20/18 16:00 97.2 70 18 119/76 (90) 97 Room Air Capillary Refill : Less Than 3 Seconds I&O Intake and Output 10/20/18 00:00 Intake Total 1690 ml Output Total 2800 ml Balance -1110 ml Intake Oral 1440 ml IV Total 250 ml Output Urine Total 2800 ml # Voids 2 # Bowel Movements 1 General: Alert, Oriented X3, Cooperative, No Acute Distress Lungs: Clear to Auscultation, Normal Air Movement Heart: Regular Rate, No Murmurs Abdomen: Normal Bowel Sounds, Soft, No Tenderness, No Hepatosplenomegaly, No Masses Extremities: No Edema, Other (bilateral LE swelling, mild) Skin: Other (mons pubic with erythema and induration, no fluctuance or drainage , no streaking) Results/Procedures Lab Laboratory Tests 10/20/18 05:18: Glucometer 105 10/20/18 12:04: Glucometer 109 10/20/18 15:05: Vancomycin Level Trough 13.1 10/20/18 15:59: Glucometer 149H Microbiology 10/17/18 Blood Culture - Preliminary, Resulted No growth Assessment/Plan Assessment/Plan (1) Vulvar cellulitis Status: Acute Assessment & Plan: Admitted 10/17/18 and placed on IV Vanco - Urine culture from 10/14/18 positive for MRSA, sensitive to Vanco but resistant to cephalosporins; suspect MRSA in urine was secondary to genital cellulitis rather than UTI as patient has no symptoms of UTI - blood cultures negative; wbc normal; afebrile - plan to continue IV antibiotics until clinical improvement then change to po and DC to home. 10/19 - continue IV Vancomycin. Will plan to obtain US of the area in the am to evaluate if there is any drainable fluid collection. 10/20: Continue IV antibiotics and transition to PO tomorrow with plan for d.c tomorrow (2) Prediabetes Status: Chronic Assessment & Plan: - continue home Metformin 10/19 - BS 109-140. Clinical Quality Measures DVT/VTE Risk/Contraindication: Risk Factor Score Per Nursin RFS Level Per Nursing on Admit: 2=Moderate MARIA ELENA ULRICH MD Oct 20, 2018 21:46
[2018-10-21 00:27] VITALS: BP 130/76
[2018-10-21] MEDS: CATHETER FLUSH 10 ML SYR IV SCH ×2 (04:55→14:21)
[2018-10-21] MEDS: inSUlin ASPART (NovoLOG) 1 UNIT/0.01 ML (CHARGE PER UNIT) SC SCH ×2 (05:12→11:02)
[2018-10-21] MEDS: IBUPROFEN 600 MG (MOTRIN) TAB PO PRN (07:35)
[2018-10-21 08:00] VITALS: BP 129/75
[2018-10-21] MEDS: metFORMIN 500 MG (GLUCOPHAGE) TAB PO SCH (08:23)
[2018-10-21] MEDS: OMEGA 3 (FISH OIL) 1000 MG CAP PO SCH (08:23)
[2018-10-21] MEDS: ESTRADIOL 1 MG TAB (ESTRACE) PO SCH (08:23)
[2018-10-21] MEDS: VANCOMYCIN 1250 MG/NS 250 ML IVPB IV SCH ×2 (08:23)
[2018-10-21] MEDS: SPIRONOLACTONE 25 MG (ALDACTONE) TAB PO SCH (08:23)
--- NOTE | 2018-10-21 10:47 | Discharge Summary ---
Diagnosis/Chief Complaint Date of Admission Oct 17, 2018 at 16:00 Date of Discharge 10/21/18 Admission Diagnosis Admission Diagnosis vulvar cellulitis Discharge Diagnosis vulvar cellulitis Problems/Diagnosis: (1) Vulvar cellulitis Assessment & Plan: Admitted 10/17/18 and placed on IV Vanco - Urine culture from 10/14/18 positive for MRSA, sensitive to Vanco but resistant to cephalosporins; suspect MRSA in urine was secondary to genital cellulitis rather than UTI as patient has no symptoms of UTI - blood cultures negative; wbc normal; afebrile - plan to continue IV antibiotics until clinical improvement then change to po and DC to home. 10/19 - continue IV Vancomycin. Will plan to obtain US of the area in the am to evaluate if there is any drainable fluid collection. 10/20: Continue IV antibiotics and transition to PO tomorrow with plan for d.c tomorrow Status: Acute (2) Prediabetes Assessment & Plan: - continue home Metformin 10/19 - BS 109-140. Status: Chronic Chief Complaint/HPI Chief Complaint/HPI This is a 48 yo female patient of Pineda Arreaga APRN at [facility] who presented to the ER with c/o of pain, swelling and erythema to the mons region. Patient had been placed on Keflex as an outpatient but has continued to have worsening symptoms. Pt had MRSA on prior urine culture done in the ER on 10/14/18. Pt denies fever or dysuria but admits to pain/burning to the labia and genitalia with urination. Discharge Summary-Simple/Stand Consultations Discharge Physical Examination Allergies: Coded Allergies: Penicillins (Unverified Allergy, Unknown, HIVES, SOB, 12/16/14) ciprofloxacin (Verified Allergy, Unknown, 06/27/07) codeine (Verified Allergy, Unknown, TOLERATES HYDROCODONE, 02/07/12) meperidine (Verified Allergy, Unknown, 06/27/07) morphine (Verified Allergy, Unknown, MAUSEA, 06/27/07) Vitals & I&Os Vital Sign - Last 12Hours Date Time Temp Pulse Resp B/P (MAP) Pulse Ox O2 Delivery O2 Flow Rate FiO2 10/21/18 08:00 97.1 66 20 129/75 (93) 98 Room Air Intake and Output 10/21/18 00:00 Intake Total 2074 ml Balance 2074 ml General Appearance: Alert, Oriented X3, Cooperative HEENT: EOMI Respiratory: Clear to Auscultation Cardiovascular: Regular Rate Abdominal: Normal Bowel Sounds, Soft, No Tenderness Neuro: Normal Speech Hospital Course See final discharge diagnosis. Discussion & Recommendations Pt was admitted for vulvar cellulitis. Urine cluture was positive for MRSA but was suspected to be due to the cellulitis due to pt having no symptoms of UTI. Pt received IV Vanc. Pt has had some improvement of the cellulitis. Pt receiving IV Vanc today and will discharge home with PO abx. Pt has remained afebrile during stay. US showed some soft tissue swelling but no mass or abscess. Discussed plan with patient and family, they understand plan and are in agreement with plan. Discharge Instructions to patient/family Please see electronic discharge instructions given to patient. Discharge Medications Reviewed and agree with Discharge Medication list on patient's Discharge Instruction sheet Clinical Quality Measures DVT/VTE Risk/Contraindication: Risk Factor Score Per Nursin RFS Level Per Nursing on Admit: 2=Moderate MISSY MCKEON MEDICAL STUDENT Oct 21, 2018 10:47
[2018-10-21] MEDS: HYDROcodone/APAP 5 MG/325 MG (LORTAB) TAB PO PRN (12:34)
[2018-10-21] MEDS ORDERED: SULF-222 PO (12:35)
--- NOTE | 2018-10-21 12:37 | Discharge Instructions ---
Discharge Inst-[facility] Discharge Medications New, Converted or Re-Newed RX: Transmitted to Pharmacy New Medications: Sulfamethoxazole/Trimethoprim (Sulfamethoxazole-Tmp Ds Tablet) 1 Each Tablet 1 EACH PO BID, #14 TAB Continued Medications: Estradiol (Estradiol Tablet) 1 Mg Tablet 1 MG PO DAILY Metformin HCl (Metformin HCl) 1,000 Mg Tablet 1000 MG PO DAILY [place] 3 Polyunsat Fatty Acids (Fish Oil 1,000 mg Capsule) 1,000 Mg Cap 1000 MG PO DAILY, CAP Spironolactone (Spironolactone) 25 Mg Tablet 25 MG PO BID Discontinued Medications: Cephalexin (Cephalexin) 500 Mg Capsule 500 MG PO TID for 7 Days, CAP 7 DAY SUPPLY FILLED 10-14-18 Patient Instructions Goal/Follow Up Appt: Follow up appt with Kym Boyce on 10/29 @ 140 Patient Instructions: - Make sure to take your antibiotics Return to [facility]: - Unable to tolerate antibiotics Activity & Diet Discharge Diet: No Restrictions Activity as Tolerated: Yes Orders-Post D/C & Referrals Pneu Vac Indicated: Yes Copy Copies To 1: [facility] MARIA ELENA Gonsales APRN, MD Oct 21, 2018 12:37
[2018-10-21 15:24] VITALS: BP 129/75
== END 2018-10-21 15:24 | disposition home or self-care (01) | DRG 759 ==
LOC: EDUNIT# 13:50 → ER 13:53 → 4TH 16:00
PROVIDERS: ADMIT Family Medicine; ATTEND Family Medicine
DX: N76.2 Acute vulvitis (principal); R73.03 Prediabetes; I10 Essential (primary) hypertension; E66.9 Obesity, unspecified; Z68.39 Body mass index [BMI] 39.0-39.9, adult; M54.9 Dorsalgia, unspecified; R01.1 Cardiac murmur, unspecified; Z79.84 Long term (current) use of oral hypoglycemic drugs; Z86.19 Personal history of other infectious and parasitic diseases; Z88.0 Allergy status to penicillin; Z88.1 Allergy status to other antibiotic agents; Z88.5 Allergy status to narcotic agent
CPT/HCPCS: 36415; 51701; 76999; 80048; 80053; 80202; 81000; 82962; 83605; 85025; 87040; 96365

== ENCOUNTER 2018-11-17 21:54 | Emergency (ER) | payer BC ==
[~2018-11-17] VITALS: Ht 160 cm; Wt 99.8 kg
[~2018-11-17 21:54] MED LIST changes: +CEPH500C PO
--- OUTSIDE RECORDS SUMMARY | 2018-11-17 22:08 | XMS REPORT ---
Author Author LANA NOYOLA Organization [facility] Address [address] [place] [address] Care Team Providers Care Transfer Station Operator Name Role Phone LANA NOYOLA Unavailable PROBLEMS Type Condition ICD9-CM Code GXB70-BA Code Onset Dates Condition Status SNOMED Code Problem Prediabetes R73.03 Active 410474536 Problem Mild intermittent asthma without complication J45.20 Active 930606303 Problem Low back pain M54.5 Active 968372966 Problem DDD (degenerative disc disease), thoracic M51.34 Active 83170781 Problem Diverticulitis K57.92 Active 060674689 Problem Hypertension I10 Active 55556081 Problem Dysmetabolic syndrome E88.81 Active 367697305 Problem Other chronic pain G89.29 Active 31043451 Problem Memory loss R41.3 Active 56215596 ALLERGIES Substance Reaction Event Type Date Status Penicillin V Potassium Unknown Drug Allergy Oct, Active Morphine Sulfate Unknown Drug Allergy Oct, Active Demerol Unknown Drug Allergy Oct, Active Codeine Sulfate Unknown Drug Allergy Oct, Active Cipro Unknown Drug Allergy Oct, Active ENCOUNTERS Encounter Location Date Diagnosis [place] [id number] [place] [address] 60957- 7037 Oct, [facility] [id number] [place] [address] 80320- 4953 Oct, DDD (degenerative disc disease), thoracic M51.34 [facility] [id number] [place] [address] 21301- 7521 Jun, [facility] [id number] [place] [address] 69223- 2877 Jun, Diverticulitis K57.92 [facility] [id number] [place] [address] 59120- 9576 Jun, [facility] [address] [place] [address] 56521- 6232 May, Diabetes mellitus type 2, uncomplicated E11.9 [facility] [id number] [place] [address] 48763- 7866 Jan, Diabetes mellitus type 2, uncomplicated E11.9 [facility] [id number] [place] [address] 06498- 9128 Jan, Diabetes mellitus type 2, uncomplicated E11.9 [facility] [id number] [place] [address] 44631- 5351 Jan, [facility] [id number] [place] [address] 76999- 3361 Jan, Cognitive complaints R41.9 [facility] [id number] [place] [address] 91731- 2443 Dec, Symptomatic abdominal apron E65 [facility] [id number] [place] [address] 56726- 1341 Dec, Cognitive complaints R41.9 [facility] [id number] [place] [address] 42559- 0429 Nov, Symptomatic abdominal apron E65 and Diabetes mellitus type 2 , uncomplicated E11.9 [facility] [id number] [place] [address] 71827- 4071 Oct, Symptomatic abdominal apron E65 [facility] [id number] [place] [address] 92576- 3000 Oct, Breast screening Z12.39 [facility] [id number] [place] [address] 30946- 5188 Sep, Other chronic pain G89.29 ; Pain in left shoulder M25.512 and Dysfunction of both eustachian tubes H69.83 [facility] [address] [place] [address] 19901- 3824 Sep, Cognitive complaints R41.9 [facility] [id number] [place] [address] 71223- 1068 Aug, [place] [address] 23355- 2650 Aug, Muscle strain of left shoulder, initial encounter S46.912A [facility] [id number] [place] [address] 19899- 6282 Jul, [place] [address] 33602- 5088 Jul, Memory loss R41.3 and Paternal family history of dementia Z82.0 [place] [address] 84444- 1045 Apr, Diabetes mellitus type 2, uncomplicated E11.9 and Hypertension I10 [place] [address] 80159- 2114 Feb, Symptomatic abdominal apron E65 [facility] [address] 72141 -7140 Nov, Muscle strain of left shoulder, initial encounter S46.912A [place] [address] 29397- 3136 Oct, Encounter for immunization Z23 [facility] [id number] [place] [address] 61822 -8739 Oct, Plantar fasciitis M72.2 [place] [address] 77772- 8619 Sep, [place] [id number] [place] [address] 62903- 9609 Aug, Breast screening Z12.39 and Acute costochondritis M94.0 [facility] [id number] [place] [address] 67689- 5910 Aug, [place] [address] 20108- 8109 Aug, [facility] [address] [place] [address] 31657- 5718 29 Jul, 2016 Symptomatic abdominal apron E65 and 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 [id number] [place] [address] [id number] Jan, Dental caries K02.9 [facility] [address] 45874- 3095 Dec, Dysmetabolic syndrome E88.81 [facility] [address] 85606- 6956 Dec, [facility] [address] 97904- 9357 Nov, Dysmetabolic syndrome E88.81 [facility] [address] 89107- 7102 Oct, [facility] [id number] [place] [address] [id number] Oct, Dental examination Z01.20 [facility] [id number] [place] [address] 92726- 1662 Sep, [facility] [address] 77261- 4251 Sep, Low back pain M54.5 and Sciatica, unspecified side M54.30 [facility] [id number] [place] [address] 08854- 5296 14 Feb, 2015 [facility] [id number] [place] [address] 93536- 5507 Feb, [facility] [address] [place] [address]- 2645 Dec, 2014 [facility] [place] [facility] [address] [id number] [place] [address]- 5240 Dec, [facility] [place] [facility] [address] [id number] [place] [address]- 9825 Nov, [facility] [place] [facility] [address] [id number] [place] [address]- 7972 Nov, [facility] [place] [facility] [address] [id number] [place] [address]- 8322 Nov, [facility] [place] [facility] [address] [id number] [place] [address]- 4489 Aug, [facility] [place] [facility] [address] [id number] [place] [address]- 3803 Aug, [facility] [place] [facility] [address] [id number] [place] [address]- 6993 Aug, [facility] [place] [facility] [address] [id number] [place] [address]- 8155 Aug, [facility] [place] [facility] [address] [id number] [place] [address]- 6257 Aug, [facility] [place] [facility] [address] [facility] [id number] [place] [address]- 8096 Aug, [facility] [place] [facility] [address] [id number] [place] [address]- 9999 Aug, [facility] [place] [facility] [address] [id number] [place] [address]- 4487 Aug, [facility] [place] [facility] [address] [id number] [place] [address]- 0830 Jul, [facility] [place] [facility] [address] [id number] [place] [address]- 5940 Jul, [facility] [place] [facility] [address] [id number] [place] [address]- 0247 Jun, [facility] [place] [facility] [address] [id number] [place] [address]- 2752 Jun, [facility] [place] [facility] [address] [id number] [place] [address]- 5067 Jun, [facility] [place] [facility] [address] [id number] [place] [address]- 5613 Jun, [facility] [place] [facility] [address] [id number] [place] [address]- 5111 May, [facility] [place] [facility] [address] [id number] [place] [address]- 1329 May, [facility] [place] [facility] [address] [id number] [place] [address]- 9063 Apr, [facility] [place] [facility] [address] [id number] [place] [address]- 6189 Apr, [facility] [place] [facility] [address] [id number] [place] [address]- 9226 Apr, [facility] [place] [facility] [address] [id number] [place] [address]- 8597 Apr, [facility] [place] [facility] [address] [id number] [place] [address]- 2985 Apr, [facility] [place] [facility] [address] [id number] [place] [address]- 7060 Apr, [facility] [place] [facility] [address] [id number] [place] [address]- 1130 March, [facility] [place] [facility] [address] [id number] [place] [address]- 6191 March, [facility] [place] [facility] [address] [id number] [place] [address]- 2851 March, [facility] [place] [facility] [address] [id number] [place] [address]- 1219 March, [facility] [place] [facility] [address] [id number] [place] [address]- 2546 March, [facility] [place] [facility] [address] [id number] [place] [address]- 3162 March, [facility] [place] [facility] [address] [id number] [place] [address]- 6392 Dec, [facility] [place] [facility] [address] [id number] [place] [address]- 7897 Dec, [facility] [place] [facility] [address] [id number] [place] [address]- 5006 Dec, [facility] [place] [facility] [address] [id number] [place] [address]- 0170 Dec, [facility] [place] [facility] [address] [id number] [place] 5802 Nov, [facility] [place] [facility] [address] [id number] [place] [address]- 0083 Nov, [facility] [place] [facility] [address] [id number] [place] [address]- 9237 Aug, [facility] [place] [facility] [address] [id number] [place] [address]- 3896 Jun, [facility] [place] [facility] [address] [facility] [id number] [place] [address]- 8607 Jun, [facility] [place] [facility] [address] [id number] [place] [address]- 6897 May, [facility] [place] [facility] [address] [id number] [place] [address]- 5371 May, [facility] [place] [facility] [address] [id number] [place] [address]- 6006 May, [facility] [place] [facility] [address] [id number] [place] [address]- 6123 May, [facility] [place] [facility] [address] [id number] [place] [address]- 4689 Apr, [facility] [place] [facility] [address] [id number] [place] [address]- 0626 Apr, [facility] [address] [id number] [place] [address]- 8813 March, [facility] [place] [facility] [address] [id number] [place] [address]- 8356 Jan, [facility] [place] [facility] [address] [id number] [place] [address]- 8776 Dec, [facility] [place] [facility] [address] [id number] [place] [address]- 2916 Dec, [facility] [place] [facility] [address] [id number] [place] [address]- 9866 Nov, [facility] [address] [id number] [place] [address]- 4688 Nov, [facility] [address] [id number] [place] [address]- 7511 Oct, [facility] [address] [id number] [place] [address]- 1220 Oct, [facility] [address] [id number] [place] [address]- 4702 Oct, [facility] [place] [facility] [address] [id number] [place] [address]- 2007 17 Oct, 2012 [facility] [place] [facility] [address] [id number] [place] [address]- 5486 Oct, [facility] [place] [facility] [address] [id number] [place] 1576 Oct, [facility] [place] [facility] [address] [id number] [place] [address]- 9066 Oct, [facility] [place] [facility] [address] [id number] [place] [address]- 3896 07 Oct, 2012 [facility] [place] [facility] [address] [id number] [place] [address]- 3858 Aug, [facility] [place] [facility] [address] [id number] [place] [address]- 0812 Aug, [facility] [place] [facility] [address] [id number] [place] [address]- 8095 Aug, [facility] [place] [facility] [address] [id number] [place] [address]- 5545 Aug, [facility] [place] [facility] [address] [id number] [place] [address]- 3942 25 Jul, 2012 [facility] [place] [facility] [address] [id number] [place] [address]- 4332 Jul, [facility] [place] [facility] [address] [id number] [place] [address]- 1638 Apr, [facility] [place] [facility] [address] [id number] [place] [address]- 9313 Apr, [facility] [place] [facility] [address] [id number] [place] [address]- 7957 Apr, [facility] [place] [facility] [address] [id number] [place] [address]- 0720 March, [facility] [place] [facility] [address] [id number] [place] [address]- 1931 March, [facility] [place] [facility] [address] [id number] [address]- 1546 15 Mar, 2012 [facility] [place] [facility] [address] [id number] [address]- 3021 23 Feb, 2012 [facility] [place] [facility] [address] [id number] [place] [address]- 6598 20 Feb, 2012 [facility] [place] [facility] [address] [id number] [place] [address]- 5900 16 Feb, 2012 [facility] [place] [facility] [address] [id number] [place] [address]- 7523 12 Feb, 2012 [facility] [place] [facility] [address] [id number] [place] [address]- 9353 29 Jan, 2012 [facility] [address] [id number] [place] [address]- 1198 27 Jan, 2012 [facility] [place] [facility] [address] [id number] [place] [address] 2546 17 Jan, 2012 [facility] [address] [id number] [place] [address]- 0826 17 Jan, 2012 [facility] [address] [id number] [place] [address] 2546 07 Jan, 2012 [facility] [address] [id number] [place] [address]- 2606 06 Jan, 2012 [facility] [address] [id number] [place] [address] 2546 Jan, [facility] [address] [id number] [place] [address]- 5926 Dec, [facility] [address] [id number] [place] [address]- 0137 Dec, [facility] [address] [id number] [place] [address]- 7699 Dec, [facility] [address] [id number] [place] [address]- 9743 Dec, [facility] [address] [id number] [place] [address]- 1396 Nov, [facility] [address] [id number] [place] [address]- 0246 Nov, [facility] [place] [facility] [address] [id number] [place] [address]- 1636 Oct, [facility] [place] [facility] [address] [id number] [place] [address] 2546 Oct, [facility] [address] [id number] [place] [address]- 6630 Oct, [facility] [address] [facility] [id number] [address]- 5006 Feb, [facility] [address] [facility] [id number] [place] [address]- 2546 Dec, [facility] [address] [facility] [id number] [place] [address]- 9806 Dec, [facility] [address] [facility] [id number] [address] 2546 Jun, IMMUNIZATIONS No Known Immunizations SOCIAL HISTORY Never Assessed REASON FOR VISIT Pain (acute) back, PT reports she has been to [facility] ER 10/14 due to back pain and thinking she has kidney stones. PT found out it was not her kidneys but its her liver. PLAN OF CARE VITAL SIGNS Height 64 in 2018-10-16 Weight 225.4 lbs 2018-10-16 Temperature 98.9 degrees Fahrenheit 2018-10-16 Heart Rate 92 bpm 2018-10-16 Respiratory Rate 20 2018-10-16 Oximetry 96 % 2018-10-16 BMI 38.69 kg/m2 2018-10-16 Blood pressure systolic 132 mmHg 2018-10-16 Blood pressure diastolic 70 mmHg 2018-10-16 MEDICATIONS Medication Instructions Dosage Frequency Start Date End Date Duration Status Spironolactone 25 mg Orally twice a day TAKE ONE TABLET BY MOUTH TWICE DAILY 12h 30 Active Metformin HCl 1000MG Orally Once a day 1 tablet with a meal 24h 30 Active Estradiol 1 mg Orally Once a day 1 tablet 24h Active Fish Oil 1000 MG Orally Once a day 1 capsule 24h Active Biotin Active Hydrocodone-Acetaminophen 5-325 MG Orally every 6 hrs 1 tablet as needed 6h Active RESULTS No Results PROCEDURES No Known procedures INSTRUCTIONS MEDICATIONS ADMINISTERED No Known Medications MEDICAL (GENERAL) HISTORY Type Description Date Medical History hypertension Medical History pre-diabetic Medical History heart murmur Medical History asthma Medical History diverticulitis Surgical History x 2 Surgical History cystectomy Surgical History hysterectomy 2007 Surgical History cholecystectomy 2007 Surgical History right hand carpal tunnel 2009 Surgical History sinus surgery Surgical History colonoscopy 2016 Surgical History left hand carpal tunnel 2018 Hospitalization History surgeries Hospitalization History diverticulitis 2016 Hospitalization History [facility], [facility] 09/2018
--- OUTSIDE RECORDS SUMMARY | 2018-11-17 22:08 | XMS REPORT ---
Author Author GILLIAN STROUD [facility] Address [address] [place] [address] Care Team Providers Care Prism Inspector Name Role Phone GILLIAN STROUD Unavailable PROBLEMS Type Condition ICD9-CM Code GKA29-RJ Code Onset Dates Condition Status SNOMED Code Problem Mild intermittent asthma without complication J45.20 Active 880200385 Problem Low back pain M54.5 Active 415117527 Problem Dysmetabolic syndrome E88.81 Active 286987969 Problem Prediabetes R73.03 Active 258541257 Problem MRSA (methicillin resistant staph aureus) culture positive Z22.322 Active 836101369 Problem DDD (degenerative disc disease), thoracic M51.34 Active 06773817 Problem Memory loss R41.3 Active 82150363 Problem Hypertension I10 Active 03391573 Problem Diverticulitis K57.92 Active 885453467 Problem Other chronic pain G89.29 Active 71594257 ALLERGIES Substance Reaction Event Type Date Status Penicillin V Potassium Unknown Drug Allergy Oct, Active Morphine Sulfate Unknown Drug Allergy Oct, Active Demerol Unknown Drug Allergy Oct, Active Codeine Sulfate Unknown Drug Allergy Oct, Active Cipro Unknown Drug Allergy Oct, Active ENCOUNTERS Encounter Location Date Diagnosis [facility] [id number] [place] [address] 27010- 6895 Oct, Cellulitis of other specified site L03.818 ; MRSA ( methicillin resistant staph aureus) culture positive Z22.322 and Acute vulvitis N76.2 [facility] [address] [id number] [address] Oct, DDD (degenerative disc disease), thoracic M51.34 [facility] [address] [id number] [address] Jun, [facility] [id number] [address] Jun, Diverticulitis K57.92 [facility] [id number] [place] [address] 69584- 5276 Jun, [facility] [id number] [place] [address] 88215 2546 May, Diabetes mellitus type 2, uncomplicated E11.9 [facility] [id number] [place] [address] 52643- 1056 Jan, Diabetes mellitus type 2, uncomplicated E11.9 [facility] [id number] [place] [address] 71408- 9026 Jan, Diabetes mellitus type 2, uncomplicated E11.9 [facility] [id number] [place] [address] 00453- 3955 Jan, [facility] [id number] [place] [address] 29537- 6135 Jan, Cognitive complaints R41.9 [facility] [id number] [place] [address] 05296- 3519 Dec, Symptomatic abdominal apron E65 [facility] [id number] [place] [address] 89460- 6506 Dec, Cognitive complaints R41.9 [facility] [id number] [place] [address] 16775 2549 Nov, Symptomatic abdominal apron E65 and Diabetes mellitus type 2 , uncomplicated E11.9 [facility] [address] [address] 9968 Oct, Symptomatic abdominal apron E65 [facility] [id number] [place] [address] 71711- 2546 Oct, Breast screening Z12.39 [facility] [address] [address] 8906 Sep, Other chronic pain G89.29 ; Pain in left shoulder M25.512 and Dysfunction of both eustachian tubes H69.83 [facility] [id number] [place] [address] 98059- 3041 Sep, Cognitive complaints R41.9 [facility] [id number] [place] [address] 85076- 6772 Aug, [place] [address] 8[address]48- 7791 Aug, Muscle strain of left shoulder, initial encounter S46.912A [place] [address] 28192- 3117 Jul, [place] [address] 69350- 6199 Jul, Memory loss R41.3 and Paternal family history of dementia Z82.0 [place] [address] 84442- 6141 Apr, Diabetes mellitus type 2, uncomplicated E11.9 and Hypertension I10 [place] [id number] [place] [address] 31688- 9417 Feb, Symptomatic abdominal apron E65 [facility] [id number] [place] [address] 34401 -0421 Nov, Muscle strain of left shoulder, initial encounter S46.912A [place] [id number] [place] [address] 37068- 9057 Oct, Encounter for immunization Z23 [facility] [id number] [place] [address] 29176 -7904 Oct, Plantar fasciitis M72.2 [place] [address] 69975- 9895 Sep, [place] [id number] [place] [address] 69181- 3398 Aug, Breast screening Z12.39 and Acute costochondritis M94.0 [facility] [id number] [place] [address] 26063- 4771 Aug, [facility] [address] 88531- 4165 Aug, [facility] [id number] [place] [address] 43239- 6513 Jul, Symptomatic abdominal apron E65 and 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 [facility] [address] 52307- 8934 Apr, [facility] [address] 20407 -3744 Apr, Right acute otitis media H66.91 [facility] [address] [id number] Jan, Dental caries K02.9 [facility] [address] 04754- 2753 Dec, Dysmetabolic syndrome E88.81 [facility] [address] 91635- 0435 Dec, [facility] [address] 77008- 1161 Nov, Dysmetabolic syndrome E88.81 [facility] [address] 01489- 2451 Oct, [facility] [address] [id number] Oct, Dental examination Z01.20 [facility] [address] 61658- 6640 Sep, [facility] [address] 19402- 2671 Sep, Low back pain M54.5 and Sciatica, unspecified side M54.30 [facility] [address] [place] [address]- 9712 14 Feb, 2015 [facility] [place] [facility] [address] [id number] [place] [address]- 5253 Feb, [facility] [place] [facility] [address] [id number] [place] [address]- 5537 Dec, [facility] [place] [facility] [address] [id number] [place] [address]- 1378 Dec, [facility] [place] [facility] [address] [id number] [place] [address]- 5394 Nov, [facility] [place] [facility] [address] [id number] [place] [address]- 3162 Nov, [facility] [place] [facility] [address] [id number] [place] [address]- 2998 Nov, [facility] [place] [facility] [address] [id number] [place] [address]- 8212 15 Aug, 2014 [facility] [place] [facility] [address] [id number] [place] [address]- 2674 15 Aug, 2014 [facility] [place] [facility] [address] [id number] [place] [address]- 6849 14 Aug, 2014 [facility] [place] [facility] [address] [facility] [id number] [place] [address]- 5103 14 Aug, 2014 [facility] [place] [facility] [address] [id number] [place] [address]- 2165 08 Aug, 2014 [facility] [place] [facility] [address] [id number] [place] [address]- 8063 08 Aug, 2014 [facility] [place] [facility] [address] [id number] [place] [address]- 5005 03 Aug, 2014 [facility] [place] [facility] [address] [id number] [place] [address]- 9342 Aug, [facility] [place] [facility] [address] [id number] [place] [address]- 6861 Jul, [facility] [place] [facility] [address] [id number] [place] [address]- 3725 Jul, [facility] [place] [facility] [address] [id number] [place] [address]- 6123 Jun, [facility] [place] [facility] [address] [id number] [place] [address] Jun, [facility] [place] [facility] [address] [id number] [place] [address]- 5321 Jun, [facility] [place] [facility] [address] [id number] [place] [address]- 0554 Jun, [facility] [place] [facility] [address] [id number] [place] [address]- 2458 May, [facility] [place] [facility] [address] [id number] [place] [address]- 0445 May, [facility] [place] [facility] [address] [id number] [place] [address]- 6739 Apr, [facility] [place] [facility] [address] [id number] [place] [address]- 6084 Apr, [facility] [place] [facility] [address] [id number] [place] [address]- 2409 Apr, [facility] [place] [facility] [address] [id number] [place] [address]- 4400 Apr, [facility] [place] [facility] [address] [id number] [place] [address]- 8884 Apr, [facility] [place] [facility] [address] [id number] [place] [address]- 1705 Apr, [facility] [place] [facility] [address] [id number] [place] [address]- 5809 March, [facility] [place] [facility] [address] [id number] [place] [address]- 4477 March, [facility] [place] [facility] [address] [id number] [place] [address]- 2546 March, [facility] [place] [facility] [address] [id number] [place] [address]- 8727 March, [facility] [place] [facility] [address] [id number] [place] [address]- 7246 March, [facility] [place] [facility] [address] [id number] [place] [address]- 0596 March, [facility] [place] [facility] [address] [id number] [place] [address]- 7865 Dec, [facility] [place] [facility] [address] [id number] [place] [address]- 4723 Dec, [facility] [place] [facility] [address] [id number] [place] [address]- 7546 Dec, [facility] [place] [facility] [address] [id number] [place] [address]- 4364 Dec, [facility] [place] [facility] [address] [id number] [place] [address]- 0162 Nov, [facility] [place] [facility] [address] [id number] [place] [address]- 4094 Nov, [facility] [place] [facility] [address] [id number] [place] [address]- 3816 Aug, [facility] [place] [facility] [address] [id number] [place] [address]- 8496 Jun, [facility] [place] [facility] [address] [id number] [place] [address]- 3423 Jun, [facility] [place] [facility] [address] [id number] [place] [address]- 5666 May, [facility] [place] [facility] [address] [id number] [place] [address]- 2546 May, [facility] [place] [facility] [address] [facility] [id number] [place] [address]- 2546 May, [facility] [place] [facility] [address] [id number] [place] [address]- 0441 May, [facility] [place] [facility] [address] [id number] [place] [address]- 1333 Apr, [facility] [place] [facility] [address] [id number] [place] [address]- 2546 Apr, [facility] [place] [facility] [address] [id number] [place] [address]- 8791 March, [facility] [place] [facility] [address] [id number] [place] [address]- 8557 Jan, [facility] [place] [facility] [address] [id number] [place] [address]- 2998 Dec, [facility] [place] [facility] [address] [id number] [place] [address]- 7546 Dec, [facility] [place] [facility] [address] [id number] [place] [address]- 9995 Nov, [facility] [place] [facility] [address] [id number] [place] [address]- 4827 Nov, [facility] [place] [facility] [address] [id number] [place] [address]- 8584 Oct, [facility] [place] [facility] [address] [id number] [place] [address]- 9856 Oct, [facility] [place] [facility] [address] [id number] [place] [address]- 6336 Oct, [facility] [place] [facility] [address] [id number] [place] [address]- 8170 17 Oct, 2012 [facility] [place] [facility] [address] [id number] [place] [address]- 7846 Oct, [facility] [place] [facility] [address] [id number] [place] [address]- 1167 Oct, [facility] [place] [facility] [address] [id number] [place] [address]- 4396 07 Oct, 2012 [facility] [place] [facility] [address] [id number] [place] [address]- 9707 07 Oct, 2012 [facility] [place] [facility] [address] [id number] [place] [address]- 7396 Aug, [facility] [place] [facility] [address] [id number] [place] [address]- 2886 Aug, [facility] [place] [facility] [address] [id number] [place] [address]- 0942 Aug, [facility] [place] [facility] [address] [id number] [place] [address]- 3635 Aug, [facility] [place] [facility] [address] [id number] [place] [address]- 7896 25 Jul, 2012 [facility] [place] [facility] [address] [id number] [place] [address]- 8311 Jul, [facility] [place] [facility] [address] [id number] [place] [address]- 6577 Apr, [facility] [place] [facility] [address] [id number] [place] [address]- 4267 Apr, [facility] [place] [facility] [address] [id number] [place] [address]- 9331 Apr, [facility] [place] [facility] [address] [id number], [place] [address]- 6916 March, [facility] [place] [facility] [address] [id number] [address]- 6114 March, [facility] [place] [facility] [address] [id number] [place] [address]- 1899 March, [facility] [place] [facility] [address] [id number], [place] [address]- 5084 Feb, [facility] [place] [facility] [address] [id number] [place] [address]- 0001 Feb, [facility] [place] [facility] [address] [id number] [place] [address]- 8346 16 Feb, 2012 [facility] [address] [id number] [place] [address]- 4776 Feb, [facility] [address] [id number] [place] [address]- 2006 29 Jan, 2012 [facility] [address] [id number] [place] [address]- 5666 27 Jan, 2012 [facility] [address] [id number] [place] [address] 2546 17 Jan, 2012 [facility] [address] [id number] [place] [address]- 5226 17 Jan, 2012 [facility] [address] [id number] [place] [address]- 7836 Jan, [facility] [address] [id number] [place] [address]- 7316 Jan, [facility] [address] [id number] [place] [address]- 1682 Jan, [facility] [address] [id number] [place] [address]- 0925 Dec, [facility] [address] [id number] [place] [address]- 6924 Dec, [facility] [address] [id number] [place] [address]- 2546 Dec, [facility] [address] [id number] [place] [address]- 6866 Dec, [facility] [place] [facility] [address] [id number] [place] [address]- 2546 Nov, [facility] [address] [id number] [place] [address]- 2546 Nov, [facility] [address] [id number] [place] [address]263 Oct, [facility] [address] [facility] [id number], [place] [address]- 9000 Oct, [facility] [address] [address]- 5191 Oct, [facility] [address] [facility] [id number], [place] [address]- 2961 Feb, [facility] [address] [address]- 3678 Dec, [facility] [address] [facility] [id number], [place] [address]- 0601 Dec, [facility] [address], [place] [address]- 3536 Jun, IMMUNIZATIONS No Known Immunizations SOCIAL HISTORY Never Assessed REASON FOR VISIT [facility] f/u, was in the hosptial for 1 week due to cellulitis Miladys Sutherland MA PLAN OF CARE Activity Details Follow Up prn Reason: VITAL SIGNS Height 64 in 2018-10-29 Weight 224.7 lbs 2018-10-29 Temperature 97.1 degrees Fahrenheit 2018-10-29 Heart Rate 76 bpm 2018-10-29 Respiratory Rate 20 2018-10-29 BMI 38.57 kg/m2 2018-10-29 Blood pressure systolic 128 mmHg 2018-10-29 Blood pressure diastolic 72 mmHg 2018-10-29 MEDICATIONS Medication Instructions Dosage Frequency Start Date End Date Duration Status Spironolactone 25 mg Orally twice a day TAKE ONE TABLET BY MOUTH TWICE DAILY 12h 30 Active Fluconazole 150 MG Orally q72hr 1 tablet Oct, 9 days Active Estradiol 1 mg Orally Once a day 1 tablet 24h Active Bactrim 400-80 MG Orally Once a day 1 tablet 24h 10 day(s) Active Fish Oil 1000 MG Orally Once a day 1 capsule 24h Active Metformin HCl 1000MG Orally Once a day 1 tablet with a meal 24h 30 Active RESULTS No Results PROCEDURES No Known procedures INSTRUCTIONS MEDICATIONS ADMINISTERED No Known Medications MEDICAL (GENERAL) HISTORY Type Description Date Medical History hypertension Medical History pre-diabetic Medical History heart murmur Medical History asthma Medical History diverticulitis Surgical History x 2 Surgical History cystectomy Surgical History hysterectomy 2008 Surgical History cholecystectomy 2008 Surgical History right hand carpal tunnel 2010 Surgical History sinus surgery Surgical History colonoscopy 2016 Surgical History left hand carpal tunnel 2018 Hospitalization History surgeries Hospitalization History diverticulitis 2016 Hospitalization History [facility], [place] [facility] 09/2018 Hospitalization History cellulitis 10/2018
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
--- NOTE | 2018-11-17 22:37 | NUR ---
Pt. advises she saw Katelyn Arreaga approximately 1 week ago and was given a steroid.
--- NOTE | 2018-11-17 22:58 | NUR ---
Pt. report given to Katelyn Engle RN.
--- NOTE | 2018-11-17 22:58 | ED Lower Extremity ---
General Chief Complaint: Lower Extremity Stated Complaint: RT KNEE PAIN, SWOLLEN Nursing Triage Note: Patient c/o right knee pain both anterior and posterior. She advises the swelling and pain began several weeks ago while admitted to the hospital for an unrealted dx. she advises the pain and swelling has become progressively worse and it is difficult to move her knee. She advises she took motrin at 1330 today. Nursing Sepsis Screen: No Definite Risk History of Present Illness Date Seen by Provider: Nov 17, 2018 Time Seen by Provider: 22:40 Initial Comments 48-year-old female presents for right knee pain. She denies a specific injury to it. She has been taking ibuprofen 400-800 mg every 6-8 hours and Tylenol in addition with minimal pain improvement. She's had no previous surgeries to her right knee. Pain/Injury Location: right knee Method of Injury: unknown Modifying Factors: Improves With Rest Allergies and Home Medications Allergies Coded Allergies: Penicillins (Unverified Allergy, Unknown, HIVES, SOB, 11/17/18) ciprofloxacin (Verified Allergy, Unknown, 11/17/18) codeine (Verified Allergy, Unknown, TOLERATES HYDROCODONE, 11/17/18) meperidine (Verified Allergy, Unknown, 11/17/18) morphine (Verified Allergy, Unknown, MAUSEA, 11/17/18) Home Medications Estradiol 1 Mg Tablet, 1 MG PO DAILY, (Reported) Metformin HCl 1,000 Mg Tablet, 1,000 MG PO DAILY, (Reported) [place] 3 Polyunsat Fatty Acids 1,000 Mg Cap, 1,000 MG PO DAILY, (Reported) Spironolactone 25 Mg Tablet, 25 MG PO BID, (Reported) Sulfamethoxazole/Trimethoprim 1 Each Tablet, 1 EACH PO BID Prescribed by: MARIA ELENA ULRICH on 10/21/18 8904 Patient Home Medication List Home Medication List Reviewed: Yes Review of Systems Constitutional: no symptoms reported, see HPI Musculoskeletal: see HPI, joint pain (right knee), joint swelling All Other Systems Reviewed Negative Unless Noted: Yes Past Naqxrfc-Eoqmwl-Nkkhwm Hx Past Med/Social Hx: Reviewed Nursing Past Med/Soc Hx Patient Social History Alcohol Use: Denies Use Recreational Drug Use: No Smoking Status: Never a Smoker 2nd Hand Smoke Exposure: No Recent Foreign Travel: No Contact w/Someone Who Travel: No Recent Infectious Disease Expo: No Recent Hopitalizations: No Immunizations Up To Date Tetanus Booster (TDap): Less than 5yrs Date of Pneumonia Vaccine: Aug 11, 2018 Date of Influenza Vaccine: Aug 11, 2018 Seasonal Allergies Seasonal Allergies: Yes Past Medical History Surgeries: Yes (SINUS, D&C X 2, LAPAROSCOPIES X 2, RT CARPAL TUNNEL; L Carpal Tunnel ) Section, Gallbladder, Hysterectomy Respiratory: Yes Asthma, Chronic Bronchitis Currently Using CPAP: No Currently Using BIPAP: No Cardiac: Yes Heart Murmur, Hypertension Neurological: Yes Headaches /Migraines 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 Disorders: Yes ( 8 para 4 (D&C x2-4 miscarriages x2)) Female 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 Sexually Transmitted Disease: Yes (chlamydia ) HIV/AIDS: No Genitourinary: Yes Bladder Infection, UTI-Chronic Gastrointestinal: Yes Diverticulosis, Gall Bladder Disease Musculoskeletal: No Endocrine: Yes Diabetes, Non-Insulin dep HEENT: No Loss of Vision: Denies Hearing Impairment: Denies Cancer: No Psychosocial: No Integumentary: No Blood Disorders: No Adverse Reaction/Blood Tranf: No Family Medical History Diabetes mellitus 19 MOTHER FH: glaucoma 19 MOTHER FH: macular degeneration 19 MOTHER Physical Exam Vital Signs Vital Signs - First Documented 11/17/18 22:30 Temp 98.7 Pulse 78 Resp 14 B/P (MAP) 144/95 (111) Pulse Ox 98 O2 Delivery Room Air Capillary Refill : Less Than 3 Seconds Height, Weight, BMI Height: 5'3.00" Weight: 220lbs. 0.0oz. 99.429607ti; 39.3 BMI Method:Stated General Appearance: WD/WN, no apparent distress Cardiovascular: normal peripheral pulses, regular rate, rhythm Respiratory: chest non-tender, lungs clear, normal breath sounds Knees: right knee normal range of motion (with pain on full flexion), right knee joint effusion, right knee soft tissue tenderness, right knee swelling ( popliteal cyst), right knee other (no medial or lateral laxity, negative Cuauhtemoc and anterior drawer. Positive Shanae maneuver. Negative Homans) Neurologic/Tendon: normal sensation, normal motor functions, normal tendon functions Neurologic/Psychiatric: no motor/sensory deficits, alert, normal mood/affect, oriented x 3 Skin: normal color, warm/dry Progress/Results/Core Measures Results/Orders My Orders Orders - MARION BERMUDEZ Knee, Right, 3 Views (11/17/18 22:42) Vital Signs/I&O 11/17/18 22:30 Temp 98.7 Pulse 78 Resp 14 B/P (MAP) 144/95 (111) Pulse Ox 98 O2 Delivery Room Air Blood Pressure Mean: 111 Diagnostic Imaging Diagonstic Imaging: Xray Plain Films/CT/US/NM/MRI: knee Comments Mild degenerative changes noted medial compartment more significant than others. No fractures, acute niki abnormalities, or dislocations noted, osteophyte in posterior joint space. Reviewed: Reviewed by Me Departure Impression Primary Impression: Right knee pain Qualified Codes: M25.561 - Pain in right knee Additional Impression: Acute meniscal tear of right knee Qualified Codes: S83.206A - Unspecified tear of unspecified meniscus, current injury, right knee, initial encounter Disposition: 01 HOME, SELF-CARE Condition: Improved Departure-Patient Inst. Decision time for Depature: 23:10 Referrals: LANA NOYOLA (PCP) Primary Care Physician [facility] (Family) Primary Care Physician Patient Instructions: Knee Pain (DC), Meniscal Tear (DC) Add. Discharge Instructions: Ice to right knee 20 minutes every 2 hours while awake. Wear your knee sleeve while up and around. Take Naprosyn 500 mg twice daily as prescribed. Do not take ibuprofen or other NSAIDs while taking the Naprosyn. You may take Tylenol 650 mg every 8 hours. Schedule appointment with Dr. Pa for knee evaluation. Return to emergency department as needed for acute, urgent health care needs. All discharge instructions reviewed with patient and/or family. Voiced understanding. Scripts Naproxen (Naprosyn) 500 Mg Tablet 500 MG PO BIDPC, #40 TAB 1 Refill Prov: MARION BERMUDEZ 11/17/18 MARION BERMUDEZ Nov 17, 2018 22:58
[2018-11-17] MEDS ORDERED: NAPR-1071 PO (23:16)
[2018-11-17] MEDS ORDERED: RX-NAPROXEN (NAPROSYN) 250 MG TAB PPK#4 PO ONE (23:18)
[2018-11-17 23:28] VITALS: BP 116/76
--- NOTE | 2018-11-18 07:01 | Diagnostic Imaging Report ---
INDICATION: Right knee pain COMPARISON: None FINDINGS: 3 views of the right knee demonstrate minimal tricompartment degenerative joint disease. There is no fracture, dislocation or joint effusion. IMPRESSION: Minimal degenerative joint disease Dictated by: Dictated on workstation # [id number]
[2018-11-18] MEDS ORDERED: RX-NAPROXEN (NAPROSYN) 250 MG TAB PPK#4 PO SCH (09:00)
== END 2018-11-17 23:28 | disposition home or self-care (01) ==
LOC: EDUNIT# 21:54 → ER 21:56
DX: S83.206A Unspecified tear of unspecified meniscus, current injury, right knee, initial encounter (principal); J44.9 Chronic obstructive pulmonary disease, unspecified; I10 Essential (primary) hypertension; G43.909 Migraine, unspecified, not intractable, without status migrainosus; E11.9 Type 2 diabetes mellitus without complications; Z87.19 Personal history of other diseases of the digestive system; Z87.440 Personal history of urinary (tract) infections; Z86.19 Personal history of other infectious and parasitic diseases; Z87.59 Personal history of other complications of pregnancy, childbirth and the puerperium; Z88.0 Allergy status to penicillin; Z88.5 Allergy status to narcotic agent; Z88.8 Allergy status to other drugs, medicaments and biological substances; Z79.84 Long term (current) use of oral hypoglycemic drugs; Z98.890 Other specified postprocedural states; Z90.710 Acquired absence of both cervix and uterus; X58.XXXA Exposure to other specified factors, initial encounter
CPT/HCPCS: 73562

== ENCOUNTER 2018-12-26 13:47 | Outpatient (RCR) | payer BC ==
[~2018-12-26 13:47] MED LIST changes: +NAPR-1071 PO
[2018-12-28] MEDS ORDERED: ACHD5005 PO (14:45)
== END 2019-01-22 12:16 | disposition home or self-care (01) ==
PROVIDERS: ATTEND Nurse Practitioner Community Health
DX: M51.34 Other intervertebral disc degeneration, thoracic region (principal)

== ENCOUNTER 2018-12-28 12:46 | Emergency (ER) | payer OTHER, BC ==
[~2018-12-28] VITALS: Ht 160 cm; Wt 101.6 kg
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
--- NOTE | 2018-12-28 13:54 | Diagnostic Imaging Report ---
EXAMINATION: Left ankle, three views. INDICATION: Left ankle pain and swelling. COMPARISON: None. FINDINGS: No fracture or acute osseous abnormality. Intact ankle mortise, including the medial and lateral clear space. No significant arthritic change is demonstrated. Enthesophytes are demonstrated along the posterior calcaneus, with a moderate plantar calcaneal spur also noted. Soft tissues are unremarkable. IMPRESSION: No acute fracture or dislocation. Dictated by: Dictated on workstation # [id number]
--- NOTE | 2018-12-28 14:15 | NUR ---
GUERA IN WITH PT AT THIS TIME.
--- NOTE | 2018-12-28 14:44 | ED Lower Extremity ---
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 COMPLAINS OF PAIN AND SWELLING. Nursing Sepsis Screen: No Definite Risk Source: patient Exam Limitations: no limitations History of Present Illness Date Seen by Provider: Dec 28, 2018 Time Seen by Provider: 13:18 Initial Comments 48-year-old female who presents to the emergency room left ankle pain after a work-related injury. She reports she was pushing a load of pallets while at work when she felt a pop in the back of her ankle/foot area. She is unable to bear weight on the left foot and complains of pain and swelling to her left ankle. Onset: just prior to arrival Pain/Injury Location: left foot, left ankle Method of Injury: unknown Modifying Factors: Worse With Movement Allergies and Home Medications Allergies Coded Allergies: Penicillins (Unverified Allergy, Unknown, HIVES, SOB, 11/17/18) ciprofloxacin (Verified Allergy, Unknown, 11/17/18) codeine (Verified Allergy, Unknown, TOLERATES HYDROCODONE, 11/17/18) meperidine (Verified Allergy, Unknown, 11/17/18) morphine (Verified Allergy, Unknown, MAUSEA, 11/17/18) Home Medications Estradiol 1 Mg Tablet, 1 MG PO DAILY, (Reported) Hydrocodone Bit/Acetaminophen 1 Tab Tab, 1 EACH PO Q4-6HR PRN for PAIN-MODERATE Prescribed by: GUERA SALCEDO on 12/28/18 1445 Metformin HCl 1,000 Mg Tablet, 1,000 MG PO DAILY, (Reported) Naproxen 500 Mg Tablet, 500 MG PO BIDPC Prescribed by: MARION BERMUDEZ on 11/17/18 2316 [employer] 3 Polyunsat Fatty Acids 1,000 Mg Cap, 1,000 MG PO DAILY, (Reported) Spironolactone 25 Mg Tablet, 25 MG PO BID, (Reported) Sulfamethoxazole/Trimethoprim 1 Each Tablet, 1 EACH PO BID Prescribed by: MARIA ELENA ULRICH on 10/21/18 1235 Past Xvetmpt-Cblmau-Dandqa Hx Patient Social History Alcohol Use: Denies Use Recreational Drug Use: No Smoking Status: Never a Smoker 2nd Hand Smoke Exposure: No Recent Foreign Travel: No Contact w/Someone Who Travel: No Recent Infectious Disease Expo: No Recent Hopitalizations: No Immunizations Up To Date Tetanus Booster (TDap): Less than 5yrs Date of Pneumonia Vaccine: Aug 11, 2018 Date of Influenza Vaccine: Aug 11, 2018 Seasonal Allergies Seasonal Allergies: Yes Past Medical History Surgeries: Yes (SINUS, D&C X 2, LAPAROSCOPIES X 2, RT CARPAL TUNNEL; L Carpal Tunnel ) Section, Gallbladder, Hysterectomy Respiratory: Yes Asthma, Chronic Bronchitis Currently Using CPAP: No Currently Using BIPAP: No Cardiac: Yes Heart Murmur, Hypertension Neurological: Yes Headaches /Migraines 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 Disorders: Yes ( 8 para 4 (D&C x2-4 miscarriages x2)) Female 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 Disorders: Ovarian Cyst [employer] INS[employer] History: Hysterectomy Sexually Transmitted Disease: Yes (chlamydia ) HIV/AIDS: No Genitourinary: Yes Bladder Infection, UTI-Chronic Gastrointestinal: Yes Diverticulosis, Gall Bladder Disease Musculoskeletal: No Endocrine: Yes Diabetes, Non-Insulin dep HEENT: No Loss of Vision: Denies Hearing Impairment: Denies Cancer: No Psychosocial: No Integumentary: No Blood Disorders: No Adverse Reaction/Blood Tranf: No Family Medical History Diabetes mellitus 19 MOTHER FH: glaucoma 19 MOTHER FH: macular degeneration 19 MOTHER Physical Exam Vital Signs Vital Signs - First Documented 12/28/18 13:00 Temp 98.1 Pulse 82 Resp 16 B/P (MAP) 138/78 (98) Pulse Ox 92 O2 Delivery Room Air Capillary Refill : Less Than 3 Seconds Height, Weight, BMI Height: 5'3.00" Weight: 224lbs. 0.0oz. 101.073429da; 39.3 BMI Method:Stated Progress/Results/Core Measures Results/Orders My Orders Orders - GUERA SALCEDO Ankle, Left, 3 Views (12/28/18 13:18) Vital Signs/I&O 12/28/18 13:00 Temp 98.1 Pulse 82 Resp 16 B/P (MAP) 138/78 (98) Pulse Ox 92 O2 Delivery Room Air Blood Pressure Mean: 98 Departure Impression Primary Impression: Left ankle pain Additional Impression: possible Achilles tendon rupture Disposition: 01 HOME, SELF-CARE Condition: Stable/Unchanged Departure-Patient Inst. Decision time for Depature: 14:41 Referrals: LANA NOYOLA (PCP) Primary Care Physician [facility] (Family) Primary Care Physician MISSY HUNTER MD Patient Instructions: Achilles Tendon Rupture (DC) Add. Discharge Instructions: Ice to the sore areas at 20 minute intervals. Follow-up with Dr. Hunter by calling tomorrow morning for an appointment time. Wear the walking boot and use the crutches at all times until you follow up. Return back to the emergency room for worsening symptoms or concerns as needed. All discharge instructions reviewed with patient and/or family. Voiced understanding. Scripts Hydrocodone Bit/Acetaminophen (Hydrocodone/Acetaminophen 5/325mg Tablet) 1 Tab Tab 1 EACH PO Q4-6HR PRN for PAIN-MODERATE MDD 10, #14 TAB Prov: GUERA SALCEDO 12/28/18 Work/School Note: Work Release Form Date Seen in the Emergency Department: Dec 28, 2018 Return to Work: Dec 28, 2018 Restrictions: Need Release from Doctor, Follow Up With [facility] GUERA SALCEDO Dec 28, 2018 14:44
[2018-12-28] MEDS ORDERED: ACHD5005 PO (14:45)
[2018-12-28 15:10] VITALS: BP 138/78
== END 2018-12-28 15:10 | disposition home or self-care (01) ==
LOC: EDUNIT# 12:46 → ER 12:48
DX: M25.572 Pain in left ankle and joints of left foot (principal); J44.9 Chronic obstructive pulmonary disease, unspecified; I10 Essential (primary) hypertension; G43.909 Migraine, unspecified, not intractable, without status migrainosus; E11.9 Type 2 diabetes mellitus without complications; Z87.440 Personal history of urinary (tract) infections; Z88.0 Allergy status to penicillin; Z88.1 Allergy status to other antibiotic agents; Z88.5 Allergy status to narcotic agent; Z79.84 Long term (current) use of oral hypoglycemic drugs; Z90.710 Acquired absence of both cervix and uterus; X50.1XXA Overexertion from prolonged static or awkward postures, initial encounter; Y99.0 Civilian activity done for income or pay
CPT/HCPCS: 73610

== ENCOUNTER → 2018-12-31 | Outpatient (REF) ==
[~2018-12-31] MED LIST changes: +ACHD5005 PO
--- NOTE | 2018-12-31 12:37 | Diagnostic Imaging Report ---
EXAMINATION: Magnetic resonance imaging of the left ankle without contrast. DATE: December 31, 2018. COMPARISON: Left ankle radiographs December 28, 2018. HISTORY: 48-year-old female, sudden onset heel pain on December 28, 2018 when pushing a crate. Pain and weakness. Unable to bear weight. TECHNIQUE: Magnetic Resonance Imaging sequences were performed of the ankle without contrast. [< >] FINDINGS: TENDONS AND LIGAMENTS: There is a full-thickness or very near full-thickness tear of the Achilles tendon with the tear occurring approximately 5.3 cm above the Achilles tendon insertion. There are retracted tendon fibers extending superiorly by approximately 2.6 cm. There is increased signal in the distal aspect of the Achilles tendon compatible with Achilles tendinopathy. There is fluid in the flexor hallucis longus tendon sheath which may have a normal tibiotalar joint communication. The additional posterior flexor tendons are intact. The peroneal tendons - peroneus longus and peroneus brevis - are intact. The anterior extensor tendons - tibialis anterior, extensor hallucis longus and extensor digitorum longus tendons - are intact. The anterior and posterior syndesmotic ligaments are intact. The anterior talofibular, posterior talofibular, calcaneofibular and deltoid ligaments are intact. The plantar fascia is intact. JOINTS: There is a small tibiotalar joint effusion. There is a trace posterior subtalar joint effusion. BONE: There is benign subcortical cystic change underlying the critical angle of Giss[place] which is likely mechanically related. There is also benign cystic change in the central talus. There is no acute fracture, bone contusion, or evidence of osteonecrosis. The talar dome is intact. BURSAE AND SOFT TISSUES: There is fairly diffuse subcutaneous edema at the level of the ankle. IMPRESSION: 1. Complete or very near complete tear of the Achilles tendon approximately 5.3 cm above the Achilles tendon insertion with retraction of tendons superiorly by approximately 2.6 cm. Achilles tendinopathy. 2. Intact ankle ligaments. 3. No acute fracture or bone contusion. Dictated by: Dictated on workstation # [id number]
== END | disposition home or self-care (01) ==
LOC: RAD 09:31
PROVIDERS: ATTEND Nurse Practitioner Family
CPT/HCPCS: 73721

== ENCOUNTER 2019-03-16 13:54 | Emergency (ER) | payer BC, OTHER ==
[~2019-03-16] VITALS: Ht 160 cm; Wt 100.7 kg
--- OUTSIDE RECORDS SUMMARY | 2019-03-16 14:00 | XMS REPORT ---
Author Author Migration, Doctor Organization [facility] Address Unknown Phone Unavailable Care Team Providers Care Button Tacker Name Role Phone Migration, Doctor Unavailable Unavailable PROBLEMS Type Condition ICD9-CM Code MPX61-BU Code Onset Dates Condition Status SNOMED Code Problem Prediabetes R73.03 Active 727066360 Problem Dysmetabolic syndrome E88.81 Active 702508919 Problem Mild intermittent asthma without complication J45.20 Active 882220223 Problem Memory loss R41.3 Active 87304239 Problem Other chronic pain G89.29 Active 03402488 Problem Diverticulitis K57.92 Active 191051284 Problem Menopausal hot flushes N95.1 Active 584484691 Problem Hypertension I10 Active 08923371 Problem ROBERTO (obstructive sleep apnea) G47.33 Active 85463552 Problem Low back pain M54.5 Active 961230658 Problem DDD (degenerative disc disease), thoracic M51.34 Active 52992030 Problem MRSA (methicillin resistant staph aureus) culture positive Z22.322 Active 064984276 Problem Diabetes mellitus type 2, uncomplicated E11.9 Active 48829114 Problem Menopausal and postmenopausal disorder N95.9 Active 930746361 ALLERGIES No Information ENCOUNTERS Encounter Location Date Diagnosis [place] [id number] [place] [address]11- 9141 Feb, ROBERTO (obstructive sleep apnea) G47.33 [place] [id number] [place] [address] 68153- 9579 Jan, Diabetes mellitus type 2, uncomplicated E11.9 ; Hypertension I10 ; Menopausal and postmenopausal disorder N95.9 and Mild intermittent asthma without complication J45.20 [place] [address] [place] [id number] [place] [address] 62853- 2275 27 Dec, 2018 Symptomatic abdominal apron E65 and Mild intermittent asthma without complication J45.20 [place] [address] [place] [id number] [place] [address] 75697- 5861 Dec, [facility] [address] [id number], [place] [address] Dec, [facility] [address] [id number], [place] [address] Nov, [facility] [address] [place] [id number] [address] 40[address] Oct, Acute pain of right knee M25.561 ; Hypertension I10 and Diabetes mellitus type 2, uncomplicated E11.9 [facility] [address] [id number], [place] [address] Oct, Cellulitis of other specified site L03.818 ; MRSA ( methicillin resistant staph aureus) culture positive Z22.322 and Acute vulvitis N76.2 [place] [address], [place] [address] 0071 Oct, DDD (degenerative disc disease), thoracic M51.34 [facility] [address] [facility] [id number], [place] [address] 2774 Jun, [facility] [address] [facility] [place] [id number] [place] [address] 18882- 2190 Jun, Diverticulitis K57.92 [facility] [address] [id number] [address] 0235 Jun, [facility] [address] [id number], [place] [address] 1591 May, Diabetes mellitus type 2, uncomplicated E11.9 [facility] [address] [id number], [place] [address] 9807 Jan, Diabetes mellitus type 2, uncomplicated E11.9 [facility] [address] [facility] [place] [id number], [place] [address]95 Jan, Diabetes mellitus type 2, uncomplicated E11.9 [facility] [address] [place] [id number], [place] [address] 0515 Jan, [place] [address] [place] [id number] [place] [address] 12672- 6756 Jan, Cognitive complaints R41.9 [place] [address] [place] [id number] [place] [address] 78953- 4191 Dec, Symptomatic abdominal apron E65 [place] [address] [place] [id number] [place] [address] 85222- 8995 Dec, Cognitive complaints R41.9 [place] [address] [place] [id number] [place] [address] 82869- 5223 Nov, Symptomatic abdominal apron E65 and Diabetes mellitus type 2 , uncomplicated E11.9 [place] [address] 68219- 0238 Oct, Symptomatic abdominal apron E65 [place] [address] [place] [id number] [place] [address] 56879- 6815 Oct, Breast screening Z12.39 [place] [address] 66642- 8940 Sep, Other chronic pain G89.29 ; Pain in left shoulder M25.512 and Dysfunction of both eustachian tubes H69.83 [place] [address] [place] [id number] [place] [address] 28493- 0369 Sep, Cognitive complaints R41.9 [place] [address] [place] [id number] [place] [address] 44043- 6329 Aug, [place] [address] [place] [id number] [place] [address] 69308- 5153 Aug, Muscle strain of left shoulder, initial encounter S46.912A [place] [address] [place] [id number] [place] [address] 22805- 8365 Jul, [place] [address] [place] [id number] [place] [address] 38788- 6989 Jul, Memory loss R41.3 and Paternal family history of dementia Z82.0 [place] [address] [place] [id number] [place] [address] 08132- 5800 Apr, Diabetes mellitus type 2, uncomplicated E11.9 and Hypertension I10 [place] [address] 18145- 8757 Feb, Symptomatic abdominal apron E65 [facility] [address] [address] -3054 Nov, Muscle strain of left shoulder, initial encounter S46.912A [place] [address] 13734- 2565 Oct, Encounter for immunization Z23 [facility] [place] [address] [address] -5059 Oct, Plantar fasciitis M72.2 [place] [address] 57420- 2170 Sep, [place] [address] 90121- 6722 Aug, Breast screening Z12.39 and Acute costochondritis M94.0 [place] [address] 56814- 5926 Aug, [place] [address] [place] [id number] [place] [address] 12943- 3491 Aug, [place] [address] [place] [id number] [place] [address] 37544- 1986 Jul, Symptomatic abdominal apron E65 and 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 [place] [address] [place] [id number] [place] [address] 91142- 0963 Apr, [facility] [address] 27877 -1087 Apr, Right acute otitis media H66.91 [facility] [address] [place] [id number] [place] [address] [id number] Jan, Dental caries K02.9 [place] [address], [place] [address]- 4241 Dec, Dysmetabolic syndrome E88.81 [facility] [id number] [place] [address] 12618- 8035 Dec, [facility] [address] [place] [address] 53991- 0693 Nov, Dysmetabolic syndrome E88.81 [facility] [address] [place] [id number] [place] [address] 338850- 8287 Oct, [facility] [address] [place] [id number] [place] [address] [id number] Oct, Dental examination Z01.20 [facility] [address] [place] [id number] [place] [address] 95381- 2689 Sep, [facility] [address] [place] [id number] [place] [address] 49343- 5307 Sep, Low back pain M54.5 and Sciatica, unspecified side M54.30 [facility] [address] [place] [address] 56214- 0209 Feb, [facility] [id number] [place] [address] 11695- 0359 Feb, [facility] [address], [place] [address]- 1509 Dec, [facility] [id number] [place] [address] 96712- 3954 Dec, [facility] [address], [place] [address]- 1048 Nov, [facility] [address] [place] [id number] [place] [address] 71631- 2104 Nov, [facility] [address], [place] [address]- 7661 Nov, [facility] [address] [place] [address]- 6065 15 Aug, 2014 [facility] [place] [facility] [address] [id number] [place] [address]- 9678 Aug, [facility] [place] [facility] [address] [id number] [place] [address]- 8499 Aug, [facility] [place] [facility] [address] [id number] [place] [address]- 3013 Aug, [facility] [place] [facility] [address] [id number] [place] [address]- 2337 Aug, [facility] [place] [facility] [address] [id number] [place] [address]- 2712 Aug, [facility] [place] [facility] [address] [id number] [place] [address]- 9937 Aug, [facility] [place] [facility] [address] [id number] [place] [address]- 6182 Aug, [facility] [place] [facility] [address] [id number] [place] [address]- 8186 Jul, [facility] [place] [facility] [address] [id number] [place] [address]- 4738 Jul, [facility] [place] [facility] [address] [id number] [place] [address]- 0573 Jun, [facility] [place] [facility] [address] [id number] [place] [address]- 9462 Jun, [facility] [place] [facility] [address] [id number] [place] [address]- 1226 Jun, [facility] [place] [facility] [address] [id number] [place] [address]- 9533 Jun, [facility] [place] [facility] [address] [id number] [place] [address]- 6317 May, [facility] [place] [facility] [address] [id number] [place] [address]- 4417 May, [facility] [place] [facility] [address] [id number] [place] [address]- 5135 Apr, [facility] [place] [facility] [address] [id number] [place] [address]- 0942 Apr, [facility] [place] [facility] [address] [id number] [place] [address]- 9602 Apr, [facility] [place] [facility] [address] [id number] [place] [address]- 1400 Apr, [facility] [place] [facility] [address] [id number] [place] [address]- 4926 Apr, [facility] [place] [facility] [address] [id number] [place] [address]- 1090 Apr, [facility] [place] [facility] [address] [id number] [place] [address]- 3230 March, [facility] [place] [facility] [address] [id number] [place] [address]- 5189 March, [facility] [place] [facility] [address] [id number] [place] [address]- 8318 March, [facility] [place] [facility] [address] [id number] [place] [address]- 3447 March, [facility] [place] [facility] [address] [id number] [place] [address]- 5492 March, [facility] [place] [facility] [address] [id number] [place] [address]- 2336 March, [facility] [place] [facility] [address] [id number] [place] [address]- 4248 Dec, [facility] [place] [facility] [address] [id number] [place] [address]- 7438 Dec, [facility] [place] [facility] [address] [id number] [place] [address]- 6059 Dec, [facility] [place] [facility] [address] [id number], [place] [address]- 6918 Dec, [facility] [address] [id number] [place] [address]- 2048 Nov, [facility] [place] [facility] [address] [id number] [place] [address]- 5160 Nov, [facility] [address] [facility] [id number] [place] [address]- 3434 Aug, [facility] [place] [facility] [address] [id number] [place] [address]- 5215 Jun, [facility] [address] [id number] [place] [address]- 3181 Jun, [facility] [address] [id number] [place] [address]- 6164 May, [facility] [address] [facility] [id number] [place] [address]- 7154 May, [facility] [place] [facility] [address] [id number] [place] [address]- 9341 May, [facility] [address] [facility] [id number] [place] [address]- 8207 May, [facility] [address] [facility] [id number] [place] [address]- 3502 Apr, [facility] [address] [id number] [place] [address]- 7730 Apr, [facility] [place] [facility] [address] [id number] [place] [address]- 5471 March, [facility] [place] [facility] [address] [id number] [place] [address]- 8820 Jan, [facility] [place] [facility] [address] [id number] [place] [address]- 3830 Dec, [facility] [place] [facility] [address] [facility] [id number] [place] [address]- 2165 Dec, [facility] [place] [facility] [address] [id number] [place] [address]- 1695 16 Nov, 2012 [facility] [place] [facility] [address] [id number] [place] [address]- 3991 15 Nov, 2012 [facility] [place] [facility] [address] [id number] [place] [address]- 2112 Oct, [facility] [place] [facility] [address] [id number] [place] [address]- 7285 Oct, [facility] [place] [facility] [address] [id number] [place] [address]- 9147 Oct, [facility] [place] [facility] [address] [id number] [place] [address]- 4659 Oct, [facility] [place] [facility] [address] [id number] [place] [address]- 3533 Oct, [facility] [place] [facility] [address] [id number] [place] [address]- 9084 Oct, [facility] [place] [facility] [address] [id number] [place] [address]- 2696 Oct, [facility] [place] [facility] [address] [id number] [place] [address]- 9860 Oct, [facility] [place] [facility] [address] [id number] [place] [address]- 2666 Aug, [facility] [place] [facility] [address] [id number] [place] [address]- 9439 Aug, [facility] [place] [facility] [address] [id number] [place] [address]- 1979 Aug, [facility] [place] [facility] [address] [id number] [place] [address]- 3189 Aug, [facility] [place] [facility] [address] [id number] [place] [address]- 2499 25 Jul, 2012 [facility] [place] [facility] [address] [id number] [place] [address]- 9306 Jul, [facility] [place] [facility] [address] [id number] [place] [address]- 9552 08 Apr, 2012 [facility] [place] [facility] [address] [id number] [place] [address]- 9286 06 Apr, 2012 [facility] [place] [facility] [address] [id number] [place] [address]- 4461 Apr, [facility] [place] [facility] [address] [id number] [place] [address]- 2770 March, [facility] [place] [facility] [address] [id number] [place] [address]- 5323 March, [facility] [place] [facility] [address] [id number] [place] [address]- 9239 March, [facility] [place] [facility] [address] [id number] [place] [address]- 6046 23 Feb, 2012 [facility] [place] [facility] [address] [id number] [place] [address]- 3146 20 Feb, 2012 [facility] [place] [facility] [address] [id number] [place] [address]- 7443 16 Feb, 2012 [facility] [place] [facility] [address] [id number] [place] [address]- 3836 12 Feb, 2012 [facility] [place] [facility] [address] [id number] [place] [address]- 9684 29 Jan, 2012 [facility] [place] [facility] [address] [id number] [place] [address]- 2572 27 Jan, 2012 [facility] [place] [facility] [address] [id number] [place] [address]- 6876 17 Jan, 2012 [facility] [place] [facility] [address] [id number] [place] [address]- 5508 17 Jan, 2012 [facility] [place] [facility] [address] [id number] [place] [address]- 2748 07 Jan, 2012 [facility] [place] [facility] [address], [place] [address]- 2366 Jan, [facility] [address], [place] [address]- 6576 Jan, [facility] [address], [place] [address]- 7566 Dec, [facility] [address], [place] [address]- 4716 Dec, [facility] [address], [place] [address]- 7348 Dec, [facility] [id number] [place] [address] 72197- 6083 Dec, [facility] [address], [place] [address]- 6946 Nov, [facility] [id number] [place] [address] 95978- 4755 Nov, [facility] [address] 4500 Oct, [facility] [address], [place] [address]- 3777 Oct, [facility] [address] 9808 Oct, [facility] [address] 6288 Feb, [facility] [id number], [place] [address]- 9935 Dec, [facility] [address] 5725 Dec, [facility] [id number], [place] [address]- 8553 Jun, IMMUNIZATIONS No Known Immunizations SOCIAL HISTORY Never Assessed [place] [place] VITAL SIGNS MEDICATIONS Unknown [...] History sinus surgery Surgical History colonoscopy 2015 Surgical History left hand carpal tunnel 2017 Surgical History tendon surgery 01/07/18 Hospitalization History surgeries Hospitalization History diverticulitis 2015 Hospitalization History [facility], [facility] 09/2018 Hospitalization History cellulitis 10/2018
--- OUTSIDE RECORDS SUMMARY | 2019-03-16 14:00 | XMS REPORT ---
Author Author Migration, Doctor Organization [facility] Address Unknown Phone Unavailable Care Team Providers Care Drum Builder Name Role Phone Migration, Doctor Unavailable Unavailable PROBLEMS Type Condition ICD9-CM Code GCL50-FM Code Onset Dates Condition Status SNOMED Code Problem Prediabetes R73.03 Active 185774520 Problem Dysmetabolic syndrome E88.81 Active 185173355 Problem Mild intermittent asthma without complication J45.20 Active 094031723 Problem Memory loss R41.3 Active 99209450 Problem Other chronic pain G89.29 Active 48927071 Problem Diverticulitis K57.92 Active 209786621 Problem Menopausal hot flushes N95.1 Active 248369875 Problem Hypertension I10 Active 81014798 Problem ROBERTO (obstructive sleep apnea) G47.33 Active 81694108 Problem Low back pain M54.5 Active 257117120 Problem DDD (degenerative disc disease), thoracic M51.34 Active 62406260 Problem MRSA (methicillin resistant staph aureus) culture positive Z22.322 Active 025756476 Problem Diabetes mellitus type 2, uncomplicated E11.9 Active 27434560 Problem Menopausal and postmenopausal disorder N95.9 Active [id number] ALLERGIES No Information ENCOUNTERS Encounter Location Date Diagnosis [place] [id number] [address] Feb, [facility] [address] [place] [address] 62394- 0281 Feb, ROBERTO (obstructive sleep apnea) G47.33 [facility] [id number] [place] [address] 51054- 6678 Jan, Diabetes mellitus type 2, uncomplicated E11.9 ; Hypertension I10 ; Menopausal and postmenopausal disorder N95.9 and Mild intermittent asthma without complication J45.20 [facility] [address] [place] [id number] [address] Dec, Symptomatic abdominal apron E65 and Mild intermittent asthma without complication J45.20 [place] [address], [place] [address] Dec, [place] [address] [place] [address] 90135- 6562 Dec, [place] [address] [place] [address] 18155- 7712 Nov, [place] [address] [place] [address] 02392- 0057 Oct, Acute pain of right knee M25.561 ; Hypertension I10 and Diabetes mellitus type 2, uncomplicated E11.9 [place] [address] [place] [id number] [place] [address] 72119- 8383 Oct, Cellulitis of other specified site L03.818 ; MRSA ( methicillin resistant staph aureus) culture positive Z22.322 and Acute vulvitis N76.2 [place] [address] [place] [address] 98664- 3096 Oct, DDD (degenerative disc disease), thoracic M51.34 [place] [address] [place] [address] 84110- 6925 Jun, [place] [address] [place] [address] 66739- 5865 Jun, Diverticulitis K57.92 [place] [address] [place] [address] 59014- 3580 Jun, [place] [address] [address] 27[address] May, Diabetes mellitus type 2, uncomplicated E11.9 [place] [address] [place] [address] 41609- 3027 Jan, Diabetes mellitus type 2, uncomplicated E11.9 [place] [address] [address] 4[address] Jan, Diabetes mellitus type 2, uncomplicated E11.9 [place] [address] [place] [id number] [place] [address] 85574- 1287 Jan, [facility] [address] [place] [address] [id number] [place] [address] 20664- 0874 Jan, Cognitive complaints R41.9 [facility] [address] [id number] [place] [address] 58408- 6963 Dec, Symptomatic abdominal apron E65 [facility] [address] [place] [id number] [place] [address] 70367- 6480 Dec, Cognitive complaints R41.9 [facility] [address] [place] [id number] [place] [address] 67027- 6238 Nov, Symptomatic abdominal apron E65 and Diabetes mellitus type 2 , uncomplicated E11.9 [facility] [address] [place] [id number] [place] [address] 71711- 0793 Oct, Symptomatic abdominal apron E65 [facility] [address] [place] [id number] [place] [address] 71938- 5784 Oct, Breast screening Z12.39 [place] [address] [place] [id number] [place] [address] 42855- 3351 Sep, Other chronic pain G89.29 ; Pain in left shoulder M25.512 and Dysfunction of both eustachian tubes H69.83 [place] [address] [place] [id number] [place] [address] 24599- 6745 Sep, Cognitive complaints R41.9 [facility] [address] [place] [id number] [place] [address] 24098- 2470 Aug, [facility] [address] [place] [address] [id number] [place] [address] 03711- 5066 Aug, Muscle strain of left shoulder, initial encounter S46.912A [facility] [address] [place] [id number] [place] [address] 16635- 1084 Jul, [facility] [address] [place] [address] [id number] [place] [address] 49543- 1261 Jul, Memory loss R41.3 and Paternal family history of dementia Z82.0 [place] [address] [place] [id number] [place] [address] 64074- 5983 Apr, Diabetes mellitus type 2, uncomplicated E11.9 and Hypertension I10 [place] [address] [place] [id number] [place] [address] 14064- 4691 Feb, Symptomatic abdominal apron E65 [facility] [address] [address] Nov, Muscle strain of left shoulder, initial encounter S46.912A [place] [address] 60[address]- 8295 Oct, Encounter for immunization Z23 [facility] [place] [address] [address] -[address]294 Oct, Plantar fasciitis M72.2 [place] [address] 62094- 7871 Sep, [place] [address] 61407- 7654 Aug, Breast screening Z12.39 and Acute costochondritis M94.0 [place] [address] [place] [id number] [place] [address] 12609- 5688 Aug, [place] [address] 50614- 2316 Aug, [place] [address] [place] [id number] [place] [address] 42813- 4984 Jul, Symptomatic abdominal apron E65 and 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 [place] [address] 11230- 0874 Apr, [facility] [address] [place] [address] [id number] [place] [address] 38687 -6148 14 Apr, 2016 Right acute otitis media H66.91 [facility] [address] [address] Jan, Dental caries K02.9 [facility] [address] [place] [id number] [place] [address] 468263- 1759 Dec, Dysmetabolic syndrome E88.81 [facility] [address] [place] [address] 658218- 2686 Dec, [facility] [address] [place] [id number] [place] [address] 06351- 6686 Nov, Dysmetabolic syndrome E88.81 [facility] [address] [place] [id number] [place] [address] 67085- 7106 Oct, [facility] [address] [id number] [place] [address] [id number] Oct, Dental examination Z01.20 [facility] [address] [place] [id number] [place] [address] 06807- 4885 Sep, [facility] [address] [place] [id number] [place] [address] 78934- 2048 Sep, Low back pain M54.5 and Sciatica, unspecified side M54.30 [facility] [address] [place] [address] 80285- 6818 Feb, [facility] [address], [place] [address]- 6664 Feb, [facility] [address] [place] [address] 06563- 2167 Dec, [facility] [id number] [place] [address] 85606- 4275 Dec, [facility] [address] [place] [id number] [place] [address] 53656- 1178 Nov, [facility] [address], [place] [address]- 8873 Nov, [facility] [address] [place] [address] [address]- 9085 Nov, [facility] [place] [facility] [address] [id number] [place] [address]- 4190 Aug, [facility] [place] [facility] [address] [id number] [place] [address]- 5554 Aug, [facility] [place] [facility] [address] [id number] [place] [address]- 6374 Aug, [facility] [place] [facility] [address] [id number] [place] [address]- 3784 Aug, [facility] [place] [facility] [address] [id number] [place] [address]- 2994 Aug, [facility] [place] [facility] [address] [id number] [place] [address]- 4771 Aug, [facility] [place] [facility] [address] [id number] [place] [address]- 4561 Aug, [facility] [place] [facility] [address] [id number] [place] [address]- 6182 Aug, [facility] [place] [facility] [address] [id number] [place] [address]- 2624 Jul, [facility] [place] [facility] [address] [id number] [place] [address]- 8192 Jul, [facility] [place] [facility] [address] [id number] [place] [address]- 3930 Jun, [facility] [place] [facility] [address] [id number] [place] [address]- 4277 Jun, [facility] [place] [facility] [address] [id number] [place] [address]- 2115 Jun, [facility] [place] [facility] [address] [id number] [place] [address]- 8527 Jun, [facility] [place] [facility] [address] [id number] [place] [address]- 4700 May, [facility] [place] [facility] [address] [id number] [place] [address]- 0331 May, [facility] [place] [facility] [address] [id number] [place] [address]- 9684 Apr, [facility] [place] [facility] [address] [id number] [place] [address]- 1460 Apr, [facility] [place] [facility] [address] [id number] [place] [address]- 7377 Apr, [facility] [place] [facility] [address] [id number] [place] [address]- 8016 Apr, [facility] [place] [facility] [address] [id number] [place] [address]- 6727 Apr, [facility] [place] [facility] [address] [id number] [place] [address]- 2772 Apr, [facility] [place] [facility] [address] [id number] [place] [address]- 9677 March, [facility] [place] [facility] [address] [id number] [place] [address]- 9133 March, [facility] [place] [facility] [address] [id number] [place] [address]- 3486 March, [facility] [place] [facility] [address] [id number] [place] [address]- 1149 March, [facility] [place] [facility] [address] [id number] [place] [address]- 6780 March, [facility] [place] [facility] [address] [id number] [place] [address]- 5996 March, [facility] [place] [facility] [address] [id number] [place] [address]- 3151 Dec, [facility] [place] [facility] [address] [id number] [place] [address]- 1898 Dec, [facility] [place] [facility] [address] [id number] [place] [address]- 3396 Dec, [facility] [address] [id number] [place] [address]- 0735 Dec, [facility] [address] [id number] [place] [address]- 0490 Nov, [facility] [address] [id number] [place] [address]- 9376 Nov, [facility] [place] [facility] [address] [id number] [place] [address]- 3119 Aug, [facility] [address] [id number] [place] [address]- 9880 Jun, [facility] [address] [id number] [place] [address]- 6115 Jun, [facility] [address] [id number] [place] [address]- 3653 May, [facility] [address] [id number] [place] [address]- 2406 May, [facility] [address] [id number] [place] [address]- 1392 May, [facility] [address] [id number] [place] [address]- 9766 May, [facility] [address] [id number] [place] [address]- 7136 Apr, [facility] [place] [facility] [address] [id number] [place] [address]- 2546 Apr, [facility] [place] [facility] [address] [id number] [place] [address]- 0958 March, [facility] [place] [facility] [address] [id number] [place] [address] 2546 Jan, [facility] [place] [facility] [address] [id number] [place] [address]- 2016 Dec, [facility] [place] [facility] [address] [id number] [place] [address]- 2882 Dec, [facility] [place] [facility] [address] [id number] [place] [address]- 2113 16 Nov, 2012 [facility] [place] [facility] [address] [id number] [place] [address]- 9256 15 Nov, 2012 [facility] [place] [facility] [address] [id number] [place] [address]- 5536 Oct, [facility] [place] [facility] [address] [id number] [place] [address]- 8298 Oct, [facility] [place] [facility] [address] [id number] [place] [address]- 3678 Oct, [facility] [place] [facility] [address] [id number] [place] [address]- 8440 Oct, [facility] [place] [facility] [address] [id number] [place] [address]- 2597 Oct, [facility] [place] [facility] [address] [id number] [place] [address]- 6559 Oct, [facility] [place] [facility] [address] [id number] [place] [address]- 0513 Oct, [facility] [place] [facility] [address] [id number] [place] [address]- 9692 Oct, [facility] [place] [facility] [address] [id number] [place] [address]- 2951 Aug, [facility] [place] [facility] [address] [id number] [place] [address]- 0539 Aug, [facility] [place] [facility] [address] [id number] [place] [address]- 6953 Aug, [facility] [place] [facility] [address] [id number] [place] [address]- 8562 Aug, [facility] [place] [facility] [address] [id number] [place] [address]- 2946 25 Jul, 2012 [facility] [address] [id number] [place] [address]- 1518 11 Jul, 2012 [facility] [place] [facility] [address] [id number] [place] [address]- 3552 08 Apr, 2012 [facility] [place] [facility] [address] [id number] [place] [address]- 0838 Apr, [facility] [place] [facility] [address] [id number] [place] [address]- 1535 Apr, [facility] [place] [facility] [address] [id number] [place] [address]- 0161 March, [facility] [place] [facility] [address] [id number] [place] [address]- 6050 March, [facility] [place] [facility] [address] [id number] [place] [address]- 2778 March, [facility] [place] [facility] [address] [id number] [place] [address]- 0155 23 Feb, 2012 [facility] [place] [facility] [address] [id number] [place] [address]- 7677 Feb, [facility] [place] [facility] [address] [id number] [place] [address]- 4982 16 Feb, 2012 [facility] [place] [facility] [address] [id number] [place] [address]- 0187 Feb, [facility] [place] [facility] [address] [id number] [place] [address]- 1864 29 Jan, 2012 [facility] [place] [facility] [address] [id number] [place] [address]- 1085 27 Jan, 2012 [facility] [place] [facility] [address] [id number] [place] [address]- 9385 17 Jan, 2012 [facility] [place] [facility] [address] [id number] [place] [address]- 4032 17 Jan, 2012 [facility] [place] [facility] [address] [id number] [place] [address]- 4482 07 Jan, 2012 [facility] [address] [id number] [place] [address]- 1516 06 Jan, 2012 [facility] [place] [facility] [address] [id number] [place] [address] 2546 Jan, [facility] [address] [id number] [place] [address]- 6406 Dec, [facility] [place] [facility] [address] [id number] [place] [address] 2546 Dec, [facility] [address] [id number] [place] [address]- 4246 Dec, [facility] [address] [facility] [id number] [place] [address]- 2118 Dec, [facility] [address] [facility] [id number] [place] [address]- 0764 Nov, [facility] [address] [id number] [place] [address]- 5089 Nov, [facility] [address] [facility] [id number] [place] [address]- 6856 Oct, [facility] [address] [facility] [id number] [place] [address]- 5026 Oct, [facility] [place] [place] [facility] [address] [facility] [id number] [place] [address] 2546 Oct, [facility] [address] [id number] [place] [address] 2548 18 Feb, 2011 [facility] [place] [facility] [address] [id number] [place] [address] 2546 14 Dec, 2010 [facility] [place] [facility] [address] [facility] [id number] [place] [address] 2546 20 Dec, 2009 [facility] [place] [facility] [address] [facility] [id number] [place] [address] 8031 Jun, IMMUNIZATIONS No Known Immunizations SOCIAL HISTORY Never Assessed REASON FOR VISIT EMR[place] [place] OF CARE VITAL SIGNS MEDICATIONS Unknown [...] surgeries Hospitalization History diverticulitis 2015 Hospitalization History [facility], [facility] 09/2018 Hospitalization History cellulitis 10/2018
--- OUTSIDE RECORDS SUMMARY | 2019-03-16 14:00 | XMS REPORT ---
Author Author Migration, Doctor Organization [facility] Address Unknown Phone Unavailable Care Team Providers Care Conveyor Console Operator Name Role Phone Migration, Doctor Unavailable Unavailable PROBLEMS Type Condition ICD9-CM Code SLT09-IS Code Onset Dates Condition Status SNOMED Code Problem Prediabetes R73.03 Active 298909846 Problem Dysmetabolic syndrome E88.81 Active 040275677 Problem Mild intermittent asthma without complication J45.20 Active 960606508 Problem Memory loss R41.3 Active 68708514 Problem Other chronic pain G89.29 Active 63459167 Problem Diverticulitis K57.92 Active 050252645 Problem Menopausal hot flushes N95.1 Active 048910632 Problem Hypertension I10 Active 45009585 Problem ROBERTO (obstructive sleep apnea) G47.33 Active 96091868 Problem Low back pain M54.5 Active 159936810 Problem DDD (degenerative disc disease), thoracic M51.34 Active 01940618 Problem MRSA (methicillin resistant staph aureus) culture positive Z22.322 Active 825396383 Problem Diabetes mellitus type 2, uncomplicated E11.9 Active 41020613 Problem Menopausal and postmenopausal disorder N95.9 Active 070948523 ALLERGIES No Information ENCOUNTERS Encounter Location Date Diagnosis [place] [id number] [place] [address]35- 3604 Feb, ROBERTO (obstructive sleep apnea) G47.33 [facility] [place] [id number] [place] [address]87- 9720 Jan, Diabetes mellitus type 2, uncomplicated E11.9 ; Hypertension I10 ; Menopausal and postmenopausal disorder N95.9 and Mild intermittent asthma without complication J45.20 [place] [address] [place] [id number] [place] [address] 98680- 6044 27 Dec, 2018 Symptomatic abdominal apron E65 and Mild intermittent asthma without complication J45.20 [place] [address] [place] [id number] [place] [address] 46059- 8914 Dec, [facility] [place] [address] [id number] [place] [address] 8987 Dec, [facility] [place] [address] [id number] [place] [address] 7396 Nov, [facility] [place] [address] [place] [id number] [address] 5397 Oct, Acute pain of right knee M25.561 ; Hypertension I10 and Diabetes mellitus type 2, uncomplicated E11.9 [facility] [place] [address] [id number] [place] [address] 1411 Oct, Cellulitis of other specified site L03.818 ; MRSA ( methicillin resistant staph aureus) culture positive Z22.322 and Acute vulvitis N76.2 [place] [address] [address] 5[address] Oct, DDD (degenerative disc disease), thoracic M51.34 [facility] [place] [address] [facility] [id number] [place] [address] 3154 Jun, [facility] [place] [address] [facility] [id number] [place] [address] 67103- 3552 Jun, Diverticulitis K57.92 [facility] [place] [address] [place] [id number] [address] 7383 Jun, [facility] [place] [address] [place] [id number] [address] 4110 May, Diabetes mellitus type 2, uncomplicated E11.9 [facility] [place] [address] [id number] [place] [address] 7537 Jan, Diabetes mellitus type 2, uncomplicated E11.9 [facility] [place] [address] [facility] [id number] [place] [address] 9487 Jan, Diabetes mellitus type 2, uncomplicated E11.9 [facility] [place] [address] [place] [id number] [address] 8852 Jan, [place] [address] [place] [id number] [place] [address] 23636- 3128 Jan, Cognitive complaints R41.9 [place] [address] [place] [id number] [place] [address] 27608- 6450 Dec, Symptomatic abdominal apron E65 [place] [address] [place] [id number] [place] [address] 04739- 8280 Dec, Cognitive complaints R41.9 [place] [address] [place] [id number] [place] [address] 89649- 4144 Nov, Symptomatic abdominal apron E65 and Diabetes mellitus type 2 , uncomplicated E11.9 [place] [address] 72979- 2951 Oct, Symptomatic abdominal apron E65 [place] [address] [place] [id number] [place] [address] 43534- 2325 Oct, Breast screening Z12.39 [place] [address] 12623- 6276 Sep, Other chronic pain G89.29 ; Pain in left shoulder M25.512 and Dysfunction of both eustachian tubes H69.83 [place] [address] [place] [id number] [place] [address] 59474- 6754 Sep, Cognitive complaints R41.9 [place] [address] [place] [id number] [place] [address] 34128- 2179 Aug, [place] [address] [place] [id number] [place] [address] 69322- 5191 Aug, Muscle strain of left shoulder, initial encounter S46.912A [place] [address] [place] [id number] [place] [address] 34740- 7119 Jul, [place] [address] [place] [id number] [place] [address] 54447- 5987 Jul, Memory loss R41.3 and Paternal family history of dementia Z82.0 [place] [address] [place] [id number] [place] [address] 30084- 7490 Apr, Diabetes mellitus type 2, uncomplicated E11.9 and Hypertension I10 [place] [address] 28916- 4634 Feb, Symptomatic abdominal apron E65 [facility] [address] [address] -2744 Nov, Muscle strain of left shoulder, initial encounter S46.912A [place] [address] 07397- 9575 Oct, Encounter for immunization Z23 [facility] [place] [address] 7[address]18 -1584 Oct, Plantar fasciitis M72.2 [place] [address] 99749- 2455 Sep, [place] [address] 03163- 6477 Aug, Breast screening Z12.39 and Acute costochondritis M94.0 [place] [address] 72245- 2922 Aug, [place] [address] [place] [id number] [place] [address] 72658- 9273 Aug, [place] [address] [place] [id number] [place] [address] 91291- 2720 Jul, Symptomatic abdominal apron E65 and 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 [place] [address] [place] [id number] [place] [address] 00843- 9045 Apr, [facility] [address] 05268 -6620 Apr, Right acute otitis media H66.91 [facility] [address] [place] [id number] [place] [address] [id number] Jan, Dental caries K02.9 [place] [address] [address]- 4991 Dec, Dysmetabolic syndrome E88.81 [facility] [place] [id number] [place] [address] 30321- 7792 Dec, [facility] [place] [id number] [place] [address] 45425- 4057 Nov, Dysmetabolic syndrome E88.81 [facility] [place] [address] [place] [id number] [place] [address] 708534- 2924 Oct, [facility] [address] [place] [id number] [place] [address] [id number] Oct, Dental examination Z01.20 [facility] [place] [address] [place] [id number] [place] [address] 81154- 9960 Sep, [facility] [place] [address] [place] [id number] [place] [address] 50757- 7409 Sep, Low back pain M54.5 and Sciatica, unspecified side M54.30 [facility] [place] [address] [place] [address] 49047- 4085 Feb, [facility] [place] [id number] [place] [address] 88036- 6016 Feb, [facility] [place] [address] [address]- 4194 Dec, [facility] [place] [id number] [place] [address] 14282- 3308 Dec, [facility] [place] [address] [address]- 2095 Nov, [facility] [place] [address] [place] [id number] [place] [address] 14839- 8287 Nov, [facility] [place] [address] [address]- 9639 Nov, [facility] [place] [address] [place] [address] [place] [address]- 5092 15 Aug, 2014 [facility] [place] [facility] [address] [id number] [place] [address]- 4639 Aug, [facility] [place] [facility] [address] [id number] [place] [address]- 5638 Aug, [facility] [place] [facility] [address] [id number] [place] [address]- 2379 Aug, [facility] [place] [facility] [address] [id number] [place] [address]- 9116 Aug, [facility] [place] [facility] [address] [id number] [place] [address]- 5802 Aug, [facility] [place] [facility] [address] [id number] [place] [address]- 2297 Aug, [facility] [place] [facility] [address] [id number] [place] [address]- 8195 Aug, [facility] [place] [facility] [address] [id number] [place] [address]- 7009 Jul, [facility] [place] [facility] [address] [id number] [place] [address]- 7942 Jul, [facility] [place] [facility] [address] [id number] [place] [address]- 6094 Jun, [facility] [place] [facility] [address] [id number] [place] [address]- 0708 Jun, [facility] [place] [facility] [address] [id number] [place] [address]- 7003 Jun, [facility] [place] [facility] [address] [id number] [place] [address]- 3604 Jun, [facility] [place] [facility] [address] [id number] [place] [address]- 4230 May, [facility] [place] [facility] [address] [id number] [place] [address]- 3673 May, [facility] [place] [facility] [address] [id number] [place] [address]- 8227 Apr, [facility] [place] [facility] [address] [id number] [place] [address]- 9382 Apr, [facility] [place] [facility] [address] [id number] [place] [address]- 3877 Apr, [facility] [place] [facility] [address] [id number] [place] [address]- 0011 Apr, [facility] [place] [facility] [address] [id number] [place] [address]- 4150 Apr, [facility] [place] [facility] [address] [id number] [place] [address]- 5972 Apr, [facility] [place] [facility] [address] [id number] [place] [address]- 9842 March, [facility] [place] [facility] [address] [id number] [place] [address]- 5597 March, [facility] [place] [facility] [address] [id number] [place] [address]- 9212 March, [facility] [place] [facility] [address] [id number] [place] [address]- 6420 March, [facility] [place] [facility] [address] [id number] [place] [address]- 7385 March, [facility] [place] [facility] [address] [id number] [place] [address]- 3054 March, [facility] [place] [facility] [address] [id number] [place] [address]- 7175 Dec, [facility] [place] [facility] [address] [id number] [place] [address]- 4262 Dec, [facility] [place] [facility] [address] [id number] [place] [address]- 1074 Dec, [facility] [place] [facility] [address] [id number] [place] [address]- 5746 Dec, [facility] [address] [id number] [place] [address]- 2624 Nov, [facility] [place] [facility] [address] [id number] [place] [address]- 2223 Nov, [facility] [address] [facility] [facility] [id number] [place] [address]- 7987 Aug, [facility] [place] [facility] [address] [id number] [place] [address]- 4504 Jun, [facility] [address] [id number] [place] [address]- 5701 Jun, [facility] [address] [id number] [place] [address]- 4878 May, [facility] [address] [id number] [place] [address]- 5900 May, [facility] [place] [facility] [address] [id number] [place] [address]- 8597 May, [facility] [address] [facility] [facility] [id number] [place] [address]- 1484 May, [facility] [address] [facility] [id number] [place] [address]- 6493 Apr, [facility] [address] [id number] [place] [address]- 4768 Apr, [facility] [place] [facility] [address] [id number] [place] [address]- 2772 March, [facility] [place] [facility] [address] [id number] [place] [address]- 8798 Jan, [facility] [place] [facility] [address] [id number] [place] [address]- 1167 Dec, [facility] [place] [facility] [address] [facility] [id number] [place] [address]- 6197 Dec, [facility] [place] [facility] [address] [id number] [place] [address]- 3026 16 Nov, 2012 [facility] [place] [facility] [address] [id number] [place] [address]- 9154 15 Nov, 2012 [facility] [place] [facility] [address] [id number] [place] [address]- 1041 Oct, [facility] [place] [facility] [address] [id number] [place] [address]- 4342 Oct, [facility] [place] [facility] [address] [id number] [place] [address]- 6141 Oct, [facility] [place] [facility] [address] [id number] [place] [address]- 2953 Oct, [facility] [place] [facility] [address] [id number] [place] [address]- 1175 Oct, [facility] [place] [facility] [address] [id number] [place] [address]- 0257 Oct, [facility] [place] [facility] [address] [id number] [place] [address]- 9094 Oct, [facility] [place] [facility] [address] [id number] [place] [address]- 0748 Oct, [facility] [place] [facility] [address] [id number] [place] [address]- 1788 Aug, [facility] [place] [facility] [address] [id number] [place] [address]- 5289 Aug, [facility] [place] [facility] [address] [id number] [place] [address]- 6257 Aug, [facility] [place] [facility] [address] [id number] [place] [address]- 0347 Aug, [facility] [place] [facility] [address] [id number] [place] [address]- 4119 25 Jul, 2012 [facility] [place] [facility] [address] [id number] [place] [address]- 9866 Jul, [facility] [place] [facility] [address] [id number] [place] [address]- 3393 08 Apr, 2012 [facility] [place] [facility] [address] [id number] [place] [address]- 9716 06 Apr, 2012 [facility] [place] [facility] [address] [id number] [place] [address]- 6692 Apr, [facility] [place] [facility] [address] [id number] [place] [address]- 8007 March, [facility] [place] [facility] [address] [id number] [place] [address]- 9721 March, [facility] [place] [facility] [address] [id number] [place] [address]- 4246 March, [facility] [place] [facility] [address] [id number] [place] [address]- 2139 23 Feb, 2012 [facility] [place] [facility] [address] [id number] [place] [address]- 0377 20 Feb, 2012 [facility] [place] [facility] [address] [id number] [place] [address]- 4141 16 Feb, 2012 [facility] [place] [facility] [address] [id number] [place] [address]- 0666 12 Feb, 2012 [facility] [place] [facility] [address] [id number] [place] [address]- 4864 29 Jan, 2012 [facility] [place] [facility] [address] [id number] [place] [address]- 8708 27 Jan, 2012 [facility] [place] [facility] [address] [id number] [place] [address]- 6340 17 Jan, 2012 [facility] [place] [facility] [address] [id number] [place] [address]- 4370 17 Jan, 2012 [facility] [place] [facility] [address] [id number] [place] [address]- 3141 07 Jan, 2012 [facility] [place] [facility] [address] [address]- 6746 Jan, [facility] [address] [address]- 3246 Jan, [facility] [address] [address]- 3036 Dec, [facility] [address] [address]- 6636 Dec, [facility] [address] [address]- 0786 Dec, [facility] [id number] [place] [address] 56081- 4652 Dec, [facility] [address] [address]- 9171 Nov, [facility] [id number] [place] [address] 88859- 3954 Nov, [facility] [address] 9202 Oct, [facility] [address] [address]- 0965 Oct, [facility] [address] 0581 Oct, [facility] [address] 2174 Feb, [facility] [address] [id number] [address]- 2464 Dec, [facility] [address] 6839 Dec, [facility] [address] [id number] [address]- 9075 Jun, IMMUNIZATIONS No Known Immunizations SOCIAL HISTORY Never Assessed REASON FOR VISIT [place] [place] VITAL SIGNS MEDICATIONS Unknown [...] surgeries Hospitalization History diverticulitis 2015 Hospitalization History [facility] ER, carrier clinic 09/2018 Hospitalization History cellulitis 10/2018
--- OUTSIDE RECORDS SUMMARY | 2019-03-16 14:01 | XMS REPORT ---
Author Author Migration, Doctor Organization [facility] Address Unknown Phone Unavailable Care Team Providers Care [employer] Name Role Phone Migration, Doctor Unavailable Unavailable PROBLEMS Type Condition ICD9-CM Code HDX17-AD Code Onset Dates Condition Status SNOMED Code Problem Mild intermittent asthma without complication J45.20 Active 677949827 Problem Prediabetes R73.03 Active 234650090 Problem Hypertension I10 Active 55012638 Problem Memory loss R41.3 Active 07662053 Problem Other chronic pain G89.29 Active 65675451 Problem Menopausal and postmenopausal disorder N95.9 Active 019509570 Problem Low back pain M54.5 Active 934837385 Problem Menopausal hot flushes N95.1 Active 974904306 Problem Dysmetabolic syndrome E88.81 Active 308644619 Problem Diverticulitis K57.92 Active 448121879 Problem DDD (degenerative disc disease), thoracic M51.34 Active 97790701 Problem MRSA (methicillin resistant staph aureus) culture positive Z22.322 Active 131520866 Problem Diabetes mellitus type 2, uncomplicated E11.9 Active 81081936 ALLERGIES No Information ENCOUNTERS Encounter Location Date Diagnosis [place] [id number] [place] [address]98- [address]605 Jan, Diabetes mellitus type 2, uncomplicated E11.9 ; Hypertension I10 ; Menopausal and postmenopausal disorder N95.9 and Mild intermittent asthma without complication J45.20 [facility] [address] [address] Dec, Symptomatic abdominal apron E65 and Mild intermittent asthma without complication J45.20 [facility] [id number] [place] [address] 49077- 3228 Dec, [facility] [id number] [place] [address] 23729- 5911 Dec, [facility] [id number] [place] [address] 96325- 5656 Nov, [facility] [address] [address] Oct, Acute pain of right knee M25.561 ; Hypertension I10 and Diabetes mellitus type 2, uncomplicated E11.9 [facility] [id number] [address] Oct, Cellulitis of other specified site L03.818 ; MRSA ( methicillin resistant staph aureus) culture positive Z22.322 and Acute vulvitis N76.2 [facility] [address] [address] 06 Oct, 2018 DDD (degenerative disc disease), thoracic M51.34 [facility] [address], [place] [address] Jun, [place] [id number] [place] [address] 27558- 7659 Jun, Diverticulitis K57.92 [facility] [address] [address] 6[address] Jun, [facility] [address] [address] 4513 May, Diabetes mellitus type 2, uncomplicated E11.9 [facility] [address], [place] [address] 4138 Jan, Diabetes mellitus type 2, uncomplicated E11.9 [facility] [id number] [address] 9475 Jan, Diabetes mellitus type 2, uncomplicated E11.9 [facility] [address] [address] 0[address] Jan, [facility] [address] [address] 7715 Jan, Cognitive complaints R41.9 [facility] [address] [address] 3870 Dec, Symptomatic abdominal apron E65 [place] [id number] [place] [address] 38703- 6637 Dec, Cognitive complaints R41.9 [place] [id number] [place] [address] 93228- 6551 Nov, Symptomatic abdominal apron E65 and Diabetes mellitus type 2 , uncomplicated E11.9 [place] [address] [address]- 5416 Oct, Symptomatic abdominal apron E65 [place] [address] [address]- 2960 Oct, Breast screening Z12.39 [place] [address] 66839- 3453 Sep, Other chronic pain G89.29 ; Pain in left shoulder M25.512 and Dysfunction of both eustachian tubes H69.83 [place] [id number] [place] [address] 47464- 5809 Sep, Cognitive complaints R41.9 [place] [address] [address]- 0357 Aug, [place] [id number] [place] [address] 54167- 8151 Aug, Muscle strain of left shoulder, initial encounter S46.912A [place] [id number] [place] [address] 60128- 4471 Jul, [place] [id number] [place] [address] 70515- 0169 Jul, Memory loss R41.3 and Paternal family history of dementia Z82.0 [place] [id number] [place] [address] 20269- 7782 Apr, Diabetes mellitus type 2, uncomplicated E11.9 and Hypertension I10 [place] [address] 86[address]- 9394 Feb, Symptomatic abdominal apron E65 [facility] [id number] [place] [address] 28330 -4703 Nov, Muscle strain of left shoulder, initial encounter S46.912A [facility] [address] [address]- 6130 Oct, Encounter for immunization Z23 [facility] [address] [address] Oct, Plantar fasciitis M72.2 [place] [address] 366[address]- 9059 Sep, [place] [address] 89808- 0915 Aug, Breast screening Z12.39 and Acute costochondritis M94.0 [place] [address] 44324- 7438 Aug, [facility] [address] [address]- 1501 Aug, [facility] [address] 02972- 8334 Jul, Symptomatic abdominal apron E65 and 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 [place] [address] [id number] [place] [address] 41364- 4958 Apr, [facility] [address] [address]114 Apr, Right acute otitis media H66.91 [facility] [address] [id number] Jan, Dental caries K02.9 [facility] [address] [address]- 5451 03 Dec, 2015 Dysmetabolic syndrome E88.81 [facility] [address] 07[address]- 3697 Dec, [facility] [address] [address]- 2214 Nov, Dysmetabolic syndrome E88.81 [facility] [address] [address]- 6527 Oct, [facility] [id number] [place] [address] [id number] Oct, Dental examination Z01.20 [facility] [id number] [place] [address] 88672- 8172 Sep, [facility] [id number] [place] [address] 08253- 1366 Sep, Low back pain M54.5 and Sciatica, unspecified side M54.30 [facility] [id number] [place] [address] 13049- 6649 Feb, [facility] [id number] [place] [address] 58788- 3921 Feb, [facility] [id number] [place] [address] 29497- 4086 Dec, [facility] [address], [place] [address]- 0284 Dec, [facility] [address] [address]- 1061 Nov, [facility] [address], [place] [address]- 2286 Nov, [facility] [id number] [place] [address] 33441- 2608 Nov, [facility] [id number] [place] [address] 420357- 9163 Aug, [facility] [address] [address]- 7101 Aug, [facility] [place] [facility] [address] [id number] [place] [address]- 5014 14 Aug, 2014 [facility] [place] [facility] [address] [id number] [place] [address] Aug, [facility] [place] [facility] [address] [id number] [place] [address]- 9120 Aug, [facility] [place] [facility] [address] [id number] [place] [address]- 4486 Aug, [facility] [place] [facility] [address] [id number] [place] [address]- 6644 Aug, [facility] [place] [facility] [address] [id number] [place] [address]- 6958 Aug, [facility] [place] [facility] [address] [id number] [place] [address]- 8820 Jul, [facility] [place] [facility] [address] [id number] [place] [address]- 3132 Jul, [facility] [place] [facility] [address] [id number] [place] [address]- 6643 Jun, [facility] [place] [facility] [address] [id number] [place] [address]- 6924 Jun, [facility] [place] [facility] [address] [id number] [place] [address]- 2985 Jun, [facility] [place] [facility] [address] [id number] [place] [address]- 5163 Jun, [facility] [place] [facility] [address] [id number] [place] [address]- 6885 May, [facility] [place] [facility] [address] [id number] [place] [address]- 3365 May, [facility] [place] [facility] [address] [id number] [place] [address]- 2855 Apr, [facility] [place] [facility] [address] [id number] [place] [address]- 6134 Apr, [facility] [place] [facility] [address] [id number] [place] [address]- 5484 Apr, [facility] [place] [facility] [address] [id number] [place] [address]- 7221 Apr, [facility] [place] [facility] [address] [id number] [place] [address]- 9522 Apr, [facility] [place] [facility] [address] [id number] [place] [address]- 8537 Apr, [facility] [place] [facility] [address] [id number] [place] [address]- 0979 March, [facility] [place] [facility] [address] [id number] [place] [address]- 6754 March, [facility] [place] [facility] [address] [id number] [place] [address]- 9472 March, [facility] [place] [facility] [address] [id number] [place] [address]- 0236 March, [facility] [place] [facility] [address] [id number] [place] [address]- 2131 March, [facility] [place] [facility] [address] [id number] [place] [address]- 8645 March, [facility] [place] [facility] [address] [id number] [place] [address]- 8872 Dec, [facility] [place] [facility] [address] [id number] [place] [address]- 0417 Dec, [facility] [place] [facility] [address] [id number] [place] [address]- 7271 Dec, [facility] [place] [facility] [address] [id number] [place] [address]- 8293 Dec, [facility] [place] [facility] [address] [id number] [place] [address]- 5887 Nov, [facility] [place] [facility] [address] [id number] [place] [address]- 7804 Nov, [facility] [address] [id number] [place] [address]- 2403 Aug, [facility] [address] [id number] [place] [address] 2546 Jun, [facility] [address] [id number] [place] [address]- 7272 Jun, [facility] [address] [id number] [place] [address]- 1383 May, [facility] [address] [id number] [place] [address]- 8392 May, [facility] [address] [id number] [place] [address] 2546 May, [facility] [address] [id number] [place] [address]- 2986 May, [facility] [address] [id number] [place] [address]- 1508 Apr, [facility] [address] [id number] [place] [address]- 9466 Apr, [facility] [address] [id number] [place] [address]- 4092 March, [facility] [address] [id number] [place] [address]- 2546 Jan, [facility] [address] [id number] [place] [address]- 2545 Dec, [facility] [address] [id number] [place] [address]- 2546 Dec, [facility] [address] [id number] [place] [address]- 2546 Nov, [facility] [address] [id number] [place] [address]- 5179 Nov, [facility] [place] [facility] [address] [id number] [place] [address]- 6327 Oct, [facility] [place] [facility] [address] [id number] [place] [address]- 9906 Oct, [facility] [place] [facility] [address] [id number] [place] [address]- 4639 Oct, [facility] [place] [facility] [address] [id number] [place] [address]- 5116 Oct, [facility] [place] [facility] [address] [id number] [place] [address]- 2437 Oct, [facility] [place] [facility] [address] [id number] [place] [address]- 5170 Oct, [facility] [place] [facility] [address] [id number] [place] [address]- 7422 Oct, [facility] [place] [facility] [address] [id number] [place] [address]- 2731 Oct, [facility] [place] [facility] [address] [id number] [place] [address]- 0748 Aug, [facility] [place] [facility] [address] [id number] [place] [address]- 4799 Aug, [facility] [place] [facility] [address] [id number] [place] [address]- 0305 Aug, [facility] [place] [facility] [address] [id number], [place] [address]- 8054 Aug, [facility] [place] [facility] [address] [id number] [place] [address]- 5756 Jul, [facility] [place] [facility] [address] [id number] [place] [address]- 9216 Jul, [facility] [place] [facility] [address] [id number] [place] [address]- 5298 08 Apr, 2012 [facility] [place] [facility] [address] [id number] [place] [address]- 9973 06 Apr, 2012 [facility] [address] [id number] [place] [address]- 3329 Apr, [facility] [place] [facility] [address] [id number] [place] [address]- 2110 March, [facility] [address] [id number] [place] [address]- 9746 March, [facility] [place] [facility] [address] [id number] [place] [address]- 0855 March, [facility] [address] [id number] [place] [address]- 1830 23 Feb, 2012 [facility] [place] [facility] [address] [id number] [place] [address]- 1860 Feb, [facility] [address] [id number] [place] [address]- 9794 16 Feb, 2012 [facility] [place] [facility] [address] [id number] [place] [address]- 6949 Feb, [facility] [place] [facility] [address] [id number] [place] [address]- 1142 29 Jan, 2012 [facility] [place] [facility] [address] [id number] [place] [address]- 0554 27 Jan, 2012 [facility] [place] [facility] [address] [id number] [place] [address]- 0812 17 Jan, 2012 [facility] [place] [facility] [address] [id number] [place] [address]- 5763 17 Jan, 2012 [facility] [place] [facility] [address] [id number] [place] [address]- 6177 07 Jan, 2012 [facility] [place] [facility] [address] [id number] [place] [address]- 6322 06 Jan, 2012 [facility] [place] [facility] [address] [id number] [place] [address]- 5423 02 Jan, 2012 [facility] [place] [facility] [address] [facility] [id number], [place] [address]- 0260 Dec, [facility] [address] [facility] [id number], [place] [address]- 5451 Dec, [facility] [address] [facility] [id number], [place] [address]- 4626 Dec, [facility] [address] [place] [address]- 9648 Dec, [facility] [address] [facility] [id number], [place] [address]- 2480 Nov, [facility] [address] [place] [address]- 3471 Nov, [facility] [address], [place] [address]- 5638 Oct, [facility] [id number] [place] [address] 15300- 9763 Oct, [facility] [address], [place] [address]- 5509 Oct, [facility] [address], [place] [address]- 9146 Feb, [facility] [address] [address]- 5392 Dec, [facility] [address] [place] [address]- 0597 Dec, [facility] [id number] [address]- 2226 Jun, IMMUNIZATIONS No Known Immunizations SOCIAL HISTORY Never Assessed REASON FOR VISIT EMR-[facility] [place] PLAN OF CARE VITAL SIGNS MEDICATIONS Medication Instructions Dosage Frequency Start Date End Date Duration Status Spironolactone 25 mg 2 tablet by Oral route 1 time per day Aug, Active Loratadine 10 mg 1 tablet by Oral route 1 time per day Aug, Active Xopenex HFA 45 mcg/actuation 2 puffs by Inhalation route every 4-6 hours PRN shortness of breath May, Active Symbicort 160-4.5 mcg/actuation inhale 2 puffs by inhalation route 2 times per day in the morning and evening Aug, Active RESULTS No Results PROCEDURES No Known [...] surgeries Hospitalization History diverticulitis 2015 Hospitalization History [facility] ER, [facility] 09/2018 Hospitalization History cellulitis 10/2018
--- OUTSIDE RECORDS SUMMARY | 2019-03-16 14:01 | XMS REPORT ---
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 Name Role Phone LANA NOYOLA Unavailable PROBLEMS Type Condition ICD9-CM Code IRN15-JT Code Onset Dates Condition Status SNOMED Code Problem Mild intermittent asthma without complication J45.20 Active 955311947 Problem Prediabetes R73.03 Active 319153633 Problem Hypertension I10 Active 79622550 Problem Memory loss R41.3 Active 89647970 Problem Other chronic pain G89.29 Active 11110856 Problem Menopausal and postmenopausal disorder N95.9 Active 098619160 Problem Low back pain M54.5 Active 378140869 Problem Menopausal hot flushes N95.1 Active 383191434 Problem Dysmetabolic syndrome E88.81 Active 713442305 Problem Diverticulitis K57.92 Active 680941430 Problem DDD (degenerative disc disease), thoracic M51.34 Active 24549905 Problem MRSA (methicillin resistant staph aureus) culture positive Z22.322 Active 870498311 Problem Diabetes mellitus type 2, uncomplicated E11.9 Active 59994257 ALLERGIES No Information ENCOUNTERS Encounter Location Date Diagnosis [facility] [id number] [address] Jan, Diabetes mellitus type 2, uncomplicated E11.9 ; Hypertension I10 ; Menopausal and postmenopausal disorder N95.9 and Mild intermittent asthma without complication J45.20 [facility] [address] [facility] [id number] [address] Dec, Symptomatic abdominal apron E65 and Mild intermittent asthma without complication J45.20 [facility] [id number], [place] [address] Dec, [facility] [id number] [place] [address] 98050- 0283 Dec, [facility] [id number], [place] [address] Nov, [facility] [address], [place] [address] Oct, Acute pain of right knee M25.561 ; Hypertension I10 and Diabetes mellitus type 2, uncomplicated E11.9 [facility] [address], [place] [address] Oct, Cellulitis of other specified site L03.818 ; MRSA ( methicillin resistant staph aureus) culture positive Z22.322 and Acute vulvitis N76.2 [address] [id number] [place] [address] 48357- 1515 Oct, DDD (degenerative disc disease), thoracic M51.34 [facility] [address], [place] [address] Jun, [facility] [id number] [place] [address] 52047- 4045 Jun, Diverticulitis K57.92 [facility] [address], [place] [address] Jun, [facility] [address], [place] [address] May, Diabetes mellitus type 2, uncomplicated E11.9 [facility] [address], [place] [address] 98[address] Jan, Diabetes mellitus type 2, uncomplicated E11.9 [facility] [id number], [place] [address] 39[address] Jan, Diabetes mellitus type 2, uncomplicated E11.9 [facility] [id number], [place] [address] 97[address] Jan, [facility] [id number], [place] [address] Jan, Cognitive complaints R41.9 [place] [id number] [place] [address] 79337- 2228 Dec, Symptomatic abdominal apron E65 [place] [id number] [place] [address] 76375- 7270 Dec, Cognitive complaints R41.9 [place] [id number] [place] [address] 99363- 4834 Nov, Symptomatic abdominal apron E65 and Diabetes mellitus type 2 , uncomplicated E11.9 [place] [id number] [place] [address] 77328- 2058 Oct, Symptomatic abdominal apron E65 [place] [address] [address]- [address] Oct, Breast screening Z12.39 [place] [id number] [place] [address] 21468- 0970 Sep, Other chronic pain G89.29 ; Pain in left shoulder M25.512 and Dysfunction of both eustachian tubes H69.83 [place] [id number] [place] [address] 07306- 1712 Sep, Cognitive complaints R41.9 [place] [id number] [place] [address] 10313- 4225 Aug, [place] [id number] [place] [address] 63442- 8313 Aug, Muscle strain of left shoulder, initial encounter S46.912A [place] [id number] [place] [address] 54359- 5130 Jul, [place] [address] [address]- 2577 Jul, Memory loss R41.3 and Paternal family history of dementia Z82.0 [place] [id number] [place] [address] 59017- 6191 Apr, Diabetes mellitus type 2, uncomplicated E11.9 and Hypertension I10 [facility] [id number] [place] [address] 95960- 6854 Feb, Symptomatic abdominal apron E65 [facility] [id number] [place] [address] 58392 -5468 Nov, Muscle strain of left shoulder, initial encounter S46.912A [place] [address] 20449- 4678 Oct, Encounter for immunization Z23 [facility] [address] [address] Oct, Plantar fasciitis M72.2 [address] [address] 72547- 2747 Sep, [facility] [address] [address]- 9159 Aug, Breast screening Z12.39 and Acute costochondritis M94.0 [facility] [id number] [place] [address] 21602- 0096 Aug, [place] [address] 01870- 9473 Aug, [facility] [id number] [place] [address] 18048- 6464 Jul, Symptomatic abdominal apron E65 and 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 [place] [id number] [place] [address] 39404- 0998 Apr, [facility] [id number] [place] [address] 45498 -0696 Apr, Right acute otitis media H66.91 [facility] [id number] [place] [id number] Jan, Dental caries K02.9 [facility] [id number] [place] [address] 06254- 0684 Dec, Dysmetabolic syndrome E88.81 [facility] [id number], [place] [address]- 4717 Dec, [facility] [id number] [place] [address] 197518- 1095 Nov, Dysmetabolic syndrome E88.81 [facility] [id number] [place] [address] 19850- 0906 Oct, [facility] [id number] [place] [address] [id number] Oct, Dental examination Z01.20 [facility] [id number] [place] [address] 51873- 3847 Sep, [facility] [id number] [place] [address] 69901- 5639 Sep, Low back pain M54.5 and Sciatica, unspecified side M54.30 [facility] [id number] [place] [address] 74466- 8307 Feb, [facility] [id number] [place] [address] 44796- 5784 Feb, [facility] [id number] [place] [address] 12931- 3928 Dec, [facility] [address], [place] [address]- 5658 Dec, [facility] [address], [place] [address]- 9967 Nov, [facility] [address], [place] [address]- 8466 Nov, [facility] [id number] [place] [address] 29892- 9971 Nov, [facility] [address] [address] Aug, [facility] [id number] [place] [address] [place] [address]- [address] 15 Aug, 2014 [facility] [place] [facility] [address] [id number] [place] [address]- 5790 Aug, [facility] [place] [facility] [address] [id number] [place] [address]- 4193 Aug, [facility] [place] [facility] [address] [id number] [place] [address]- 3091 Aug, [facility] [place] [facility] [address] [id number] [place] [address]- 5062 Aug, [facility] [place] [facility] [address] [id number] [place] [address]- 1112 Aug, [facility] [place] [facility] [address] [id number] [place] [address]- 3380 Aug, [facility] [place] [facility] [address] [id number] [place] [address]- 0839 Jul, [facility] [place] [facility] [address] [id number] [place] [address]- 5271 Jul, [facility] [place] [facility] [address] [id number] [place] [address]- 0494 Jun, [facility] [place] [facility] [address] [id number] [place] [address]- 8445 Jun, [facility] [place] [facility] [address] [id number] [place] [address]- 2820 Jun, [facility] [place] [facility] [address] [id number] [place] [address]- 7714 Jun, [facility] [place] [facility] [address] [id number] [place] [address]- 0286 May, [facility] [place] [facility] [address] [id number] [place] [address]- 9868 May, [facility] [place] [facility] [address] [id number] [place] [address]- 6896 Apr, [facility] [place] [facility] [address] [id number] [place] [address]- 6996 Apr, [facility] [place] [facility] [address] [id number] [place] [address]- 8263 Apr, [facility] [place] [facility] [address] [id number] [place] [address]- 2722 Apr, [facility] [place] [facility] [address] [id number] [place] [address]- 6248 Apr, [facility] [place] [facility] [address] [id number] [place] [address]- 5105 Apr, [facility] [place] [facility] [address] [id number] [place] [address]- 3130 March, [facility] [place] [facility] [address] [id number] [place] [address]- 7834 March, [facility] [place] [facility] [address] [id number] [place] [address]- 7904 March, [facility] [place] [facility] [address] [id number] [place] [address]- 4747 March, [facility] [place] [facility] [address] [id number] [place] [address]- 2705 March, [facility] [place] [facility] [address] [id number] [place] [address]- 8176 March, [facility] [place] [facility] [address] [id number] [place] [address]- 4013 Dec, [facility] [place] [facility] [address] [id number] [place] [address]- 6994 Dec, [facility] [place] [facility] [address] [id number] [place] [address]- 9321 Dec, [facility] [place] [facility] [address] [id number] [place] [address]- 9374 Dec, [facility] [place] [facility] [address] [id number] [place] [address]- 9121 Nov, [facility] [address] [id number] [place] [address]- 9338 Nov, [facility] [place] [facility] [address] [id number] [place] [address]- 8569 Aug, [facility] [place] [facility] [address] [id number] [place] [address]- 0898 Jun, [facility] [place] [facility] [address] [id number] [place] [address]- 8333 Jun, [facility] [place] [facility] [address] [id number] [place] [address]- 5336 May, [facility] [place] [facility] [address] [id number] [place] [address]- 7427 May, [facility] [place] [facility] [address] [id number] [place] [address]- 0088 May, [facility] [place] [facility] [address] [id number] [place] [address]- 8635 May, [facility] [place] [facility] [address] [id number] [place] [address]- 6811 Apr, [facility] [place] [facility] [address] [id number] [place] [address]- 2381 Apr, [facility] [place] [facility] [address] [id number] [place] [address]- 8100 March, [facility] [place] [facility] [address] [id number] [place] [address]- 8852 Jan, [facility] [place] [facility] [address] [id number] [place] [address]- 5380 Dec, [facility] [place] [facility] [address] [id number] [place] [address]- 2046 Dec, [facility] [place] [facility] [address] [id number] [place] [address]- 3648 Nov, [facility] [place] [facility] [address] [id number] [place] [address]- 9816 15 Nov, 2012 [facility] [place] [facility] [address] [id number] [place] [address]- 0856 Oct, [facility] [place] [facility] [address] [id number] [place] [address]- 7436 Oct, [facility] [place] [facility] [address] [id number] [place] [address]- 0236 17 Oct, 2012 [facility] [place] [facility] [address] [id number] [place] [address]- 7630 17 Oct, 2012 [facility] [place] [facility] [address] [id number] [place] [address]- 0646 Oct, [facility] [place] [facility] [address] [id number] [place] [address]- 9323 Oct, [facility] [place] [facility] [address] [id number] [place] [address]- 8213 Oct, [facility] [place] [facility] [address] [id number] [place] [address]- 2083 07 Oct, 2012 [facility] [place] [facility] [address] [id number] [place] [address]- 3684 Aug, [facility] [place] [facility] [address] [id number] [place] [address]- 2951 11 Aug, 2012 [facility] [place] [facility] [address] [id number] [place] [address]- 4116 Aug, [facility] [place] [facility] [address] [id number] [place] [address]- 7103 Aug, [facility] [place] [facility] [address] [id number] [place] [address]- 6486 25 Jul, 2012 [facility] [place] [facility] [address] [id number] [place] [address]- 2016 11 Jul, 2012 [facility] [place] [facility] [address] [id number] [place] [address]- 2406 08 Apr, 2012 [facility] [place] [facility] [address] [id number] [place] [address]- 8471 Apr, [facility] [place] [facility] [address] [id number] [place] [address]- 9698 Apr, [facility] [place] [facility] [address] [id number] [place] [address]- 0900 March, [facility] [place] [facility] [address] [id number] [place] [address]- 7349 March, [facility] [place] [facility] [address] [id number] [place] [address]- 9811 March, [facility] [place] [facility] [address] [id number] [place] [address]- 1117 Feb, [facility] [place] [facility] [address] [id number] [place] [address]- 4440 Feb, [facility] [place] [facility] [address] [id number] [place] [address]- 3334 16 Feb, 2012 [facility] [place] [facility] [address] [id number] [place] [address]- 8497 Feb, [facility] [place] [facility] [address] [id number] [place] [address]- 3075 29 Jan, 2012 [facility] [place] [facility] [address] [id number] [place] [address]- 3348 27 Jan, 2012 [facility] [place] [facility] [address] [id number], [place] [address]- 4167 17 Jan, 2012 [facility] [place] [facility] [address] [id number] [place] [address]- 9010 17 Jan, 2012 [facility] [place] [facility] [address] [id number] [place] [address]- 2448 07 Jan, 2012 [facility] [place] [facility] [address] [id number] [place] [address]- 2945 06 Jan, 2012 [facility] [place] [facility] [address], [place] [address]- 5028 Jan, [facility] [address], [place] [address]- 8206 Dec, [facility] [address] 9371 Dec, [facility] [address] 9597 Dec, [facility] [address] [place] [address] 88861- 5856 Dec, [facility] [id number] [place] [address] 715314- 3788 Nov, [facility] [address], [place] [address]- 4832 Nov, [facility] [id number] [place] [address] 41644- 6886 Oct, [facility] [address], [place] [address]- 5299 Oct, [facility] [id number] [place] [address] 98283- 7004 Oct, [facility] [address], [place] [address]- 2043 Feb, [facility] [address], [place] [address]- 1360 Dec, [facility] [id number], [place] [address]- 8803 Dec, [facility] [address] 0740 Jun, IMMUNIZATIONS No Known Immunizations SOCIAL HISTORY [...] surgeries Hospitalization History diverticulitis [address] [facility], [facility] 09/2018 Hospitalization History cellulitis 10/2018
--- OUTSIDE RECORDS SUMMARY | 2019-03-16 14:02 | XMS REPORT ---
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 Name Role Phone Migration, Doctor Unavailable Unavailable PROBLEMS Type Condition ICD9-CM Code POG25-TU Code Onset Dates Condition Status SNOMED Code Problem Mild intermittent asthma without complication J45.20 Active 761660050 Problem Prediabetes R73.03 Active 805918793 Problem Hypertension I10 Active 86597915 Problem Memory loss R41.3 Active 65969234 Problem Other chronic pain G89.29 Active 45364398 Problem Menopausal and postmenopausal disorder N95.9 Active 799976939 Problem Low back pain M54.5 Active 795194445 Problem Menopausal hot flushes N95.1 Active 117172678 Problem Dysmetabolic syndrome E88.81 Active 500359594 Problem Diverticulitis K57.92 Active 615778032 Problem DDD (degenerative disc disease), thoracic M51.34 Active 87031705 Problem MRSA (methicillin resistant staph aureus) culture positive Z22.322 Active 623613187 Problem Diabetes mellitus type 2, uncomplicated E11.9 Active 03146353 ALLERGIES No Information ENCOUNTERS Encounter Location Date Diagnosis [place] [id number] [place] [address] Jan, Diabetes mellitus type 2, uncomplicated E11.9 ; Hypertension I10 ; Menopausal and postmenopausal disorder N95.9 and Mild intermittent asthma without complication J45.20 [facility] [address] [address] Dec, Symptomatic abdominal apron E65 and Mild intermittent asthma without complication J45.20 [facility] [id number] [place] [address] 41883- 8485 Dec, [facility] [id number] [place] [address]204- 5719 Dec, [facility] [id number] [place] [address] 42453- 9569 Nov, [facility] [address] [address] Oct, Acute pain of right knee M25.561 ; Hypertension I10 and Diabetes mellitus type [address], [address] [facility] [id number] [address] Oct, Cellulitis of other specified site L03.818 ; MRSA ( methicillin resistant staph aureus) culture positive Z22.322 and Acute vulvitis N76.2 [facility] [address] [address] 06 Oct, 2018 DDD (degenerative disc disease), thoracic M51.34 [facility] [address] [address] 89[address] Jun, [place] [id number] [place] [address] 98363- 6928 Jun, Diverticulitis K57.92 [facility] [address] [address] 44[address] Jun, [facility] [address] [address] 7057 May, Diabetes mellitus type [address], [address] [facility] [address] [address] 4551 Jan, Diabetes mellitus type 2, uncomplicated E11.9 [facility] [id number] [address] 8547 Jan, Diabetes mellitus type [address], [address] [facility] [address] [address] Jan, [facility] [address] [address] 6804 Jan, Cognitive complaints R41.9 [facility] [address] [address]- 8126 Dec, Symptomatic abdominal apron E65 [place] [id number] [place] [address] 29181- 9605 Dec, Cognitive complaints R41.9 [place] [address] [id number] [place] [address] 36208- 7106 Nov, Symptomatic abdominal apron E65 and Diabetes mellitus type 2 , uncomplicated E11.9 [place] [address] [address]- 4052 Oct, Symptomatic abdominal apron E65 [place] [address] 93421- 6456 Oct, Breast screening Z12.39 [place] [address] 27880- 0845 Sep, Other chronic pain G89.29 ; Pain in left shoulder M25.512 and Dysfunction of both eustachian tubes H69.83 [place] [address] [address] [id number] [place] [address] 11756- 6661 Sep, Cognitive complaints R41.9 [place] [address] 40335- 9610 Aug, [place] [address] [address] [id number] [place] [address] 07647- 6466 Aug, Muscle strain of left shoulder, initial encounter S46.912A [place] [address] [id number] [place] [address] 58600- 4889 Jul, [place] [address] [address] [id number] [place] [address] 37598- 2305 Jul, Memory loss R41.3 and Paternal family history of dementia Z82.0 [place] [address] [id number] [place] [address] 61477- 5317 Apr, Diabetes mellitus type 2, uncomplicated E11.9 and Hypertension I10 [place] [address] 65378- 3727 Feb, Symptomatic abdominal apron E[address] [facility] [id number] [place] [address] 80352 -4028 Nov, Muscle strain of left shoulder, initial encounter S46.912A [facility] [address] 19684- 5120 Oct, Encounter for immunization Z23 [facility] [address] 8[address] -[address]954 Oct, Plantar fasciitis M72.2 [place] [address] 27285- 1081 Sep, [place] [address] 89082- 3745 Aug, Breast screening Z12.39 and Acute costochondritis M94.0 [place] [address] 36801- 7655 Aug, [facility] [address] [address]- 3244 Aug, 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 [address] 8[address] -8753 Apr, Right acute otitis media H66.91 [facility] [address] [id number] Jan, Dental caries K02.9 [facility] [address] 98237- 7750 03 Dec, [address] [facility] [address] 71797- 3184 Dec, [facility] [address] [address] 1860 Nov, Dysmetabolic syndrome E88.81 [facility] [address] [address]- 0262 Oct, [facility] [address] [place] [address] [id number] Oct, Dental examination Z01.20 [facility] [address] [id number] [place] [address] 37722- 4392 Sep, [facility] [id number] [place] [address] 65969- 5319 Sep, Low back pain M54.5 and Sciatica, unspecified side M54.30 [facility] [id number] [place] [address] 69147- 2684 Feb, [facility] [id number] [place] [address] 96719- 2432 Feb, [facility] [id number] [place] [address] 87198- 9977 Dec, [facility] [address] [address]- 8542 Dec, [facility] [address] [address]- 6563 Nov, [facility] [address] [address]- 4558 Nov, [facility] [id number] [place] [address] 08565- 1304 Nov, [facility] [id number] [place] [address] 158148- 3250 Aug, [facility] [address] [address]- 9397 Aug, [facility] [place] [facility] [address] [id number] [place] [address]- 2634 14 Aug, 2014 [facility] [place] [facility] [address] [id number] [place] [address] Aug, [facility] [place] [facility] [address] [id number] [place] [address]- 4834 Aug, [facility] [place] [facility] [address] [id number] [place] [address]- 6117 Aug, [facility] [place] [facility] [address] [id number] [place] [address]- 3946 Aug, [facility] [place] [facility] [address] [id number] [place] [address]- 6951 Aug, [facility] [place] [facility] [address] [id number] [place] [address]- 0578 Jul, [facility] [place] [facility] [address] [id number] [place] [address]- 0025 Jul, [facility] [place] [facility] [address] [id number] [place] [address]- 3124 Jun, [facility] [place] [facility] [address] [id number] [place] [address]- 0409 Jun, [facility] [place] [facility] [address] [id number] [place] [address]- 6733 Jun, [facility] [place] [facility] [address] [id number] [place] [address]- 4700 Jun, [facility] [place] [facility] [address] [id number] [place] [address]- 6122 May, [facility] [place] [facility] [address] [id number] [place] [address]- 6080 May, [facility] [place] [facility] [address] [id number] [place] [address]- 6423 Apr, [facility] [place] [facility] [address] [id number] [place] [address]- 1206 Apr, [facility] [place] [facility] [address] [id number] [place] [address]- 1256 Apr, [facility] [place] [facility] [address] [id number] [place] [address]- 4300 Apr, [facility] [place] [facility] [address] [id number] [place] [address]- 5841 Apr, [facility] [place] [facility] [address] [id number] [place] [address]- 2908 Apr, [facility] [place] [facility] [address] [id number] [place] [address]- 3273 March, [facility] [place] [facility] [address] [id number] [place] [address]- 1473 March, [facility] [place] [facility] [address] [id number] [place] [address]- 7697 March, [facility] [place] [facility] [address] [id number] [place] [address]- 9860 March, [facility] [place] [facility] [address] [id number] [place] [address]- 4876 March, [facility] [place] [facility] [address] [id number] [place] [address]- 5876 March, [facility] [place] [facility] [address] [id number] [place] [address]- 1236 Dec, [facility] [place] [facility] [address] [id number] [place] [address]- 1214 Dec, [facility] [place] [facility] [address] [id number] [place] [address]- 8124 Dec, [facility] [place] [facility] [address] [id number] [place] [address]- 3844 Dec, [facility] [place] [facility] [address] [id number] [place] [address]- 5182 Nov, [facility] [place] [facility] [address] [id number] [place] [address]- 4461 Nov, [facility] [address] [id number] [place] [address]- 2384 Aug, [facility] [address] [id number] [place] [address] 2546 Jun, [facility] [address] [id number] [place] [address]- 0371 Jun, [facility] [address] [id number] [place] [address]- 1475 May, [facility] [address] [id number] [place] [address]- 8383 May, [facility] [address] [id number] [place] [address] 2546 May, [facility] [address] [id number] [place] [address]- 9196 May, [facility] [address] [id number] [place] [address]- 9017 Apr, [facility] [address] [id number] [place] [address]- 9126 Apr, [facility] [address] [id number] [place] [address]- 6589 March, [facility] [address] [id number] [place] [address]- 2546 Jan, [facility] [address] [id number] [place] [address]- 254 Dec, [facility] [address] [id number] [place] [address]- 2546 Dec, [facility] [address] [id number] [place] [address]- 2546 Nov, [facility] [address] [id number] [place] [address]- 3943 Nov, [facility] [place] [facility] [address] [id number] [place] [address]- 0996 Oct, [facility] [place] [facility] [address] [id number] [place] [address]- 7946 Oct, [facility] [place] [facility] [address] [id number] [place] [address]- 6782 Oct, [facility] [place] [facility] [address] [id number] [place] [address]- 6736 Oct, [facility] [place] [facility] [address] [id number] [place] [address]- 9917 Oct, [facility] [place] [facility] [address] [id number] [place] [address]- 8109 Oct, [facility] [place] [facility] [address] [id number] [place] [address]- 9893 Oct, [facility] [place] [facility] [address] [id number] [place] [address]- 1093 Oct, [facility] [place] [facility] [address] [id number] [place] [address]- 4455 Aug, [facility] [place] [facility] [address] [id number] [place] [address]- 7389 Aug, [facility] [place] [facility] [address] [id number] [place] [address]- 1530 Aug, [facility] [place] [facility] [address] [id number] [address]- 4636 Aug, [facility] [place] [facility] [address] [id number] [place] [address]- 0326 Jul, [facility] [place] [facility] [address] [id number] [place] [address]- 2716 Jul, [facility] [place] [facility] [address] [id number] [place] [address]- 2054 08 Apr, 2012 [facility] [place] [facility] [address] [id number] [place] [address]- 1238 06 Apr, 2012 [facility] [address] [id number] [place] [address]- 6260 Apr, [facility] [place] [facility] [address] [id number] [place] [address]- 6374 March, [facility] [address] [id number] [place] [address]- 7766 March, [facility] [place] [facility] [address] [id number] [place] [address]- 1000 March, [facility] [address] [id number] [place] [address]- 4119 23 Feb, 2012 [facility] [place] [facility] [address] [id number] [place] [address]- 6933 Feb, [facility] [address] [id number] [place] [address]- 6704 16 Feb, 2012 [facility] [place] [facility] [address] [id number] [place] [address]- 8957 Feb, [facility] [place] [facility] [address] [id number] [place] [address]- 6408 29 Jan, 2012 [facility] [place] [facility] [address] [id number] [place] [address]- 4161 27 Jan, 2012 [facility] [place] [facility] [address] [id number] [place] [address]- 3848 17 Jan, 2012 [facility] [place] [facility] [address] [id number] [place] [address]- 2172 17 Jan, 2012 [facility] [place] [facility] [address] [id number] [place] [address]- 9447 07 Jan, 2012 [facility] [place] [facility] [address] [id number] [place] [address]- 9320 06 Jan, 2012 [facility] [place] [facility] [address] [id number] [place] [address]- 1951 02 Jan, 2012 [facility] [place] [facility] [address] [address]- 0275 Dec, [facility] [address] [address] 2548 Dec, [facility] [address] [address] 4885 Dec, [facility] [address] [address] 0627 Dec, [facility] [address] [address] 3721 Nov, [facility] [address] [address] 3945 Nov, [facility] [address] [address] 0348 Oct, [facility] [address] [address] 5693 Oct, [facility] [address] [address] 0567 Oct, [facility] [address] [address] 5629 Feb, [facility] [id number] [address]- 6883 Dec, [facility] [id number] [address]- 6134 Dec, [facility] [id number] [address]- 3577 Jun, IMMUNIZATIONS No Known Immunizations SOCIAL HISTORY Never Assessed REASON FOR VISIT EMR-[facility] [place] PLAN OF CARE VITAL SIGNS MEDICATIONS Unknown [...] surgeries Hospitalization History diverticulitis 2015 Hospitalization [facility]/2018 Hospitalization History cellulitis 10/2018
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
--- NOTE | 2019-03-16 14:12 | ED Headache ---
General Chief Complaint: Head/Cervical Problems Stated Complaint: HEADACHE Nursing Triage Note: PATIENT HERE FOR HEADACHE X 4 DAYS AND STARTED VOMITING TODAY. SHE STATES THAT SHE USED TO GET HEADACHES LIKE THIS ALL THE TIME FROM THE BAROMETRIC PRESSURE. Nursing Sepsis Screen: No Definite Risk Source: patient Exam Limitations: no limitations History of Present Illness Date Seen by Provider: March 16, 2019 Time Seen by Provider: 14:09 Initial Comments Driven to ER by her son with a left frontal headache for the past 4 days. She states this is a barometric pressure headache, she has these before. This began 4 days ago as a slight headache that progressively worse throughout the course of the day. She has a headache, states light makes it worse, has nausea and vomiting. History of headaches, this is similar but worse than usual Timing/Duration: other (4 days) Severity/Quality: constant Location: frontal Prior Headaches/Recent Trauma: occasional headaches Modifying Factors: worse with exposure to light Associated Symptoms: nausea/vomiting Allergies and Home Medications Allergies Coded Allergies: Penicillins (Unverified Allergy, Unknown, HIVES, SOB, 11/17/18) ciprofloxacin (Verified Allergy, Unknown, 11/17/18) codeine (Verified Allergy, Unknown, TOLERATES HYDROCODONE, 11/17/18) meperidine (Verified Allergy, Unknown, 11/17/18) morphine (Verified Allergy, Unknown, MAUSEA, 11/17/18) Home Medications Estradiol 1 Mg Tablet, 1 MG PO DAILY, (Reported) Hydrocodone Bit/Acetaminophen 1 Tab Tab, 1 EACH PO Q4-6HR PRN for PAIN-MODERATE Prescribed by: GUERA SALCEDO on 12/28/18 1445 Metformin HCl 1,000 Mg Tablet, 1,000 MG PO DAILY, (Reported) Boon 3 Polyunsat Fatty Acids 1,000 Mg Cap, 1,000 MG PO DAILY, (Reported) Spironolactone 25 Mg Tablet, 25 MG PO BID, (Reported) Patient Home Medication List Home Medication List Reviewed: Yes Review of Systems Review of Systems Constitutional: see HPI; No chills, No fever Eyes: No Symptoms Reported Ears, Nose, Mouth, Throat: no symptoms reported Respiratory: no symptoms reported Cardiovascular: no symptoms reported Gastrointestinal: nausea, vomiting Genitourinary: no symptoms reported Musculoskeletal: no symptoms reported Skin: no symptoms reported Psychiatric/Neurological: No Symptoms Reported Past Flovuwu-Ealldd-Sxxypd Hx Patient Social History Alcohol Use: Denies Use Recreational Drug Use: No Smoking Status: Never a Smoker 2nd Hand Smoke Exposure: No Recent Foreign Travel: No Contact w/Someone Who Travel: No Recent Infectious Disease Expo: No Recent Hopitalizations: No Immunizations Up To Date Tetanus Booster (TDap): Less than 5yrs Date of Pneumonia Vaccine: Aug 11, 2018 Date of Influenza Vaccine: Aug 11, 2018 Seasonal Allergies Seasonal Allergies: Yes Past Medical History Surgeries: Yes (SINUS, D&C X 2, LAPAROSCOPIES X 2, RT CARPAL TUNNEL; L Carpal Tunnel ) Section, Gallbladder, Hysterectomy Respiratory: Yes Asthma, Chronic Bronchitis Currently Using CPAP: No Currently Using BIPAP: No Cardiac: Yes Heart Murmur, Hypertension Neurological: Yes Headaches /Migraines 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 Disorders: Yes ( 8 para 4 (D&C x2-4 miscarriages x2)) Female 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 Sexually Transmitted Disease: Yes (chlamydia ) HIV/AIDS: No Genitourinary: Yes Bladder Infection, UTI-Chronic Gastrointestinal: Yes Diverticulosis, Gall Bladder Disease Musculoskeletal: No Endocrine: Yes Diabetes, Non-Insulin dep HEENT: No Loss of Vision: Denies Hearing Impairment: Denies Cancer: No Psychosocial: No Integumentary: No Blood Disorders: No Adverse Reaction/Blood Tranf: No Family Medical History Diabetes mellitus 19 MOTHER FH: glaucoma 19 MOTHER FH: macular degeneration 19 MOTHER Physical Exam Vital Signs Vital Signs - First Documented 03/16/19 13:58 Temp 98.0 Pulse 69 Resp 18 B/P (MAP) 148/90 (109) Pulse Ox 95 Capillary Refill : Less Than 3 Seconds Height, Weight, BMI Height: 5'3.00" Weight: 222lbs. 0oz. [id number]; 39.3 BMI Method:Actual General Appearance: WD/WN, no apparent distress HEENT: PERRL/EOMI, normal ENT inspection, TMs normal Neck: non-tender, full range of motion Respiratory: no respiratory distress, no accessory muscle use Extremities: other Psychiatric: alert, oriented x 3 Crainal Nerves: normal hearing, normal speech, PERRL Skin: normal color, warm/dry Progress/Results/Core Measures Results/Orders My Orders Orders - OKSANA SIERRA APRN Ketorolac Injection (Toradol Injection) (03/16/19 14:15) Diphenhydramine Injection (Benadryl Inje (03/16/19 14:15) Prochlorperazine Injection (Compazine In (03/16/19 14:15) Vital Signs/I&O 03/16/19 13:58 Temp 98.0 Pulse 69 Resp 18 B/P (MAP) 148/90 (109) Pulse Ox 95 Blood Pressure Mean: 109 Departure Impression Primary Impression: Headache Qualified Codes: R51 - Headache Disposition: 01 HOME, SELF-CARE Condition: Improved Departure-Patient Inst. Decision time for Depature: 14:12 Referrals: RABIA PAGE DPM (PCP) Primary Care Physician Patient Instructions: Headache, Adult (DC) OKSANA SIERRA CUPOLA MELTER HELPER March 16, 2019 14:12
[2019-03-16] MEDS ORDERED: PROCHLORPERAZINE 10 MG/2ML INJ (COMPAZINE) IM ONE (14:15)
[2019-03-16] MEDS ORDERED: diphenhydrAMINE 50 MG/ML INJ (BENADRYL) IM ONE (14:15)
[2019-03-16] MEDS ORDERED: KETOROLAC 60 MG/2 ML VIAL IM ONE (14:15)
[2019-03-16 16:53] VITALS: BP 148/90
== END 2019-03-16 14:40 | disposition home or self-care (01) ==
LOC: EDUNIT# 13:54 → ER 13:55
DX: R51 Headache (principal); J44.9 Chronic obstructive pulmonary disease, unspecified; G56.01 Carpal tunnel syndrome, right upper limb; I10 Essential (primary) hypertension; E11.9 Type 2 diabetes mellitus without complications; Z87.19 Personal history of other diseases of the digestive system; Z87.440 Personal history of urinary (tract) infections; Z86.69 Personal history of other diseases of the nervous system and sense organs; Z87.448 Personal history of other diseases of urinary system; Z88.0 Allergy status to penicillin; Z88.5 Allergy status to narcotic agent; Z88.8 Allergy status to other drugs, medicaments and biological substances; Z88.1 Allergy status to other antibiotic agents; Z79.84 Long term (current) use of oral hypoglycemic drugs; Z90.710 Acquired absence of both cervix and uterus; Z98.890 Other specified postprocedural states
CPT/HCPCS: 99284

== ENCOUNTER → 2019-04-17 | Outpatient (CLI) | payer BC ==
--- NOTE | 2019-04-17 16:54 | Diagnostic Imaging Report ---
INDICATION: Routine screening. COMPARISON: Prior mammogram from 10/31/2017 and 09/05/2016. EXAMINATION: 2D and 3D bilateral screening mammography was performed with CAD. The current study was also evaluated with a Computer Aided Detection (CAD) system. FINDINGS: Scattered fibroglandular densities are identified, bilaterally. Intraparenchymal lymph node in the upper outer right breast appears stable. No new mass or malignant appearing microcalcifications are seen. Axillae are unremarkable. IMPRESSION: No mammographic features suspicious for malignancy are identified. ACR BI-RADS Category 2: Benign findings. Result letter will be mailed to the patient. Note: At least 10% of breast cancer is not imaged by mammography. Dictated by: Dictated on workstation # [id number]
== END ==
LOC: RAD 08:57
PROVIDERS: ATTEND Nurse Practitioner Family
DX: Z12.31 Encounter for screening mammogram for malignant neoplasm of breast (principal)
CPT/HCPCS: 77067

== ENCOUNTER 2019-05-28 08:28 | Outpatient (RCR) | payer OTHER | END 2019-06-01 | disposition home or self-care (01) | PROVIDERS: ATTEND Podiatrist | DX: S86.012D Strain of left Achilles tendon, subsequent encounter (principal); X58.XXXD Exposure to other specified factors, subsequent encounter ==

== ENCOUNTER 2019-06-11 12:15 | Outpatient (CLI) | payer OTHER ==
[~2019-06-11] VITALS: Ht 160 cm; Wt 100.7 kg
== END 2019-06-11 14:29 ==
LOC: PREOP 12:15
PROVIDERS: ATTEND Surgery
DX: Z01.818 Encounter for other preprocedural examination (principal)

== ENCOUNTER 2019-06-16 11:23 | Day surgery (SDC) | payer BC ==
[~2019-06-16] VITALS: Ht 160 cm; Wt 100.7 kg
[2019-06-16] VITALS (9 sets, daily range): BP systolic 100–133; BP diastolic 59–88
[~2019-06-16 11:23] MED LIST changes: +LACTATED RINGERS 1,000 ML IV ONE
[2019-06-16] MEDS ORDERED: MIDAZOLAM 2 MG/2 ML (VERSED) VIAL ONE (11:35)
[2019-06-16] MEDS ORDERED: proPOfol 200 MG/20 ML (DIPRIVAN) VIAL IV ONE (11:35)
--- NOTE | 2019-06-16 11:42 | Progress Note-Pre Operative ---
Pre-Operative Progress Note H&P Reviewed The H&P was reviewed, patient examined and no changes noted. Date Seen by Provider: Jun 16, 2019 Time Seen by Provider: 11:42 Date H&P Reviewed: Jun 16, 2019 Time H&P Reviewed: 11:42 Pre-Operative Diagnosis: positive cologuard test BEAU GUERRA DO Jun 16, 2019 11:42
[2019-06-16] MEDS ORDERED: LACTATED RINGERS 1,000 ML IV STA (11:43)
--- NOTE | 2019-06-16 12:38 | Anesthesia-General Post-Op ---
MAC Patient Condition Mental Status/LOC: Same as Preop Cardiovascular: Satisfactory Nausea/Vomiting: Absent Respiratory: Satisfactory Pain: Controlled Complications: Absent Post Op Complications Complications None Follow Up Care/Instructions Patient Instructions None needed. Anesthesiology Discharge Order Discharge Order Patient was seen after the procedure and she was doing well, no complaints, stable vital signs, no apparent adverse anesthesia problems. KIANNA MARTEL DO Jun 16, 2019 12:38
--- NOTE | 2019-06-16 12:52 | Progress Note-Post Operative ---
Post-Operative Progess Note Surgeon (s)/Control Room Tender (s) Surgeon BEAU GUERRA DO Control Room Tender: na Pre-Operative Diagnosis positive cologuard test Post-Operative Diagnosis normal colon Procedure & Operative Findings Date of Procedure 06/16/19 Procedure Performed/Findings colonoscopy Anesthesia Type per director diabetes Estimated Blood Loss Estimated blood loss (mL): none Specimens/Packing Specimens Removed none BEAU GUERRA DO Jun 16, 2019 12:52
--- NOTE | 2019-06-16 21:07 | OPERATIVE REPORT ---
DATE OF SERVICE: 06/16/2019 PREOPERATIVE DIAGNOSIS: Positive Cologuard test. POSTOPERATIVE DIAGNOSIS: Normal colon. PROCEDURE: Colonoscopy. SURGEON: Beau Berry DO ANESTHESIA: Per CHILDREN'S SERVICE SUPERVISOR. ESTIMATED BLOOD LOSS: None. COMPLICATIONS: None. INDICATIONS: The patient is a 48-year-old female with positive Cologuard test. She understands risks and benefits of procedure and wished to proceed with procedure. Consent was signed and on the chart. PROCEDURE IN DETAIL: The patient was taken to the endoscopy suite, placed in left lateral recumbent position. Timeout was performed. Digital rectal exam was performed. There were no palpable polyps, masses or ulcerations. Scope was inserted in the rectum and advanced all the way to the cecum with minimal difficulty. Prep was adequate. Scope was then slowly retracted back. No polyps, mass or ulceration of the cecum, ascending, transverse, descending and sigmoid colon. Once in the rectum, scope was retroflexed noting no other pathology. Scope was returned to its normal position, slowly withdrawn until completely removed. The patient tolerated the procedure well without any complications. She was taken to recovery room in stable condition. RECOMMENDATIONS: The patient will need repeat colonoscopy in 10 years unless family history of colon cancer, which would then be 5 years. If the patient has any issues before that, she should be seen at that time. Job ID: [id number] DocumentID: [id number] Dictated Date: 06/16/2019 12:43:19 [employer] Date: 06/16/2019 21:06:17 Dictated By: BEAU BERRY DO
== END 2019-06-16 13:10 | disposition home or self-care (01) ==
LOC: ENDO 11:23
PROVIDERS: ATTEND Surgery
DX: R19.5 Other fecal abnormalities (principal); E11.9 Type 2 diabetes mellitus without complications; I11.9 Hypertensive heart disease without heart failure; J45.909 Unspecified asthma, uncomplicated; R01.1 Cardiac murmur, unspecified; K21.9 Gastro-esophageal reflux disease without esophagitis; E66.01 Morbid (severe) obesity due to excess calories; Z88.0 Allergy status to penicillin; Z88.1 Allergy status to other antibiotic agents; Z88.5 Allergy status to narcotic agent; Z79.84 Long term (current) use of oral hypoglycemic drugs; Z79.899 Other long term (current) drug therapy; Z68.39 Body mass index [BMI] 39.0-39.9, adult
CPT/HCPCS: 82962

== ENCOUNTER 2019-06-29 20:49 | Outpatient (CLI) | payer BC ==
[~2019-06-29 20:49] MED LIST changes: -LACTATED RINGERS 1,000 ML IV ONE
== END 2019-06-30 06:10 | disposition home or self-care (01) ==
LOC: SLEEP 20:49
PROVIDERS: ATTEND Nurse Practitioner Community Health
DX: G47.33 Obstructive sleep apnea (adult) (pediatric) (principal); G47.10 Hypersomnia, unspecified
CPT/HCPCS: 95810

== ENCOUNTER 2019-07-22 11:02 | Outpatient (RCR) | payer OTHER | END 2019-09-13 | disposition home or self-care (01) | PROVIDERS: ATTEND Podiatrist | DX: S86.012D Strain of left Achilles tendon, subsequent encounter (principal); X58.XXXD Exposure to other specified factors, subsequent encounter ==

== ENCOUNTER 2020-03-12 19:43 | Emergency (ER) | payer BC, OTHER ==
[~2020-03-12] VITALS: Ht 160 cm; Wt 101.0 kg
[~2020-03-12 19:43] MED LIST changes: -HYDR-3812 PO
[2020-03-12] MEDS ORDERED: KETOROLAC 30 MG/ML VIAL IVP ONE (20:00)
--- NOTE | 2020-03-12 20:05 | ED Chest Pain ---
General Chief Complaint: Chest Pain Stated Complaint: CP, R SIDED PAIN Source: patient Exam Limitations: no limitations History of Present Illness Date Seen by Provider: March 12, 2020 Time Seen by Provider: 19:50 Initial Comments ER with reports of right sided chest pain that is described as an intermittent squeezing sensation that comes at random x3 weeks. This can come while she is sitting on a couch or active. She says it feels deep in the chest. She is only short of breath when the pain is intense states that "takes my breath away". Otherwise she is not short of breath. No cough and no fevers. She cannot identify anything that brings about or alleviates the pain. It lasts only a few seconds to minutes before resolving on its own. She now has an achy sensation on the right side of her chest because it was pretty intense all day today. Timing/Duration: changing over time, other (3 weeks) Severity/Quality: moderate Radiation: no radiation Activities at Onset: none Prior CP/Workup: no prior chest pain ASA po CUSTOMER SERVICE VOICE: No NTG SL CUSTOMER SERVICE VOICE: No Allergies and Home Medications Allergies Coded Allergies: Penicillins (Unverified Allergy, Unknown, HIVES, SOB, 06/16/19) ciprofloxacin (Verified Allergy, Unknown, 06/16/19) codeine (Verified Allergy, Unknown, TOLERATES HYDROCODONE, 06/16/19) meperidine (Verified Allergy, Unknown, 06/16/19) morphine (Verified Allergy, Unknown, MAUSEA, 06/16/19) Home Medications Estradiol 1 Mg Tablet, 1 MG PO DAILY, (Reported) Metformin HCl 1,000 Mg Tablet, 1,000 MG PO DAILY, (Reported) Bearden 3 Polyunsat Fatty Acids 1,000 Mg Cap, 1,000 MG PO DAILY, (Reported) Spironolactone 25 Mg Tablet, 25 MG PO BID, (Reported) Patient Home Medication List Home Medication List Reviewed: Yes Review of Systems Review of Systems Constitutional: see HPI; No chills, No fever EENTM: No Symptoms Reported Respiratory: See HPI; Denies Cough; Shortness of Air (pain takes her breath etta y) Cardiovascular: See HPI, Chest Pain Gastrointestinal: See HPI Genitourinary: No Symptoms Reported Musculoskeletal: no symptoms reported Skin: no symptoms reported Psychiatric/Neurological: No Symptoms Reported Endocrine: No Symptoms Reported Hematologic/Lymphatic: No Symptoms Reported Past Kynlgyn-Izhxal-Ovpfnb Hx Patient Social History 2nd Hand Smoke Exposure: No Recent Foreign Travel: No Contact w/Someone Who Travel: No Recent Hopitalizations: No Immunizations Up To Date Tetanus Booster (TDap): Less than 5yrs Date of Pneumonia Vaccine: Aug 11, 2018 Date of Influenza Vaccine: Aug 11, 2018 Seasonal Allergies Seasonal Allergies: Yes Past Medical History Surgeries: Yes (SINUS, D&C X 2, LAPAROSCOPIES X 2, RT CARPAL TUNNEL;MAT Carpal Tunnel ) Section, Gallbladder, Hysterectomy Respiratory: Yes Asthma, Chronic Bronchitis Currently Using CPAP: No Currently Using BIPAP: No Cardiac: Yes Heart Murmur, Hypertension Neurological: Yes Headaches /Migraines 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 Disorders: Yes ( 8 para 4 (D&C x2-4 miscarriages x2)) Female 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 Disorders: Ovarian Cyst MRI TECH History: Hysterectomy Sexually Transmitted Disease: Yes (chlamydia ) HIV/AIDS: No Genitourinary: Yes Bladder Infection, UTI-Chronic Gastrointestinal: Yes Diverticulosis, Gall Bladder Disease Musculoskeletal: No Endocrine: Yes Diabetes, Non-Insulin dep HEENT: Yes (GLASSES) Loss of Vision: Denies Hearing Impairment: Denies Cancer: No Psychosocial: No Integumentary: No Blood Disorders: No Adverse Reaction/Blood Tranf: No (N/A) Family Medical History Diabetes mellitus 19 MOTHER FH: glaucoma 19 MOTHER FH: macular degeneration 19 MOTHER Physical Exam Vital Signs Vital Signs - First Documented Capillary Refill : Height, Weight, BMI Height: 5'3.00" Weight: 222lbs. 0.0oz. [id number]; 39.3 BMI Method:Actual General Appearance: No Apparent Distress, WD/WN HEENT: PERRL/EOMI, TMs Normal Neck: Full Range of Motion, Normal Inspection Respiratory: No Accessory Muscle Use, No Respiratory Distress Cardiovascular: Regular Rate, Rhythm, Normal Peripheral Pulses Gastrointestinal: Normal Bowel Sounds, Non Tender, Soft Extremity: Normal Capillary Refill, Normal Inspection Neurologic/Psychiatric: Alert, Oriented x3 Skin: Normal Color, Warm/Dry Progress/Results/Core Measures Results/Orders Lab Results Laboratory Tests Test 03/12/20 19:55 Range/Units White Blood Count 8.6 4.3-11.0 10^3/uL Red Blood Count 4.43 4.35-5.85 10^6/uL Hemoglobin 13.4 11.5-16.0 G/DL Hematocrit 40 35-52 % Mean Corpuscular Volume 90 80-99 FL Mean Corpuscular Hemoglobin 30 25-34 PG Mean Corpuscular Hemoglobin Concent 34 32-36 G/DL Red Cell Distribution Width 12.5 10.0-14.5 % Platelet Count 302 130-400 10^3/uL Mean Platelet Volume 9.0 7.4-10.4 FL Neutrophils (%) (Auto) 64 42-75 % Lymphocytes (%) (Auto) 30 12-44 % Monocytes (%) (Auto) 5 0-12 % Eosinophils (%) (Auto) 1 0-10 % Basophils (%) (Auto) 0 0-10 % Neutrophils # (Auto) 5.5 1.8-7.8 X 10^3 Lymphocytes # (Auto) 2.6 1.0-4.0 X 10^3 Monocytes # (Auto) 0.4 0.0-1.0 X 10^3 Eosinophils # (Auto) 0.1 0.0-0.3 10^3/uL Basophils # (Auto) 0.0 0.0-0.1 10^3/uL D-Dimer < 0.27 0.00-0.49 UG/ML Sodium Level 138 135-145 MMOL/L Potassium Level 3.9 3.6-5.0 MMOL/L Chloride Level 105 98-107 MMOL/L Carbon Dioxide Level 20 L 21-32 MMOL/L Anion Gap 13 5-14 MMOL/L Blood Urea Nitrogen 16 7-18 MG/DL Creatinine 0.74 0.60-1.30 MG/DL Estimat Glomerular Filtration Rate > 60 BUN/Creatinine Ratio 22 Glucose Level 129 H 70-105 MG/DL Calcium Level 9.1 8.5-10.1 MG/DL Corrected Calcium 8.9 8.5-10.1 MG/DL Total Bilirubin 0.3 0.1-1.0 MG/DL Aspartate Amino Transf (AST/SGOT) 18 5-34 U/L Alanine Aminotransferase (ALT/SGPT) 24 0-55 U/L Alkaline Phosphatase 51 40-136 U/L Troponin I < 0.028 <0.028 NG/ML Total Protein 7.5 6.4-8.2 GM/DL Albumin 4.2 3.2-4.5 GM/DL Lipase 17 8-78 U/L My Orders Svetlana - OKSANA SIERRA APRN Fibrin Degradation Products (03/12/20 20:00) Troponin I (03/12/20 20:00) Ekg Tracing (03/12/20 20:00) Chest 1 View, Ap/Pa Only (03/12/20 20:00) Lipase (03/12/20 20:00) Cbc With Automated Diff (03/12/20 20:00) Comprehensive Metabolic Panel (03/12/20 20:00) Ketorolac Injection (Toradol Injection) (03/12/20 20:00) Medications Given in ED Current Medications Medications Dose Ordered Sig/Darling Route Start Time Stop Time Status Last Admin Dose Admin Ketorolac Tromethamine 15 mg ONCE ONCE IVP 03/12/20 20:00 03/12/20 20:02 DC 03/12/20 20:15 15 MG Vital Signs/I&O 03/12/20 03/12/20 19:53 19:53 Temp 37.2 Pulse 87 Resp 18 B/P (MAP) 167/90 (115) O2 Delivery Room Air Room Air Departure Impression Primary Impression: Chest wall pain Disposition: HOME, SELF-CARE Condition: Stable Departure-Patient Inst. Decision time for Depature: 20:45 [facility]errals: [facility] [place] Primary Care Physician LANA NOYOLA (Family) Primary Care Physician Patient Instructions: Chest Pain (DC) Add. Discharge Instructions: 1. Return to ER for any concerns 2. Follow-up with your doctor next week 3. All discharge instructions reviewed with patient and/or family. Voiced understanding. OKSANA SIERRA APRN March 12, 2020 20:05
[2020-03-12 20:06] LABS: BASOPHILS % (AUTO) 0 % (0-10); EOSINOPHILS # (AUTO) 0.1 10^3/uL (0.0-0.3); EOSINOPHILS % (AUTO) 1 % (0-10); HEMATOCRIT 40 % (35-52); HEMOGLOBIN 13.4 G/DL (11.5-16.0); LYMPHOCYTES # (AUTO) 2.6 X 10^3 (1.0-4.0); LYMPHOCYTES % (AUTO) 30 % (12-44); MEAN CORPUSCULAR HEMOGLOBIN 30 PG (25-34); MEAN CORPUSCULAR HGB CONC 34 G/DL (32-36); MEAN CORPUSCULAR VOLUME 90 FL (80-99); MONOCYTES # (AUTO) 0.4 X 10^3 (0.0-1.0); MONOCYTES % (AUTO) 5 % (0-12); NEUTROPHILS # (AUTO) 5.5 X 10^3 (1.8-7.8); NEUTROPHILS % (AUTO) 64 % (42-75); PLATELET COUNT 302 10^3/uL (130-400); RED CELL DISTRIBUTION WIDTH 12.5 % (10.0-14.5); WHITE BLOOD COUNT 8.6 10^3/uL (4.3-11.0)
[2020-03-12 20:24] LABS: ALANINE AMINOTRANSFERASE 24 U/L (0-55); ALBUMIN 4.2 GM/DL (3.2-4.5); ALKALINE PHOSPHATASE 51 U/L (40-136); BILIRUBIN,TOTAL 0.3 MG/DL (0.1-1.0); BUN/CREATININE RATIO 22; CALCIUM 9.1 MG/DL (8.5-10.1); CARBON DIOXIDE 20 MMOL/L (21-32); CHLORIDE 105 MMOL/L (98-107); CREATININE SERUM 0.74 MG/DL (0.60-1.30); GFR ESTIMATED > 60; GLUCOSE 129 MG/DL (70-105); LIPASE 17 U/L (8-78); POTASSIUM 3.9 MMOL/L (3.6-5.0); SODIUM 138 MMOL/L (135-145); TOTAL PROTEIN 7.5 GM/DL (6.4-8.2)
--- NOTE | 2020-03-12 20:33 | Diagnostic Imaging Report ---
HISTORY: Chest pain. TECHNIQUE: Frontal view of the chest. COMPARISON: 02/01/2012. FINDINGS: Lung volumes are normal. No focal consolidation is seen. There is no pleural effusion or pneumothorax. The cardiac silhouette is normal in size and contour. There is a chronic calcified granuloma in the left lateral lung. IMPRESSION: No acute pulmonary abnormality is seen. Dictated by: Dictated on workstation # [id number]
[2020-03-12] MEDS ORDERED: METH-313 PO (20:46)
[2020-03-12 20:50] VITALS: BP 118/76
[2020-03-12] MEDS ORDERED: PRD20T PO (20:52)
== END 2020-03-12 20:51 | disposition home or self-care (01) ==
LOC: EDUNIT# 19:43 → ER 19:45
DX: R07.89 Other chest pain (principal); I10 Essential (primary) hypertension; E11.9 Type 2 diabetes mellitus without complications; Z88.0 Allergy status to penicillin; Z88.1 Allergy status to other antibiotic agents; Z88.5 Allergy status to narcotic agent; Z79.84 Long term (current) use of oral hypoglycemic drugs
CPT/HCPCS: 36415; 71045; 80053; 83690; 84484; 85025; 85379; 93005

== ENCOUNTER → 2020-03-30 | Outpatient (CLI) | payer BC ==
[~2020-03-30] VITALS: Ht 160 cm; Wt 103.0 kg
[~2020-03-30] MED LIST changes: +CATHETER FLUSH 10 ML SYR IV PRN; +METH-313 PO; +PRD20T PO; +REGADENOSON 0.4 MG/5 ML SYR (LEXISCAN) IV ONE
[2020-03-30 09:16] VITALS: BP 122/102
--- NOTE | 2020-03-30 19:07 | STRESS TEST ---
DATE OF SERVICE: 03/30/2020 LEXISCAN MYOVIEW STRESS TEST REPORT REFERRING PHYSICIAN: [facility]. In summary, the patient was injected with 10.53 mCi of technetium-99 Myoview and the resting images were obtained. Then, the patient received 0.4 mg of Lexiscan followed by 32.3 mCi of technetium-99 Myoview. Throughout the test, there were no EKG changes. The resting and stress images were reviewed and compared in the short axis, horizontal long axis, and vertical long axis views. Review of the images showed good radiotracer uptake with no significant ischemia or infarction. SSS is 2, SDS 2, TID value 0.95. On the gated images, the left ventricle appeared to be normal size with normal contractility. Calculated ejection fraction 69%. CONCLUSION: 1. The patient tolerated Lexiscan well. 2. No significant ischemia or infarction on SPECT images. 3. Normal left ventricular size with normal contractility. Calculated ejection fraction 69%. Job ID: [id number] DocumentID: [id number] Dictated Date: 03/30/2020 16:00:39 Attendant Child Activity Date: 03/30/2020 19:05:56 Dictated By: BILLIE LORA MD
== END ==
LOC: CARD 07:07
PROVIDERS: ATTEND Internal Medicine Cardiovascular Disease
DX: R07.9 Chest pain, unspecified (principal); I10 Essential (primary) hypertension; E11.9 Type 2 diabetes mellitus without complications; G47.33 Obstructive sleep apnea (adult) (pediatric)
CPT/HCPCS: 78452; 93017

== ENCOUNTER → 2020-04-05 | Outpatient (CLI) | payer BC ==
[~2020-04-05] MED LIST changes: -CATHETER FLUSH 10 ML SYR IV PRN; -REGADENOSON 0.4 MG/5 ML SYR (LEXISCAN) IV ONE
== END ==
LOC: CARD 08:52
PROVIDERS: ATTEND Internal Medicine Cardiovascular Disease
DX: I11.9 Hypertensive heart disease without heart failure (principal); E11.9 Type 2 diabetes mellitus without complications; G47.33 Obstructive sleep apnea (adult) (pediatric)
CPT/HCPCS: 93306

== ENCOUNTER 2020-09-26 17:04 | Emergency (ER) | payer BC ==
[~2020-09-26] VITALS: Ht 160 cm; Wt 102.0 kg
[2020-09-26] MEDS ORDERED: NS IV 1000 ML 1,000 ML ONE (17:12)
[2020-09-26] MEDS ORDERED: ADENOSINE 6 MG/2 ML (ADENOCARD) VIAL IV ONE (17:12)
--- NOTE | 2020-09-26 17:22 | ED Cardiac General ---
History of Present Illness General Chief Complaint: Chest Pain Stated Complaint: CHEST PAIN;HEADACHE;SWEATING Source: patient Exam Limitations: no limitations History of Present Illness Date Seen by Provider: Sep 26, 2020 Time Seen by Provider: 17:20 Initial Comments To ER with reports of palpitations shortness of breath chest pain and sweating. This began about 30 minutes ago while she was sitting on the couch. She is diabetic, does not have any personal history of coronary disease. Timing/Duration: constant Severity: moderate Activities at Onset: none NTG SL YEAST DISTILLER: No ASA po YEAST DISTILLER: No Associated Systoms: Headaches Allergies and Home Medications Allergies Coded Allergies: Penicillins (Unverified Allergy, Unknown, HIVES, SOB, 06/16/19) ciprofloxacin (Verified Allergy, Unknown, 06/16/19) codeine (Verified Allergy, Unknown, TOLERATES HYDROCODONE, 06/16/19) meperidine (Verified Allergy, Unknown, 06/16/19) morphine (Verified Allergy, Unknown, MAUSEA, 06/16/19) Home Medications Estradiol 1 Mg Tablet, 1 MG PO DAILY, (Reported) Metformin HCl 1,000 Mg Tablet, 1,000 MG PO DAILY, (Reported) Methocarbamol 750 Mg Tablet, 750 MG PO Q4H PRN for PAIN-MILD (1-4) Prescribed by: OKSANA SIERRA on 03/12/202045 [place] 3 Polyunsat Fatty Acids 1,000 Mg Cap, 1,000 MG PO DAILY, (Reported) Prednisone 20 Mg Tab, 40 MG PO DAILY Prescribed by: OKSANA SIERRA on 03/12/202051 Spironolactone 25 Mg Tablet, 25 MG PO BID, (Reported) Patient Home Medication List Home Medication List Reviewed: Yes Review of Systems Review of Systems Constitutional: see HPI EENTM: No Symptoms Reported Respiratory: No Symptoms Reported Cardiovascular: See HPI, Chest Pain, Palpitations Gastrointestinal: See HPI Genitourinary: No Symptoms Reported Musculoskeletal: no symptoms reported Skin: no symptoms reported Psychiatric/Neurological: No Symptoms Reported Endocrine: No Symptoms Reported Hematologic/Lymphatic: No Symptoms Reported Past Pptyotk-Ykmzfe-Qvsseb Hx Patient Social History 2nd Hand Smoke Exposure: No Recent Foreign Travel: No Contact w/Someone Who Travel: No Recent Hopitalizations: No Immunizations Up To Date Tetanus Booster (TDap): Less than 5yrs Date of Pneumonia Vaccine: Aug 11, 2018 Date of Influenza Vaccine: Aug 11, 2018 Seasonal Allergies Seasonal Allergies: Yes Past Medical History Surgeries: Yes (SINUS, D&C X 2, LAPAROSCOPIES X 2, RT CARPAL TUNNEL;MAT Carpal Tunnel ) Section, Gallbladder, Hysterectomy, Orthopedic Respiratory: Yes Asthma, Chronic Bronchitis Currently Using CPAP: No Currently Using BIPAP: No Cardiac: Yes Heart Murmur, Hypertension Neurological: Yes Headaches /Migraines 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 Disorders: Yes ( 8 para 4 (D&C x2-4 miscarriages x2)) 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 Sexually Transmitted Disease: Yes (chlamydia ) HIV/AIDS: No Genitourinary: Yes Bladder Infection, UTI-Chronic Gastrointestinal: Yes Diverticulosis, Gall Bladder Disease Musculoskeletal: No Endocrine: Yes Diabetes, Non-Insulin dep HEENT: Yes (GLASSES) Loss of Vision: Denies Hearing Impairment: Denies Cancer: No Psychosocial: No Integumentary: No Blood Disorders: No Adverse Reaction/Blood Tranf: No (N/A) Family Medical History Diabetes mellitus 19 MOTHER FH: glaucoma 19 MOTHER FH: macular degeneration 19 MOTHER Physical Exam Vital Signs Vital Signs - First Documented 09/26/20 17:10 Temp 37.2 Pulse 183 Resp 26 B/P (MAP) 172/109 (130) Pulse Ox 95 O2 Delivery Room Air Capillary Refill : Height, Weight, BMI Height: 5'3.00" Weight: 222lbs. 0.0oz. 100.105651fi; 40.23 BMI Method:Actual General Appearance: No Apparent Distress, WD/WN Respiratory: No Accessory Muscle Use, No Respiratory Distress Cardiovascular: Normal Peripheral Pulses, Tachycardia (Rate is 184 narrow complex. During IV start we advised her to try Valsalva maneuver exhaling against a closed glottis which actually converted her to a normal sinus rhythm rate of 100.) Gastrointestinal: Non Tender, Soft Extremity: Normal Capillary Refill, Normal Inspection Neurologic/Psychiatric: Alert, Oriented x3 Skin: Normal Color, Warm/Dry Progress/Results/Core Measures Results/Orders Lab Results Laboratory Tests Test 09/26/20 17:16 Range/Units White Blood Count 15.1 H 4.3-11.0 10^3/uL Red Blood Count 4.93 3.80-5.11 10^6/uL Hemoglobin 15.0 11.5-16.0 g/dL Hematocrit 45 35-52 % Mean Corpuscular Volume 91 80-99 fL Mean Corpuscular Hemoglobin 30 25-34 pg Mean Corpuscular Hemoglobin Concent 34 32-36 g/dL Red Cell Distribution Width 12.1 10.0-14.5 % Platelet Count 348 130-400 10^3/uL Mean Platelet Volume 9.0 9.0-12.2 fL Immature Granulocyte % (Auto) 0 % Neutrophils (%) (Auto) 60 42-75 % Lymphocytes (%) (Auto) 32 12-44 % Monocytes (%) (Auto) 6 0-12 % Eosinophils (%) (Auto) 2 0-10 % Basophils (%) (Auto) 0 0-10 % Neutrophils # (Auto) 9.1 H 1.8-7.8 10^3/uL Lymphocytes # (Auto) 4.9 H 1.0-4.0 10^3/uL Monocytes # (Auto) 0.8 0.0-1.0 10^3/uL Eosinophils # (Auto) 0.3 0.0-0.3 10^3/uL Basophils # (Auto) 0.0 0.0-0.1 10^3/uL Immature Granulocyte # (Auto) 0.0 0.0-0.1 10^3/uL Neutrophils % (Manual) 49 % Lymphocytes % (Manual) 38 % Monocytes % (Manual) 5 % Eosinophils % (Manual) 1 % Reactive Lymphocytes 7 % Blood Morphology Comment NORMAL Prothrombin Time 12.7 12.2-14.7 SEC INR Comment 0.9 0.8-1.4 Activated Partial Thromboplast Time 26 24-35 SEC Sodium Level 136 135-145 MMOL/L Potassium Level 4.3 3.6-5.0 MMOL/L Chloride Level 101 98-107 MMOL/L Carbon Dioxide Level 21 21-32 MMOL/L Anion Gap 14 5-14 MMOL/L Blood Urea Nitrogen 21 H 7-18 MG/DL Creatinine 0.66 0.60-1.30 MG/DL Estimat Glomerular Filtration Rate > 60 BUN/Creatinine Ratio 32 Glucose Level 153 H 70-105 MG/DL Calcium Level 8.9 8.5-10.1 MG/DL Corrected Calcium 8.7 8.5-10.1 MG/DL Magnesium Level 2.1 1.6-2.4 MG/DL Total Bilirubin 0.2 0.1-1.0 MG/DL Aspartate Amino Transf (AST/SGOT) 21 5-34 U/L Alanine Aminotransferase (ALT/SGPT) 26 0-55 U/L Alkaline Phosphatase 51 40-136 U/L Myoglobin 19.5 10.0-92.0 NG/ML Troponin I < 0.028 <0.028 NG/ML Total Protein 7.7 6.4-8.2 GM/DL Albumin 4.2 3.2-4.5 GM/DL My Orders Orders - OKSANA SIERRA BUSINESS OPERATIONS COORDINATOR Cbc With Automated Diff (09/26/20 17:08) Magnesium (09/26/20 17:08) Chest 1 View, Ap/Pa Only (09/26/20 17:08) Ekg Tracing (09/26/20 17:08) Comprehensive Metabolic Panel (09/26/20 17:08) Myoglobin Serum (09/26/20 17:08) Protime With Inr (09/26/20 17:08) Partial Thromboplastin Time (09/26/20 17:08) O2 (09/26/20 17:08) Monitor-Rhythm Ecg Trace Only (09/26/20 17:08) Lipid Panel (09/27/20 06:00) Ed Iv/Invasive Line Start (09/26/20 17:08) Troponin I (09/26/20 17:08) Ekg Tracing (09/26/20 17:22) Manual Differential (09/26/20 17:16) Ct Angio Chest W (09/26/20 18:01) Iohexol Injection (Omnipaque 350 Mg/Ml 1 (09/26/20 18:15) Received Contrast (Hold Metformin- Contr (09/26/20 18:15) Ns (Ivpb) (Sodium Chloride 0.9% Ivpb Bag (09/26/20 18:15) Medications Given in ED Current Medications Medications Dose Ordered Sig/Darling Route Start Time Stop Time Status Last Admin Dose Admin Iohexol 100 ml ONCE ONCE IV 09/26/20 18:15 09/26/20 18:16 DC 09/26/20 18:20 84 ML Sodium Chloride 100 ml ONCE ONCE IV 09/26/20 18:15 09/26/20 18:16 DC 09/26/20 18:20 80 ML Sodium Chloride 1,000 ml @ STK-MED ONCE .ROUTE 09/26/20 17:12 09/26/20 17:15 DC 09/26/20 17:29 999 MLS/HR Vital Signs/I&O 09/26/20 09/26/20 17:10 17:10 Temp 37.2 Pulse 183 Resp 26 B/P (MAP) 172/109 (130) Pulse Ox 95 O2 Delivery Room Air Diagnostic Imaging Diagonstic Imaging: CT Comments NAME: ADONIS LORENZO [facility] REC#: [id number] PT STATUS: REG ER : 1970 PHYSICIAN: OKSANA SIERRA APRN ADMIT DATE: 09/26/20/ER Draft Date of Exam:09/26/20 CHEST 1 VIEW, AP/PA ONLY INDICATION: Chest pain. TECHNIQUE: Single view chest 5:33 PM. CORRELATION STUDY: 03/12/2020 FINDINGS: Cardiomediastinal silhouette does appear to be slightly prominent particularly in the region of the ascending aorta. The lungs are clear with no consolidating infiltrate. There is no significant effusion or pneumothorax. IMPRESSION: 1. Negative for acute abnormality of the chest. 2. The slightly prominent appearance about the region of the ascending aorta can be associated with aortic valvular disease and/or systemic arterial hypertension. Dictated on workstation # [id number] Dict: 09/26/20 1738 Trans: 09/26/20 1755 [facility] [id number] Interpreted by: JENNIFER MEADOWS DO Electronically signed by: NAME: ADONIS LROENZO [facility] REC#: [id number] PT STATUS: REG ER : 1970 PHYSICIAN: OKSANA SIERRA APRN ADMIT DATE: 09/26/20/ER Draft Date of Exam:09/26/20 CT ANGIO CHEST W PROCEDURE: CT angiography of the chest with contrast. TECHNIQUE: Multiple contiguous axial images were obtained through the chest after uneventful bolus administration of intravenous contrast. 3D reconstructed CTA MIP acquisitions were also performed. Auto Exposure Controls were utilized during the CT exam to meet ALARA standards for radiation dose reduction. INDICATION: Chest pain, supraventricular tachycardia CORRELATION: Chest radiograph 09/26/2020 FINDINGS: No pulmonary artery filling defect to suggest pulmonary embolism. The heart size is mildly enlarged but without disproportionate right heart enlargement. The thoracic aortic contour is slightly tortuous. The superior vena cava and azygos vein are slightly prominent. This accounts for the findings at chest radiograph. Calcified mediastinal and left hilar granulomas are present. No definitive pathologically enlarged mediastinal lymph nodes. The lung ortiz are clear of infiltrate. There is a calcified granuloma lateral left mid lung. Liver appears enlarged with mild/moderate steatosis. Splenule noted posterior to the spleen with a few calcified granulomas. Gallbladder absent. 5.5 x 3.9 cm left adrenal gland mass with macroscopic fat compatible with a left adrenal myelolipoma. The visualized osseous structures demonstrate no acute findings. IMPRESSION: 1. No CT evidence for pulmonary embolus. Negative for acute abnormality of the chest. 2. Prominent mediastinum which is largely attributed to a distended superior vena cava and azygos vein, suggesting intravascular volume distention. Dictated on workstation # [id number] Dict: 09/26/201821 Trans: 09/26/201836 [facility] [id number] Interpreted by: JENNIFER MEADOWS DO Electronically signed by: Departure Communication (Admissions) 172-with a Valsalva maneuver her rhythm converted from SVT to normal sinus. Her symptoms resolved nearly instantly. 1823-Did a CT chest given xray findings. Remains completely asymptomatic at this time. Impression Primary Impression: SVT (supraventricular tachycardia) Disposition: 01 HOME, SELF-CARE Condition: Stable Departure-Patient Inst. Decision time for Depature: 18:25 Referrals: [facility] (PCP) Primary Care Physician LANA NOYOLA (Family) Primary Care Physician Patient Instructions: Supraventricular Tachycardia (SVT) Add. Discharge Instructions: 1. Return to ER for any concerns 2. Follow up with your doctor later this week. 3. All discharge instructions reviewed with patient and/or family. Voiced understanding. OKSANA SIERRA BUSINESS OPERATIONS COORDINATOR Sep 26, 2020 17:22
[2020-09-26 17:24] LABS: BASOPHILS % (AUTO) 0 % (0-10); EOSINOPHILS # (AUTO) 0.3 10^3/uL (0.0-0.3); EOSINOPHILS % (AUTO) 2 % (0-10); HEMATOCRIT 45 % (35-52); LYMPHOCYTES # (AUTO) 4.9 10^3/uL (1.0-4.0); LYMPHOCYTES % (AUTO) 32 % (12-44); MEAN CORPUSCULAR HEMOGLOBIN 30 pg (25-34); MEAN CORPUSCULAR HGB CONC 34 g/dL (32-36); MEAN CORPUSCULAR VOLUME 91 fL (80-99); MONOCYTES # (AUTO) 0.8 10^3/uL (0.0-1.0); MONOCYTES % (AUTO) 6 % (0-12); NEUTROPHILS # (AUTO) 9.1 10^3/uL (1.8-7.8); NEUTROPHILS % (AUTO) 60 % (42-75); PLATELET COUNT 348 10^3/uL (130-400); WHITE BLOOD COUNT 15.1 10^3/uL (4.3-11.0)
[2020-09-26 17:42] LABS: INR 0.9 (0.8-1.4); PROTHROMBIN TIME PATIENT 12.7 SEC (12.2-14.7)
[2020-09-26 17:45] LABS: ALBUMIN 4.2 GM/DL (3.2-4.5)
[2020-09-26 17:46] LABS: CHLORIDE 101 MMOL/L (98-107); POTASSIUM 4.3 MMOL/L (3.6-5.0); SODIUM 136 MMOL/L (135-145)
[2020-09-26 17:47] LABS: CALCIUM 8.9 MG/DL (8.5-10.1)
[2020-09-26 17:48] LABS: GLUCOSE 153 MG/DL (70-105); TOTAL PROTEIN 7.7 GM/DL (6.4-8.2)
[2020-09-26 17:49] LABS: CARBON DIOXIDE 21 MMOL/L (21-32)
[2020-09-26 17:50] LABS: BILIRUBIN,TOTAL 0.2 MG/DL (0.1-1.0)
[2020-09-26 17:51] LABS: ALKALINE PHOSPHATASE 51 U/L (40-136); CREATININE SERUM 0.66 MG/DL (0.60-1.30); GFR ESTIMATED > 60
[2020-09-26 17:52] LABS: BUN/CREATININE RATIO 32
[2020-09-26 17:54] LABS: ALANINE AMINOTRANSFERASE 26 U/L (0-55); MAGNESIUM 2.1 MG/DL (1.6-2.4)
--- NOTE | 2020-09-26 17:57 | Diagnostic Imaging Report ---
INDICATION: Chest pain. TECHNIQUE: Single view chest 5:33 PM. CORRELATION STUDY: 03/12/2020 FINDINGS: Cardiomediastinal silhouette does appear to be slightly prominent particularly in the region of the ascending aorta. The lungs are clear with no consolidating infiltrate. There is no significant effusion or pneumothorax. IMPRESSION: 1. Negative for acute abnormality of the chest. 2. The slightly prominent appearance about the region of the ascending aorta can be associated with aortic valvular disease and/or systemic arterial hypertension. Dictated by: Dictated on workstation # [id number]
[2020-09-26 18:03] LABS: EOSINOPHILS % (MANUAL) 1 %; LYMPHOCYTES % (MANUAL) 38 %; MONOCYTES % (MANUAL) 5 %; NEUTROPHILS % (MANUAL) 49 %; RBC MORPH NORMAL; REACTIVE LYMPHOCYTES 7 %
[2020-09-26] MEDS ORDERED: IOHEXOL 350 MG/ML 100 ML (OMNIPAQUE 350) VIAL IV ONE (18:15)
[2020-09-26] MEDS ORDERED: NS 100 ML (IVPB) BAG IV ONE (18:15)
[2020-09-26] MEDS ORDERED: HOLD METFORMIN - RECEIVED CONTRAST 20 ML VIAL IV SCH (18:15)
--- NOTE | 2020-09-26 18:37 | Diagnostic Imaging Report ---
PROCEDURE: CT angiography of the chest with contrast. TECHNIQUE: Multiple contiguous axial images were obtained through the chest after uneventful bolus administration of intravenous contrast. 3D reconstructed CTA MIP acquisitions were also performed. Auto Exposure Controls were utilized during the CT exam to meet ALARA standards for radiation dose reduction. INDICATION: Chest pain, supraventricular tachycardia CORRELATION: Chest radiograph 09/26/2020 FINDINGS: No pulmonary artery filling defect to suggest pulmonary embolism. The heart size is mildly enlarged but without disproportionate right heart enlargement. The thoracic aortic contour is slightly tortuous. The superior vena cava and azygos vein are slightly prominent. This accounts for the findings at chest radiograph. Calcified mediastinal and left hilar granulomas are present. No definitive pathologically enlarged mediastinal lymph nodes. The lung ortiz are clear of infiltrate. There is a calcified granuloma lateral left mid lung. Liver appears enlarged with mild/moderate steatosis. Splenule noted posterior to the spleen with a few calcified granulomas. Gallbladder absent. 5.5 x 3.9 cm left adrenal gland mass with macroscopic fat compatible with a left adrenal myelolipoma. The visualized osseous structures demonstrate no acute findings. IMPRESSION: 1. No CT evidence for pulmonary embolus. Negative for acute abnormality of the chest. 2. Prominent mediastinum which is largely attributed to a distended superior vena cava and azygos vein, suggesting intravascular volume distention. Dictated by: Dictated on workstation # [id number]
[2020-09-26 18:47] VITALS: BP 125/97
== END 2020-09-26 18:47 | disposition home or self-care (01) ==
LOC: EDUNIT# 17:04 → ER 17:05
DX: I47.1 Supraventricular tachycardia (principal); E11.9 Type 2 diabetes mellitus without complications; J45.909 Unspecified asthma, uncomplicated; Z83.3 Family history of diabetes mellitus; Z88.0 Allergy status to penicillin; Z88.1 Allergy status to other antibiotic agents; Z88.5 Allergy status to narcotic agent; Z79.84 Long term (current) use of oral hypoglycemic drugs; Z79.52 Long term (current) use of systemic steroids
CPT/HCPCS: 36415; 71045; 71275; 80053; 83735; 83874; 84484; 85007; 85027; 85610; 85730; 93041

== ENCOUNTER 2021-03-19 23:52 | Emergency (ER) | payer SELFPAY ==
[~2021-03-19] VITALS: Ht 160 cm; Wt 104.3 kg
[2021-03-20 00:09] VITALS: BP 149/89
--- NOTE | 2021-03-20 00:33 | ED Headache ---
General Chief Complaint: Head/Cervical Problems Stated Complaint: HIGH BP;HEAD ACHE Nursing Triage Note: PRESENTS TO ROOM #6 VIA POV WITH C/O HEADACHE AND HIGH BLOOD PRESSURE. 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 STATES SHE BEGAN TO EXPERIENCE HEADACHE AND FLUSHING TO L SIDE OF HER FACE THROUGHOUT THE EVENING OF 03/19/21. STATES SHE HAS BEEN APPLYING PRESCRIBED BUPRENORPHIN DIS 5MCG TRANSDERMAL PATCHES D/T PAIN. STATES SHE BELIEVES PATCHES ARE AFFECTING HER BP. Nursing Sepsis Screen: No Definite Risk Source: patient Exam Limitations: no limitations History of Present Illness Date Seen by Provider: March 20, 2021 Time Seen by Provider: 00:17 Initial Comments The patient presents to the ER by private conveyance with chief complaint of a headache been going on for past couple days little different from her usual migraine headaches. She says it started after she put on a buprenorphine patch prescribed by her transportation equipment painter Dr. Martinez in [place]. She just started it February 09 but she has not routinely put it on and has missed several doses. She wears it for a full week at a time and put her last one on a couple days ago when the headache started. She has associated her headache with this patch. She has some left facial flushing but no pain facial drooping asymmetry slurred speech weakness numbness tingling. She checked her blood pressure because she was having a headache and noted it to be 189/101 at home. Nursing staff states her initial blood pressure is in the 140s over 89. She has not taken anything for her headache yet. Allergies and Home Medications Allergies Coded Allergies: Penicillins (Unverified Allergy, Unknown, HIVES, SOB, 06/16/19) ciprofloxacin (Verified Allergy, Unknown, 06/16/19) codeine (Verified Allergy, Unknown, TOLERATES HYDROCODONE, 06/16/19) meperidine (Verified Allergy, Unknown, 06/16/19) morphine (Verified Allergy, Unknown, MAUSEA, 06/16/19) Home Medications Estradiol 1 Mg Tablet, 1 MG PO DAILY, (Reported) Metformin HCl 1,000 Mg Tablet, 1,000 MG PO DAILY, (Reported) Methocarbamol 750 Mg Tablet, 750 MG PO Q4H PRN for PAIN-MILD (1-4) Prescribed by: OKSANA SIERRA on 03/12/202045 [place] 3 Polyunsat Fatty Acids 1,000 Mg Cap, 1,000 MG PO DAILY, (Reported) Prednisone 20 Mg Tab, 40 MG PO DAILY Prescribed by: OKSANA SIERRA on 03/12/202051 Spironolactone 25 Mg Tablet, 25 MG PO BID, (Reported) Patient Home Medication List Home Medication List Reviewed: Yes Review of Systems Review of Systems Constitutional: No chills, No diaphoresis Eyes: Denies Blindness, Denies Blurred Vision Ears, Nose, Mouth, Throat: denies ear pain Respiratory: No cough, No short of breath Cardiovascular: No Hx of Intervention, No palpitations Gastrointestinal: No abdominal pain, No nausea, No vomiting Genitourinary: No discharge, No dysuria Musculoskeletal: No back pain, No joint pain Skin: No pruritus, No rash All Other Systems Reviewed Negative Unless Noted: Yes Past Grokrud-Fkdguk-Hwwhar Hx Patient Social History Alcohol Use: Denies Use Smoking Status: Never a Smoker 2nd Hand Smoke Exposure: No Recent Infectious Disease Expo: No Recent Hopitalizations: No Immunizations Up To Date Tetanus Booster (TDap): Less than 5yrs Date of Pneumonia Vaccine: Aug 11, 2018 Date of Influenza Vaccine: Aug 11, 2018 Seasonal Allergies Seasonal Allergies: Yes Past Medical History Surgeries: Yes (SINUS, D&C X 2, LAPAROSCOPIES X 2, RT CARPAL TUNNEL;MAT Carpal Tunnel ) Section, Gallbladder, Hysterectomy, Orthopedic Respiratory: Yes Asthma, Chronic Bronchitis Currently Using CPAP: No Currently Using BIPAP: No Cardiac: Yes Heart Murmur, Hypertension Neurological: Yes Headaches /Migraines 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 Disorders: Yes ( 8 para 4 (D&C x2-4 miscarriages x2)) 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 Sexually Transmitted Disease: Yes (chlamydia ) HIV/AIDS: No Genitourinary: Yes Bladder Infection, UTI-Chronic Gastrointestinal: Yes Diverticulosis, Gall Bladder Disease Musculoskeletal: No Endocrine: Yes Diabetes, Non-Insulin dep HEENT: Yes (GLASSES) Loss of Vision: Denies Hearing Impairment: Denies Cancer: No Psychosocial: No Integumentary: No Blood Disorders: No Adverse Reaction/Blood Tranf: No (N/A) Family Medical History Diabetes mellitus 19 MOTHER FH: glaucoma 19 MOTHER FH: macular degeneration 19 MOTHER Physical Exam Vital Signs Vital Signs - First Documented 03/20/21 00:09 Temp 36.9 Pulse 72 Resp 18 B/P (MAP) 149/89 (109) Pulse Ox 99 O2 Delivery Room Air Capillary Refill : Less Than 3 Seconds Height, Weight, BMI Height: 5'3.00" Weight: 222lbs. 0.0oz. 100.898926rg; 40.00 BMI Method:Actual General Appearance: WD/WN, no apparent distress HEENT: PERRL/EOMI, pharynx normal Neck: full range of motion, normal inspection Cardiovascular: normal peripheral pulses, regular rate, rhythm Respiratory: lungs clear, normal breath sounds, no respiratory distress, no accessory muscle use Gastrointestinal: normal bowel sounds, non tender, soft Psychiatric: alert, oriented x 3 Crainal Nerves: normal hearing, normal speech, PERRL Coordination/Gait: normal gait Motor/Sensory: no motor deficit, no sensory deficit Skin: normal color, warm/dry Progress/Results/Core Measures Results/Orders Vital Signs/I&O 03/20/21 00:09 Temp 36.9 Pulse 72 Resp 18 B/P (MAP) 149/89 (109) Pulse Ox 99 O2 Delivery Room Air Blood Pressure Mean: 109 Progress Progress Note #1: Time: 00:29 Progress Note Patient has a headache she has recently started a new medication it may be associated. She also has a bit of a flushing to the left side of her face where her headache is. A trigeminal headache is a possibility however this is not as severe as we typically see with trigeminal headaches. She is not tender to Tinel's tap over the base of the trigeminal nerve. She is not having any neurologic symptoms on clinical exam or other red flags. Plan to observe her for about half an hour and see if her blood pressure stays decent. If so we will give her a shot of Toradol send her home and have her take one of her Phenergan tablets and follow-up with her transportation equipment painter. We have encouraged her to discontinue the patch for now. Progress Note #2: Time: 01:15 Progress Note Repeat blood pressure is 123/95. We will give her some Toradol and Tylenol and encourage her to take her Phenergan when she gets home. Return precautions were given. Departure Impression Primary Impression: Headache, trigeminal autonomic Disposition: HOME, SELF-CARE Condition: Stable Departure-Patient Inst. Decision time for Depature: 01:16 Referrals: [facility] (PCP) Primary Care Physician LANA NOYOLA (Family) Primary Care Physician Patient Instructions: Headache, Adult ED Add. Discharge Instructions: Tylenol 1000 mg every 8 hours as necessary for pain. Ibuprofen 800 mg or 8 hours as necessary for pain. Phenergan 1 tablet every 6 hours as necessary for headache and/or nausea and vomiting. Stop taking the patch and follow-up with your transportation equipment painter Dr. Martinez. Promptly return to the ER if you are having weakness, numbness, slurred speech, facial droop, chest pain, shortness of air or other emergent worrisome symptoms. All discharge instructions reviewed with patient and/or family. Voiced understanding. Work/School Note: Work Release Form Date Seen in the Emergency Department: March 20, 2021 Return to Work: March 21, 2021 Restrictions: No Restrictions CORNELIO LESTER March 20, 2021 00:33
[2021-03-20] MEDS ORDERED: ACETAMINOPHEN 500 MG TAB (TYLENOL) PO ONE (01:15)
[2021-03-20] MEDS ORDERED: KETOROLAC 60 MG/2 ML VIAL IM ONE (01:15)
== END 2021-03-20 01:30 | disposition home or self-care (01) ==
LOC: EDUNIT# 23:52 → ER 23:55
DX: G44.099 Other trigeminal autonomic cephalgias (TAC), not intractable (principal); J45.909 Unspecified asthma, uncomplicated; I10 Essential (primary) hypertension; E11.9 Type 2 diabetes mellitus without complications; Z88.0 Allergy status to penicillin; Z88.1 Allergy status to other antibiotic agents; Z88.5 Allergy status to narcotic agent; Z79.84 Long term (current) use of oral hypoglycemic drugs; Z79.52 Long term (current) use of systemic steroids; Z79.899 Other long term (current) drug therapy
CPT/HCPCS: 99284

== ENCOUNTER 2021-10-11 18:04 | Emergency (ER) | payer OTHER ==
[~2021-10-11] VITALS: Ht 154 cm; Wt 70.0 kg
[~2021-10-11 18:04] MED LIST changes: +CYCL10TA25 PO; -CYCL10TA9 PO
--- NOTE | 2021-10-11 18:19 | ED Lower Extremity ---
General Stated Complaint: FELL R HIP PAIN Source: patient Exam Limitations: no limitations History of Present Illness Date Seen by Provider: Oct 11, 2021 Time Seen by Provider: 18:16 Initial Comments Patient is a 51-year-old female who presents ED with right hip pain. Patient fell 1 hour ago at home. She states that she was about 3 feet off the wooden deck when she fell backwards hitting her right lateral hip and elbow. She states she missed the first or third step while going up and landed on the concrete/grass on her hip and elbow. She is able to stand and bear weight. Denies hitting her head, loss of conscious, blood thinners. She did states she hit her right elbow against the grass but denies of any severe pain or significa nt change in range of motion. Patient took a hydrocodone at home. No history of previous fracture to the right hip. Denies bowel or urine incontinence, saddle paresthesia, lower extremity weakness, chest pain, shortness of breath, neck pain, mid or lower back pain. Allergies and Home Medications Allergies Coded Allergies: Penicillins (Unverified Allergy, Unknown, HIVES, SOB, 06/16/19) ciprofloxacin (Verified Allergy, Unknown, 06/16/19) codeine (Verified Allergy, Unknown, TOLERATES HYDROCODONE, 06/16/19) meperidine (Verified Allergy, Unknown, 06/16/19) morphine (Verified Allergy, Unknown, MAUSEA, 06/16/19) Patient Home Medication List Home Medication List Reviewed: Yes Estradiol (Estradiol Tablet) 1 Mg Tablet, 1 MG PO DAILY, (Reported) Entered as Reported by: ANTONIETA MARIEE on 12/06/15 1303 Metformin HCl (Metformin HCl) 1,000 Mg Tablet, 1,000 MG PO DAILY, (Reported) Entered as Reported by: ANTONIETA MARIEE on 12/06/15 1303 Methocarbamol (Robaxin-750) 750 Mg Tablet, 750 MG PO Q4H PRN for PAIN-MILD (1-4) Prescribed by: OKSANA SIERRA on 03/12/202045 [place] 3 Polyunsat Fatty Acids (Fish Oil 1,000 mg Capsule) 1,000 Mg Cap, 1,000 MG PO DAILY, (Reported) Entered as Reported by: SARMAD BE on 10/20/18 0939 Prednisone (Prednisone) 20 Mg Tab, 40 MG PO DAILY Prescribed by: OKSANA SIERRA on 03/12/202051 Spironolactone (Spironolactone) 25 Mg Tablet, 25 MG PO BID, (Reported) Entered as Reported by: ANTONIETA MARIEE on 12/06/15 1303 Review of Systems Constitutional: No chills, No diaphoresis, No dizziness, No fever, No malaise EENTM: No eye pain, No nose congestion Respiratory: No cough, No short of breath Cardiovascular: No chest pain, No edema Gastrointestinal: No abdominal pain, No diarrhea, No nausea, No vomiting Genitourinary: No decreased output, No dysuria, No frequency Musculoskeletal: joint swelling, muscle pain, muscle stiffness Skin: No change in color, No change in hair/nails Psychiatric/Neurological: No Symptoms Reported All Other Systems Reviewed Negative Unless Noted: Yes Past Eixtgzd-Czhtso-Tzjlpo Hx Immunizations Up To Date Tetanus Booster (TDap): Less than 5yrs Seasonal Allergies Seasonal Allergies: Yes Past Medical History Surgeries: Yes (SINUS, D&C X 2, LAPAROSCOPIES X 2, RT CARPAL TUNNEL;MAT Carpal Tunnel ) Section, Gallbladder, Hysterectomy, Orthopedic Respiratory: Yes Asthma, Chronic Bronchitis Currently Using CPAP: No Currently Using BIPAP: No Cardiac: Yes Heart Murmur, Hypertension Neurological: Yes Headaches /Migraines 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 Disorders: Yes ( 8 para 4 (D&C x2-4 miscarriages x2)) 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 Sexually Transmitted Disease: Yes (chlamydia ) HIV/AIDS: No Genitourinary: Yes Bladder Infection, UTI-Chronic Gastrointestinal: Yes Diverticulosis, Gall Bladder Disease Musculoskeletal: No Endocrine: Yes Diabetes, Non-Insulin dep HEENT: Yes (GLASSES) Loss of Vision: Denies Hearing Impairment: Denies Cancer: No Psychosocial: No Integumentary: No Blood Disorders: No Adverse Reaction/Blood Tranf: No (N/A) Family Medical History Diabetes mellitus 19 MOTHER FH: glaucoma 19 MOTHER FH: macular degeneration 19 MOTHER Physical Exam Vital Signs Vital Signs - First Documented 10/11/21 18:16 Temp 36.4 Pulse 82 Resp 18 B/P (MAP) 160/102 (121) Pulse Ox 97 Capillary Refill : Height, Weight, BMI Height: 5'3.00" Weight: 222lbs. 0.0oz. [id number]; 40.00 BMI Method:Actual General Appearance: WD/WN, no apparent distress HEENT: PERRL/EOMI, normal ENT inspection, TMs normal, pharynx normal Neck: non-tender, full range of motion, supple, normal inspection Cardiovascular: regular rate, rhythm, no edema, no gallop, no JVD Respiratory: chest non-tender, lungs clear, normal breath sounds, no respiratory distress, no accessory muscle use Gastrointestinal: normal bowel sounds, non tender, soft, no organomegaly Back: normal inspection, no CVA tenderness, no vertebral tenderness Hips: right hip normal range of motion, right hip bone tenderness, right hip soft tissue tenderness, right hip swelling Neurologic/Tendon: normal sensation, normal motor functions, normal tendon f unctions Skin: normal color, warm/dry Progress/Results/Core Measures Results/Orders My Orders Orders - ALINA RIVERA Hip, Right, 2 Views (10/11/21 18:15) Femur, Right, 2 Views (10/11/21 18:15) Vital Signs/I&O 10/11/21 18:16 Temp 36.4 Pulse 82 Resp 18 B/P (MAP) 160/102 (121) Pulse Ox 97 Departure Communication (Admissions) X-ray of the right hip, femur negative for fracture. Does have some mild tenderness to the right posterior elbow. Use imaging with normal active range of motion. Patient refused pain medication. She is able to bear weight and stand and walk here in the ED. She does have a contusion to the right buttock, right posterior hip. No cervical, thoracic or midline tenderness. Denies any her head, loss conscious. Recommend ice and anti-inflammatories. Orthopedic outpatient follow-up. Patient with a steady gait. Impression Primary Impression: Hip pain Disposition: HOME, SELF-CARE Condition: Stable Departure-Patient Inst. Decision time for Depature: 19:02 Referrals: [facility]/ (PCP) Primary Care Physician LEAH MANLEY DO (Family) Primary Care Physician DELMA BRADLEY MD Patient Instructions: Hip Pain ALINA RIVERA Oct 11, 2021 18:19
--- NOTE | 2021-10-11 18:57 | Diagnostic Imaging Report ---
INDICATION: Hip pain. EXAMINATION: Two views were obtained. FINDINGS: The alignment is normal. There are mild degenerative changes. There is no fracture or dislocation. Soft tissues are unremarkable. IMPRESSION: Mild degenerative changes, otherwise unremarkable. Dictated by: Dictated on workstation # [id number]
--- NOTE | 2021-10-11 18:57 | Diagnostic Imaging Report ---
CLINICAL HISTORY: Fall. Right leg pain. COMPARISON: None. TECHNIQUE: Four views of the right femur. FINDINGS: There is no acute fracture or dislocation of the right femur. Alignment is anatomic. No focal osseous lesions are seen. The surrounding soft tissues are unremarkable. IMPRESSION: No acute fracture or dislocation of the right femur. Dictated by: Dictated on workstation # [id number]
[2021-10-11 19:13] VITALS: BP 127/78
== END 2021-10-11 19:14 | disposition home or self-care (01) ==
LOC: EDUNIT# 18:04 → ER 18:06
DX: M25.551 Pain in right hip (principal); J45.909 Unspecified asthma, uncomplicated; I10 Essential (primary) hypertension; E11.9 Type 2 diabetes mellitus without complications; Z79.84 Long term (current) use of oral hypoglycemic drugs; Z79.52 Long term (current) use of systemic steroids
CPT/HCPCS: 73502; 73552

== ENCOUNTER 2023-04-10 05:36 | Outpatient (CLI) | payer OTHER ==
[~2023-04-10] VITALS: Ht 160 cm; Wt 88.1 kg
[~2023-04-10 05:36] MED LIST changes: -ASPI-789 PO; +ASPI1TAB23 PO
[2023-04-11] MEDS ORDERED: ZINC50TA11 PO (10:34)
[2023-04-11] MEDS ORDERED: ATOR10TA66 PO (10:34)
[2023-04-11] MEDS ORDERED: CHOL100048 PO (10:34)
[2023-04-11] MEDS ORDERED: ASCO100024 PO (10:34)
== END 2023-04-11 10:36 | disposition home or self-care (01) ==
LOC: PREOP 05:36
PROVIDERS: ATTEND Surgery
DX: Z01.818 Encounter for other preprocedural examination (principal)

== ENCOUNTER 2023-04-23 08:04 | Day surgery (SDC) | payer OTHER ==
[~2023-04-23] VITALS: Ht 160 cm; Wt 88.1 kg
[~2023-04-23 08:04] MED LIST changes: +ASCO100024 PO; +ATOR10TA66 PO; +CHOL100048 PO; +ZINC50TA11 PO
[2023-04-23] MEDS ORDERED: LACTATED RINGERS 1,000 ML IV STA (08:06)
[2023-04-23] MEDS ORDERED: HURRICAINE EXT TUBE (BENZOCAINE) XX PRN (08:15)
[2023-04-23 08:30] VITALS: BP 126/80
[2023-04-23] MEDS ORDERED: PROPOFOL INJECTION 50 ML IV ONE (10:02)
[2023-04-23] MEDS ORDERED: MIDAZOLAM 2 MG/2 ML (VERSED) VIAL ONE (10:02)
[2023-04-23 10:35] VITALS: BP 126/81
--- NOTE | 2023-04-23 10:37 | Progress Note-Post Operative ---
Post-Operative Progess Note Surgeon (s)/Corporate Legal Assistant (s) Surgeon BEAU GUERRA DO Corporate Legal Assistant: na Pre-Operative Diagnosis positive cologuard test, epigastric pain Post-Operative Diagnosis gastritis, normal colon Procedure & Operative Findings Date of Procedure 04/23/23 Procedure Performed/Findings egd c biopsies, colonoscopy Anesthesia Type per compound filler Estimated Blood Loss Estimated blood loss (mL): na Specimens/Packing Specimens Removed antrum, body, ge BEAU GUERRA DO Apr 23, 2023 10:37
[2023-04-23] MEDS ORDERED: PANT40TA2 PO (10:39)
[2023-04-23 10:40] VITALS: BP 136/87
--- NOTE | 2023-04-23 10:40 | Discharge Inst-Simple/Standard ---
Discharge Inst-Standard Patient Instructions/Follow Up Plan of Care/Instructions/FU: 2 weeks Kristi Activity as Tolerated: Yes Discharge Diet: Regular Diet BEAU GUERRA DO Apr 23, 2023 10:40
[2023-04-23 10:45] VITALS: BP 143/98
[2023-04-23 11:05] VITALS: BP 143/98
--- NOTE | 2023-04-23 13:55 | OPERATIVE REPORT ---
DATE OF SERVICE: 04/23/2023 PREOPERATIVE DIAGNOSIS: Positive Cologuard test, epigastric abdominal pain. POSTOPERATIVE DIAGNOSES: Gastritis, normal colon. PROCEDURES: EGD with biopsies, colonoscopy. SURGEON: Beau Berry DO ANESTHESIA: Per HOTEL ASSISTANT MANAGER. ESTIMATED BLOOD LOSS: None. COMPLICATIONS: None. INDICATIONS: The patient is a 52-year-old female with epigastric abdominal pain and had a positive Cologuard test. She understands risks and benefits of procedure and wished to proceed. Consent was signed in the chart. DESCRIPTION OF PROCEDURE: The patient was taken to endoscopy suite, placed in left lateral recumbent position. Timeout was performed. Scope was inserted in the mouth, down the esophagus, stomach, into the duodenum without difficulty. No polyps, masses or ulcerations within the duodenum. Scope was slowly retracted back into the stomach where it was further insufflated. Slight gastritis appearance. Biopsy of the antrum and body were obtained. Scope was retroflexed noting no other pathology. Scope was returned to its normal position, slowly withdrawn until distal esophagus. Biopsy of GE junction was obtained. Scope was slowly retracted back until completely removed. Digital rectal exam was performed. No palpable polyps, masses or ulcerations. Scope was inserted in the rectum and advanced all the way to the cecum with minimal difficulty. Prep was adequate. Scope was slowly retracted back. No polyps, masses or ulcerations in the cecum, ascending, transverse, descending and sigmoid colon. Once in the rectum, scope was retroflexed in no other pathology. Scope was returned to its normal position, slowly withdrawn until completely removed. The patient tolerated the procedure well without complications, taken to recovery room in stable condition. RECOMMENDATIONS: The patient will need repeat colonoscopy in 10 years unless family history of colon cancer, which was then be 5 years. Any issues before that, be seen at that time. The patient will follow up on biopsies in a couple of weeks. We will start her on Protonix 40 mg daily to see if this does improve her gastritis symptoms. Further recommendation pending biopsy results. Job ID: [id number] DocumentID: [id number] Dictated Date: 04/23/2023 10:39:53 [employer] Date: 04/23/2023 13:54:00 Dictated By: BEAU BERRY DO
--- NOTE | 2023-04-23 14:33 | Anesthesia-General Post-Op ---
MAC Patient Condition Mental Status/LOC: Same as Preop Cardiovascular: Satisfactory Nausea/Vomiting: Absent Respiratory: Satisfactory Pain: Controlled Complications: Absent Post Op Complications Complications None Follow Up Care/Instructions Patient Instructions None needed. Anesthesiology Discharge Order Discharge Order Patient is doing well, no complaints, stable vital signs, no apparent adverse anesthesia problems. No complications reported per nursing. QUAN KEN DRYING TUNNEL OPERATOR Apr 23, 2023 14:33
== END 2023-04-23 11:30 | disposition home or self-care (01) ==
LOC: ENDO 08:04
PROVIDERS: ATTEND Surgery
DX: Z12.11 Encounter for screening for malignant neoplasm of colon (principal); K29.50 Unspecified chronic gastritis without bleeding; R19.5 Other fecal abnormalities; K31.89 Other diseases of stomach and duodenum; E66.9 Obesity, unspecified; Z68.34 Body mass index [BMI] 34.0-34.9, adult
CPT/HCPCS: 88305

== ENCOUNTER 2023-09-04 07:48 | Outpatient (CLI) | payer OTHER ==
[~2023-09-04] VITALS: Ht 160 cm; Wt 92.4 kg
[~2023-09-04 07:48] MED LIST changes: +PANT40TA2 PO
[2023-09-04] MEDS ORDERED: CETI10CA PO (12:07)
[2023-09-04] MEDS ORDERED: SEMA0.258 SQ (12:07)
[2023-09-04] MEDS ORDERED: VALA10007 PO (12:30)
[2023-09-04] MEDS ORDERED: BUDE10.2 IH (12:30)
[2023-09-04] MEDS ORDERED: NF-XOP-HFA INH (12:30)
== END 2023-09-04 13:33 | disposition home or self-care (01) ==
LOC: PREOP 07:48
PROVIDERS: ATTEND Surgery
DX: Z01.818 Encounter for other preprocedural examination (principal)

== ENCOUNTER 2023-09-12 06:57 | Day surgery (SDC) | payer OTHER ==
[~2023-09-12] VITALS: Ht 160 cm; Wt 92.4 kg
[2023-09-12] VITALS (10 sets, daily range): BP systolic 119–156; BP diastolic 59–84
[~2023-09-12 06:57] MED LIST changes: +BUDE10.2 IH; +CETI10CA PO; +NF-XOP-HFA INH; +SEMA0.258 SQ; +VALA10007 PO
[2023-09-12] MEDS ORDERED: CLINDAMYCIN 600 MG/50 ML IVPB 50 ML IV ONE (07:00)
[2023-09-12] MEDS ORDERED: fentaNYL INJECTION 100 MCG/2 ML VIAL ONE (07:19)
[2023-09-12] MEDS ORDERED: MIDAZOLAM INJ 2 MG/2 ML VIAL ONE (07:20)
[2023-09-12] MEDS ORDERED: LIDOCAINE 2% w/EPI 1:100,000 20 ML VIAL ONE (07:22)
[2023-09-12] MEDS: LACTATED RINGERS 1,000 ML 1,000 ML IV PRN ×2 (07:27→08:43)
[2023-09-12] MEDS ORDERED: NEOSTIGMINE 1 MG/1ML 10 ML VIAL ONE (08:39)
[2023-09-12] MEDS ORDERED: proPOfol INJECTION 200 MG/20 ML VIAL IV ONE (08:39)
[2023-09-12] MEDS ORDERED: ROCURONIUM 50 MG/5 ML VIAL IV ONE (08:39)
[2023-09-12] MEDS ORDERED: SEVOFLURANE (ULTANE) 15 ML INHAL SOLN ONE (08:39)
[2023-09-12] MEDS ORDERED: GLYCOPYRROLATE INJ 0.2 MG/ML 2 ML VIAL ONE (08:39)
[2023-09-12] MEDS ORDERED: LIDOCAINE PF 2% 5 ML VIAL ONE (08:39)
[2023-09-12] MEDS ORDERED: LIDOCAINE 2% w/EPI 1:100,000 20 ML VIAL INJ ONE (08:52)
--- NOTE | 2023-09-12 08:55 | Discharge Inst-Simple/Standard ---
Discharge Inst-Standard Discharge Medications New, Converted or Re-Newed RX: Transmitted to Pharmacy Patient Instructions/Follow Up Plan of Care/Instructions/FU: 2 WEEKS MARI Activity as Tolerated: No Discharge Diet: Regular Diet Other Inst to Patient Follow up Appt: Make appointment for 2 week. Instructions: No lifting greater than 10 pounds. No strenuous activity. May shower in 24 hours, no tub bath or soaking. Use incentive spirometer at home as directed. No Smoking Skin/Wound Care: Change dressing daily and as needed. Symptoms to Report: Appetite Changes, Extremity Discoloration, Numbness/Tingling, Swelling Increased, Bleeding Excessive, Eyesight Changes, Pain Increased, Urine Color Change, Constipation(Persistent), Fever over 101 degree F, Pain/Pressure in chest, Urinating Difficulty, Cough Up/Vomit Blood, Heart Beat Irreg/Pounding, Pain/Pressure in jaw, Vaginal Bleeding Increase, Cramps in feet or legs, Lightheadedness, Pain/Pressure in shoulder, Diarrhea(Persistent), Memory Changes Suddenly, Questions/Concerns, Weight gain consecutive days, Dizziness/Fainting, Nausea/Vomiting, Shortness of Breath, Weight gain over 2 pounds If questions or concerns contact your physician Or seek help at emergency department. BEAU GUERRA DO Sep 12, 2023 08:55
[2023-09-12] MEDS ORDERED: ACHD5005 PO (08:56)
[2023-09-12] MEDS ORDERED: HYDROcodone/ACETAMINOPHEN 5 MG/325 MG TABLET ONE (10:24)
[2023-09-12] MEDS ORDERED: HYDROcodone/ACETAMINOPHEN 5 MG/325 MG TABLET PO ONE (10:30)
--- NOTE | 2023-09-13 04:02 | OPERATIVE REPORT ---
DATE OF SERVICE: 09/12/2023 PREOPERATIVE DIAGNOSIS: Back mass. POSTOPERATIVE DIAGNOSIS: Back mass. PROCEDURE: Excision of back mass 5 x 5.5 cm. SURGEON: Beau Berry DO ANESTHESIA: General. ESTIMATED BLOOD LOSS: Minimal. COMPLICATIONS: None. INDICATIONS: The patient is a 53-year-old female with back mass on the right lower quadrant. It causes pain and discomfort. She understands risks and benefits of procedure and wishes to proceed. Consent was signed in chart. DESCRIPTION OF PROCEDURE: The patient was taken to the operating suite. She was placed in left lateral recumbent position. Timeout was performed. Local anesthetic was infiltrated above the mass. A #15 blade scalpel was used to make a skin incision and the skin and subcutaneous tissues then divided, encountered back mass which was lipomatous in nature. I used blunt and cautery to dissect around it and removing it. Overall, dimensions were approximately 5 x 5.5 cm. Hemostasis was achieved. The wound was then irrigated and suctioned. The skin was then closed using 2-0 nylon in simple interrupted fashion. Area was washed and dried and sterile bandages were applied. The patient tolerated the procedure well without any complications, taken to recovery room in stable condition. Job ID: [id number] DocumentID: [id number] Dictated Date: 09/12/2023 22:23:01 Production Control Clerk Date: 09/13/2023 03:59:00 Dictated By: BEAU BERRY DO [facility]
== END 2023-09-12 10:55 | disposition home or self-care (01) ==
LOC: SDC 06:57
PROVIDERS: ATTEND Surgery
DX: D17.1 Benign lipomatous neoplasm of skin and subcutaneous tissue of trunk (principal); E66.9 Obesity, unspecified; K29.50 Unspecified chronic gastritis without bleeding
CPT/HCPCS: 87081